=== PATIENT | female | born 1990 | race Caucasian/White ===

== ENCOUNTER → 2016-06-10 | Outpatient (CLI) | payer OTHER ==
[~2016-06-10] MED LIST: AMOX500C3 PO; ETONMIS VAGRING; GDN60 PO; HYDR-3983 PO; LTHSR/300 PO; NALT50TA5 PO; OXYC1TAB3 PO; PENI500T2 PO; VENL75CA PO; ZIPR1CAP4 PO
[2016-06-10 09:42] LABS: BASO % 0.3 %; BASO ABS # 0.03 K/uL (0-0.2); COMPLETE YES; EOS % 1.3 %; HEMATOCRIT 46.9 % (37-47); IG% 0.6 %; LYMPH % 29.5 %; LYMPH ABS # 2.99 K/uL (1.2-3.4); MEAN CELL VOLUME 87.2 fL (80-100); MEAN CORPUSCULAR HEMOGLOBIN 30.5 pg (25-34); MEAN PLATELET VOLUME 10.3 fL (7.4-10.4); MONO % 6.5 %; NEUT % 61.8 %; PLATELET COUNT 242 K/uL (130-400); RED BLOOD COUNT 5.38 M/uL (4.2-5.4); WHITE BLOOD COUNT 10.15 K/uL (4.8-10.8)
[2016-06-10 10:02] LABS: ALT/SGPT 39 U/L (12-78); BLOOD UREA NITROGEN 10 mg/dl (7-18); BUN/CREATININE RATIO 13.3 (10-20); CALCIUM 8.7 mg/dl (8.5-10.1); CARBON DIOXIDE 24 mmol/L (21-32); CHLORIDE 109 mmol/L (98-107); CHOLESTEROL 234 mg/dl (0-200); CREATININE 0.72 mg/dl (0.60-1.20); GLUCOSE 88 mg/dl (70-99); POTASSIUM 4.4 mmol/L (3.5-5.1); SODIUM 141 mmol/L (136-145); TRIGLYCERIDES 276 mg/dl (0-150); VERY LOW DENSITY LIPOPROT CALC 55 mg/dl
[2016-06-10 10:11] LABS: ALB/GLOB RATIO 1.1 (0.9-2); ALKALINE PHOSPHATASE 80 U/L (45-117); AST/SGOT 17 U/L (15-37); CHOLESTEROL/HDL RATIO 5.6; HDL CHOLESTEROL 42 mg/dl; LDL CHOLESTEROL CALCULATED 137 mg/dl
[2016-06-10 10:21] LABS: ESTIMATED AVERAGE GLUCOSE 103 mg/dl; HA1C FLAG Normal (Normal)
== END | disposition home or self-care (01) ==
LOC: C.LAB1850 07:43
PROVIDERS: ATTEND Urology
DX: Z79.899 Other long term (current) drug therapy (principal)

== ENCOUNTER → 2016-07-19 | Outpatient (CLI) | payer OTHER ==
[2016-07-19 11:05] LABS: THYROID STIMULATING HORMONE 1.34 uIu/ml (0.300-4.500)
== END | disposition home or self-care (01) ==
LOC: C.LAB1850 08:55
PROVIDERS: ATTEND Physician Assistant
DX: Z79.899 Other long term (current) drug therapy (principal)

== ENCOUNTER → 2016-10-06 | Outpatient (CLI) | payer OTHER ==
[~2016-10-06] MED LIST changes: -LTHSR/300 PO
[2016-10-10 12:10] LABS: CHLAMYDIA TRACH RNA*** NOT DETECTED (NOT DETECTED); GC (NEIS GONORRHOEAE)RNA** NOT DETECTED (NOT DETECTED)
== END | disposition home or self-care (01) ==
LOC: C.LABSPEC 15:50
PROVIDERS: ATTEND Physician Assistant
DX: Z11.3 Encounter for screening for infections with a predominantly sexual mode of transmission (principal)

== ENCOUNTER → 2016-10-06 | Outpatient (CLI) | payer OTHER | END | disposition home or self-care (01) | LOC: C.PAPS 08:29 | PROVIDERS: ATTEND Physician Assistant | DX: Z12.4 Encounter for screening for malignant neoplasm of cervix (principal) ==

== ENCOUNTER 2016-10-09 12:04 | Emergency (ER) | payer OTHER ==
[~2016-10-09] VITALS: Ht 160 cm; Wt 93.6 kg
[~2016-10-09 12:04] MED LIST changes: -AMOX500C3 PO; -ETONMIS VAGRING; -GDN60 PO; -HYDR-3983 PO; -OXYC1TAB3 PO; -PENI500T2 PO
[2016-10-09 12:09] VITALS: Ht 160 cm; Wt 93.6 kg
[2016-10-09] MEDS ORDERED: PENI500T2 PO (12:21)
[2016-10-09] MEDS ORDERED: ETONMIS VAGRING (12:21)
[2016-10-09] MEDS ORDERED: HYDR-3983 PO (12:21)
[2016-10-09] MEDS ORDERED: OXYC1TAB3 PO (13:19)
[2016-10-09 13:46] VITALS: BP 143/90; PULSE 84; TEMP 37.2; O2SAT 99
--- NOTE | 2016-10-09 15:05 | EMERGENCY ROOM VISIT NOTE ---
History First contact with patient: 13:03 Chief Complaint: DENTAL PAIN Stated Complaint: EXCRUCIATING PAIN IN MOUTH Nursing Triage Summary: Pt c/o dental pain, had 3 teeth pulled on Monday. "they gave me [place] and it's not even touching it, I can't eat, I can't sleep" Denies calling , states she's been working so hasn't called . History of Present Illness The patient is a 26 year old female who presents to the Emergency Room with complaints of persistent upper dental pain. The patient reports that she had 3 teeth extracted on Monday by Dr. Mccormick in [place]. The patient reports that she was provided a prescription for [place] and penicillin, but is still having significant pain. She has been taking two [place] at a time without relief. She has not contacted her oral surgeon's office to advise them of her continued and persistent pain. She denies any drainage or foul taste in the mouth. She denies any fevers or chills, difficulty swallowing or persistent facial numbness. She rates her discomfort a 9 out of 10. Review of Systems 10 system review was performed and was negative except for pertinent positives and negatives as indicated in history of present illness Past Medical/Surgical History Medical Problems: (1) Acute bronchitis (2) Asthma (3) Homicidal ideation (4) Pneumonia (5) Ulcer Family History Diabetes mellitus FH: hypertension Heart disease Seizures Social History Smoking Status: Current Every Day Smoker Alcohol Use: occasionally Marital Status: single Housing Status: lives with family Occupation Status: employed Current/Historical Medications Scheduled Etonogestrel/Ethinyl Estradiol (Nuvaring), 1 EA VAGRING MONTHLY Naltrexone Hcl (Naltrexone Hcl), 50 MG PO QPM Penicillin V Potassium (Veetids), 500 MG PO QID Venlafaxine Hcl (Effexor Xr), 1 CAP PO QPM Ziprasidone Hcl (Geodon), 40 MG PO AMPM Scheduled PRN Hydrocodone/Acetaminophen 7.5MG/325MG ([place] 7.5MG/325MG), 1 TAB PO Q6-8H PRN for Pain Oxycodone Ir (Roxicodone Ir), 1-2 TAB PO Q4H PRN for Pain Allergies Coded Allergies: Adhesives (Verified Allergy, Mild, RASH, 12/05/15) Physical Exam Vital Signs Date Time Temp Pulse Resp B/P (MAP) Pulse Ox O2 Delivery O2 Flow Rate FiO2 10/09/16 13:46 37.2 84 18 143/90 99 10/09/16 12:09 37.2 102 18 142/95 98 Room Air Physical Exam CONSTITUTIONAL: Healthy and well nourished. Alert and oriented X 3 with positive affect. Patient does not appear in any acute distress. HEENT: Normocephalic, atraumatic. Pupils equal, round and reactive. No facial edema or erythema noted. OROPHARYNX: Patient has 3 separate extraction sites of the maxillary region. There is no focal gingival erythema, fluctuance, pointing or drainage from the extraction sites. No evidence for Benton's angina or retropharyngeal abscess. LYMPHATICS: No preauricular, submandibular or submental adenopathy. NECK: Full active range of motion without discomfort. RESPIRATORY: Clear to auscultation bilaterally with no wheezing, crackles, rhonchi or stridor. CARDIOVASCULAR: Regular rate and rhythm with no murmurs, rubs or gallops. INTEGUMENTARY: No rash or other significant dermatologic conditions noted. NEUROLOGIC: Facial sensations are intact. Medical Decision & Procedures ED Course Patient history and physical exam were performed. Nurse's notes were reviewed. Vital signs were reviewed, showing an elevated blood pressure 142/75. The patient is afebrile. Physical exam at this time is not suggestive of overwhelming infection. Patient requested a prescription for some stronger pain medication. Review of the [place] Prescription Drug Monitoring Program shows that the patient was prescribed [place] 7.5/325. The patient reports that she only has a few pills left. The patient was advised that I would provide her with a prescription for OxyIR 5 mg, dispensed #15 with no refills. She was also encouraged to alternate ibuprofen and Tylenol for baseline pain relief. The patient was advised that she MUST contact her oral surgeon's office for further reevaluation and management. The patient was advised that the emergency department does not provide on-call dentist, referrals or postoperative/chronic pain management. She is welcome to return for any developing infection, difficulty swallowing, facial edema or other concerning symptoms. The patient voiced understanding of all discharge instructions, was happy with plan of care, and rated her pain an 8 out of 10 at the time of discharge. The patient drove to the emergency department and refused any analgesics. The patient was also advised of her elevated blood pressure, and instructed to follow-up with her PCP for further blood pressure recheck. After the patient was discharged and she arrived at the pharmacy, I received a phone call from the pharmacist, stating that the patient is currently taking naltrexone. It is noted that this medication is not listed on the [place] Prescription Drug Monitoring Program. Medication reconciliation had not been performed prior to my patient evaluation. I did asked the pharmacist to tell the patient not to take naltrexone while she is taking her pain medications, and should also discuss this with her pain management prescriber and oral surgeon. Medical Decision [place] Drug Monitoring Program Search Results: patient reviewed within database, no issues identified Impression Primary Impression: Post extraction dental pain Additional Impression: Elevated blood pressure reading Departure Information Prescriptions Oxycodone Ir (Roxicodone Ir) 5 Mg Tab 1-2 TAB PO Q4H Y for Pain, #15 TAB For Initial Treatment Prov: Sam Yu PA 10/09/16 Referrals No Doctor, Assigned (PCP) Patient Instructions My [facility] Problem Qualifiers
== END 2016-10-09 13:47 | disposition home or self-care (01) ==
LOC: C.EDB 12:05 → C.EDD 13:47
DX: K08.89 Other specified disorders of teeth and supporting structures (principal); R03.0 Elevated blood-pressure reading, without diagnosis of hypertension; J45.909 Unspecified asthma, uncomplicated; F17.200 Nicotine dependence, unspecified, uncomplicated; Z79.899 Other long term (current) drug therapy; Z91.09 Other allergy status, other than to drugs and biological substances; Z83.3 Family history of diabetes mellitus; Z82.49 Family history of ischemic heart disease and other diseases of the circulatory system; Z82.0 Family history of epilepsy and other diseases of the nervous system

== ENCOUNTER 2016-10-10 11:41 | Emergency (ER) | payer OTHER ==
[~2016-10-10] VITALS: Ht 160 cm; Wt 93.0 kg
[~2016-10-10 11:41] MED LIST changes: +ETONMIS VAGRING; +HYDR-3983 PO; +OXYC1TAB3 PO; +PENI500T2 PO
[2016-10-10 11:44] VITALS: TEMP 37.3; Ht 160 cm; Wt 93.0 kg
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
--- NOTE | 2016-10-10 13:53 | DIAGNOSTIC IMAGING REPORT ---
LEFT ELBOW 3 VIEWS CLINICAL HISTORY: Left elbow pain. FINDINGS: 3 views of the left elbow were obtained. No prior studies are available for comparison at the time of dictation. The skeletal structures are well mineralized. There is no radiographic evidence of left elbow fracture. The joint spaces are well-maintained. No joint effusion is identified. Mild soft tissue edema is seen medially. IMPRESSION: Mild soft tissue edema with no radiographic evidence of left elbow fracture. Electronically signed by: Pola Emerson M.D. 10/10/2016 1:51 PM Dictated Date/Time: 10/10/2016 1:50 PM
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
[2016-10-10 14:23] VITALS: BP 124/75; PULSE 72; O2SAT 99
== END 2016-10-10 14:26 | disposition home or self-care (01) ==
LOC: EDBD 11:41 → C.EDA 11:42
DX: S00.93XA Contusion of unspecified part of head, initial encounter (principal); S50.312A Abrasion of left elbow, initial encounter; V48.5XXA Car driver injured in noncollision transport accident in traffic accident, initial encounter; Y92.488 Other paved roadways as the place of occurrence of the external cause; J45.909 Unspecified asthma, uncomplicated; Z87.01 Personal history of pneumonia (recurrent); Z83.3 Family history of diabetes mellitus; Z82.49 Family history of ischemic heart disease and other diseases of the circulatory system; F17.210 Nicotine dependence, cigarettes, uncomplicated; Z79.899 Other long term (current) drug therapy

== ENCOUNTER 2016-10-15 07:36 | Emergency (ER) | payer OTHER ==
[~2016-10-15] VITALS: Ht 160 cm; Wt 93.2 kg
[2016-10-15 07:39] VITALS: TEMP 37; Ht 160 cm; Wt 93.2 kg
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
[2016-10-15 08:17] LABS: MEAN CORPUSCULAR HEMOGLOBIN 29.8 pg (25-34); MEAN CORPUSCULAR HGB CONC 34.7 g/dl (32-36); MEAN PLATELET VOLUME 9.7 fL (7.4-10.4); PLATELET COUNT 232 K/uL (130-400); RED BLOOD COUNT 5.23 M/uL (4.2-5.4); WHITE BLOOD COUNT 11.74 K/uL (4.8-10.8)
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
[2016-10-15 08:33] LABS: BUN/CREATININE RATIO 9.9 (10-20); CALCIUM 8.9 mg/dl (8.5-10.1); CREATININE 0.8 mg/dl (0.60-1.20); POTASSIUM 4.4 mmol/L (3.5-5.1)
[2016-10-15] MEDS ORDERED: AMOX500C3 PO (08:39)
[2016-10-15 09:30] VITALS: BP 123/91; PULSE 86; O2SAT 98
== END 2016-10-15 09:31 | disposition home or self-care (01) ==
LOC: C.EDB 07:37 → C.EDA 09:31
DX: F07.81 Postconcussional syndrome (principal); V89.2XXD Person injured in unspecified motor-vehicle accident, traffic, subsequent encounter; J45.909 Unspecified asthma, uncomplicated; Z87.01 Personal history of pneumonia (recurrent); Z83.3 Family history of diabetes mellitus; Z82.49 Family history of ischemic heart disease and other diseases of the circulatory system; Z82.0 Family history of epilepsy and other diseases of the nervous system; F17.210 Nicotine dependence, cigarettes, uncomplicated; Z79.899 Other long term (current) drug therapy

== ENCOUNTER 2016-10-26 08:27 | Emergency (ER) | payer OTHER ==
[~2016-10-26] VITALS: Ht 160 cm; Wt 92.5 kg
[~2016-10-26 08:27] MED LIST changes: +AMOX500C3 PO; -PENI500T2 PO
[2016-10-26 08:30] VITALS: TEMP 36.8; Ht 160 cm; Wt 92.5 kg
[2016-10-26] MEDS ORDERED: KETOROLAC TROMETHAMINE 60 MG/2 ML VIAL IM STA (08:57)
[2016-10-26] MEDS ORDERED: ONDANSETRON 4MG OD TAB PO ONE (09:00)
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
[2016-10-26 09:29] VITALS: BP 112/84; PULSE 83; O2SAT 97
== END 2016-10-26 09:38 | disposition home or self-care (01) ==
LOC: C.EDB 08:29
DX: R51 Headache (principal); V89.2XXD Person injured in unspecified motor-vehicle accident, traffic, subsequent encounter; J45.909 Unspecified asthma, uncomplicated; Z87.01 Personal history of pneumonia (recurrent); Z83.3 Family history of diabetes mellitus; Z82.49 Family history of ischemic heart disease and other diseases of the circulatory system; Z82.0 Family history of epilepsy and other diseases of the nervous system; F17.210 Nicotine dependence, cigarettes, uncomplicated; Z79.899 Other long term (current) drug therapy; Z79.3 Long term (current) use of hormonal contraceptives

== ENCOUNTER → 2016-12-08 | Outpatient (CLI) | payer OTHER ==
[~2016-12-08] MED LIST changes: +GDN60 PO
== END | disposition home or self-care (01) ==
LOC: C.LAB1850 12:56
PROVIDERS: ATTEND Physician Assistant
DX: Z79.899 Other long term (current) drug therapy (principal)

== ENCOUNTER 2016-12-24 08:26 | Emergency (ER) | payer OTHER ==
[~2016-12-24] VITALS: Ht 160 cm; Wt 94.5 kg
[~2016-12-24 08:26] MED LIST changes: -GDN60 PO
[2016-12-24 08:33] VITALS: TEMP 36.8; Ht 160 cm; Wt 94.5 kg
--- NOTE | 2016-12-24 09:16 | DIAGNOSTIC IMAGING REPORT ---
RIGHT ANKLE MIN 3 VIEWS ROUTINE HISTORY: 26 years-old Female right ankle injury Right acute right ankle pain status post sprain. COMPARISON: None available TECHNIQUE: 3 views of the right ankle. FINDINGS: No acute dislocation or significant degenerative changes. Ill-defined linear lucency of the distal fibular metaphysis seen on the oblique projection is noted. No osteochondral defect. There is moderate soft tissue swelling about the ankle with a small joint effusion. Negative for opaque foreign body. Os trigonum noted. IMPRESSION: 1. Ill-defined linear lucency of the distal fibular metaphysis seen only on the oblique projection is suspicious for acute nondisplaced fracture. Correlate with point tenderness and follow-up radiographs. 2. Moderate soft tissue swelling with small joint effusion. The above report was generated using voice recognition software. It may contain grammatical, syntax or spelling errors. Electronically signed by: Darryl Sharma M.D. 12/24/2016 9:14 AM Dictated Date/Time: 12/24/2016 9:11 AM
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
[2016-12-24 10:25] VITALS: BP 125/76; PULSE 77; O2SAT 99
== END 2016-12-24 10:27 | disposition home or self-care (01) ==
LOC: C.EDB 08:28 → C.EDA 10:27
DX: S82.831A Other fracture of upper and lower end of right fibula, initial encounter for closed fracture (principal); W10.9XXA Fall (on) (from) unspecified stairs and steps, initial encounter; X50.1XXA Overexertion from prolonged static or awkward postures, initial encounter

== ENCOUNTER 2017-01-21 22:29 | Emergency (ER) | payer OTHER ==
[~2017-01-21] VITALS: Ht 160 cm; Wt 89.6 kg
[~2017-01-21 22:29] MED LIST changes: -AMOX500C3 PO; -HYDR-3983 PO; -OXYC1TAB3 PO
[2017-01-21 22:32] VITALS: TEMP 37; Ht 160 cm; Wt 89.6 kg
[2017-01-21] MEDS ORDERED: GDN60 PO (22:50)
[2017-01-21 23:38] LABS: URINE APPEARANCE CLEAR (CLEAR); URINE BILIRUBIN NEG (NEG); URINE COLOR YELLOW; URINE EPITHELIAL CELL AUTO >30 /lpf (0-5); URINE NITRITE NEG (NEG); URINE PH 7.5 (4.5-7.5); URINE SPECIFIC GRAVITY 1.016 (1.000-1.030); UROBILINOGEN NEG (NEG)
[2017-01-21 23:47] LABS: MANUAL MICROSCOPIC REQUIRED? NO; REVIEW REQ? NO
[2017-01-22] MEDS ORDERED: ACETAMINOPHEN 325 MG TAB PO STA (00:09)
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
[2017-01-22 00:25] VITALS: BP 121/71; PULSE 81; O2SAT 98
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
== END 2017-01-22 00:27 | disposition home or self-care (01) ==
LOC: C.EDB 22:30 → C.EDC 01-22 00:27
DX: M54.9 Dorsalgia, unspecified (principal); S20.219A Contusion of unspecified front wall of thorax, initial encounter; R51 Headache; F31.9 Bipolar disorder, unspecified; J45.909 Unspecified asthma, uncomplicated; Z79.899 Other long term (current) drug therapy; Z87.01 Personal history of pneumonia (recurrent); Z87.09 Personal history of other diseases of the respiratory system; Z87.19 Personal history of other diseases of the digestive system; Z82.0 Family history of epilepsy and other diseases of the nervous system; Z82.49 Family history of ischemic heart disease and other diseases of the circulatory system; Z83.3 Family history of diabetes mellitus; Y04.0XXA Assault by unarmed brawl or fight, initial encounter; F17.200 Nicotine dependence, unspecified, uncomplicated

== ENCOUNTER 2017-05-01 00:24 | Emergency (ER) | payer OTHER ==
[~2017-05-01] VITALS: Ht 160 cm; Wt 86.3 kg
[~2017-05-01 00:24] MED LIST changes: +GDN60 PO; -ZIPR1CAP4 PO
[2017-05-01 00:29] VITALS: TEMP 36.8; Ht 160 cm; Wt 86.3 kg
[2017-05-01] MEDS ORDERED: LIDOCAINE HCL 2% VISC SOLN 20 ML UDC MT STA (00:40)
[2017-05-01] MEDS ORDERED: ALBUT/IPRATROP 3MG/0.5MG NEB 3 ML VIAL INH STA (00:40)
[2017-05-01] MEDS ORDERED: DEXAMETHASONE **PF** INJ 10 MG/ML VIAL PO ONE (00:45)
[2017-05-01] MEDS ORDERED: ALBUTEROL HFA 8 GM INHALER INH STA (01:05)
--- NOTE | 2017-05-01 01:29 | EMERGENCY ROOM VISIT NOTE ---
History First contact with patient: 00:30 Chief Complaint: FLU LIKE SX Stated Complaint: COLD SYMPTOMS,TROUBLE BREATHING,VOMOITING,DIARRHEA History of Present Illness The patient is a 27 year old female who presents to the Emergency Room with complaints of cough, congestion, sore throat, hoarseness for the past 2 weeks ago and continues to smoke. Patient had occasional vomiting and diarrhea. She works at [employer]. She was sent home and she lost her voice. Patient saw the family care DrTheo 2 weeks ago and was placed on Augmentin for possible ear infection. No improvement of her symptoms. Patient denies chest pain, dyspnea , abdominal pain, neck stiffness. She is tolerating by mouth fluids and food. No blood or black in the stool or emesis. Review of Systems See HPI for pertinent positives & negatives. A total of 10 systems reviewed and were otherwise negative. Past Medical/Surgical History Medical Problems: (1) Acute bronchitis (2) Asthma (3) Homicidal ideation (4) Pneumonia (5) Ulcer Family History Diabetes mellitus FH: hypertension Heart disease Seizures Social History Smoking Status: Current Every Day Smoker Alcohol Use: occasionally Marital Status: single Housing Status: lives with family Occupation Status: employed Current/Historical Medications Scheduled Etonogestrel/Ethinyl Estradiol (Nuvaring), 1 EA VAGRING MONTHLY Naltrexone Hcl (Naltrexone Hcl), 50 MG PO QPM Venlafaxine Hcl (Effexor Xr), 75 MG PO QPM Ziprasidone (Geodon), 60 MG PO DAILY Physical Exam Vital Signs Date Time Temp Pulse Resp B/P (MAP) Pulse Ox O2 Delivery O2 Flow Rate FiO2 05/01/17 00:29 36.8 87 18 127/83 100 Room Air Physical Exam VITALS: Vitals are noted on the nurse's note and reviewed by myself. Vital signs stable. GENERAL: Pleasant female speaking in full sentences, in no acute distress, nondiaphoretic, well-developed well-nourished. SKIN: The skin was without rashes, erythema, edema, or bruising. There is no tenting of the skin. Capillary reflex less than 2 seconds. HEAD: Normocephalic atraumatic. EARS: External auditory canals clear, tympanic membranes pearly miller without erythema or effusion bilaterally. EYES: Pupils equal round and reactive to light and accommodation. Conjunctivae without injection, sclerae without icterus. Extraocular movements intact. NOSE: Patent, turbinates without inflammation or discharge. No sinus tenderness. MOUTH: Mucous membranes moist. Tonsils are not enlarged. Pharynx with erythema without exudate. Uvula midline. Airway patent. Tongue does not deviate. NECK: Supple without nuchal rigidity. No lymphadenopathy. No thyromegaly. Cervical spine is nontender. No JVD. No meningeal signs HEART: Regular rate and rhythm without murmurs gallops or rubs. LUNGS: Clear to auscultation bilaterally without wheezes, rales or rhonchi. No dullness to percussion. No retractions or accessory muscle use. ABDOMEN: Positive bowel sounds x 4. Normal tympanic percussion. Soft, nontender, without masses or organomegaly. Ingram sign negative. No guarding or rebound tenderness. No CVA tenderness MUSCULOSKELETAL: No muscle atrophy, erythema, or edema noted. NEURO: Patient was alert and oriented to person place and time. Normal sensation to light and sharp touch. No focal neurological deficits. Medical Decision & Procedures Laboratory Results Test 05/01/17 01:00 Medications Administered Medications (Trade) Dose Ordered Sig/Aditya Route Start Time Stop Time Status Last Admin Dose Admin Dexamethasone Sodium Phosphate (Dexamethasone Inj Pf) 10 mg NOW ONCE PO 05/01/17 00:45 05/01/17 00:46 DC 05/01/17 01:04 10 MG Albuterol/ Ipratropium (Duoneb) 3 ml NOW STAT INH 05/01/17 00:40 05/01/17 00:43 DC 05/01/17 01:03 3 ML Lidocaine HCl (Viscous Lidocaine 2% Soln) 10 ml NOW STAT MT 05/01/17 00:40 05/01/17 00:43 DC 05/01/17 01:03 10 ML ED Course Prior records/ancillary studies reviewed. Triage Nursing notes reviewed. Additional history obtained from boyfriend. The patient's history was concerning for a cold symptoms Differential diagnosis: Etiologies such as asthmatic bronchitis, viral syndrome, tonsillitis, streptococcal pharyngitis, mononucleosis, peritonsillar abscess, retropharyngeal abscess, otitis, pneumonia, influenza, as well as others were entertained. ER treatment provided: Steroids, nebulizer On reassessment the patient felt better. Diagnostics interpreted by me: The labs revealed Negative strep test Imaging studies: Chest x-ray with no acute consolidation, pneumothorax or free air per my interpretation This appears to be consistent with asthmatic bronchitis. Patient was neurovascularly and neurologically intact. She is speaking in full sentences. She was not retracting. She is not hypoxic. She was strongly encouraged to quit smoking. She is advised to take medications as instructed, rest, stay well -hydrated and to follow-up family care in a few days or here in the ER sooner for chest pain, difficulty breathing, high fevers, lethargy, worsening signs or symptoms or as needed. By the evaluation outlined above emergent etiologies such as peritonsillar abscess, retropharyngeal abscess, otitis, pneumonia, meningitis, urinary tract infection, sepsis, bacteremia, as well as others were deemed relatively unlikely. The pt informed about the findings as listed above. All questions were answered and pleased with the treatment. Return instructions were outlined and the patient was discharged in stable condition. Outpatient prescription management: Prednisone Referral: The patient was referred back to their primary care physician for follow-up in 2 to 3 days for a recheck of the current condition. Case reviewed by attending Medical Decision As above Medication Reconcilliation Current Medication List: was personally reviewed by me Blood Pressure Screening Patient's blood pressure: Normal blood pressure Impression Primary Impression: Asthmatic bronchitis Departure Information Dispostion Home / Self-Care Condition GOOD Referrals No Doctor, Assigned (PCP) Patient Instructions My [facility] Additional Instructions Albuterol Inhaler: Take 2 puffs four times daily for five days, then as needed. Prednisone 50mg: Once daily until the prescription is finished. It is best to take this earlier in the day as some patients note occasional difficulty falling asleep when taken in the late evening. Acetaminophen(Tylenol) may be used for fever or pain. Use 1000mg every six hours as needed. Avoid using more than 3000mg in a 24 hour period. (AND/OR) Ibuprofen(Motrin, Advil) may be used for fever or pain. Use 600mg every six hours as needed. Take with food. Avoid using more than 2400mg in a 24 hour period. Do not use 2400mg per day for more than three consecutive days without physician direction. Prolonged inappropriate use can lead to stomach upset or ulcers. Afrin nasal spray: 2-3 sprays to each nostril twice daily as needed for congestion. Do not use for more than 3-4 days because it can lead to worsening rebound congestion. Pseudoephedrine(Sudaphed): 30-60mg every 6 hours as needed for nasal congestion. Do not take this with other stimulant products or supplements. Rest and drink plenty of fluids. Controlling your fever with Tylenol and Ibuprofen as above will make you feel better. Wash your hands after nose blowing, sneezing, or coughing. Most germs are spread through contact, therefore improper hygiene may result in your close contacts and loved ones becoming ill just like you. Continue current medications. Return to the ER for severe headache, neck stiffness, chest pain, difficulty breathing, fevers, vomiting, worsening of your condition, or as needed. Follow up with your primary physician this week for a recheck of your current condition. Problem Qualifiers Primary Impression: Asthmatic bronchitis Asthma severity: moderate Asthma persistence: persistent Asthma complication type: with acute exacerbation Qualified Codes: J45.41 - Moderate persistent asthma with (acute) exacerbation
[2017-05-01] MEDS ORDERED: PRED50TA PO (01:30)
[2017-05-01] MEDS ORDERED: ZIPR20CA PO (01:33)
[2017-05-01 01:40] LABS: INFLUENZA B ANTIGEN Neg for Influ B (NEG)
[2017-05-01 01:41] VITALS: BP 118/78; PULSE 80; O2SAT 100
[2017-05-01 02:12] LABS: INFLUENZA A PCR Neg for Influ A (NEG); INFLUENZA B PCR Neg for Influ B (NEG)
--- NOTE | 2017-05-01 06:29 | DIAGNOSTIC IMAGING REPORT ---
CHEST 2 VIEWS ROUTINE CLINICAL HISTORY: cough/fever COMPARISON STUDY: 01/01/2016 FINDINGS: The cardiac and mediastinal contours are normal. There is no evidence of focal pulmonary consolidation. There is no evidence of failure. No pleural effusions are visualized.[ IMPRESSION: No active disease in the chest. Electronically signed by: Bud Moody M.D. 05/01/2017 6:28 AM Dictated Date/Time: 05/01/2017 6:28 AM
== END 2017-05-01 01:43 | disposition home or self-care (01) ==
LOC: C.EDB 00:25
DX: J45.41 Moderate persistent asthma with (acute) exacerbation (principal); R19.7 Diarrhea, unspecified; F17.200 Nicotine dependence, unspecified, uncomplicated; Z87.01 Personal history of pneumonia (recurrent); Z83.3 Family history of diabetes mellitus; Z82.0 Family history of epilepsy and other diseases of the nervous system; Z82.49 Family history of ischemic heart disease and other diseases of the circulatory system

== ENCOUNTER 2017-05-16 17:18 | Emergency (ER) | payer OTHER ==
[~2017-05-16] VITALS: Ht 160 cm; Wt 87.1 kg
[~2017-05-16 17:18] MED LIST changes: -GDN60 PO; +ZIPR20CA PO
[2017-05-16 17:30] VITALS: TEMP 37; Ht 160 cm; Wt 87.1 kg
[2017-05-16] MEDS ORDERED: KETOROLAC TROMETHAMINE 60 MG/2 ML VIAL IM STA (17:48)
[2017-05-16] MEDS ORDERED: ONDANSETRON 4MG OD TAB PO ONE (18:00)
[2017-05-16] MEDS ORDERED: TOPI50TA16 PO (18:07)
[2017-05-16] MEDS ORDERED: IMITREX PO (18:07)
[2017-05-16 18:21] VITALS: BP 128/91; PULSE 89; O2SAT 96
--- NOTE | 2017-05-17 20:32 | EMERGENCY ROOM VISIT NOTE ---
ED Visit Note First contact with patient: 17:35 CHIEF COMPLAINT: Migraine headache. HISTORY OF PRESENT ILLNESS: Ms. Colin is a 27 year-old white female who ambulates into the ED complaining of a migraine headache. She reports a gradual onset of a severe migraine headache that started approximately 36 hours ago. The pain is constant and it is slowly increasing in severity. This is not the worst headache of the life and is similar to previous migraines. Currently she describes the headache as a pressure throbbing sensation/pain in the bifrontal area. She rates the pain a 10/10. The pain is nonradiating. She reports taking her prescribed Imitrex and Topamax without relief of pain. There is been associated light sensitivity, nausea but no vomiting and mild blurry vision. She denies fever, chills, wet's, skin eruptions, skin color changes, dizziness, lightheadedness, recent head trauma, upper respiratory tract symptoms, sore throat, neck pain/stiffness, hearing changes, difficulty speaking, difficulty swallowing, difficulty ambulating, lower extremity weakness /numbness/tingling. Late note patient does report 3 days ago when she was getting up to go to bed she had difficulty walking and reports her boyfriend had to carry her to bed. When she woke in the morning the symptoms that resolved. REVIEW OF SYSTEMS: As noted above in History of Present Illness; all systems reviewed with the patient and found to be negative unless noted above otherwise. PAST MEDICAL HISTORY: As previously noted, asthma, bronchitis and unspecified oral surgery. CURRENT MEDICATIONS: Effexor, Detrol and, Topamax, Imitrex and Naltrexone. ALLERGIES TO MEDICATIONS: Adhesive tape. SOCIAL HISTORY: Patient is not employed; she lives with her boyfriend and son and feels safe in her home environment; she admits smoking 1 pack of cigarettes per day; she denies alcohol use. PHYSICAL EXAM: Vital Signs: Date Time Temp Pulse Resp B/P (MAP) Pulse Ox O2 Delivery O2 Flow Rate FiO2 05/16/17 18:21 89 18 128/91 96 05/16/17 17:30 37.0 102 20 132/88 95 Room Air GENERAL: 27 year-old white female in [id number] distress due to pain, afebrile and hemodynamically stable. NEUROLOGIC: Awake, alert and oriented to person place and time. Answering questions appropriately and following commands. Cranial nerves II-XII grossly intact. Good short-term and long-term recall. Good hand eye coordination. No focal neurologic deficits noted. SKIN: Warm, dry and pink. No rashes, lesions or soft tissue trauma noted. HEENT: Normocephalic, atraumatic. PERRLA. EOMI without nystagmus. Endoscopic examination was deferred to light sensitivity. Sclera anicteric and conjunctiva pink without drainage. No tenderness or erythema over the frontal or maxillary sinuses. External ears are nontender. Auditory canals are pink and patent. Tympanic membranes are not erythematous or edematous. NECK: Soft and supple. No tenderness through the central cervical region or cervical musculature. Meningismus. Full range of motion of the cervical spine. No lymphadenopathy, jugular venous distention, or bruits noted. THORAX: Lungs clear to auscultation and equal bilaterally with no wheezing, crackles, rhonchi or stridor and equal chest wall movements. HEART: Regular rate and rhythm with no murmurs, rubs or gallops. ABDOMEN: Soft and nontender with bowel sounds present in all quadrants; no rigidity, rebound tenderness, organomegaly or guarding. MUSCULOSKELETAL: Full range of motion of all joints without any significant discomfort and the gait is normal. ED COURSE: Patient is assessed with history and physical examination. Patient's medication list was reviewed. Patient was given 60 mg of Toradol IV and 4 mg of Zofran ODT; I did recommend IV fluids and possible blood testing and she refused. Should be noted that patient was offered hydration and other medications but refused. Patient was reassessed. Patient was educated about her condition and instructed on her treatment plan; she verbalized understanding and agreement with this plan. CLINICAL IMPRESSION: Migraine headache. DECISION MAKIN-year-old female who presents for evaluation of headache. She is afebrile, well appearing, and hemodynamically stable. She has no signs of a sinus, dental , or ear infection and no evidence of meningismus. She is neurologically intact. I do not suspect a headache to be secondary to a subarachnoid hemorrhage, meningitis, encephalitis, or intracranial mass lesion. DISPOSITION: Patient was discharged to home in stable condition; prior to discharge she was reassessed and subjectively reported he was feeling better and rated her discomfort 6/10. PLAN: Rest at home, in a quiet darkened room and allow the medication to work for the pain. Continue to follow up current treatment plan prescribed by your physician for your migraine headaches. See your own doctor in follow-up this week for continued care and treatment. Return to the emergency department as needed for worsening/uncontrolled headache , fevers, vomiting, abnormal neurological symptoms or any new/concerning symptoms.
== END 2017-05-16 18:18 | disposition home or self-care (01) ==
LOC: C.EDB 17:19 → C.EDD 18:18
DX: G43.909 Migraine, unspecified, not intractable, without status migrainosus (principal); J45.909 Unspecified asthma, uncomplicated; Z79.899 Other long term (current) drug therapy; F17.210 Nicotine dependence, cigarettes, uncomplicated

== ENCOUNTER 2017-05-24 00:32 | Emergency (ER) | payer OTHER ==
[~2017-05-24] VITALS: Ht 160 cm; Wt 86.2 kg
[~2017-05-24 00:32] MED LIST changes: +IMITREX PO; +TOPI50TA16 PO
[2017-05-24 00:46] VITALS: TEMP 36.9; Ht 160 cm; Wt 86.2 kg
[2017-05-24] MEDS ORDERED: SUMA50TA15 PO (01:14)
[2017-05-24] MEDS ORDERED: TRAZ50TA35 PO (01:14)
[2017-05-24 01:47] VITALS: BP 137/83; PULSE 93; O2SAT 96
--- NOTE | 2017-05-24 07:03 | DIAGNOSTIC IMAGING REPORT ---
L-SPINE MIN 4 VIEWS ROUTINE CLINICAL HISTORY: low back pain. falling. COMPARISON STUDY: No previous studies for comparison. FINDINGS: There is a mild spinal curvature convex to the right. No fractures or subluxations are visualized. The spot lateral view of the lumbosacral junction is limited from a technical standpoint secondary to moderate obliquity. IMPRESSION: No fractures or subluxations identified. Electronically signed by: Bud Moody M.D. 05/24/2017 7:02 AM Dictated Date/Time: 05/24/2017 7:01 AM
--- NOTE | 2017-05-25 04:24 | EMERGENCY ROOM VISIT NOTE ---
History First contact with patient: 00:42 Chief Complaint: FALL Stated Complaint: FALLING,BILATERAL LEG PAIN History of Present Illness The patient is a 27 year old female who presents to the Emergency Room with complaints of low back pain after multiple falls over the past several months. The patient states that every now and then her legs will give out on her, and she will fall to the ground. She does not have history of mental health disease , which she states is stable. The patient has not had fever or chills. She is not followed with her primary care physician for this. She is not taking any medication [id number] for pain. She does not report numbness or paresthesias, but states that she had 5 falls today, and is now complaining of mid low back pain. She rates her current discomfort a 7/10. Review of Systems More than 10 systems were reviewed and otherwise negative with the exception of history of present illness. Past Medical/Surgical History Medical Problems: (1) Acute bronchitis (2) Asthma (3) Homicidal ideation (4) Pneumonia (5) Ulcer Family History Diabetes mellitus FH: hypertension Heart disease Seizures Social History Smoking Status: Never Smoker Alcohol Use: occasionally Marital Status: single Housing Status: lives with family Occupation Status: employed Current/Historical Medications Scheduled Etonogestrel/Ethinyl Estradiol (Nuvaring), 1 EA VAGRING MONTHLY Naltrexone Hcl (Naltrexone Hcl), 50 MG PO QPM Topiramate (Topamax), 50 MG PO HS Trazodone Hcl (Trazodone), 50 MG PO HS Venlafaxine Hcl (Effexor Xr), 75 MG PO QPM Ziprasidone Hcl (Geodon), 20 MG PO DAILY Scheduled PRN Sumatriptan Succinate (Imitrex), 50 MG PO UD PRN for Migraine Physical Exam Vital Signs Date Time Temp Pulse Resp B/P (MAP) Pulse Ox O2 Delivery O2 Flow Rate FiO2 05/24/17 01:47 93 16 137/83 96 05/24/17 00:46 36.9 94 20 126/86 95 Room Air Physical Exam VITALS: Vitals are noted on the nurse's note and reviewed by myself. Vital signs stable. GENERAL: Well-developed, well-nourished, white female, who is in no acute distress and resting comfortably. Patient is cooperative with the examination. NECK: Supple without nuchal rigidity. No lymphadenopathy. No thyromegaly. Cervical spine is nontender. HEART: Regular rate and rhythm without murmurs gallops or rubs. LUNGS: Clear to auscultation bilaterally without wheezes, rales or rhonchi. No retractions or accessory muscle use. ABDOMEN: Positive normal bowel sounds x 4. Soft, nontender, without masses or organomegaly. No guarding or rebound tenderness. BACK: There is mild low back tenderness over the L3 to L5 distribution. No SI joint tenderness. No step-off or significant paravertebral spasm. No tenderness with pelvic rocking. Negative straight leg raise bilateral. No saddle paresthesias. MUSCULOSKELETAL: No muscle atrophy, erythema, or edema noted. Full range of motion without joint tenderness in all extremities. No tenderness to palpation. Normal gait. Strength 5/5 throughout. NEURO: Patient was alert and oriented to person place and time. CN II through XII grossly intact. No focal neurological deficits. Deep tendon reflexes 2+ throughout. SKIN: The skin was without rashes, erythema, edema, or bruising. Capillary refill less than 2 seconds. Medical Decision & Procedures ER Provider Diagnostic Interpretation: L-SPINE MIN 4 VIEWS ROUTINE CLINICAL HISTORY: low back pain. falling. COMPARISON STUDY: No previous studies for comparison. FINDINGS: There is a mild spinal curvature convex to the right. No fractures or subluxations are visualized. The spot lateral view of the lumbosacral junction is limited from a technical standpoint secondary to moderate obliquity. IMPRESSION: No fractures or subluxations identified. ED Course Physical exam and history were performed. Nursing notes, EMR, and Medication List were personally reviewed. Patient appears to have had several falls over the past 6 or 7 months. She states that she had 5 episodes of falling today. She is not describing neurocardiogenic symptoms before or after the falls. Her physical exam is fairly unremarkable, only revealing some mild low back tenderness on palpation. X-ray was performed and does not show significant acute findings. Overall the patient appears well for discharge home. She does not have significant signs of neurologic condition on exam. Her extremities are otherwise unremarkable, and her imaging is essentially normal. The patient will be given a walker to assist with ambulation. She needs to follow with her primary care physician for further management. Her symptoms could be psychogenic in origin, but concern represent a neurologic or medication reaction. She will need appropriate evaluation and referral for her symptoms from the PCP. The patient was otherwise invited back to the ER with any new, worsening, or concerning symptoms. The chart was completed utilizing [employer] Speech Voice Recognition Software. Grammatical errors, random word insertions, pronoun errors, and incomplete sentences are an occasional consequence of this system due to software limitations, ambient noise, and hardware issues. Any formal questions or concerns about the content, text, or information contained within the body of this dictation should be directly addressed to the provider for clarification. . Medical Decision Differential diagnosis: Etiologies such as musculoskeletal, disc herniation, fracture, aortic disease, metastatic disease, cord compression, discitis, infection, renal colic, gastrointestinal, acute exacerbation of chronic back pain, sciatica, cauda equina, as well as others were entertained. Impression Primary Impression: Fall Additional Impression: Low back pain Departure Information Dispostion Home / Self-Care Condition GOOD Forms HOME CARE DOCUMENTATION FORM, IMPORTANT VISIT INFORMATION Patient Instructions My [facility], ED Fall Uncertain Cause, ED Prevention Fall Additional Instructions You were seen and evaluated today on an emergency basis only. This is not a substitute for, or an effort to provide, complete comprehensive medical care. It is not possible to recognize and treat all injuries or illnesses in a single emergency department visit. For this reason it is recommended that you followup with your primary care physician in the next 2-3 days for recheck of your condition. Call in the morning to make an appointment. Use your walker at all times to prevent falling. Take every precaution at home to prevent falling. For baseline pain relief you may alternate ibuprofen and acetaminophen every 4 hours for pain control. Take 600 mg ibuprofen (Advil) and then 4 hours later take 1000 mg acetaminophen (Tylenol). Do not take more than 3000 mg acetaminophen in a single day. You are welcome to return to the emergency department anytime with new, worsening, or concerning symptoms. Problem Qualifiers
== END 2017-05-24 01:47 | disposition home or self-care (01) ==
LOC: C.EDB 00:33
DX: M54.5 Low back pain (principal); W19.XXXA Unspecified fall, initial encounter; Y92.9 Unspecified place or not applicable; J45.909 Unspecified asthma, uncomplicated; Z87.01 Personal history of pneumonia (recurrent); Z83.3 Family history of diabetes mellitus; Z82.49 Family history of ischemic heart disease and other diseases of the circulatory system; Z79.899 Other long term (current) drug therapy

== ENCOUNTER → 2017-05-26 | Outpatient (CLI) | payer OTHER ==
[~2017-05-26] MED LIST changes: -IMITREX PO; +SUMA50TA15 PO; +TRAZ50TA35 PO
== END | disposition home or self-care (01) ==
LOC: C.LABBFT 13:24
PROVIDERS: ATTEND Physician Assistant Medical
DX: J02.9 Acute pharyngitis, unspecified (principal)

== ENCOUNTER 2017-06-08 10:10 | Emergency (ER) | payer OTHER ==
[~2017-06-08] VITALS: Ht 160 cm; Wt 85.9 kg
[2017-06-08 10:37] VITALS: TEMP 36.7; Ht 160 cm; Wt 85.9 kg
[2017-06-08] MEDS ORDERED: KETOROLAC TROMETHAMINE 60 MG/2 ML VIAL IM STA (11:41)
[2017-06-08] MEDS ORDERED: ONDANSETRON 4MG OD TAB PO STA (11:41)
[2017-06-08 11:55] VITALS: BP 110/69; PULSE 78; O2SAT 97
--- NOTE | 2017-06-08 15:44 | EMERGENCY ROOM VISIT NOTE ---
History First contact with patient: 11:01 Chief Complaint: HEADACHE Stated Complaint: MIGRAINE,VOMTING,LIGHT SENSITIVE History of Present Illness The patient is a 27 year old female who presents to the Emergency Room with complaints of a migraine headache with nausea, vomiting and light sensitivity. The patient has a history of migraines. She reports that her migraine is the same, but somewhat worse than it usually is. The patient reports that she usually takes Topamax and Imitrex for her migraines. She forgot to take her Topamax last night, and when she awoke with pain rated a 10 out of 10, she felt that the Imitrex would not likely provide any relief. She elected to come to the emergency department for further evaluation. The patient is currently being managed by her PCP for her migraines. The patient denies any recent head injury, upper respiratory infections, fever or risk of carbon monoxide exposure. The patient rates her discomfort a 10 out of 10. Review of Systems 10 system review was performed and was negative except for pertinent positives and negatives as indicated in history of present illness Past Medical/Surgical History Medical Problems: (1) Acute bronchitis (2) Asthma (3) Homicidal ideation (4) Pneumonia (5) Ulcer Family History Diabetes mellitus FH: hypertension Heart disease Seizures Social History Smoking Status: Current Every Day Smoker Alcohol Use: occasionally Marital Status: single Housing Status: lives with family Occupation Status: employed Current/Historical Medications Scheduled Etonogestrel/Ethinyl Estradiol (Nuvaring), 1 EA VAGRING MONTHLY Naltrexone Hcl (Naltrexone Hcl), 50 MG PO QPM Topiramate (Topamax), 50 MG PO HS Trazodone Hcl (Trazodone), 50 MG PO HS Venlafaxine Hcl (Effexor Xr), 75 MG PO QPM Ziprasidone Hcl (Geodon), 20 MG PO DAILY Scheduled PRN Sumatriptan Succinate (Imitrex), 50 MG PO UD PRN for Migraine Physical Exam Vital Signs Date Time Temp Pulse Resp B/P (MAP) Pulse Ox O2 Delivery O2 Flow Rate FiO2 06/08/17 11:55 78 16 110/69 97 Room Air 06/08/17 10:37 36.7 90 20 133/97 99 Room Air Physical Exam CONSTITUTIONAL: Healthy and well nourished. Alert and oriented X 3 with positive affect. Patient appears in moderate discomfort, and is sleeping under a blanket. HEENT: Normocephalic, atraumatic. Pupils equal, round and reactive. Patient is photophobic, precluding funduscopic exam. NECK: Full active range of motion without discomfort. No nuchal rigidity. No JVD or carotid bruits. RESPIRATORY: Clear to auscultation bilaterally with no wheezing, crackles, rhonchi or stridor. CARDIOVASCULAR: Regular rate and rhythm with no murmurs, rubs or gallops. MUSCULOSKELETAL: Full range of motion of all joints without discomfort. INTEGUMENTARY: No rash or other significant dermatologic conditions noted. NEUROLOGIC: No focal neurologic deficits noted. Normal finger to nose test. Negative pronator drift. No ataxia noted with ambulation. Negative Romberg sign. Medical Decision & Procedures Medications Administered Medications (Trade) Dose Ordered Sig/Aditya Route Start Time Stop Time Status Last Admin Dose Admin Ketorolac Tromethamine (Toradol Inj) 60 mg NOW STAT IM 06/08/17 11:41 06/08/17 11:43 DC 06/08/17 11:52 60 MG Ondansetron HCl (Zofran Odt) 4 mg NOW STAT PO 06/08/17 11:41 06/08/17 11:43 DC 06/08/17 11:51 4 MG ED Course Patient history and physical exam were performed. Nurse's notes were reviewed. Vital signs were reviewed, showing an elevated blood pressure 133/97. The patient is otherwise afebrile. So reviewed prior medical records, showing that the patient has been seen here a few times in the past for migraines. The patient reports that she usually gets a shot of the medication and is then discharged home. Review of prior medical records shows that she usually gets Toradol 60 mg IM, along with Zofran 4 mg ODT. The patient agreed with this treatment, and was administered these medications. The patient was encouraged to follow-up with her PCP as needed for any further migraine management. She was encouraged to rest and remain well-hydrated. She was encouraged to continue with her typical Topamax dosing, and take the Imitrex if her migraine returns. The patient was happy with plan of care, voice understanding of all discharge instructions, and rated her discomfort a 6 out of 10 at the time of discharge. Medical Decision Patient presents to the emergency department with complaint of a migraine headache. At this point, I do not feel that any further imaging studies, laboratory studies or lumbar puncture is warranted. The patient reports that her headache is similar to all prior migraines. Based on history and physical exam findings, I do not suspect intracranial bleed, abscess, meningitis, CVA/TIA , thromboembolic event or carbon monoxide poisoning. [place] Drug Monitoring Program Search Results: patient reviewed within database Medication Reconcilliation Current Medication List: was personally reviewed by me Blood Pressure Screening Patient's blood pressure: Elevated blood pressure Blood pressure disposition: Elevated BP felt to be situational Impression Primary Impression: Migraine Departure Information Dispostion Home / Self-Care Referrals Stefanie Crowder M.D. (PCP) Forms HOME CARE DOCUMENTATION FORM, IMPORTANT VISIT INFORMATION Patient Instructions My [facility] Additional Instructions Rest and remain well-hydrated. Continue with your home medications as prescribed by your family doctor. Follow-up with your family doctor tomorrow as scheduled. Return to the emergency department for progressively worsening pain, developing fever or other concerning symptoms. Problem Qualifiers Primary Impression: Migraine Migraine type: without aura Status migrainosus presence: without status migrainosus Intractability: not intractable Qualified Codes: G43.009 - Migraine without aura, not intractable, without status migrainosus
== END 2017-06-08 12:15 | disposition home or self-care (01) ==
LOC: C.EDB 10:12 → C.EDC 12:15
DX: G43.009 Migraine without aura, not intractable, without status migrainosus (principal); F17.200 Nicotine dependence, unspecified, uncomplicated; Z83.3 Family history of diabetes mellitus; Z82.49 Family history of ischemic heart disease and other diseases of the circulatory system; Z82.0 Family history of epilepsy and other diseases of the nervous system

== ENCOUNTER → 2017-06-14 | Outpatient (CLI) | payer OTHER ==
--- NOTE | 2017-06-14 13:00 | DIAGNOSTIC IMAGING REPORT ---
R HIP UNILATERAL 2 VIEWS CLINICAL HISTORY: Bilateral hip pain. COMPARISON: None FINDINGS: Alignment of right hip is anatomic. There is no fracture or suspicious lesion. There is no evidence for avascular necrosis. Joint spaces are preserved. IMPRESSION: Unremarkable right hip radiographs. Electronically signed by: Zuhair Crowder M.D. 06/14/2017 12:58 PM Dictated Date/Time: 06/14/2017 12:58 PM
--- NOTE | 2017-06-14 13:00 | DIAGNOSTIC IMAGING REPORT ---
L HIP UNILATERAL 2 VIEWS CLINICAL HISTORY: Bilateral hip pain. COMPARISON: None FINDINGS: Alignment of the left hip is anatomic. The joint space is preserved. There is minimal osteophytosis of the left hip. There is no evidence for avascular necrosis. There is no suspicious lesion. IMPRESSION: 1. No fracture. 2. Preserved left hip joint space with minimal osteophytosis. Electronically signed by: Zuhair Crowder M.D. 06/14/2017 12:59 PM Dictated Date/Time: 06/14/2017 12:58 PM
== END | disposition home or self-care (01) ==
LOC: C.RAD1850 12:39
PROVIDERS: ATTEND Internal Medicine
DX: M25.752 Osteophyte, left hip (principal); M25.551 Pain in right hip

== ENCOUNTER → 2017-06-16 | Outpatient (CLI) | payer OTHER | END | disposition home or self-care (01) | LOC: C.LAB1850 16:35 | PROVIDERS: ATTEND Physician Assistant | DX: N91.2 Amenorrhea, unspecified (principal) ==

== ENCOUNTER → 2017-06-27 | Outpatient (CLI) | payer OTHER ==
[2017-06-27 12:23] LABS: BASO % 0.3 %; BASO ABS # 0.03 K/uL (0-0.2); EOS % 1.2 %; EOS ABS # 0.13 K/uL (0-0.5); HEMATOCRIT 44.4 % (37-47); HEMOGLOBIN 15.3 g/dL (12.0-16.0); IG# 0.02 K/uL (0.00-0.02); LYMPH % 34.5 %; LYMPH ABS # 3.75 K/uL (1.2-3.4); MEAN CELL VOLUME 85.7 fL (80-100); MEAN CORPUSCULAR HEMOGLOBIN 29.5 pg (25-34); MEAN CORPUSCULAR HGB CONC 34.5 g/dl (32-36); MEAN PLATELET VOLUME 9.9 fL (7.4-10.4); MONO % 6.2 %; MONO ABS # 0.67 K/uL (0.11-0.59); NEUT % 57.6 %; NEUT ABS # 6.27 K/uL (1.4-6.5); PLATELET COUNT 243 K/uL (130-400); RED CELL DISTRIBUTION WIDTH CV 13.5 % (11.5-14.5); RED CELL DISTRIBUTION WIDTH SD 42.6 fL (36.4-46.3); WHITE BLOOD COUNT 10.87 K/uL (4.8-10.8)
== END | disposition home or self-care (01) ==
LOC: C.LABBFT 10:21
PROVIDERS: ATTEND Internal Medicine
DX: J03.90 Acute tonsillitis, unspecified (principal)

== ENCOUNTER → 2017-07-28 | Outpatient (CLI) | payer OTHER ==
[~2017-07-28] MED LIST changes: +VNTHFA/IN INH
--- NOTE | 2017-07-28 16:17 | DIAGNOSTIC IMAGING REPORT ---
CHEST 2 VIEWS ROUTINE CLINICAL HISTORY: Z01.818 Preoperative [id number] COMPARISON STUDY: 118 FINDINGS: The cardiac and mediastinal contours are normal. There is no evidence of focal pulmonary consolidation. There is no evidence of failure. No pleural effusions are visualized.[ IMPRESSION: No active disease in the chest. Electronically signed by: Bud Moody M.D. 07/28/2017 4:16 PM Dictated Date/Time: 07/28/2017 4:15 PM
[2017-07-28 16:31] LABS: BASO % 0.2 %; BASO ABS # 0.02 K/uL (0-0.2); EOS % 0.6 %; EOS ABS # 0.06 K/uL (0-0.5); HEMATOCRIT 42.4 % (37-47); HEMOGLOBIN 14.7 g/dL (12.0-16.0); IG# 0.02 K/uL (0.00-0.02); LYMPH % 34.7 %; LYMPH ABS # 3.37 K/uL (1.2-3.4); MEAN CELL VOLUME 86.2 fL (80-100); MEAN CORPUSCULAR HEMOGLOBIN 29.9 pg (25-34); MEAN CORPUSCULAR HGB CONC 34.7 g/dl (32-36); MEAN PLATELET VOLUME 9.7 fL (7.4-10.4); MONO % 5.7 %; MONO ABS # 0.55 K/uL (0.11-0.59); NEUT % 58.6 %; NEUT ABS # 5.69 K/uL (1.4-6.5); PLATELET COUNT 251 K/uL (130-400); RED CELL DISTRIBUTION WIDTH CV 13.6 % (11.5-14.5); RED CELL DISTRIBUTION WIDTH SD 42.7 fL (36.4-46.3); WHITE BLOOD COUNT 9.71 K/uL (4.8-10.8)
[2017-07-28 16:40] LABS: PTT PATIENT 27.4 SECONDS (21.0-31.0)
[2017-07-28 17:01] LABS: POTASSIUM 3.3 mmol/L (3.5-5.1)
== END | disposition home or self-care (01) ==
LOC: C.RAD1850 15:26
DX: Z01.818 Encounter for other preprocedural examination (principal)

== ENCOUNTER → 2017-08-02 | Outpatient (CLI) | payer OTHER | END | disposition home or self-care (01) | LOC: C.LAB1850 16:05 | PROVIDERS: ATTEND Physician Assistant | DX: N92.6 Irregular menstruation, unspecified (principal) ==

== ENCOUNTER → 2017-08-04 | Day surgery (SDC) | payer OTHER ==
[2017-07-20 11:39] VITALS: Ht 160 cm; Wt 87.7 kg
[~2017-08-04] VITALS: Ht 160 cm; Wt 87.7 kg
[~2017-08-04] MED LIST changes: +ACETAMINOPHEN/HYDROCODONE ELIX 15 ML/CUP UDP PO PRN; +ALBUTEROL 0.083% NEBU SOLN 3 ML VIAL INH ONE; +ALBUTEROL 0.083% NEBU SOLN 3 ML VIAL INH STA; +ATROPINE SULFATE 0.1 MG/ML 5ML SYR IV PRN; +BACITRACIN/POLYMYXIN B OINT 90 APPLN/28.4 GM TUBE EXT ONE; +DEXAMETHASONE SOD INJ 4 MG/ML VIAL ONE; +EpHEDrine SULFATE INJ 50 MG/ML AMP IV PRN; +FENTANYL CITRATE INJ 50 MCG/1 ML 2 ML VIAL IV PRN; +FENTANYL CITRATE INJ 50 MCG/1 ML 2 ML VIAL ONE; +GLYCOPYRROLATE INJ 0.2 MG/ML VIAL ONE; +LACTATED RINGER'S 1000ML 1,000 ML IV SCH; +LIDOCAINE 2% JELLY 5 ML TUBE EXT ONE; +LIDOCAINE HCL 2% 2 ML VIAL (20MG/ML) ONE; +MIDAZOLAM HCL 1 MG/ML 2ML VIAL ONE; +NEOSTIGMINE METHYLSULFATE 5 MG/5 ML SYR ONE; +ONDANSETRON INJ 2 MG/ML 2 ML VIAL IV PRN; +ONDANSETRON INJ 2 MG/ML 2 ML VIAL ONE; +OXYMETAZOLINE HCL 0.05% NA SPR 15 ML BTL ONE; +PROPOFOL IV EMULSION 10 MG/ML 20 ML VIAL IV ONE; +ROCURONIUM BROMIDE 10 MG/ML 5 ML VIAL IV ONE; +SCOPOLAMINE 1.5 MG TDSY TD ONE; +SUCCINYLCHOLINE CHLORIDE 20 MG/ML 10 ML VIAL IV ONE
--- NOTE | 2017-08-04 07:50 | History & Physical Bridge - SC ---
H&P Re-Evaluation Bridge Note: I have examined the patient, reviewed the History & Physical and in the interval since the performance of the History & Physical I have noted the following changes of clinical significance: No changes noted
--- NOTE | 2017-08-04 08:28 | Anesthesiology Progress Note ---
Anesthesia Progress Note Date of Service Aug 04, 2017. Progress Notes The patient is a 27 y/o female scheduled for Tonsillectomy possible adenoidectomy with Dr. Doherty. The patient has bilateral nipples rings. She was asked to remove them prior to surgery and has refused. Dr. Doherty, the preoperative nurse and I have all informed the patient that she is at risk for severe hope at the site of the nipple rings if she does not remove them due to the use of the electrocaudery during the procedure. The patient understands and still refuses to remove them. They have been taped. She has signed a waiver.
--- NOTE | 2017-08-04 09:40 | [facility] Operative Report ---
Operative Report Operative Date Aug 04, 2017. Pre-Operative Diagnosis Recurrent Acute Tonsillitis, Snoring Post-Operative Diagnosis Same Procedure(s) Performed Tonsillectomy & Adenoidectomy Surgeon Dr. Doherty Revenue Integrity Analyst Surgeon(s) None Estimated Blood Loss 50 ml Findings 1. 2+ ADENOIDS 2. 4+ TONSILS Specimens A.) Right Tonsil B.) Left Tonsil Anesthesia Type General I attest to the content of the Intraoperative Record and any orders documented therein. Any exceptions are noted below.
--- NOTE | 2017-08-04 09:43 | Discharge Instructions ---
Discharge Instructions Date of Service Aug 04, 2017. Admission Reason for Admission: Rec Acute Tonsillitis, Chronic Tonsillitis, Snorin Discharge Discharge Diagnosis / Problem: SAME Discharge Goals Goal(s): Therapeutic intervention Activity Recommendations Activity Limitations: as noted below LIGHT ACTIVITY FOR 2 WEEKS; NO DRIVING WHILE ON HYDROCODONE/APAP . Current Hospital Diet Patient's current hospital diet: Full Liquid Diet Discharge Diet Recommended Diet: Full Liquid Diet Diet Texture: Mechanical Soft (ground) Procedures Procedures Performed: Tonsillectomy & Adenoidectomy Pending Studies Studies pending at discharge: no Medical Emergencies . Who to Call and When: Medical Emergencies: If at any time you feel your situation is an emergency, please call 911 immediately. . Non-Emergent Contact Non-Emergency issues call your: Surgeon . . "Provider Documentation" section prepared by Andrew Doherty. .
[2017-08-04 10:30] VITALS: TEMP 36.4
[2017-08-04 10:55] VITALS: BP 144/84; PULSE 65; O2SAT 100
--- NOTE | 2017-08-04 10:59 | Anesthesia Progress Nt - [facility] ---
Anesthesia Post Op Note Date & Time Aug 04, 2017 at 10:59 Vital Signs Pain Intensity: 4 Vital Signs Past 12 Hours Date Time Temp Pulse Resp B/P (MAP) Pulse Ox O2 Delivery O2 Flow Rate FiO2 08/04/17 10:30 36.4 61 16 135/79 (97) 99 Room Air 08/04/17 10:25 36.6 60 16 135/87 99 Room Air 08/04/17 10:16 67 18 08/04/17 10:16 67 18 97 08/04/17 10:15 132/85 08/04/17 10:11 69 22 08/04/17 10:11 67 22 128/78 91 08/04/17 10:06 68 15 08/04/17 10:06 68 15 99 08/04/17 10:05 130/108 08/04/17 10:01 77 23 08/04/17 10:01 77 23 100 08/04/17 10:00 139/98 08/04/17 09:56 73 10 08/04/17 09:56 73 10 97 08/04/17 09:55 132/88 08/04/17 09:51 88 20 96 08/04/17 09:51 88 20 08/04/17 09:50 138/86 08/04/17 09:48 135/87 08/04/17 09:46 101 08/04/17 09:46 101 141/98 96 08/04/17 09:46 36.8 101 16 141/98 97 Humidified Oxygen 6 Mask 08/04/17 07:28 36.8 90 20 126/87 (100) 99 Room Air Notes Mental Status: alert / awake / arousable, participated in evaluation Pt Amnestic to Procedure: Yes Nausea / Vomiting: adequately controlled Pain: adequately controlled Airway Patency, RR, SpO2: stable & adequate BP & HR: stable & adequate Hydration State: stable & adequate Anesthetic Complications: no major complications apparent
--- NOTE | 2017-08-04 11:01 | OPERATIVE REPORT ---
DATE OF OPERATION: 08/04/2017 PREOPERATIVE DIAGNOSES: 1. Recurrent acute and chronic tonsillitis. 2. Tonsillar hypertrophy. 3. Adenoid hypertrophy. POSTOPERATIVE DIAGNOSIS: Same. PROCEDURES: Tonsillectomy and adenoidectomy. SURGEON: Dr. Doherty. ANESTHESIA: General endotracheal. ESTIMATED BLOOD LOSS: 50 mL FINDINGS: 1. Normal palate. 2. 2+ adenoids. 3. 4+ tonsils. SPECIMENS: Right and left tonsil sent separately for permanent pathological assessment. COMPLICATIONS: None. INDICATIONS FOR THE PROCEDURE: The patient is a 27-year-old female with the above-mentioned history who presents for the above-mentioned procedure on an outpatient elective basis. DETAILS OF PROCEDURE: After informed consent had been obtained from the patient, the patient was wheeled to the operating room and placed on the operating table in the supine position. Monitors were placed. After induction of general endotracheal anesthesia, the table was turned 90 degrees and the patient's head and neck were gently extended. Antibiotic ointment was applied to the lips and a mouth gag was carefully inserted, opened, and stabilized on a roll of towels. The palate was inspected and was found to be normal. A catheter was then inserted into the right nasal cavity and this was used to elevate the soft palate and uvula. A laryngeal mirror was used to inspect the nasopharynx and the intraoperative findings were of 2+ adenoid tissue. This was removed using suction Bovie electrocautery while achieving hemostasis simultaneously. An Allis clamp was then used to grasp the right tonsil and the superior pole and Bovie electrocautery was used to remove the tonsil in the capsular plane with care to preserve the underlying mucosa and musculature of the anterior and posterior tonsillar pillars. The left tonsil was removed in a similar fashion. Intraoperative findings were 4+ tonsils bilaterally with tonsillith formation. Of note, the left side had more significant bleeding than the right hand side and this required a generous amount of suction Bovie electrocautery to achieve adequate hemostasis. The nasal cavities, nasopharynx, oral cavity and oropharynx were then irrigated and suctioned. Hemostasis was confirmed. The mouth gag was released for 1 minute. This was reopened and hemostasis was confirmed once again. An orogastric tube was placed and the stomach was suctioned of any stomach contents. 2% lidocaine jelly was placed into the bilateral tonsillar fossae for added anesthetic effect. This marked the end of the case. The patient tolerated the procedure well. There were no apparent complications. The patient was extubated and transferred to recovery room in stable condition. I attest to the content of the Intraoperative Record and any orders documented therein. Any exception s are noted below.
== END | disposition home or self-care (01) ==
LOC: X.SURG 07:21
DX: J03.91 Acute recurrent tonsillitis, unspecified (principal); J35.01 Chronic tonsillitis; J35.1 Hypertrophy of tonsils; R06.83 Snoring; F41.9 Anxiety disorder, unspecified; G47.33 Obstructive sleep apnea (adult) (pediatric); F17.200 Nicotine dependence, unspecified, uncomplicated; F31.9 Bipolar disorder, unspecified; M19.90 Unspecified osteoarthritis, unspecified site; J45.909 Unspecified asthma, uncomplicated; E66.9 Obesity, unspecified; F32.9 Major depressive disorder, single episode, unspecified; Z81.8 Family history of other mental and behavioral disorders; Z83.3 Family history of diabetes mellitus; Z82.49 Family history of ischemic heart disease and other diseases of the circulatory system; Z83.42 Family history of familial hypercholesterolemia; Z91.048 Other nonmedicinal substance allergy status; Z72.89 Other problems related to lifestyle; Z92.241 Personal history of systemic steroid therapy

== ENCOUNTER → 2017-11-23 | Outpatient (CLI) | payer OTHER ==
[~2017-11-23] MED LIST changes: -ACETAMINOPHEN/HYDROCODONE ELIX 15 ML/CUP UDP PO PRN; -ALBUTEROL 0.083% NEBU SOLN 3 ML VIAL INH ONE; -ALBUTEROL 0.083% NEBU SOLN 3 ML VIAL INH STA; -ATROPINE SULFATE 0.1 MG/ML 5ML SYR IV PRN; +B-COTAB18 PO; -BACITRACIN/POLYMYXIN B OINT 90 APPLN/28.4 GM TUBE EXT ONE; +BIOT1CAP8 PO; -DEXAMETHASONE SOD INJ 4 MG/ML VIAL ONE; +DIPH-437 PO; -EpHEDrine SULFATE INJ 50 MG/ML AMP IV PRN; -FENTANYL CITRATE INJ 50 MCG/1 ML 2 ML VIAL IV PRN; -FENTANYL CITRATE INJ 50 MCG/1 ML 2 ML VIAL ONE; -GLYCOPYRROLATE INJ 0.2 MG/ML VIAL ONE; -LACTATED RINGER'S 1000ML 1,000 ML IV SCH; -LIDOCAINE 2% JELLY 5 ML TUBE EXT ONE; -LIDOCAINE HCL 2% 2 ML VIAL (20MG/ML) ONE; -MIDAZOLAM HCL 1 MG/ML 2ML VIAL ONE; -NALT50TA5 PO; -NEOSTIGMINE METHYLSULFATE 5 MG/5 ML SYR ONE; -ONDANSETRON INJ 2 MG/ML 2 ML VIAL IV PRN; -ONDANSETRON INJ 2 MG/ML 2 ML VIAL ONE; -OXYMETAZOLINE HCL 0.05% NA SPR 15 ML BTL ONE; -PROPOFOL IV EMULSION 10 MG/ML 20 ML VIAL IV ONE; -ROCURONIUM BROMIDE 10 MG/ML 5 ML VIAL IV ONE; -SCOPOLAMINE 1.5 MG TDSY TD ONE; -SUCCINYLCHOLINE CHLORIDE 20 MG/ML 10 ML VIAL IV ONE; -SUMA50TA15 PO; -TOPI50TA16 PO; -VENL75CA PO; -ZIPR20CA PO
[2017-11-27 17:34] LABS: ANA SCREEN TC 249X NEGATIVE (NEGATIVE); ANTI-SS-A <1.0 NEG AI (<1.0 NEG); ANTI-SS-B <1.0 NEG AI (<1.0 NEG); COMPLEMENT C4** TC 44982E 28 MG/DL (15-57); PARVOVIRUS IgM INDEX 0.2 (<0.9)
== END | disposition home or self-care (01) ==
LOC: C.LAB1850 09:06
PROVIDERS: ATTEND Internal Medicine Rheumatology
DX: Z15.89 Genetic susceptibility to other disease (principal); R76.8 Other specified abnormal immunological findings in serum; R79.82 Elevated C-reactive protein (CRP); M06.4 Inflammatory polyarthropathy; M46.1 Sacroiliitis, not elsewhere classified

== ENCOUNTER → 2017-11-27 | Outpatient (CLI) | payer OTHER ==
[~2017-11-27] MED LIST changes: +MELO7.5T5 PO; +RANI150T85 PO; +SUMA50TA15 PO
--- NOTE | 2017-11-27 11:54 | DIAGNOSTIC IMAGING REPORT ---
SACROILIAC JOINT MRI HISTORY: INFLAMMATORY POLYARTHRITIS, POSITIVE TATYANA TECHNIQUE: Multiplanar multisequence MRI of the bilateral sacroiliac joints were performed without the use of intravenous contrast. COMPARISON STUDY: Bilateral hip radiographs 06/14/2017. FINDINGS: The bilateral sacroiliac joints are within normal limits. No erosive changes are identified. Normal marrow signal intensity within the visualized osseous structures. The sacral canal and neural foramen are widely patent. Presacral soft tissues are intact. Trace pelvic fluid which is likely physiologic. Small focal central disc protrusion at L5-S1 without significant central canal or neural foraminal narrowing. IMPRESSION: Normal bilateral sacroiliac joints. Electronically signed by: Scott Zhang M.D. 11/27/2017 11:53 AM Dictated Date/Time: 11/27/2017 11:50 AM
== END | disposition home or self-care (01) ==
LOC: C.MRI 10:21
PROVIDERS: ATTEND Internal Medicine Rheumatology
DX: M06.4 Inflammatory polyarthropathy (principal); M46.1 Sacroiliitis, not elsewhere classified; R79.82 Elevated C-reactive protein (CRP); R76.8 Other specified abnormal immunological findings in serum; Z15.89 Genetic susceptibility to other disease

== ENCOUNTER → 2017-12-15 | Day surgery (SDC) | payer OTHER ==
[2017-12-07 14:10] VITALS: BMI 33.0
[~2017-12-15] VITALS: Ht 160 cm; Wt 86.4 kg
[~2017-12-15] MED LIST changes: +ALBUTEROL 0.083% NEBU SOLN 3 ML VIAL INH PRN; +ATROPINE SULFATE 0.1 MG/ML 5ML SYR IV PRN; +CHOL500021 PO; +EpHEDrine SULFATE INJ 50 MG/ML AMP IV PRN; +FENTANYL CITRATE INJ 50 MCG/1 ML 2 ML VIAL IV PRN; +FENTANYL CITRATE INJ 50 MCG/1 ML 2 ML VIAL ONE; +FLUMAZENIL 0.1 MG/1 ML 10 ML VIAL IV PRN; +INDOMETHACIN 50 MG SUPP PR ONE; +KETOROLAC TROMETHAMINE 15 MG/ML VIAL IV PRN; +KETOROLAC TROMETHAMINE 30 MG/ML VIAL ONE; +LABETALOL HCL IV 5 MG/ML 20ML IV PRN; +LACTATED RINGER'S 1000ML 1,000 ML IV SCH; +LIDOCAINE HCL 2% 2 ML VIAL (20MG/ML) ONE; +MIDAZOLAM HCL 1 MG/ML 2ML VIAL ONE; +NALOXONE HCL 0.4 MG/1 ML VIAL/CARP IV PRN; +ONDANSETRON INJ 2 MG/ML 2 ML VIAL IV PRN; +ONDANSETRON INJ 2 MG/ML 2 ML VIAL ONE; +PROMETHAZINE HCL INJ 12.5 MG in SODIUM CHLORIDE 0.9% 50ML 50 ML IV PRN; +PROPOFOL IV EMULSION 10 MG/ML 20 ML VIAL ONE; +ROCURONIUM BROMIDE 10 MG/ML 5 ML VIAL ONE
[2017-12-15 07:52] VITALS: BP 116/76; PULSE 81; TEMP 37.3; O2SAT 97; Ht 160 cm; Wt 86.4 kg
--- NOTE | 2017-12-15 08:17 | Endo History and Physical ---
History & Physical Date of Service: Dec 15, 2017. Chief Complaint: Biliary stent removal Referring Physician: History of Present Illness The patient presents for a follow-up ERCP today. She presented in September with complications of choledocholithiasis. She notes that she is almost back to her usual state of health and has no specific complaints today. Past Surgical History Hx Cardiac Surgery: No Hx Abdominal Surgery: Yes (LAP GB SURG/ERCP) Hx Post-Op Nausea and Vomiting: No Hx Cancer Surgery: No Hx Thoracic Surgery: No Hx Orthopedic: No Hx Urinary Tract Surgery: No Social History Smoking Status: Current Every Day Smoker Hx Substance Use: No Hx Alcohol Use: Yes (RARELY) Allergies Coded Allergies: Adhesives (Verified Allergy, Mild, RASH, 12/15/17) Nickel (Verified Allergy, Unknown, RASH, 12/15/17) Current Medications Reported Home Medications Medications Dose Route/Sig Max Daily Dose Days Date Category Dose Instructions Vitamin D3 (Cholecalciferol) 5,000 Unit Chw 5,000 Units PO DAILY 12/15/17 Reported Zantac (Ranitidine HCl) 150 Mg Tab 150 Mg PO BID 12/07/17 Reported Mobic (Meloxicam) 7.5 Mg Tab 15 Mg PO HS 12/07/17 Reported PT WILL CHECK WITH SURGEON Imitrex (Sumatriptan Succinate) 50 Mg Tab 50 Mg PO PRN 12/07/17 Reported Tylenol Pm (Acetaminophen/Diphenhydramine HCl) 500 Mg/25 Mg Tab 1 Tab PO HS PRN 10/16/17 Reported Vitamin B Complex (B-Complex Vitamins) 1 Tab Tab 1 Tab PO QAM 10/16/17 Reported Biotin 1 Mg Cap 1 Cap PO QAM 10/13/17 Reported Trazodone (Trazodone HCl) 50 Mg Tab 200 Tab PO HS PRN 10/13/17 Reported Ventolin Hfa (Albuterol) 200 Puffs/21295 Mcg Aers 2 Puffs INH Q6H PRN 07/20/17 Reported Nuvaring (Ethinyl Estradiol) 1 Ea Vagring 1 Ea VAGRING MONTHLY 10/09/16 Reported Vital Signs Weight (Kilograms): 86.36 Height (Feet): 5 Height (Inches): 3 Date Time Temp Pulse Resp B/P (MAP) Pulse Ox O2 Delivery O2 Flow Rate FiO2 12/15/17 07:52 37.3 81 18 116/76 (89) 97 Room Air Physical Exam General Appearance: no apparent distress Respiratory/Chest: Auscultation: breath sounds normal Cardiovascular: Heart Auscultation: RRR Abdomen: Inspection & Palpation: soft Assessment and Plan ERCP with stent removal planned for today. We have discussed the risks and benefits of ERCP to include bleeding, infection, perforation, pancreatitis and need for follow-up studies.
--- NOTE | 2017-12-15 09:57 | GI REPORT ---
Patient Name: Cece Colin Procedure Date: 12/15/2017 9:29 AM Date of : 1990 Admit Type: Outpatient Age: 27 Gender: Female Attending MD: Charles Ny DO Procedure: ERCP Providers: Charles Ny DO Referring MD: Theo Paige Md, Stefanie Crowder Indications: Suspected bile duct stone(s), Stent removal Medicines: General Anesthesia, Indocin 100 mg [place] Complications: No immediate complications. Estimated blood loss: Minimal. Estimated Blood Loss: Estimated blood loss was minimal. Procedure: Pre-Anesthesia Assessment: - Prior to the procedure, a History and Physical was performed, and patient medications, allergies and sensitivities were reviewed. The patient's tolerance of previous anesthesia was reviewed. - The risks and benefits of the procedure and the sedation options and risks were discussed with the patient. All questions were answered and informed consent was obtained. - Patient identification and proposed procedure were verified prior to the procedure by the physician, the nurse and the aircraft maintenance manager. The procedure was verified in the procedure room. - Pre-procedure physical examination revealed no contraindications to sedation. - ASA Grade Assessment: II - A patient with mild systemic disease. - After reviewing the risks and benefits, the patient was deemed in satisfactory condition to undergo the procedure. - The anesthesia plan was to use general anesthesia. - Immediately prior to administration of medications, the patient was re-assessed for adequacy to receive sedatives. - The heart rate, respiratory rate, oxygen saturations, blood pressure, adequacy of pulmonary ventilation, and response to care were monitored throughout the procedure. - The physical status of the patient was re-assessed after the procedure. After obtaining informed consent, the scope was passed under direct vision. Throughout the procedure, the patient's blood pressure, pulse, and oxygen saturations were monitored continuously. The Scope was introduced through the mouth, and advanced to the duodenum and used to inject contrast into the bile duct. The ERCP was accomplished without difficulty. The patient tolerated the procedure well. Findings: A activities director scouting film of the abdomen was obtained. Surgical clips, consistent with previous cholecystectomy, were seen in the area of the right upper quadrant of the abdomen. One stent ending in the main bile duct was seen. The esophagus was successfully intubated under direct vision without detailed examination of the pharynx, larynx, and associated structures, and upper GI tract. The upper GI tract was grossly normal. One biliary stent originating in the biliary tree was emerging from the major papilla. The stent was visibly patent. A biliary sphincterotomy had been performed. The sphincterotomy appeared open. One stent was removed from the biliary tree using a snare. The bile duct was deeply cannulated with the short-nosed traction sphincterotome (Omni 35) and 0.305 in MET2 guidewire. Contrast was injected. I personally interpreted the bile duct images. Contrast extended to the hepatic ducts. A cholecystectomy had been performed. To discover objects, the biliary tree was swept with an 8.5 to 15 mm balloon starting at the bifurcation several times. Sludge was swept from the duct. Nothing remained on occlusion cholangiogram (inject below balloon) and the biliary tree appeared to drain well. The previous noted stricture has resolved (not present). The endoscope was withdrawn from the patient. Impression: - One visibly patent stent from the biliary tree was seen in the major papilla. - Prior biliary endoscopic sphincterotomy appeared open. - One stent was removed from the biliary tree. - The patient has had a cholecystectomy. - The biliary tree was swept and sludge was found. Recommendation: - Discharge patient to home (ambulatory). - Clear liquid diet today. - Return to my office PRN. Charles Ny D.O. Charles Ny, 12/15/2017 9:57:26 AM This report has been signed electronically. Note Initiated On: 12/15/2017 9:29 AM Number of Addenda: 0 I attest to the content of the Intraoperative Record and orders documented therein, exceptions below {[id number]}
--- NOTE | 2017-12-15 09:58 | [facility] Post Operative Brief Note ---
Immediate Operative Summary Operative Date Dec 15, 2017. Pre-Operative Diagnosis Status Post Cholecystectomy with Choledocholithisis Post-Operative Diagnosis Biliary sludge Post-cholecystectomy Procedure(s) Performed Endoscopic Retrograde Cholangiopancreatogram With Stent Removal Surgeon Dr. Leda Ny Cardiology Nurse Surgeon(s) none Estimated Blood Loss 0 ml Findings Consistent with Post-Op Diagnosis Specimens None Drains None Anesthesia Type General Complication(s) none Disposition Accompanied Pt To Recover: no Disposition: Recovery Room / PACU
--- NOTE | 2017-12-15 09:59 | Discharge Instructions ---
Endoscopy Patient Instructions Date / Procedure(s) Performed Dec 15, 2017. ERCP Allergy Information Coded Allergies: Adhesives (Verified Allergy, Mild, RASH, 12/15/17) Nickel (Verified Allergy, Unknown, RASH, 12/15/17) Discharge Date / Findings Dec 15, 2017. Biliary sludge Biliary stent removed Medication Instructions Reported Home Medications Medications Dose Route/Sig Max Daily Dose Days Date Category Dose Instructions Vitamin D3 (Cholecalciferol) 5,000 Unit Chw 5,000 Units PO DAILY 12/15/17 Reported Zantac (Ranitidine HCl) 150 Mg Tab 150 Mg PO BID 12/07/17 Reported Mobic (Meloxicam) 7.5 Mg Tab 15 Mg PO HS 12/07/17 Reported PT WILL CHECK WITH SURGEON Imitrex (Sumatriptan Succinate) 50 Mg Tab 50 Mg PO PRN 12/07/17 Reported Tylenol Pm (Acetaminophen/Diphenhydramine HCl) 500 Mg/25 Mg Tab 1 Tab PO HS PRN 10/16/17 Reported Vitamin B Complex (B-Complex Vitamins) 1 Tab Tab 1 Tab PO QAM 10/16/17 Reported Biotin 1 Mg Cap 1 Cap PO QAM 10/13/17 Reported Trazodone (Trazodone HCl) 50 Mg Tab 200 Tab PO HS PRN 10/13/17 Reported Ventolin Hfa (Albuterol) 200 Puffs/77580 Mcg Aers 2 Puffs INH Q6H PRN 07/20/17 Reported Nuvaring (Ethinyl Estradiol) 1 Ea Vagring 1 Ea VAGRING MONTHLY 10/09/16 Reported Provider Instructions Activity Restrictions - No exercising or heavy lifting for 24 hours. - Do not drink alcohol the day of the procedure. - Do not drive a car or operate machinery until the day after the procedure. - Do not make any important decisions or sign important papers in 24 hours after the procedure. Following Day: - Return to full activity which may include returning to work/school. Diet Clear liquid diet today Regular Diet on 12/16/17 Treatment For Common After Affects For mild abdominal pain, bloating, or excessive gas: - Rest - Eat lightly - Lie on right side Follow-Up Information Follow-up with Dr. Ny as needed Anesthesia Information What You Should Know You have had a procedure that required some medicine to reduce anxiety and discomfort. This treatment is called moderate sedation. After receiving the treatment, you may be sleepy, but you will be able to breathe on your own. The effects of the treatment may last for several hours. Follow these instructions along with Activity/Diet recommendations noted above: * Do NOT do anything where dizziness or clumsiness would be dangerous. * Rest quietly at home today, then you can be up and about tomorrow. * Have a responsible person stay with you the rest of today. * You may have had an I.V. today. If so, you may take the dressing off later today. Recommendations Call your doctor if: * Trouble breathing * Continuous vomiting for more than 24 hours * Temperature above 101 degrees * Severe abdominal pain or bloating * Pain not relieved by pain medicine ordered * There is increased drainage or redness from any incision * A large amount of rectal bleeding greater than 2-3 tablespoons. (If you had a polyp/s removed or have hemorrhoids, a small amount of blood - from the rectum is to be expected.) * You have any unanswered questions or concerns. IN THE EVENT OF A SERIOUS EMERGENCY, GO TO THE NEAREST EMERGENCY ROOM Your discharge instructions were prepared by provider Charles Ny. Patient Instructions Signature Page Cece Colin Patient (or Guardian) Signature/Date: I have read and understand the instructions given to me by my caregivers. Caregiver/RN/Doctor Signature/Date: The above-named patient and/or guardian has received patient instructions on this date. + Original Patient Signature Page (only) stays with chart. Please make copy for patient.
[2017-12-15 10:40] VITALS: PULSE 79; O2SAT 94
--- NOTE | 2017-12-15 10:43 | DIAGNOSTIC IMAGING REPORT ---
ERCP BILIARY DUCTAL CLINICAL HISTORY: 27 years-old Female presenting with ERCP. TECHNIQUE: Fluoroscopy was provided for endoscopic retrograde cholangiopancreatography. 10 fluoroscopic image(s) recorded. COMPARISON: 10/12/2017. FINDINGS: Procedure: Plastic common duct stent removed. An endoscope projects over the descending duodenum. A guidewire was introduced into the common bile duct extending to the level of the liver hilum. Pneumobilia noted. Contrast opacifies the common duct. Cholecystectomy clips now noted. Cystic duct nondistended. The guidewire was extended into the left intrahepatic ducts. Peritoneal spillage: No evidence of peritoneal spillage of contrast. Extrahepatic bile ducts: The common bile duct is normal in course and caliber. Filling defects in the proximal common duct near the hilum suggested versus pneumobilia. Contrast extends into the small bowel. Intrahepatic bile ducts: There is no intrahepatic bile duct dilatation. Fluoroscopy dosage (mGy): 11.93. Fluoroscopy time: 58.1 seconds. Number or time of fluoroscopic spot images: 0. IMPRESSION: 1. Status post cholecystectomy. 2. Removal of the common bile duct stent. Electronically signed by: Kee Del Toro M.D. 12/15/2017 10:42 AM Dictated Date/Time: 12/15/2017 10:39 AM
[2017-12-15 10:55] VITALS: BP 120/81; PULSE 96; TEMP 36.8; O2SAT 95
--- NOTE | 2017-12-15 11:00 | Anesthesiology Progress Note ---
Anesthesia Post Op Note Date & Time Dec 15, 2017 at 11:00 Vital Signs Pain Intensity: 2 Vital Signs Past 12 Hours Date Time Temp Pulse Resp B/P (MAP) Pulse Ox O2 Delivery O2 Flow Rate FiO2 12/15/17 10:46 91 20 12/15/17 10:46 90 20 96 12/15/17 10:45 126/81 12/15/17 10:43 36.5 87 20 126/81 (86) 95 Room Air 12/15/17 10:41 82 22 12/15/17 10:41 84 22 99 12/15/17 10:40 79 14 94 Room Air 12/15/17 10:40 80 16 12/15/17 10:40 80 16 124/80 99 12/15/17 10:35 91 18 118/80 98 12/15/17 10:35 90 18 12/15/17 10:34 84 30 95 12/15/17 10:34 86 30 12/15/17 10:34 84 30 95 12/15/17 10:34 86 30 12/15/17 10:30 117/79 12/15/17 10:30 117/79 12/15/17 10:29 80 26 97 12/15/17 10:29 80 26 97 12/15/17 10:29 81 26 12/15/17 10:29 81 26 12/15/17 10:25 132/81 12/15/17 10:25 132/81 12/15/17 10:24 88 32 98 12/15/17 10:24 88 32 12/15/17 10:24 88 32 98 12/15/17 10:24 88 32 12/15/17 10:20 130/80 12/15/17 10:20 130/80 12/15/17 10:19 93 38 98 12/15/17 10:19 92 38 12/15/17 10:19 93 38 98 12/15/17 10:19 92 38 12/15/17 10:15 126/89 12/15/17 10:15 126/89 12/15/17 10:14 99 25 12/15/17 10:14 99 25 97 12/15/17 10:14 99 25 12/15/17 10:14 99 25 97 12/15/17 10:10 130/86 12/15/17 10:10 130/86 12/15/17 10:09 117 18 99 12/15/17 10:09 118 18 12/15/17 10:09 118 18 12/15/17 10:09 117 18 99 12/15/17 10:05 158/108 12/15/17 10:05 158/108 12/15/17 10:04 36.4 122 20 152/89 (110) 98 Nasal Cannula 2 12/15/17 10:04 152/89 12/15/17 10:04 152/89 12/15/17 07:52 37.3 81 18 116/76 (89) 97 Room Air Notes Mental Status: alert / awake / arousable, participated in evaluation Pt Amnestic to Procedure: Yes Nausea / Vomiting: adequately controlled Pain: adequately controlled Airway Patency, RR, SpO2: stable & adequate BP & HR: stable & adequate Hydration State: stable & adequate Anesthetic Complications: no major complications apparent
[2017-12-15 11:25] VITALS: BP 126/81; PULSE 87; TEMP 37.1; O2SAT 96
== END | disposition home or self-care (01) ==
LOC: C.ACU 07:36
PROVIDERS: ATTEND Internal Medicine Gastroenterology
DX: K80.50 Calculus of bile duct without cholangitis or cholecystitis without obstruction (principal); J45.909 Unspecified asthma, uncomplicated; G47.33 Obstructive sleep apnea (adult) (pediatric); K21.9 Gastro-esophageal reflux disease without esophagitis; F17.200 Nicotine dependence, unspecified, uncomplicated; E66.9 Obesity, unspecified; Z68.33 Body mass index [BMI] 33.0-33.9, adult; Z90.49 Acquired absence of other specified parts of digestive tract

== ENCOUNTER 2021-01-18 12:56 | Inpatient (IN) ==
[2021-01-18] MEDS ORDERED: ONDANSETRON INJ 2 MG/ML 2 ML VIAL IV STA ×2 (16:55→18:42)
[2021-01-18] MEDS ORDERED: FAMOTIDINE 20MG IV PUSH 20 MG/5 ML SYR IV STA (16:55)
--- NOTE | 2021-01-18 17:01 | Emergency Department Note ---
History of Present Illness General Chief complaint: Vomiting Stated complaint: EXCESSIVE VOMITING, HURTS TO TOUCH STOMACH Time Seen by Provider: 01/18/21 16:35 History of Present Illness Maximum Pain Intensity: 10 Patient is a 30-year-old female with past medical history significant for a sthma, migraines, ankylosing spondylitis, and recent diagnosis of pancreatitis who returns to the emergency department for ongoing vomiting. Patient was seen and evaluated at our facility on 01/05 and diagnosed with pancreatitis by elevated lipase and CT scan findings. Admission was recommended, but she declined. She returned to the ED on 01/08, and was seen by myself. At that time, she was having continued pain and vomiting. Again, was offered admission, but declined, preferring to keep her self on a clear diet at home, and use Zofran and oxycodone for pain management. Patient relates that pain is improved, she states that it is because she is not able to eat anything. She notes that it is a dull aching in the left upper quadrant that she rates a 3/10. She has not had to use any oxycodone recently. She is continue to vomit however. She tried fluids to stay hydrated including water and edu h[facility] but she continues to vomited up. She is using Zofran but it is not helping. She has not sought any medical attention in the last 10 days until she requested a telephone visit with her primary care provider today. She was referred back to the emergency department for the persistent vomiting. Patient did notes decreased urinary output. She feels weak and fatigued. She has not documented any fevers. No chest pain. No shortness of breath. She does report some bright red blood in her bowel movements but no diarrhea. No urinary symptoms. Last menstrual period was 3 weeks ago. She has been seen by [facility], they have recommended an endoscopic ultrasound which is not scheduled until February. Home Medications Medication Instructions Recorded Confirmed Type aripiprazole 300 mg intramuscular 300 mg IM MONTHLY 03/13/19 01/18/21 History suspension,extended release (Abilify Maintena) naproxen 500 mg tablet (Naprosyn) 500 mg PO Q12 01/05/21 01/18/21 History norethindrone (contraceptive) 0.35 0.35 mg PO DAILY@1130 01/05/21 01/18/21 History mg tablet ondansetron 4 mg disintegrating 4 mg PO Q6H PRN #20 tab 01/08/21 01/18/21 Rx tablet oxycodone 5 mg tablet 5 - 10 mg PO Q6H PRN #20 tab 01/08/21 01/18/21 Rx Allergies Allergy/AdvReac Type Severity Reaction Status Date / Time adhesive Allergy Mild RASH Verified 01/18/21 17:07 nickel Allergy Mild RASH Verified 01/18/21 17:07 morphine AdvReac Severe Body fells Verified 01/18/21 17:07 like it is on fire Past Med/Surg History Medical History (Updated 01/19/21 @ 00:51 by Maninder Samano) Asthma Biliary colic Cholelithiasis Fracture of distal end of right fibula History of varicella Homicidal ideation Hx of chlamydia infection Hx of drug dependence Hx of ovarian cyst Hypertension during PID (pelvic inflammatory disease) Surgical History H/O oral surgery History of cholecystectomy S/P tonsillectomy and adenoidectomy Family History Mother Diabetes Dyslipidemia Hypertension Grandmother (Paternal) Diabetes Aunt Diabetes Denies family history of Ovarian cancer Prostate cancer Myocardial infarction Breast cancer Colorectal cancer Social History Smoking Status: Current every day smoker Tobacco Type: Cigarettes Age Started Using Tobacco: 11; packs per day: 1; Years Smoked: 18; Cigarettes Per Day: 10-20; Second Hand Exposure: No; Do You Dip or Chew Tobacco: No; Tobacco Cessation Education Requested by Patient: No Hx Alcohol Use: No Hx Substance Use: No Preferred Language: Azeri Communication Ability: Effective 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 Machine Operator Required: No Beliefs That Will Affect Care: None marital status: Single Current Living Situation: Spouse and Other Current Living Situation Comment: Lives at home with fiance and son current occupational status: employed Other Information That Helps Us Care for You: No Feels Safe at Home: Yes Dental Care, Regularly: Yes Physical Activity Frequency: Does not Exercise Seatbelt Use: always Sunscreen Use: No Assistive Devices: Glasses Review of Systems A total of 10 systems reviewed and were otherwise negative Physical Exam Vital Signs Vital Signs - 24 hr 01/18/21 13:36 01/18/21 16:38 01/18/21 16:46 Temperature 36.3 C L Temperature Source Temporal Artery Scan Pulse Rate - Lying Pulse Rate - Sitting Pulse Rate - Standing Pulse Rate 98 H 77 Pulse Rate [Apical] 81 Pulse Rate from SpO2 Sensor 76 Respiratory Rate 18 25 H 20 Respiratory Effort / Characteristics Non-Labored Respiratory Depth Normal Respiratory Pattern Regular Blood Pressure - Lying Blood Pressure - Sitting Blood Pressure- Standing Blood Pressure 131/85 130/49 L Blood Pressure [Right Arm] 130/81 Blood Pressure Mean 100 76 Blood Pressure Mean [Right Arm] 97 Pulse Oximetry 97 98 98 Oxygen Delivery Method Room Air Room Air Sepsis Recent Fever Within 48 Hours No Sepsis New/Unexplained Change in Mental Status No Sepsis Action Taken by Nursing No Action Required 01/18/21 17:00 01/18/21 17:30 01/18/21 18:00 Temperature Temperature Source Pulse Rate - Lying Pulse Rate - Sitting Pulse Rate - Standing Pulse Rate 82 78 76 Pulse Rate [Apical] Pulse Rate from SpO2 Sensor 82 79 73 Respiratory Rate 20 31 H 29 H Respiratory Effort / Characteristics Respiratory Depth Respiratory Pattern Blood Pressure - Lying Blood Pressure - Sitting Blood Pressure- Standing Blood Pressure 129/85 121/67 129/79 Blood Pressure [Right Arm] Blood Pressure Mean 99 85 95 Blood Pressure Mean [Right Arm] Pulse Oximetry 98 96 98 Oxygen Delivery Method Sepsis Recent Fever Within 48 Hours Sepsis New/Unexplained Change in Mental Status Sepsis Action Taken by Nursing 01/18/21 18:23 01/18/21 18:26 01/18/21 18:30 Temperature Temperature Source Pulse Rate - Lying 79 Pulse Rate - Sitting 89 Pulse Rate - Standing 93 H Pulse Rate 88 75 Pulse Rate [Apical] Pulse Rate from SpO2 Sensor 84 77 Respiratory Rate 22 23 Respiratory Effort / Characteristics Respiratory Depth Respiratory Pattern Blood Pressure - Lying 124/86 Blood Pressure - Sitting 149/103 H Blood Pressure- Standing 155/95 H Blood Pressure 124/86 125/80 Blood Pressure [Right Arm] Blood Pressure Mean 98 95 Blood Pressure Mean [Right Arm] Pulse Oximetry 98 98 Oxygen Delivery Method Sepsis Recent Fever Within 48 Hours Sepsis New/Unexplained Change in Mental Status Sepsis Action Taken by Nursing 01/18/21 20:00 01/18/21 20:30 01/18/21 21:00 Temperature Temperature Source Pulse Rate - Lying Pulse Rate - Sitting Pulse Rate - Standing Pulse Rate 74 79 75 Pulse Rate [Apical] Pulse Rate from SpO2 Sensor 81 80 76 Respiratory Rate 22 22 29 H Respiratory Effort / Characteristics Respiratory Depth Respiratory Pattern Blood Pressure - Lying Blood Pressure - Sitting Blood Pressure- Standing Blood Pressure 128/75 105/56 L Blood Pressure [Right Arm] Blood Pressure Mean 92 72 Blood Pressure Mean [Right Arm] Pulse Oximetry 91 99 99 Oxygen Delivery Method Sepsis Recent Fever Within 48 Hours Sepsis New/Unexplained Change in Mental Status Sepsis Action Taken by Nursing 01/18/21 21:30 01/18/21 22:00 Temperature Temperature Source Pulse Rate - Lying Pulse Rate - Sitting Pulse Rate - Standing Pulse Rate 76 82 Pulse Rate [Apical] Pulse Rate from SpO2 Sensor 76 81 Respiratory Rate 32 H 28 H Respiratory Effort / Characteristics Respiratory Depth Respiratory Pattern Blood Pressure - Lying Blood Pressure - Sitting Blood Pressure- Standing Blood Pressure 114/76 116/83 Blood Pressure [Right Arm] Blood Pressure Mean 88 94 Blood Pressure Mean [Right Arm] Pulse Oximetry 93 94 Oxygen Delivery Method Sepsis Recent Fever Within 48 Hours Sepsis New/Unexplained Change in Mental Status Sepsis Action Taken by Nursing CONSTITUTIONAL: Patient is an uncomfortable, but nontoxic-appearing 30-year-old female who is awake and alert and in mild distress due to her stated complaint. EYES: Pupils equal, round, reactive to light and accommodation. EOMs intact without nystagmus. Sclera are anicteric. ENT: Tympanic membranes intact, with normal landmarks. External canals are clear. Oral and nasopharynx are clear. Mucous membranes are moist, no lesions, tongue and gums appear normal. CARDIOVASCULAR: Regular rate and rhythm, with normal S1 and S2, no murmur or gallop or rub is heard. No carotid bruits auscultated. No JVD. Peripheral pulses easily palpable. RESPIRATORY: Breath sounds equal and clear to auscultation without wheezes, rales, or rhonchi heard. Full and equal chest expansion without accessory muscle use or retractions. ABDOMEN: Bowel sounds are present. Well-healed surgical areas are noted. Abdomen is soft, nondistended, tender to percussion and palpation in the epigastric in the left upper quadrant with voluntary guarding. No pain in the lower abdomen. INTEGUMENTARY: No lesions or rash, normal skin turgor. LYMPH: No lymphadenopathy. Course Course The patient was seen and assessed as above. Old records are reviewed. I am familiar with her from prior ED visit 10 days ago. IV lock was initiated and laboratory studies were collected. CBC with differential, CMP, lipase urinalysis and urine hCG were collected. Presuming admission, a Covid swab was obtained. The patient was high treated with a total of 2 L of normal saline solution. She was medicated with Zofran 4 mg IV x2 and Pepcid 20 mg IV. Laboratory studies note an elevated white count at 17,800 with left shift and bandemia noted. Electrolytes and renal functions are within normal limits. Transaminases are not elevated. Lipase is 902. Serum hCG is negative. Urine microscopy notes 2+ ketones otherwise is clear. Covid swab was negative. Patient was reassessed. Laboratory studies were reviewed with her. Given her persistent pain and elevated white count, did elect to perform a repeat CT scan today. CT scan of the abdomen pelvis with IV contrast notes interval development of peripancreatic fluid collections adjacent to the pancreatic tail measuring 6.5 x 5.1 cm. This abuts and displaces the posterior wall of the proximal stomach. There is associated moderate thickening of the gastric wall which may be reactive to the suspected peripancreatic pseudocyst. Mild peripancreatic inflammatory change persist and is consistent with known history of pancreatitis. There may be a small focus of pancreatic necrosis at the pancreatic tail. Trace left pleural effusion and trace pericardial effusion noted, have progressed in the interval. Patient history, presentation and ED work-up were reviewed with attending physician. Patient was discussed with the [facility] Hospitalist service, and with gastroenterology on-call, Dr. Jackson. Dr. Jackson felt that the patient could be treated at our facility. Admission to the hospital was discussed with the patient and she was in agreement. She was admitted by Dr. Jaramillo. Administered Medications Sodium Chloride (Nss 1000ml) 1,000 mls @ 250 mls/hr IV .Q4H MANI Stop: 02/17/21 18:44 Last Admin: 01/18/21 23:18 Dose: 250 mls/hr Documented by: [id number] Infusion: 01/18/21 23:18 Dose: 0 mls/hr Documented by: [id number] Admin: 01/18/21 19:05 Dose: 250 mls/hr Documented by: [id number] Miscellaneous (Norethidrone: Order Awaiting Action) 1 ea N/A QS MANI Stop: 02/18/21 00:00 Last Admin: 01/19/21 00:13 Dose: Not Given Documented by: [id number] Ondansetron HCl (Ondansetron Inj 2 Mg/Ml 2 Ml Vial) 4 mg IV Q6H PRN PRN Reason: Nausea Stop: 02/17/21 23:12 Last Admin: 01/18/21 23:31 Dose: 4 mg Documented by: [id number] Discontinued Medications Sodium Chloride (Nss 1000ml) 1,000 mls @ 999 mls/hr IV .Q1H1M MANI Stop: 01/18/21 18:57 Last Infusion: 01/18/21 19:04 Dose: 0 mls/hr Documented by: [id number] Admin: 01/18/21 17:49 Dose: 999 mls/hr Documented by: [id number] Infusion: 01/18/21 17:49 Dose: 999 mls/hr Documented by: [id number] Admin: 01/18/21 17:21 Dose: 999 mls/hr Documented by: [id number] Famotidine (Pepcid 20mg Iv Push) 20 mg in 5 mls @ 2.5 mls/min IV NOW STA Stop: 01/18/21 16:56 Last Admin: 01/18/21 17:21 Dose: 2.5 mls/min Documented by: [id number] Sodium Chloride (Nss 1000ml) 1,000 mls @ 999 mls/hr IV .Q1H1M ONE Stop: 01/18/21 23:12 Last Infusion: 01/19/21 00:22 Dose: 0 mls/hr Documented by: [id number] Admin: 01/18/21 22:59 Dose: 999 mls/hr Documented by: [id number] Piperacillin Sod/Tazobactam (Sod 4.5 gm/ Dextrose) 120 mls @ 200 mls/hr IV ONE ONE; Protocol Stop: 01/19/21 00:20 Last Admin: 01/19/21 00:21 Dose: 200 mls/hr Documented by: [id number] Ioversol (Optiray 320 100ml) 95 ml IV ONCE ONE Stop: 01/18/21 19:48 Last Admin: 01/18/21 19:47 Dose: 95 ml Documented by: [id number] Ondansetron HCl (Ondansetron Inj 2 Mg/Ml 2 Ml Vial) 4 mg IV NOW STA Stop: 01/18/21 16:56 Last Admin: 01/18/21 17:21 Dose: 4 mg Documented by: [id number] Ondansetron HCl (Ondansetron Inj 2 Mg/Ml 2 Ml Vial) 4 mg IV NOW STA Stop: 01/18/21 18:43 Last Admin: 01/18/21 19:10 Dose: 4 mg Documented by: [id number] Medical Decision Making Differential Diagnosis Differential diagnoses entertained included GERD, gastritis, esophagitis, peptic ulcer disease, perforation, pancreatitis, pancreatic pseudocyst, mass or malignancy, bowel obstruction, electrolyte or metabolic abnormality, dehydration, among others. Medical Records Attestation: I reviewed the patient's medical records. Home Medications Current Medication List: was personally reviewed by me Laboratory Data Attestation: I reviewed the patient's lab results. Result diagrams: 01/18/21 17:22 01/18/21 17:22 Lab Results 01/18/21 01/18/21 01/18/21 Range/Units 17:22 17:22 17:22 WBC 17.80 H (4.8-10.8) K/uL RBC 4.83 (4.2-5.4) M/uL Hgb 13.9 (12.0-16.0) g/dL Hct 42.4 (37-47) % MCV 87.8 (80-100) fL MCH 28.8 (25-34) pg MCHC 32.8 (32-36) g/dL RDW Std Deviation 48.0 H (36.4-46.3) fL RDW Coeff of Jasmin 14.9 H (11.5-14.5) % Plt Count 435 H (130-400) K/uL MPV 9.8 (7.4-10.4) fL Immature Gran % (Auto) 0.5 % Neut % (Auto) 81.3 % Lymph % (Auto) 12.6 % Shelby % (Auto) 5.2 % Eos % (Auto) 0.3 % Baso % (Auto) 0.1 % Neut # (Auto) 14.47 H (1.4-6.5) K/uL Lymph # (Auto) 2.24 (1.2-3.4) K/uL Shelby # (Auto) 0.93 H (0.11-0.59) K/uL Eos # (Auto) 0.05 (0-0.5) K/uL Baso # (Auto) 0.02 (0-0.2) K/uL Immature Gran # (Auto) 0.09 H (0.00-0.02) K/uL Sodium 138 (136-145) mmol/L Potassium 3.6 (3.5-5.1) mmol/L Chloride 105 (98-107) mmol/L Carbon Dioxide 25 (21-32) mmol/L Anion Gap 8.0 (3-11) BUN 9 (7-18) mg/dl Creatinine 0.75 (0.6-1.2) mg/dl Est Cr Clr Drug Dosing 117.1 ml/min Est GFR ( Amer) 123.1 ml/min Est GFR (Non-Af Amer) 106.2 ml/min BUN/Creatinine Ratio 12.4 (10-20) Glucose 85 (70-99) mg/dl Calcium 9.7 (8.5-10.1) mg/dl Total Bilirubin 0.2 (0.2-1) mg/dl AST 13 L (15-37) U/L ALT 30 (12-78) U/L Alkaline Phosphatase 92 (45-117) U/L Total Protein 7.9 (6.4-8.2) gm/dl Albumin 2.7 L (3.4-5.0) gm/dl Globulin 5.2 H (2.5-4.0) gm/dl Albumin/Globulin Ratio 0.5 L (0.9-2) Lipase 902 H (73-393) U/L HCG, Qual Negative (Negative) Urine Color Urine Appearance (Clear) Urine pH (4.5-7.5) Ur Specific Marion (1.000-1.030) Urine Protein (Negative) Urine Glucose (UA) (Negative) Urine Ketones (Negative) Urine Blood (Negative) Urine Nitrite (Negative) Urine Bilirubin (Negative) Urine Urobilinogen (Negative) Ur Leukocyte Esterase (Negative) COVID-19 Eval Order SARS-CoV-2 (PCR) (Negative) 01/18/21 01/18/21 01/18/21 Range/Units 17:22 17:22 19:10 WBC (4.8-10.8) K/uL RBC (4.2-5.4) M/uL Hgb (12.0-16.0) g/dL Hct (37-47) % MCV (80-100) fL MCH (25-34) pg MCHC (32-36) g/dL RDW Std Deviation (36.4-46.3) fL RDW Coeff of Jasmin (11.5-14.5) % Plt Count (130-400) K/uL MPV (7.4-10.4) fL Immature Gran % (Auto) % Neut % (Auto) % Lymph % (Auto) % Shelby % (Auto) % Eos % (Auto) % Baso % (Auto) % Neut # (Auto) (1.4-6.5) K/uL Lymph # (Auto) (1.2-3.4) K/uL Shelby # (Auto) (0.11-0.59) K/uL Eos # (Auto) (0-0.5) K/uL Baso # (Auto) (0-0.2) K/uL Immature Gran # (Auto) (0.00-0.02) K/uL Sodium (136-145) mmol/L Potassium (3.5-5.1) mmol/L Chloride (98-107) mmol/L Carbon Dioxide (21-32) mmol/L Anion Gap (3-11) BUN (7-18) mg/dl Creatinine (0.6-1.2) mg/dl Est Cr Clr Drug Dosing ml/min Est GFR ( Amer) ml/min Est GFR (Non-Af Amer) ml/min BUN/Creatinine Ratio (10-20) Glucose (70-99) mg/dl Calcium (8.5-10.1) mg/dl Total Bilirubin (0.2-1) mg/dl AST (15-37) U/L ALT (12-78) U/L Alkaline Phosphatase (45-117) U/L Total Protein (6.4-8.2) gm/dl Albumin (3.4-5.0) gm/dl Globulin (2.5-4.0) gm/dl Albumin/Globulin Ratio (0.9-2) Lipase (73-393) U/L HCG, Qual (Negative) Urine Color Yellow Urine Appearance Clear (Clear) Urine pH 6.5 (4.5-7.5) Ur Specific Marion 1.010 (1.000-1.030) Urine Protein Negative (Negative) Urine Glucose (UA) Negative (Negative) Urine Ketones 2+ H (Negative) Urine Blood Negative (Negative) Urine Nitrite Negative (Negative) Urine Bilirubin Negative (Negative) Urine Urobilinogen Negative (Negative) Ur Leukocyte Esterase Negative (Negative) COVID-19 Eval Order Covid19 at [facility] SARS-CoV-2 (PCR) NEGATIVE (Negative) Imaging Data Attestation: I personally reviewed and interpreted this imaging study as follows: Radiologist's Impression: Abdomen/Pelvis CT 01/18/21 18:[address] WITH IV CONTRAST CT DOSE: 856.67 mGy.cm HISTORY: Left upper quadrant pain. Vomiting. Recent pancreatitis. TECHNIQUE: Multiaxial CT images of the abdomen and pelvis were performed following the use of intravenous contrast. A dose lowering technique was util ized adhering to the principles of ALARA. COMPARISON STUDY: Abdomen and pelvis CT 01/05/2021. FINDINGS: Trace left pleural effusion. There is also a trace pericardial effusion. These have progressed in the interval. Prior cholecystectomy. The liver, spleen, right adrenal gland, and right kidney are unremarkable. Stable 1.2 cm cyst within the lower pole the left kidney. No hydronephrosis. The main portal vein is patent. Subcentimeter retroperitoneal lymph nodes do not meet CT criteria for pathologic involvement. The bladder, uterus, and ovaries are within normal limits. There is trace pelvic free fluid. Colonic diverticulosis. No evidence for acute diverticulitis. No evidence for bowel obstruction. Normal appendix. Moderate thickening of the gastric wall which has developed in the interval. Peripancreatic inflammatory change at the pancreatic tail is again noted. Interval development of a multiloculated cystic collection at the pancreatic tail which extends into the left upper quadrant and results in mass effect along the posterior wall of the proximal stomach. There is an additional smaller fluid collection at the splenic hilum which measures 3 cm. The dominant cystic collection extending from the pancreatic tail measures approximately 6.5 x 5.1 cm. Possible small focus of pancreatic necrosis at the pancreatic tail at the origin of the peripancreatic cyst. No change in the left adrenal gland nodule. IMPRESSION: 1. Interval development of peripancreatic fluid collections adjacent to the pancreatic tail with the largest measuring 6.5 x 5.1 cm. This abuts and displaces the posterior wall of the proximal stomach. There is associated moderate thickening of the gastric wall which may be reactive to the suspected peripancreatic pseudocysts.. 2. Mild peripancreatic inflammatory change persists and is consistent with patient's known history of acute pancreatitis. There may be a small focus of pancreatic necrosis at the pancreatic tail near the origin of the peripancreatic cysts. 3. Trace left pleural effusion and trace pericardial effusion which have progressed in the interval. 4. Additional findings as described above. ACT 112: Negative or not required by law. Electronically signed by: Scott Zhang M.D. 01/18/2021 8:08 PM MDM Narrative See ED course. Impression & Plan Pancreatic pseudocyst, Acute pancreatitis, Intractable vomiting Discharge Plan Visit Data Chief Complaint: Vomiting Stated Complaint: EXCESSIVE VOMITING, HURTS TO TOUCH STOMACH ED Provider: Andrew Bateman ED Midlevel Provider: Maninder Samano Discharge Problem: Pancreatic pseudocyst, Acute pancreatitis, Intractable vomiting Patient Disposition: Admitted As Inpatient Discharge Instructions Interventions: ED Discharge Assessment Last Done: 01/18/21 22:38
[2021-01-18] MEDS: SODIUM CHLORIDE 0.9% 1000ML 1,000 ML IV SCH ×4 (17:21→23:18)
[2021-01-18 17:39] LABS: Basophils # (auto) 0.02 K/uL (0-0.2); Basophils % (auto) 0.1 %; Eosinophils # (auto) 0.05 K/uL (0-0.5); Eosinophils % (auto) 0.3 %; Hematocrit (blood only) 42.4 % (37-47); Hemoglobin 13.9 g/dL (12.0-16.0); Immature Granulocytes # (auto) 0.09 K/uL (0.00-0.02); Immature Granulocytes % (auto) 0.5 %; Lymphocytes # (auto) 2.24 K/uL (1.2-3.4); Lymphocytes % (auto) 12.6 %; Mean Corpuscular Hemoglobin 28.8 pg (25-34); Mean Corpuscular Hgb Conc 32.8 g/dL (32-36); Mean Corpuscular Volume 87.8 fL (80-100); Mean Platelet Volume 9.8 fL (7.4-10.4); Monocytes # (auto) 0.93 K/uL (0.11-0.59); Monocytes % (auto) 5.2 %; Neutrophils # (auto) 14.47 K/uL (1.4-6.5); Neutrophils % (auto) 81.3 %; Platelet Count 435 K/uL (130-400); RDW Coefficient of Variation 14.9 % (11.5-14.5); Red Blood Count 4.83 M/uL (4.2-5.4)
[2021-01-18 18:00] LABS: Albumin Level 2.7 gm/dl (3.4-5.0); BUN Creatinine Ratio 12.4 (10-20); Calcium 9.7 mg/dl (8.5-10.1); Creatinine Clr Calc Pharmacy 117.1 ml/min; Est GFR (African American) 123.1 ml/min; Est GFR (Non-African American) 106.2 ml/min; Potassium 3.6 mmol/L (3.5-5.1)
[2021-01-18 18:02] LABS: Albumin Globulin Ratio 0.5 (0.9-2); Bilirubin,Total 0.2 mg/dl (0.2-1); Globulin 5.2 gm/dl (2.5-4.0); Total Protein 7.9 gm/dl (6.4-8.2)
[2021-01-18 18:06] LABS: Pregnancy Test, Serum Negative (Negative)
[2021-01-18 19:24] LABS: Appearance Urine Clear (Clear); Bilirubin Urine Negative (Negative); Blood Urine Negative (Negative); Color Urine Yellow; Glucose Urine UA Negative (Negative); Ketones Urine 2+ (Negative); Leukocyte Esterase Urine Negative (Negative); Nitrite Urine Negative (Negative); Protein Urine Negative (Negative); Urobilinogen Urine Negative (Negative); pH Urine 6.5 (4.5-7.5)
[2021-01-18] MEDS ORDERED: OPTIRAY 320 100ml IV ONE (19:47)
--- NOTE | 2021-01-18 20:10 | CT Scan Report ---
ABDOMEN AND PELVIS CT WITH IV CONTRAST CT DOSE: 856.67 mGy.cm HISTORY: Left upper quadrant pain. Vomiting. Recent pancreatitis. TECHNIQUE: Multiaxial CT images of the abdomen and pelvis were performed following the use of intrave nous contrast. A dose lowering technique was utilized adhering to the principles of ALARA. COMPARISON STUDY: Abdomen and pelvis CT 01/05/2021. FINDINGS: Trace left pleural effusion. There is also a trace pericardial effusion. These have progres sed in the interval. Prior cholecystectomy. The liver, spleen, right adrenal gland, and right kidney are unremarkable. Stable 1.2 cm cyst within the lower pole the left kidney. No hydronephrosis. The ma in portal vein is patent. Subcentimeter retroperitoneal lymph nodes do not meet CT criteria for patho logic involvement. The bladder, uterus, and ovaries are within normal limits. There is trace pelvic f ree fluid. Colonic diverticulosis. No evidence for acute diverticulitis. No evidence for bowel obstru ction. Normal appendix. Moderate thickening of the gastric wall which has developed in the interval. Peripancreatic inflammatory change at the pancreatic tail is again noted. Interval development of a m ultiloculated cystic collection at the pancreatic tail which extends into the left upper quadrant and results in mass effect along the posterior wall of the proximal stomach. There is an additional smal ler fluid collection at the splenic hilum which measures 3 cm. The dominant cystic collection extendi ng from the pancreatic tail measures approximately 6.5 x 5.1 cm. Possible small focus of pancreatic n ecrosis at the pancreatic tail at the origin of the peripancreatic cyst. No change in the left adrena l gland nodule. IMPRESSION: 1. Interval development of peripancreatic fluid collections adjacent to the pancreatic tail with the largest measuring 6.5 x 5.1 cm. This abuts and displaces the posterior wall of the proximal stomach. There is associated moderate thickening of the gastric wall which may be reactive to the suspected pe ripancreatic pseudocysts.. 2. Mild peripancreatic inflammatory change persists and is consistent with patient's known history of acute pancreatitis. There may be a small focus of pancreatic necrosis at the pancreatic tail near th e origin of the peripancreatic cysts. 3. Trace left pleural effusion and trace pericardial effusion which have progressed in the interval. 4. Additional findings as described above. ACT 112: Negative or not required by law. Electronically signed by: Scott Zhang M.D. 01/18/2021 8:08 PM
--- NOTE | 2021-01-18 21:43 | History & Physical Report ---
Date of Service January 18, 2021 Assessment & Plan (1) Acute pancreatitis: Plan: Cece Colin is a 30-year-old female with PMH of asthma, migraines, ankylosing spondylitis, and previous episodes of pancreatitis who comes to [facility] due to ongoing vomiting and abdominal pain. Found to have pancreatitis with peripancreatic pseudocysts and possible focus of pancreatic necrosis. Acute pancreatitis/possible pancreatic tail necrosis - Admit to Med tele - Give additional NSS 1L bolus - Continue NS 250mL/hr - Zosyn empirically for possibility of infected necrosis - Gastroenterology consult - Zofran prn - PRN IV Dilaudid for pain control - NPO DVT ppx: SCDs Diet: NPO Dispo: Med tele CODE: FULL CODE (2) Nausea and vomiting: History of Present Illness Primary Care Provider: Stefanie Crowder MD Cece Colin is a 30-year-old female with PMH of asthma, migraines, ankylosing spondylitis, and previous episodes of pancreatitis who comes to [facility] due to ongoing vomiting and abdominal pain. She was seen in our ED on 01/05 and diagnosed with pancreatitis due to elevated lipase and CT scan. At that time, she declined admission. Returned on 01/08 for continued pain and vomiting and again prefer not to be admitted. She tried clear diet, Zofran, and oxycodone at home. Today she mentions that she has not been able to eat very much at home for the majority of the time since coming in shortly. She mentions that she does have pain that fluctuates between a current 3-4 out of 10 up to a 6 out of 10 at times. She has continued to vomit despite using Zofran at home. When asked if she had been febrile, the patient reports that she has had a temperature of 99 F, insists this is a fever for her because her normal body temperature is 97 F. Denies chest pain, palpitations, shortness of breath, urinary symptoms, diarrhea or constipation. In the ED today, she received normal saline bolus 1 L, Zofran 4 mg IV x2, and famotidine [address] A/P showing interval development of peripancreatic fluid collections adjacent to the pancreatic tail with the largest measuring 6.5 x 5.1 cm. Associated moderate thickening of the gastric wall which may be reactive to this suspect did peripancreatic pseudocyst. Mild peripancreatic inflammatory change. There may be a small focus of pancreatic necrosis at the pancreatic tail near the origin of the peripancreatic cysts. Blood work is significant for white blood count of 17.8, lipase of 902. Allergies Allergy/AdvReac Type Severity Reaction Status Date / Time adhesive Allergy Mild RASH Verified 01/18/21 17:07 nickel Allergy Mild RASH Verified 01/18/21 17:07 morphine AdvReac Severe Body fells Verified 01/18/21 17:07 like it is on fire Home Medications Medication Instructions Recorded Confirmed Type aripiprazole 300 mg intramuscular 300 mg IM MONTHLY 03/13/19 01/18/21 History suspension,extended release (Abilify Maintena) naproxen 500 mg tablet (Naprosyn) 500 mg PO Q12 01/05/21 01/18/21 History norethindrone (contraceptive) 0.35 0.35 mg PO DAILY@1130 01/05/21 01/18/21 History mg tablet ondansetron 4 mg disintegrating 4 mg PO Q6H PRN #20 tab 01/08/21 01/18/21 Rx tablet oxycodone 5 mg tablet 5 - 10 mg PO Q6H PRN #20 tab 01/08/21 01/18/21 Rx Past Med/Surg History Medical History (Updated 01/20/21 @ 00:09 by Humberto Bojorquez) Asthma Biliary colic Cholelithiasis Fracture of distal end of right fibula History of varicella Homicidal ideation Hx of chlamydia infection Hx of drug dependence Hx of ovarian cyst Hypertension during PID (pelvic inflammatory disease) Surgical History H/O oral surgery History of cholecystectomy S/P tonsillectomy and adenoidectomy Family History Mother Diabetes Dyslipidemia Hypertension Grandmother (Paternal) Diabetes Aunt Diabetes Denies family history of Ovarian cancer Prostate cancer Myocardial infarction Breast cancer Colorectal cancer Social History Smoking Status: Current every day smoker Tobacco Type: Cigarettes Age Started Using Tobacco: 11; packs per day: 1; Years Smoked: 18; Cigarettes Per Day: 10-20; Second Hand Exposure: No; Do You Dip or Chew Tobacco: No; Tobacco Cessation Education Requested by Patient: No Hx Alcohol Use: No Hx Substance Use: No Preferred Language: Thai Communication Ability: Effective 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 NAD. HEENT: PERRL, EOMI. Moist mucous membranes. CHEST/LUNGS: CTAB A/P. No crackles, wheezes, rales, rhonchi. HEART: RRR. No m/g/r. No carotid bruits. ABDOMEN: ND, TTP diffusely, especially at LUQ. Soft. BS+ x4 EXTREMITIES: No cyanosis, no clubbing, no edema SKIN: Warm and dry. No rashes or lesions. PSYCHIATRIC: Euthymic affect, no SI, no pressured speech, no hallucinations NEUROLOGIC: Moves all 4 extremities equally. CN II-XII grossly intact. Results & Data Results & Data ([facility]) Vital Signs (Past 12 Hours) Vital Signs Temp Pulse Pulse Resp BP BP Pulse Ox 01/18/21 18:00 76 29 H 129/79 98 01/18/21 17:30 78 31 H 121/67 96 01/18/21 17:00 82 20 129/85 98 01/18/21 16:46 81 20 130/81 98 01/18/21 16:38 77 25 H 130/49 L 98 01/18/21 13:36 36.3 C L 98 H 18 131/85 97 Supervising Physician Co-Signing Physician Notes Attending addendum: I have physically seen this patient, have supervised the medical residents activities, and agree with the H&P unless as otherwise noted. Assessment and Plan: Acute pancreatitis/pancreatic tail necrosis- Admission to hospital medicine as recommended with GI consult consult by ED Status post 1 L normal saline bolus in ED Give additional 1 L normal saline bolus now, then followed by 1050 mils per hour for 1 more liter Zosyn 4.5 g IV every 8 hours Zofran 4 mg IV every 6 hours as needed Famotidine 20 mg IV every 12 hours Dilaudid 0.5 mg IV every 3 hours as needed severe pain NPO Consult gastroenterology Remaining orders and notations as noted Resident Activity Tracking Resident Involvement: Resident Care Provided Care Provided: Adult [facility] Medicine
[2021-01-18] MEDS ORDERED: SODIUM CHLORIDE 0.9% 1000ML 1,000 ML IV ONE (22:12)
[2021-01-18] MEDS ORDERED: PIPERACILL/TAZOBAC CONSULT ACTIVE PRN (23:13)
[2021-01-18] MEDS ORDERED: HYDROmorphone INJ 0.5 MG/0.5 ML SYR IV PRN (23:13)
[2021-01-18] MEDS ORDERED: PIPERACILLIN/TAZOBACTAM 3.375 GM in DEXTROSE 5% 100 ML IV SCH (23:13)
[2021-01-18] MEDS: ONDANSETRON INJ 2 MG/ML 2 ML VIAL IV PRN (23:31)
[2021-01-18] MEDS ORDERED: PIPERACILLIN/TAZOBACTAM 4.5 GM in DEXTROSE 5% 100 ML IV ONE (23:45)
[2021-01-19] MEDS: SODIUM CHLORIDE 0.9% 1000ML 1,000 ML IV SCH ×3 (03:08→10:30)
[2021-01-19] MEDS: PIPERACILLIN/TAZOBACTAM 4.5 GM in DEXTROSE 5% 100 ML IV SCH ×3 (04:44→20:05)
[2021-01-19] MEDS: ONDANSETRON INJ 2 MG/ML 2 ML VIAL IV PRN ×3 (07:25→22:45)
[2021-01-19] MEDS: HYDROmorphone INJ 0.5 MG/0.5 ML SYR IV PRN (08:13)
--- NOTE | 2021-01-19 10:20 | Hospitalist Progress Note ---
Date of Service January 19, 2021 Assessment & Plan (1) Acute pancreatitis: Plan: - This seems to be acute on chronic at this time (as ongoing since September) now with multiloculated fluids collection causing mass effect of the stomach and concern for pancreatic tail necrosis. - I have reached out to [facility] and spoke to Dr. Morse (hospitalist) anf Dr. Nhan Gutierrez (GI/biliary specialist) who reviewed imagine personally. GI does NOT feel that this fluid collection is "ripe" enough and needs to mature prior to drainage. - I have also spoke with GI here (Hilaria NIETO who has been in contact with Dr. Zheng Murray) who has also reviewed these imaging and has seen this patient in consultation and agrees that this isn't something to be drained ur gently. - I asked specifically if it was thought that this was an abscess and GI is leaning towards this being a cyst. I voiced concern regarding the mass effect on the stomach along with the questionable pancreatic tail necrosis. GI recommends watching closely for Ileus/obstruction. Will limite narcotics. GI has ordered clear liquids. - At this point, I have gotten patient accepted at [facility] (prior to discussing with our GI group here as I was unaware that there was a biliary spec ialist and that this could be drained). All believe that this fluid collect NEEDS drained but not acutely - Plan is to continue with conservative measures. I have let the transfer open for now (as I was told that it will take a minimum of 3 days for a bed to open up given lack of beds and that Dr. Murray may not be available to drain this acutely in the event that the patient would decline) - If patient declines, will proceed with transfer for surgical intervention to be done acutely. - PAtient is currently on empiric abx therapy (zosyn). Her WBC is elevated (however, this may be reactive). I have added blood cultures and a procalcitonin. Will leave abx therapy on board but may be inclined to stop them (however, in the instance that this is in fact an abscess- which is not being favored at this time by GI, would be at risk of ascending cholangitis) - LFT's stable. - will trend labs (including LFTS and lipase) - appreciated recommendations and comanagement from GI Plan: plan of care D/W Dr. Rosales. will continue to follow closely. Admission and Anticipated Discharge Date Admission Date: January 18, 2021 Subjective Ms. Colin with underlying mood disorder and ankylosing spondylitis taking only Naprosyn. She was hospitalized yesterday with pancreatitis. Cholecystectomy done 2017. She take abilify and naprosyn daily. Rarely drinks ETOH. Triglyceride level normal at 134. She is not a diabetic. Patient has been in and out of the ED since September with c/o abd pain-- findings all consistent with mild pancreatitis. September visit (outpatient workup)-- lipase was only very mildly elevated 482 but later normalized to 184. No radiographic imaging October ED visit-- lipase was again slightly elevated at 562 but normalized to 351. TB/AST/ALT WNL (0.3). CT of the A/P with contrast showed mild infiltration and fluid adjacent to the pancreatic tail suggestive of acute pancreatitis. No peripancreatic fluid collection or ductal dilatation. ED visit on 01/05: lipase was [address] showing increasing fluid-- moderate peripancreatic fluid and stranding centered on the pancreatic tail consistent with recurrent acute pancreatitis. No evidence of pancreatic necrosis . no biliary ductal dilation. LFT remained WNL (0.2). Did have mild leukocytosis of 13.36 with a left shft. Was afebrile and HD stable. Requested to be treated as OP. SEnt home with clear liquids diet and referral to see GI. saw GI the following day (01/06/21) and plan was for FU EUS (scheduled for Adelita singer) Returned to Ed on 01/08: lipse of 2318 and normal LFTs (0.2). WBC wount 14.8 Recommended that she be hospitalized but she refused. No repeat imaging done during this ED visit. BAck to the ED on 01/18: Now having N/V, subjective F/C and persistent abd pain (generalized now-- was all RUQ). Was/is hemodynamically stable. now with leukocytosis of 17.8 with a left shift. CT showing concern for multiloculated fluid collection at the tail of the pancreas with peripancreatic inflammatory c hanges. Multiloculated fluid collections are causing mass effect of the posterior wall of the stomach. Also, there is concern for pancreatic tail necrosis. She was hospitalized and empirically started on Zosyn. She is NPO and receiving IVF. She remains afebrile and HD stable. Still c/o pain (10/10) and nausea. No vomiting with antiemetics on board. Review of Systems Review of Systems: All systems reviewed and are unremarkable except as noted in HPI and below Reports subjective F/C, abd pain, nausea. Vomiting prior to hospitalization but this has resolved with antiemetics. Denies headache, nasal congestion, sore throat, cough, chest pain, shortness of breath, palpitations, orthopnea, PND, vomiting, diarrhea, constipation, dysuria, hematuria, frequency, back pain, joint pain or swelling, easy bruising or blooding, skin lesions or rashes. Physical Exam Physical Exam: General: Resting comfortably in her hospital bed. Appears ill but not toxic. NAD. HEENT: Head is AT/NC buccal mucosa is moist and pink Neck: No JVD. Negative hepatojugular reflex Cardiac: RRR with 1-2/8 HENNY Lungs: CTA without W/R/R Abdomen: Normoactive X4. Soft, exquisitely tender in all quadrats. Exam limited d/t guarding Extremities: No peripheral clubbing cyanosis or edema Neuro: A&O X4 cranial nerves II through XII are grossly intact no focal neuro deficits Skin: No obvious skin lesions or rashes Psych: Appropriate affect pleasant and cooperative Results & Data Results & Data ([facility]) Vital Signs (Past 12 Hours) Vital Signs Temp Pulse Pulse Resp BP BP BP 01/19/21 07:37 36.8 C 83 16 132/82 01/19/21 03:40 36.8 C 74 18 123/77 01/18/21 23:00 37.5 C 79 107 H 18 126/80 01/18/21 22:38 71 22 105/59 L 01/18/21 22:30 71 22 105/59 L 01/18/21 22:00 82 28 H 116/83 Pulse Ox 01/19/21 07:37 92 01/19/21 03:40 94 01/18/21 23:00 97 01/18/21 22:38 97 01/18/21 22:30 97 01/18/21 22:00 94 Laboratory Results 01/18/21 17:22 01/18/21 17:22 TB: 0.2 AST: 13 ALT: [address] of A/P with contrast: FINDINGS: Trace left pleural effusion. There is also a trace pericardial effusion. These have progressed in the interval. Prior cholecystectomy. The liver, spleen, right adrenal gland, and right kidney are unremarkable. Stable 1.2 cm cyst within the lower pole the left kidney. No hydronephrosis. The main portal vein is patent. Subcentimeter retroperitoneal lymph nodes do not meet CT criteria for pathologic involvement. The bladder, uterus, and ovaries are within normal limits. There is trace pelvic free fluid. Colonic diverticulosis. No evidence for acute diverticulitis. No evidence for bowel obstruction. Normal appendix. Moderate thickening of the gastric wall which has developed in the interval. Peripancreatic inflammatory change at the pancreatic tail is again noted. Interval development of a multiloculated cystic collection at the pancreatic tail which extends into the left upper quadrant and results in mass effect along the posterior wall of the proximal stomach. There is an additional smaller fluid collection at the splenic hilum which measures 3 cm. The dominant cystic collection extending from the pancreatic tail measures approximately 6.5 x 5.1 cm. Possible small focus of pancreatic necrosis at the pancreatic tail at the origin of the peripancreatic cyst. No change in the left adrenal gland nodule. IMPRESSION: 1. Interval development of peripancreatic fluid collections adjacent to the pancreatic tail with the largest measuring 6.5 x 5.1 cm. This abuts and displaces the posterior wall of the proximal stomach. There is associated moderate thickening of the gastric wall which may be reactive to the suspected peripancreatic pseudocysts.. 2. Mild peripancreatic inflammatory change persists and is consistent with patient's known history of acute pancreatitis. There may be a small focus of pancreatic necrosis at the pancreatic tail near the origin of the peripancreatic cysts. 3. Trace left pleural effusion and trace pericardial effusion which have progressed in the interval. 4. Additional findings as described above PG Care Time/CCT Total # of Minutes Spent Total Time Spent with Patient: Total time spent is greater than 50% in coordination of care (as documented) at patient's floor/unit and/or counseling patient: 90 min including multiple phone calls with GI (here and at [place]) and multiple updates to the patient [place] [id number] Subseq Hosp Care Lvl 3 Patient Type Established History Comprehensive Exam Comprehensive Medical Decision Making High Complexity Diagnoses Acute pancreatitis K85.90 Time Spent (min) 90
[2021-01-19] MEDS: LACTATED RINGER'S 1,000 ML IV SCH ×2 (11:47→19:36)
--- NOTE | 2021-01-19 11:53 | Gastrointestinal Consultation ---
Date of Consultation January 19, 2021 Assessment & Plan (1) Acute pancreatitis: (2) Pancreatic pseudocyst: Pt is a 30 y/o female w hx of recurrent pancreatitis, admitted w pancreatitis with CT scan showing development of pseudocysts, largest 6 x 5 cm. - August DC antibx - LR @ 150ml/hr - CL diet - Symptomatic management w antiemetics and analgesics prn; avoid narcotics if possible to help prevent ileus - CT abd/pelvis images reviewed w Dr. Marisol Murray: pseudocyst will need additional 2 weeks to mature to be amendable to endoscopic drainage. Will arrange outpt EUS/ERCP w pancreas cyst drainage in 2 weeks' time at [facility]. - August cancel transfer to [facility] Supervising Physician Co-Signing Physician Notes Attg add: Pt is s/p ERCP in 2017 for choloedocholithiasis, s/p ER visit in October for abdominal pain notable for increased lipase and CT imaging showing mild pancreatitis of the tail. She had resolution o david symptoms, but had recurrence of abdominal pain in Septmeber; had increased lipase and CT showed mod peripanc inflammation around tail. Repeat ER visit yesterday for abdominal pain showed pseudocyst in tail, marked gastric wall thick. A/p: Recurrent acute panc S/p micah and ERCP Pseudocyst or WOPN - Etiology of pancreatitis unclear. Shape of pancreas on CT may be suggestive of AIP; will check serologies. I wonder if she has chronic panc - it may be possible that she had ductal leak in tail, leading to fluid collection. Will request MRCP to look for evidence of PD stricture, communication of PD duct and pseudocyst. - WBC increased, but o/w non toxic. Check blood cx, defer cultures, follow fever curve and plan to begin empiric abx. - Attempt clears. If unable to tolerate, may need post pyloric feeding. - Marked gastric wall thickening. Will review imaging to look for splenic vein thrombosis. History of Present Illness Reason for Consultation: Pancreatitis ; pseudocysts Requesting Physician: Dr. Walt Rosales Attending Physician: Dr. Conor Poole History of Present Illness Pt is a 30 y/o female w PMHx of asthma, migraines, recurrent pancreatitis who presented yesterday w c/o upper abd pain and n/v x 2 weeks. She was at the ED 01/05 & 01/08 w similar symptoms and dx w pancreatitis via lab and CT scan. She declined admission both times. She reports having low grade temp at home, no CP, SOB. No passing much flatus and last BM few days ago. Labs showed elevated WBC of 17K, lipase 902, normal renal and hepatic functions. CT abd/pelvis w contrast showed interval development of peripancreatic fluid collections adjacent to the pancreatic tail with the largest measuring 6.5 x 5.1 cm. This abuts and displaces the posterior wall of the proximal stomach. There is associated moderate thickening of the gastric wall which may be reactive to the suspected peripancreatic pseudocysts. small focus of pancreatic necrosis at the pancreatic tail near the origin of the peripancreatic cysts. Smokes 1PPD tobacco, rare ETOH use (last used 3 months ago), denies marijuana. Denies family hx of pancreas dz, autoimmune. She is s/p cholecystectomy Allergies Allergy/AdvReac Type Severity Reaction Status Date / Time adhesive Allergy Mild RASH Verified 01/18/21 17:07 nickel Allergy Mild RASH Verified 01/18/21 17:07 morphine AdvReac Severe Body fells Verified 01/18/21 17:07 like it is on fire Home Medications Medication Instructions Recorded Confirmed Type aripiprazole 300 mg intramuscular 300 mg IM MONTHLY 03/13/19 01/18/21 History suspension,extended release (Abilify Maintena) naproxen 500 mg tablet (Naprosyn) 500 mg PO Q12 01/05/21 01/18/21 History norethindrone (contraceptive) 0.35 0.35 mg PO DAILY@1130 01/05/21 01/18/21 History mg tablet ondansetron 4 mg disintegrating 4 mg PO Q6H PRN #20 tab 01/08/21 01/18/21 Rx tablet oxycodone 5 mg tablet 5 - 10 mg PO Q6H PRN #20 tab 01/08/21 01/18/21 Rx Patient History Medical History (Updated 01/20/21 @ 00:09 by Humberto Bojorquez) Asthma Biliary colic Cholelithiasis Fracture of distal end of right fibula History of varicella Homicidal ideation Hx of chlamydia infection Hx of drug dependence Hx of ovarian cyst Hypertension during PID (pelvic inflammatory disease) Surgical History H/O oral surgery History of cholecystectomy S/P tonsillectomy and adenoidectomy Family History Mother Diabetes Dyslipidemia Hypertension Grandmother (Paternal) Diabetes Aunt Diabetes Denies family history of Ovarian cancer Prostate cancer Myocardial infarction Breast cancer Colorectal cancer Social History Smoking Status: Current every day smoker Tobacco Type: Cigarettes Age Started Using Tobacco: 11; packs per day: 1; Years Smoked: 18; Cigarettes Per Day: 10-20; Second Hand Exposure: No; Do You Dip or Chew Tobacco: No; Tobacco Cessation Education Requested by Patient: No Hx Alcohol Use: No Hx Substance Use: No Preferred Language: Scottish Communication Ability: Effective 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 Beliefs That Will Affect Care: None marital status: Single Current Living Situation: Spouse and Other Current Living Situation Comment: Lives at home with fiance and son current occupational status: employed Other Information That Helps Us Care for You: No Feels Safe at Home: Yes Dental Care, Regularly: Yes Physical Activity Frequency: Does not Exercise Seatbelt Use: always Sunscreen Use: No Assistive Devices: Glasses Review of Systems Review of Systems: All systems reviewed & are unremarkable except as noted in HPI & below Physical Exam Constitutional: WD/WN, vitals as above well groomed, cooperative and comfortable Eyes: PERRL, conjunctivae normal, anicteric sclerae ENMT: external ear and nose normal, oropharynx normal Respiratory: normal respiratory effort, lungs clear to auscultation Cardiovascular: RRR, no murmur, no edema Gastrointestinal (Abdomen): TTP upper abd, soft, BS hypoactive Skin: no rashes, warm and dry no jaundice Psychiatric: A+Ox3, euthymic affect Lymphatic: no lymphedema Results & Data ([facility]) Vital Signs (Past 12 Hours) Vital Signs Temp Pulse Resp BP BP Pulse Ox 01/19/21 11:11 36.9 C 68 16 128/78 94 01/19/21 07:37 36.8 C 83 16 132/82 92 01/19/21 03:40 36.8 C 74 18 123/77 94
[2021-01-19] MEDS ORDERED: NAPROXEN 250 MG TAB PO PRN (19:42)
--- NOTE | 2021-01-19 19:49 | Magnetic Resonance Report ---
MR MRCP HISTORY: 30 years-old Female eval pancreas cyst; ? duct disruption acute vomiting with pancreatitis and left-sided abdominal pain COMPARISON: CT abdomen and pelvis 01/18/2021, MRCP 10/11/2017 TECHNIQUE: MRCP without the use of IV contrast was obtained according to institutional protocol. FINDINGS: Trace pericardial and pleural effusions with trace abdominal ascites. Interstitial and peripancreatic edema compatible with acute pancreatitis redemonstrated. Peripancreatic fluid collections measuring up to 6.2 x 5.0 cm again noted with largest abutting and displacing the posterior wall of the stomach . Moderate diffuse associated gastric wall thickening. No pancreatic mass or pancreatic ductal dilati on identified. Cholecystectomy. No intrahepatic biliary ductal dilation. Study is motion degraded. The common bile d uct is normal in caliber measuring 5 mm. No biliary strictures, lesions or stones identified IMPRESSION: 1. Moderate acute pancreatitis redemonstrated. No pancreatic or biliary ductal dilation. 2. Acute peripancreatic fluid collections versus pseudocysts redemonstrated measuring over 6 cm, the largest of which abuts and posteriorly displaces the posterior wall of the stomach. 3. Cholecystectomy. No intrahepatic or extrahepatic biliary ductal dilation or choledocholithiasis. 4. Moderate gastric wall thickening is likely reactive 5. Trace pericardial and pleural effusions with trace abdominal ascites. ACT 112: Negative or not required by law. The above report was generated using voice recognition software. It may contain grammatical, syntax o r spelling errors. Electronically signed by: Segundo Sharma M.D. 01/19/2021 7:48 PM
[2021-01-19] MEDS: CALCIUM CARBONATE 500 MG CHEWABLE TAB PO PRN (23:20)
[2021-01-20] MEDS: LACTATED RINGER'S 1,000 ML IV SCH (01:39)
[2021-01-20] MEDS: CALCIUM CARBONATE 500 MG CHEWABLE TAB PO PRN (03:20)
[2021-01-20] MEDS: PIPERACILLIN/TAZOBACTAM 4.5 GM in DEXTROSE 5% 100 ML IV SCH (03:57)
--- NOTE | 2021-01-20 05:44 | Billing Data ---
Date of Service January 20, 2021 Coding Level of Care Code 69261 Initial Inpt Care Lvl 3
[2021-01-20 08:39] LABS: Basophils # (auto) 0.02 K/uL (0-0.2); Basophils % (auto) 0.2 %; Eosinophils # (auto) 0.11 K/uL (0-0.5); Eosinophils % (auto) 0.9 %; Hemoglobin 11.9 g/dL (12.0-16.0); Immature Granulocytes # (auto) 0.05 K/uL (0.00-0.02); Immature Granulocytes % (auto) 0.4 %; Lymphocytes # (auto) 2.12 K/uL (1.2-3.4); Lymphocytes % (auto) 17.6 %; Mean Corpuscular Hemoglobin 28.1 pg (25-34); Mean Corpuscular Hgb Conc 33.1 g/dL (32-36); Mean Corpuscular Volume 85.1 fL (80-100); Mean Platelet Volume 9.5 fL (7.4-10.4); Monocytes # (auto) 0.72 K/uL (0.11-0.59); Neutrophils # (auto) 9.04 K/uL (1.4-6.5); Neutrophils % (auto) 74.9 %; Platelet Count 352 K/uL (130-400); RDW Coefficient of Variation 14.9 % (11.5-14.5); RDW Standard Deviation 46.4 fL (36.4-46.3); Red Blood Count 4.23 M/uL (4.2-5.4); White Blood Count 12.06 K/uL (4.8-10.8)
[2021-01-20 09:07] LABS: Albumin Level 2.1 gm/dl (3.4-5.0); BUN Creatinine Ratio 6.4 (10-20); Calcium 8.8 mg/dl (8.5-10.1); Creatinine Clr Calc Pharmacy 132.1 ml/min; Est GFR (African American) 133.8 ml/min; Est GFR (Non-African American) 115.5 ml/min; Magnesium 2.4 mg/dl (1.8-2.4); Potassium 3.5 mmol/L (3.5-5.1)
[2021-01-20 09:11] LABS: Albumin Globulin Ratio 0.5 (0.9-2); Bilirubin,Total 0.3 mg/dl (0.2-1); Globulin 4.2 gm/dl (2.5-4.0); Total Protein 6.3 gm/dl (6.4-8.2)
--- NOTE | 2021-01-20 09:43 | Gastroenterology Progress Note ---
Date of Service January 20, 2021 Assessment & Plan (1) Acute pancreatitis: (2) Pancreatic pseudocyst: Plan: Pt is a 30 y/o female w hx of recurrent pancreatitis, admitted w pancreatitis with CT scan showing development of pseudocysts, largest 6 x 5 cm. MRCP w.o . pancreatic or biliary ductal dilation, redemonstrated pancreatic fluid collection similar to CT scan. She is clinically improved. - F/U TATYANA and IgG subclasses to r/o autoimmune pancreatitis - May DC antibx; monitor for fever or rise in WBC off antibx - DC LR - Low fat, FL diet; monitor for n/v s/s which may indicate obstruction (mass effect of panc cyst on stomach) - Symptomatic management w antiemetics and analgesics prn; avoid narcotics if possible to help prevent ileus - CT abd/pelvis images reviewed w Dr. Marisol Murray: pseudocyst will need additional 2 weeks to mature to be amendable to endoscopic drainage. Will arrange outpt EUS/ERCP w pancreas cyst drainage in 2 weeks' time at [facility]. - Cancel transfer to [facility] - Avoid ETOH, tobacco products Admission and Anticipated Discharge Date Admission Date: January 18, 2021 Supervising Physician Co-Signing Physician Notes Attg add: I interviewed and examined pt, reviewed chart and labs. Pt feels well, without abd pain, jarrod clears, asking to be discharged. Labs show improved WBC while on abx. Pancreatic duct not seen on MRCP. Imaging reviewed with radiologist - no Splenic vein thrombosis. RECS as above - slowly adv diet to low fat, w/u AIP and possible genetic causes of pancreatitis. Plan for d/c tomorrow with outpt f/u pending clinical course. Smoking cessation advised. Subjective Pt reports eating crackers overnight along w her CL diet. She had acid reflux this AM which caused her to have small amt of emesis. Denies much abd pain. No fever, chills, CP, SOB. Review of Systems Review of Systems: All systems reviewed & are unremarkable except as noted in HPI & below Constitutional: as per Subjective / HPI Physical Exam Constitutional: WD/WN, vitals as above well groomed, cooperative and comfortable Eyes: PERRL, conjunctivae normal, anicteric sclerae ENMT: external ear and nose normal, oropharynx normal Respiratory: normal respiratory effort, lungs clear to auscultation Cardiovascular: RRR, no murmur, no edema Gastrointestinal (Abdomen): Soft, non tender, BS normal Skin: no rashes, warm and dry no jaundice Psychiatric: A+Ox3, euthymic affect Lymphatic: no lymphedema Results & Data ([facility]) Vital Signs (Past 12 Hours) Vital Signs Temp Pulse Pulse Resp BP BP Pulse Ox 01/20/21 07:22 37.1 C 63 18 143/80 H 94 01/20/21 02:35 37 C 61 18 131/79 94 01/19/21 23:23 68 01/19/21 22:57 37.1 C 68 18 115/75 94
[2021-01-20] MEDS: PANTOprazole 40 MG in SYRINGE 0 ML IV SCH (11:13)
[2021-01-20] MEDS: HYDROmorphone INJ 0.5 MG/0.5 ML SYR IV PRN ×2 (14:37→18:34)
--- NOTE | 2021-01-20 15:22 | Hospitalist Progress Note ---
Date of Service January 20, 2021 Assessment & Plan (1) Acute pancreatitis: Plan: Cece Colin is a 30-year-old female with PMH of asthma, migraines, ankylosing spondylitis, and previous episodes of pancreatitis who comes to [facility] due to ongoing vomiting and abdominal pain. Found to have pancreatitis with peripancreatic pseudocysts and possible focus of pancreatic necrosis. -Pancreatitis seems complicated at this point as ongoing X 3 months now with the development of a multiloculated fluid collection causing mass-effect on the stomach and associated pancreatic tail necrosis -Again, have spoken to to GI specialist (biliary specialist) who both agree that the fluid collection is not mature enough and ready for drainage. Does need to be drained but not now unless the patient becomes hemodynamically unstable or symptoms persist/do not improve -Arrangements for transportation were arranged yesterday prior to being seen by GI. These arrangements remain open in the event that the patient does require urgent drainage as the biliary specialist here is unavailable and the equipment needed for this, is not available here. Transportation remains open. If a bed becomes available in the interim and patient remaining hemodynamically stable with symptom improvementcan cancel transfer and patient can follow-up with GI as an outpatient as recommended. -Patient seen alongside GI today. Lengthy discussion by myself and GI regarding the importance of slow advancement of the diet not only because of her underlying pancreatitis but more concerning the mass-effect on the stomach which could cause a gastric outlet obstruction. GI has advance diet to full liquid -MRCP done yesterday showing no ductal dilatation and reassuring that this multiloculated lesion appears to be consistent with a cyst rather than an abscess. Did have leukocytosis upfront --> on Zosyn. Her white blood cell count has down trended to 12.06. Likely reactive. Procalcitonin negative. Will stop abx's for now -We will continue to monitor labs and symptoms. If doing well may consider discharge tomorrow. (2) Nausea and vomiting: Plan: -Patient reports that this has resolved but nurse reports otherwise stating that patient had a bout of emesis this morning. Patient reports that it is from dyspepsia. No hematemesis. -Patient on GI prophylaxis with Protonix. Will add Pepcid. If needed will order a GI cocktail. Hold Naprosyn for now Plan: * Plan is for discontinuation of IV antibiotic therapy * Slowly advance diet * Monitor labs and clinical status * If doing well, consider discharge tomorrow with follow-up to see GI as an outpatient for drainage of this cystic appearing lesion. * If decline, transfer to [place] as outlined above. * Plan of care discussed with Dr. Rosales. Admission and Anticipated Discharge Date Admission Date: January 18, 2021 Subjective Patient seen on daily rounds today. Vocalizes no complaints or concerns. Claims that she is not having any abdominal pain, nausea or vomiting. Nursing staff voices otherwise and reports that the patient vomited this morning. When questioned, she claims it was because of "acid reflux because we are not giving her anything to eat". When explained the importance of a liquid diet that is slowly advanced, she becomes upset and angry and reports that she has been sneaking crackers all night and tolerating them just fine. GI in the room as well during my exam. Review of Systems Review of Systems: All systems reviewed and are unremarkable except as noted in HPI and below Complaining of dyspepsia. Denies fevers, chills, headache, nasal congestion, sore throat, cough, chest pain, shortness of breath, palpitations, orthopnea, PND, abdominal pain, nausea, vomiting, diarrhea, constipation, dysuria, hematuri a, frequency, back pain, joint pain or swelling, easy bruising or blooding, skin lesions or rashes. Physical Exam Physical Exam: General: Resting comfortably in her hospital bed. She does not appear ill or toxic. NAD. HEENT: Head is AT/NC buccal mucosa is moist and pink Neck: No JVD. Negative hepatojugular reflex Cardiac: RRR without M/G/R Lungs: CTA without W/R/R Abdomen: Normoactive X4. Soft. No guarding today. Nontender in all quadrants. Extremities: No peripheral clubbing cyanosis or edema Neuro: A&O X4 cranial nerves II through XII are grossly intact no focal neuro deficits Skin: No obvious skin lesions or rashes Psych: Appropriate affect pleasant and cooperative Results & Data Results & Data ([facility]) Vital Signs (Past 12 Hours) Vital Signs Temp Pulse Pulse Resp BP BP Pulse Ox 01/20/21 14:51 36.9 C 69 16 109/73 94 01/20/21 11:07 36.7 C 56 L 18 115/67 98 01/20/21 07:22 37.1 C 63 18 143/80 H 94 01/20/21 07:00 61 Laboratory Results 01/20/21 08:13 01/20/21 08:13 PG Care Time/CCT Total # of Minutes Spent Total Time Spent with Patient: Total time spent is greater than 50% in coordination of care (as documented) at patient's floor/unit and/or counseling patient: [place] [address] Subseq Hosp Care Lvl 3 Patient Type Established History Detailed Exam Detailed Medical Decision Making High Complexity Diagnoses Acute pancreatitis K85.90 Nausea and vomiting R11.2
[2021-01-20] MEDS ORDERED: FAMOTIDINE 20 MG TAB PO PRN (16:53)
[2021-01-20] MEDS ORDERED: ONDANSETRON 4 MG OD TAB PO PRN (16:53)
--- NOTE | 2021-01-20 17:12 | XRay Report ---
KUB CLINICAL HISTORY: Left lower quadrant abdominal pain. FINDINGS: 2 AP supine abdominal radiographs are correlated with abdominal CT dated 01/18/2021. There i s a nonobstructed abdominal bowel gas pattern. No evidence of intraperitoneal free air is seen on the se supine views. Cholecystectomy clips are noted in the right upper quadrant, and additional surgical clips are seen in the pelvis. There are no abnormal abdominal calcifications. The lung bases are shona ar as visualized. The bony structures appear intact. IMPRESSION: Nonobstructed abdominal bowel gas pattern. Numerous CT findings from 01/18/2021 are not we ll-visualized by x-ray. Electronically signed by: Pola Emerson M.D. 01/20/2021 5:10 PM
[2021-01-20] MEDS: NAPROXEN 250 MG TAB PO SCH (19:43)
[2021-01-21] MEDS ORDERED: PIPERACILL/TAZOBAC CONSULT ACTIVE PRN (08:07)
[2021-01-21] MEDS ORDERED: PIPERACILLIN/TAZOBACTAM 4.5 GM in DEXTROSE 5% 100 ML IV ONE (08:45)
[2021-01-21] MEDS: NAPROXEN 250 MG TAB PO SCH ×2 (08:51→20:39)
[2021-01-21 09:20] LABS: Hematocrit (blood only) 38.6 % (37-47); Hemoglobin 12.7 g/dL (12.0-16.0); Mean Corpuscular Hemoglobin 27.9 pg (25-34); Mean Corpuscular Hgb Conc 32.9 g/dL (32-36); Mean Corpuscular Volume 84.8 fL (80-100); Mean Platelet Volume 9.7 fL (7.4-10.4); Platelet Count 403 K/uL (130-400); RDW Coefficient of Variation 14.9 % (11.5-14.5); RDW Standard Deviation 46.5 fL (36.4-46.3); Red Blood Count 4.55 M/uL (4.2-5.4); White Blood Count 13.81 K/uL (4.8-10.8)
[2021-01-21] MEDS ORDERED: OPTIRAY 320 100ml IV ONE (09:31)
[2021-01-21 09:32] LABS: Albumin Level 2.1 gm/dl (3.4-5.0); BUN Creatinine Ratio 3.1 (10-20); Calcium 8.2 mg/dl (8.5-10.1); Creatinine Clr Calc Pharmacy 131.9 ml/min; Est GFR (African American) 131.5 ml/min; Est GFR (Non-African American) 113.5 ml/min; Magnesium 2.1 mg/dl (1.8-2.4); Potassium 3.5 mmol/L (3.5-5.1)
[2021-01-21 09:34] LABS: Albumin Globulin Ratio 0.5 (0.9-2); Bilirubin,Total 0.3 mg/dl (0.2-1); Globulin 4.1 gm/dl (2.5-4.0); Total Protein 6.2 gm/dl (6.4-8.2)
[2021-01-21] MEDS: PANTOprazole 40 MG in SYRINGE 0 ML IV SCH (10:51)
--- NOTE | 2021-01-21 10:59 | CT Scan Report ---
CT pancreas 3-phase wo/w con HISTORY: 30 years-old Female ? ascending cholangitis continued follow-up in a patient with acute berry creatitis. COMPARISON: MRCP 01/19/2021, CT abdomen and pelvis 01/18/2021, 01/05/2021 TECHNIQUE: CT of the abdomen utilizing pancreatic protocol was obtained both with and without the use of 94 mL Optiray 320 utilizing 30 and 80 second delayed imaging. A dose lowering technique was used consistent with the principals of FE. FINDINGS: Trace pleural and pericardial effusions. Linear subsegmental bibasilar atelectasis. No pneumatosis or pneumoperitoneum. The spleen is mildly enlarged measuring up to 13.7 cm in length. 3.6 cm left adren al gland adenoma redemonstrated. The right adrenal gland appears normal. Cholecystectomy. Hepatic diana atosis. The liver measures within the upper limits of normal in size. The liver is otherwise unremark able. Patency of the hepatic and portal veins. No biliary ductal dilation identified. No abnormal enh ancement of the biliary palacios identified. The splenic and superior mesenteric veins are patent. Persistent findings of acute pancreatitis. Fluid collections adjacent to the pancreatic tail are agai n noted abutting the posterior wall of the stomach, the largest of which measures approximately 7.0 x 4.4 x 6.0 cm as measured on the coronal and sagittal images. This has mildly increased in size from comparison. Again, this abuts and posteriorly displaces the posterior wall of the stomach. Inferior p ortion of this collection extends into the pancreatic tail where again there is slightly decreased en hancement. No pancreatic ductal dilation. Homogeneous enhancement of the pancreas otherwise. There is a new fluid collection noted along the distal gastric body as seen on image 184 measuring up to appr oximately 8.5 cm in length which demonstrates ill-defined margins. No hydronephrosis. 1.5 cm cyst of the inferior pole left kidney. Symmetric enhancement of the kidneys . Aorta and IVC are unremarkable. No adenopathy. Mild stranding within the periumbilical tissues. No acute fracture. Moderate circumferential wall thickening is again noted involving the majority of the stomach with pe rigastric stranding. No bowel obstruction. There is mild wall thickening involving the transverse col on. Normal appendix. Trace abdominal pelvic ascites with moderate mid mesenteric edema, progressed fr om comparison. IMPRESSION: 1. Progressively worsened acute pancreatitis. Focus of decreased enhancement within the pancreatic ta il is unchanged from the 01/18/2021 exam, possibly sales representative jewelry of mild pancreatic necrosis. 2. Increased size of the acute peripancreatic fluid collections including a collection which measures over 8 cm in length which courses along the distal gastric body. 3. Moderate diffuse gastric wall thickening suggests associated gastritis. 4. Trace pleural and pericardial effusions. 5. Hepatic steatosis. 6. No biliary ductal dilation. ACT 112: Negative or not required by law. The above report was generated using voice recognition software. It may contain grammatical, syntax o r spelling errors. Dictated: 01/21/2021 9:44 AM Transcribed: 01/21/2021 10:32 AM Hannah [id number] Electronically signed by: Segundo Sharma M.D. 01/21/2021 10:57 AM
[2021-01-21] MEDS ORDERED: OCTREOTIDE ACETATE 100 MCG in SYRINGE 9 ML IV STA (12:41)
[2021-01-21] MEDS ORDERED: OCTREOTIDE ACETATE 50 MCG in SYRINGE 9.5 ML IV STA (12:44)
[2021-01-21] MEDS: HYDROmorphone INJ 0.5 MG/0.5 ML SYR IV PRN ×3 (12:52→22:14)
[2021-01-21] MEDS ORDERED: OCTREOTIDE ACETATE 100 MCG/ML VIAL SQ SCH (13:00)
--- NOTE | 2021-01-21 13:21 | Gastroenterology Progress Note ---
Date of Service January 21, 2021 Assessment & Plan (1) Acute pancreatitis: (2) Pancreatic pseudocyst: Plan: Pt is a 30 y/o female w hx of recurrent pancreatitis, likely autoimmune. She was admitted w pancreatitis with CT scan showing worsening pseudocyst, necrosis with possible infection. Reastart/maintain Zosyn. In light of worsening of pseudocyst and inflammation on CT, will go forward with ERCP and cyst draining this afternoon by Dr. Lopez in the OR, this afternoon. - Keep NPO. - Further recommendations to follow the ERCP. Admission and Anticipated Discharge Date Admission Date: January 18, 2021 Supervising Physician Co-Signing Physician Notes Attg add: i interviewed and examined pt, reviewed chart and labs. Pt with brief episode of pain last night, fever that led to resumption of Zosyn. Temitope PO VS unremarkable at present, and she feels well with abdominal exam that is completely benign. Underwent repeat CT which showed enlargement of psuedocyst, persistent gastric wall thick, small amts of free fluid tracking through abd cavity. - Enlarging WOPN -- I am concerned about possibility of PD leak, given enlarging WOPN and new development of fluid within abd cavity. Will begin octreotide, plan ERCP to eval for PD leak and possibly stent PD. - ? Infected pancreatic necrosis -- She has a mild WBC and mild temp; however, she appears non-toxic and no gas on CT. I would recommend d/c of abx and continued observation, with plan to consider sampling of WOPN if WBC rises. - Nutrition -- She has compression of gastric lumen by WOPN, but has been tolerating clears, and does not want an NG tube. For now, defer postpyloric feeding, follow. - Possible AIP -- Serologies pending, eventual panc bx - Gastritis -- Presumably related to pancreatitis, no evidence of splenic vein thrombosis again by imaging. Consider EGD prior to ERCP today. Subjective Pt appears well. Is able to walk to the bathroom w/o assistance. WBC 13 (12 yesterday). Briefly febrile at 38 last evening at 11PM. Pt reports had some increase in pain briefly last evening. Only minimal epigastric discomfort and is tender there now on palpation. Review of Systems Review of Systems: ROS: Gen: Denies weakness, fevers, weight loss Eyes: No eye redness, or pain, no recent vision changes Resp: No SOB, no cough Cardio: No palpitations/irregular beats, no chest pain GI: As per HPI, otherwise normal. : Denies pain on urination Skin: No jaundice, itching or new rashes Physical Exam Constitutional: well developed, + obese, healthy appearing and cooperative Eyes: PERRL, conjunctivae normal, anicteric sclerae Neck: trachea midline, no thyromegaly Respiratory: normal respiratory effort, lungs clear to auscultation normal respiratory effort and able to speak in complete sentences; no respiratory distress, no labored breathing, does not use accessory muscles and no cough Cardiovascular: RRR, no murmur, no edema Gastrointestinal (Abdomen): Inspection/Auscultation: abdomen normal to inspection and + hypoactive bowel sounds; abdomen not distended Percussion/Palpation: + abdomen tender (epigastric ) and abdomen soft Skin: no rashes, warm and dry normal turgor and + pallor Neurologic: PERRL, EOMI, accommodation nl, no face palsy, no dysarthria awake; not confused Psychiatric: A+Ox3, euthymic affect Orientation: alert, oriented x 3 and cooperative Lymphatic: no cervical or axillary lymphadenopathy Results & Data ([facility]) Vital Signs (Past 12 Hours) Vital Signs Temp Pulse Resp BP Pulse Ox Pulse Ox 01/21/21 10:32 68 98 01/21/21 10:31 98 01/21/21 07:11 36.7 C 34 L 20 129/84 96 Laboratory Results WBC 13.8, Hb 12.9, Hct 38.6, glucose 403, Na 141, K 3.5, Cl 111, CO2 23, BUN2, Cr 0.l7, glucose 11. LFTs normal. Lipase 1088 yesterday ->lipase Diagnostic Findings Repeat CT with enlarging pseudocyst and increasing peripancreatic edema, causing significant gastric edema. There is a small gastric pouch.
[2021-01-21 13:36] LABS: INR 1.3 (0.9-1.1); Prothrombin Time 12.9 Seconds (9.0-12.0)
--- NOTE | 2021-01-21 14:03 | Anesthesiology Consultation ---
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 History Surgery Operation Date: 01/21/21 08:20 Proposed Procedures p Endoscopic Retrograde Cholangiopancreatogram - Marisol Lopez MD Height/Weight Height: 5 ft 3 in Weight: 103.3 kg Allergies Allergy/AdvReac Type Severity Reaction Status Date / Time adhesive Allergy Mild RASH Verified 01/18/21 17:07 nickel Allergy Mild RASH Verified 01/18/21 17:07 morphine AdvReac Severe Body fells Verified 01/18/21 17:07 like it is on fire Medications Home Medications Medication Instructions Recorded Confirmed Last Taken aripiprazole 300 mg intramuscular 300 mg IM MONTHLY 03/13/19 01/18/21 12/21/20 suspension,extended release (Abilify Maintena) naproxen 500 mg tablet (Naprosyn) 500 mg PO Q12 01/05/21 01/18/21 01/18/21 08:00 norethindrone (contraceptive) 0.35 0.35 mg PO DAILY@1130 01/05/21 01/18/21 01/18/21 mg tablet ondansetron 4 mg disintegrating 4 mg PO Q6H PRN #20 tab 01/08/21 01/18/21 01/18/21 tablet AM oxycodone 5 mg tablet 5 - 10 mg PO Q6H PRN #20 tab 01/08/21 01/18/21 Unknown Active Medications Generic Name Dose Route Start Last Admin Trade Name Freq PRN Reason Stop Dose Admin Calcium Carbonate 1,500 mg 01/19/21 23:14 01/20/21 03:20 Calcium Carbonate 500 Mg Chewable Tab PO 02/18/21 23:13 1,500 mg Q6H PRN Administration Indigestion Hydromorphone HCl 0.25 mg 01/18/21 23:13 01/19/21 20:11 Hydromorphone Inj 0.5 Mg/0.5 Ml Syr IV 02/01/21 23:12 0.25 mg Q3H PRN Administration Pain (1,2,3,4,5) & Pre PT Hydromorphone HCl 0.5 mg 01/18/21 23:13 01/21/21 12:52 Hydromorphone Inj 0.5 Mg/0.5 Ml Syr IV 02/01/21 23:12 0.5 mg Q3H PRN Administration Pain (6,7,8,9,10) Pantoprazole Sodium 40 mg/ 10 mls @ 5 mls/min 01/20/21 11:00 01/21/21 10:51 Syringe IV 02/19/21 10:59 5 mls/min DAILY@1100 MANI Administration Miscellaneous 1 ea 01/19/21 00:00 01/21/21 09:02 Norethidrone: Order Awaiting Action N/A 02/18/21 00:00 Not Given QS MANI Miscellaneous 1 ea 01/21/21 00:00 01/21/21 08:50 Abilify Maintena 300mg: Order Awaiting Action N/A 02/20/21 00:00 Not Given QS MANI Naproxen 500 mg 01/19/21 19:42 01/19/21 20:04 Naproxen 250 Mg Tab PO 02/18/21 19:41 500 mg BID PRN Administration back pain Naproxen 500 mg 01/20/21 21:00 01/21/21 08:51 Naproxen 250 Mg Tab PO 02/19/21 20:59 500 mg Q12 MANI Administration Ondansetron HCl 4 mg 01/18/21 23:13 01/19/21 22:45 Ondansetron Inj 2 Mg/Ml 2 Ml Vial IV 02/17/21 23:12 4 mg Q6H PRN Administration Nausea Past Medical History Medical History (Updated 01/21/21 @ 14:02 by Andrew Delgado DO) Asthma Biliary colic Cholelithiasis Fracture of distal end of right fibula History of varicella Homicidal ideation Hx of chlamydia infection Hx of drug dependence Hx of ovarian cyst Hypertension during PID (pelvic inflammatory disease) Past Family History Family History Mother Diabetes Dyslipidemia Hypertension Grandmother (Paternal) Diabetes Aunt Diabetes Denies family history of Ovarian cancer Prostate cancer Myocardial infarction Breast cancer Colorectal cancer Past Surgical History Surgical History H/O oral surgery History of cholecystectomy S/P tonsillectomy and adenoidectomy Social History Smoking Status: Current every day smoker tobacco type: cigarettes Smoking cigarettes per day: 10-20 Do You Dip or Chew Tobacco: No Hx Alcohol Use: No Hx Substance Use: No Physical Exam Vital Signs Last Vital Signs Temp 98.1 F 01/21/21 07:11 Pulse 68 01/21/21 10:32 Resp 20 01/21/21 07:11 BP 129/84 01/21/21 07:11 Pulse Ox 98 01/21/21 10:32 Testing Laboratory Results 01/21/21 08:53 01/21/21 08:53 PT 12.9 Seconds (9.0-12.0) H 01/21/21 13:13 INR 1.3 (0.9-1.1) H 01/21/21 13:13 Urine Color Yellow 01/18/21 19:10 Urine Appearance Clear (Clear) 01/18/21 19:10 Urine pH 6.5 (4.5-7.5) 01/18/21 19:10 Ur Specific [place] 1.010 (1.000-1.030) 01/18/21 19:10 Urine Protein Negative (Negative) 01/18/21 19:10 Urine Glucose (UA) Negative (Negative) 01/18/21 19:10 Urine Ketones 2+ (Negative) H 01/18/21 19:10 Urine Nitrite Negative (Negative) 01/18/21 19:10 Ur Leukocyte Esterase Negative (Negative) 01/18/21 19:10 01/19/21 11:28 Aerobic Blood Culture - Preliminary Blood No growth in Aerobic bottle after 48 hours. Anaerobic Blood Culture - Preliminary No growth in Anaerobic bottle after 48 hours. 01/19/21 11:33 Aerobic Blood Culture - Preliminary Blood No growth in Aerobic bottle after 48 hours. Anaerobic Blood Culture - Final Electrocardiogram Date: 01/05/21 Findings: + NSR @ (78 bpm)
[2021-01-21] MEDS: PIPERACILLIN/TAZOBACTAM 4.5 GM in DEXTROSE 5% 100 ML IV SCH ×2 (14:11→22:15)
[2021-01-21] MEDS ORDERED: MIDAZOLAM HCL 1 MG/ML 2ML VIAL ONE (14:50)
[2021-01-21] MEDS ORDERED: ONDANSETRON INJ 2 MG/ML 2 ML VIAL ONE (14:50)
[2021-01-21] MEDS ORDERED: LIDOCAINE 2% 2 ML VIAL/AMP(20MG/ML) INFIL ONE (14:50)
[2021-01-21] MEDS ORDERED: fentaNYL citrate 100 MCG/2 ML VIAL ONE (14:50)
[2021-01-21] MEDS ORDERED: DEXAMETHASONE SOD INJ 4 MG/ML VIAL ONE (14:50)
[2021-01-21] MEDS ORDERED: PROPOFOL IV EMULSION 10 MG/ML 20 ML VIAL IV ONE (14:50)
[2021-01-21] MEDS ORDERED: INDOMETHACIN 50 MG SUPP PR ONE (14:56)
[2021-01-21] MEDS ORDERED: fentaNYL citrate 100 MCG/2 ML VIAL IV PRN (15:21)
[2021-01-21] MEDS ORDERED: ATROPINE SULFATE 0.1 MG/ML 10ML SYR IV PRN (15:21)
[2021-01-21] MEDS ORDERED: ePHEDrine sulfate 50 MG/ML AMP IV PRN (15:21)
[2021-01-21] MEDS ORDERED: ONDANSETRON INJ 2 MG/ML 2 ML VIAL IV PRN (15:21)
--- NOTE | 2021-01-21 15:27 | History & Physical Bridge Note ---
Date of Service January 21, 2021 History & Physical Bridge Note I have examined the patient, reviewed the History & Physical and in the interval since the performance of the History & Physical I have noted the following changes of clinical significance: no changes noted ERCP today Patient was explained in detail regarding risks, benefits, limitations and alternatives of the above endoscopic procedure. Risks of intravenous sedation used for procedure were also explained. Risks include, but not limited to p erforation, bleeding, infection, respiratory distress, cardiac arrest and . Patient is also aware about the possibility of missed lesion. Patient's questions were answered. The patient verbalized understanding the information and agreed to undergo the procedure.
[2021-01-21] MEDS ORDERED: ROCURONIUM BROMIDE 10 MG/ML 5 ML VIAL IV ONE (16:00)
[2021-01-21] MEDS ORDERED: LARYING-O-JET KIT (LTA) ONE (16:00)
--- NOTE | 2021-01-21 16:03 | Hospitalist Progress Note ---
Date of Service January 21, 2021 Assessment & Plan (1) Acute pancreatitis: Plan: Cece Colin is a 30-year-old female with PMH of asthma, migraines, ankylosing spondylitis, and previous episodes of pancreatitis who comes to [facility] due to ongoing vomiting and abdominal pain. Found to have pancreatitis with peripancreatic pseudocysts and possible focus of pancreatic necrosis. -Pancreatitis seems complicated at this point as ongoing X 3 months now with the development of a multiloculated fluid collection causing mass-effect on the stomach and associated pancreatic tail necrosis - have spoken to to GI specialist (biliary specialist) both here in [place] --both agree that the fluid collection on initial imagin was not mature enough and ready for drainage. Initial plan was to manage her pancreatitis conservatively and if she did well, discharged home where she could follow-up as an outpatient to have EUS with pancreatic stent and drainage of fluid collection -Arrangements for transportation were initiated as I was told the above procedure could not be performed here and I no beds are limited. Wanted to at least start that process. Plan was to DC transfer if patient was doing well. -Patient did have a leukocytosis of nearly 18,000 upon arrival. This was thought to potentially be infectious. Her procalcitonin was negative. She was on Zosyn upfront that was subsequently stopped -Today, she has uptrending leukocytosis and is now developing fevers. In addition, she had no abdominal pain today that has since returned. Her lipase and LFTs are currently normal -A repeat CT scan pancreatic protocol was obtained showing evolution of this mu ltiloculated pancreatic fluid collection now measuring 8 cm with worsening pancreatic necrosis -I spoke to GI here who plans to do an ERCP with pancreatic duct stent. They are concerned that the patient likely has a pancreatic duct leak -Again, the underlying etiology remains unclear. It is quite possible that she has infectious pancreatic necrosis which in turn is causing the pancreatic ductal leak. Did speak with GI here and if this is the case, it would require 4 weeks of IV antibiotic therapy. They suggest perhaps stopping the antibiotic to let it identify itself; however, that is what was done yesterday. Antibiotics were stopped and since then, her white blood cell count has gone up and she is developing fevers. I have spoken with Dr. Rosales and we both feel it may be best to continue IV antibiotic therapy for now as the benefit outweighs the risk -In addition, I believe the patient may need to have this fluid collection and drained sooner rather than later. This cannot be done here due to lack of IR and it cannot be reached percutaneously. In addition, may be nice to have infectious disease weigh in (they are unavailable until next week) -I have reached out again to GI in [place] to proceed with transfer more urgently. They have requested review of imaging and will call me back. In the interim, patient is going for an ERCP with pancreatic stent this afternoon (2) Nausea and vomiting: Plan: -Initially had nausea and vomiting with pancreatitis. This resolved. She did have a bout of nausea and vomiting yesterday morning which she claimed was secondary to reflux. I am not so sure. I suspect may be related to underlying pancreatitis and may be even a partial gastric outlet obstruction due to mass- effect from this loculated fluid collection -With the fluid collection evolving, there is a significant risk for obstruction. GI did explain this to the patient and recommended postpyloric feeding with NG tube however she is currently refusing Plan: Although patient agreeable to stay in the hospital, she is adamant to be discharged. Continues to ask if she can go home. She does not seem to grasp the severity of her issue right now. Despite the severity, she is currently hemodynamically stable. I am concerned that she may become unstable and I cannot provide her the care that she requires which is why I have been diligently trying to get her transferred; however, there are lack of beds. Awaiting a return phone call from [place] Plan of care has been discussed with Dr. Rosales Admission and Anticipated Discharge Date Admission Date: January 18, 2021 Subjective Patient seen on daily rounds today. Getting frustrated and agitated that she cannot go home yet. Does not seem to grasp the severity of her acute issue right now. Is currently on full liquids and now complaining of abdominal pain. No nausea or vomiting. She is passing gas and moving her bowels. Antibiotics were stopped yesterday. Her white blood cell count is now trending upwards and she is spiking fevers. LFTs and lipase remain normal. Given progressionI did reach out to GI as I thought patient may be needed to repeat CT scan. A pancreatic protocol was done showing increase in the pancreatic fluid collection by 2 cm and worsening pancreatic necrosis. I have spoken to our GI group (Dr. Poole) who is concerned that the patient may have a pancreatic duct leak and is taking her to the OR today for an ERCP with pancreatic duct stent. He is uncertain if the patient does or does not have infectious pancreatic necrosis which would require 4 weeks of IV antibiotic therapy. Cannot rule this in or out at this point. Given the progression in her fluid collection and mass-effect on the stomach, he was recommending postpyloric feeding with NG tube but she is refusing. Review of Systems Review of Systems: All systems reviewed and are unremarkable except as noted in HPI and below + Abdominal pain. Otherwise, denies fevers, chills, headache, nasal congestion, sore throat, cough, chest pain, shortness of breath, palpitations, orthopnea, PND, nausea, vomiting, diarrhea, constipation, dysuria, hematuria, frequency, back pain, joint pain or swelling, easy bruising or blooding, skin lesions or ra shes. Physical Exam Physical Exam: General: Resting comfortably in her hospital bed. Despite nature of acute medical condition, she does not appear ill or toxic. NAD. HEENT: Head is AT/NC buccal mucosa is moist and pink Neck: No JVD. Negative hepatojugular reflex Cardiac: RRR without M/G/R Lungs: CTA without W/R/R Abdomen: Normoactive X4. No guarding or rigidity. Epigastric, right upper quadrant and left upper quadrant tenderness. Not exquisite but mild Extremities: No peripheral clubbing cyanosis or edema Neuro: A&O X4 cranial nerves II through XII are grossly intact no focal neuro deficits Skin: No obvious skin lesions or rashes Psych: Appropriate affect pleasant and cooperative Results & Data Results & Data ([facility]) Vital Signs (Past 12 Hours) Vital Signs Temp Pulse Resp BP Pulse Ox Pulse Ox 01/21/21 15:18 37.0 C 70 18 111/78 96 01/21/21 15:01 37.0 C 73 18 105/65 94 01/21/21 10:32 68 98 01/21/21 10:31 98 01/21/21 07:11 36.7 C 34 L 20 129/84 96 Laboratory Results 01/21/21 08:53 01/21/21 08:[address] IMPRESSION: 1. Progressively worsened acute pancreatitis. Focus of decreased enhancement within the pancreatic tail is unchanged from the 01/18/2021 exam, possibly repre sentative of mild pancreatic necrosis. 2. Increased size of the acute peripancreatic fluid collections including a collection which measures over 8 cm in length which courses along the distal gastric body. 3. Moderate diffuse gastric wall thickening suggests associated gastritis. 4. Trace pleural and pericardial effusions. 5. Hepatic steatosis. 6. No biliary ductal dilation. PG Care Time/CCT Total # of Minutes Spent Total Time Spent with Patient: Total time spent is greater than 50% in coordinat ion of care (as documented) at patient's floor/unit and/or counseling patient:90 minutes spent with patient today including multiple exams, talking with multiple specialists on multiple occasions. [place] [address] Subseq Hosp Care Lvl 3 Patient Type Established History Comprehensive Exam Comprehensive Medical Decision Making High Complexity Diagnoses Acute pancreatitis K85.90 Nausea and vomiting R11.2
--- NOTE | 2021-01-21 16:20 | Operative Report ---
Post Operative Report Pre & Post Diagnosis Operation Date: 01/21/21 08:20 Pre-Op Diagnosis: PANCREATITIS Post-Op Diagnosis: PANCREATITIS I identified the patient and participated in the time-out.: Yes Procedure Operation Date: 01/21/21 08:20 Actual Procedures p Endoscopic Retrograde Cholangiopancreatogram with stent placement(Not Applicable) - Marisol Lopez MD Surgeon Marisol Lopez MD Odd Jobs Day Worker None Estimated Blood Loss 0 Findings See Below (No leak seen from the pancreatic duct, a sphincterotomy was performed and a stent was placed) Specimens None Description of Procedure ERCP I attest to the content of the Intraoperative Record and any orders documented therein. Any exceptions are noted below.
--- NOTE | 2021-01-21 16:44 | Fluoroscopy Report ---
FL ERCP biliary ductal CLINICAL INDICATION: [place] ^ERCP. TECHNIQUE: 13 views were obtained with the C-arm in the OR with the above procedure. Total fluoroscop y time was 133 seconds. Total skin dose was 32.5 mGy. Comparison: MRCP 01/19/2021 FINDINGS/IMPRESSION: Multiple intraoperative images of ERCP were obtained. Please correlate with intraoperative fluoroscopy and operative report. ACT 112: Negative or not required by law. Electronically signed by: Gordon Amaya M.D. 01/21/2021 4:43 PM
--- NOTE | 2021-01-21 16:49 | GI REPORT ---
Patient Name: Cece Colin Procedure Date: 01/21/2021 3:13 PM Date of : 1990 Admit Type: Inpatient Age: 30 Gender: Female Attending MD: Marisol Lopez MD Procedure: ERCP Providers: Marisol Lopez MD Referring MD: Stefanie Crowder Md, Conor Poole MD, Walt Rosales Md Indications: Pancreatic pseudocyst, Pancreatic duct leak Medicines: General Anesthesia Complications: No immediate complications. Estimated Blood Loss: Estimated blood loss: none. Procedure: Pre-Anesthesia Assessment: - Prior to the procedure, a History and Physical was performed, and patient medications, allergies and sensitivities were reviewed. The patient's tolerance of previous anesthesia was reviewed. - The risks and benefits of the procedure and the sedation options and risks were discussed with the patient. All questions were answered and informed consent was obtained. - Patient identification and proposed procedure were verified prior to the procedure by the physician and the nurse. The procedure was verified in the procedure room. - Pre-procedure physical examination revealed no contraindications to sedation. After obtaining informed consent, the scope was passed under direct vision. Throughout the procedure, the patient's blood pressure, pulse, and oxygen saturations were monitored continuously. The Scope was introduced through the mouth, and advanced to the duodenum and used to inject contrast into the bile duct and ventral pancreatic duct. The ERCP was accomplished without difficulty. The patient tolerated the procedure well. Findings: A parachute manufacturing supervisor film of the abdomen was obtained. Surgical clips, consistent with a previous cholecystectomy, were seen in the area of the right upper quadrant of the abdomen. The esophagus was successfully intubated under direct vision. The scope was advanced to a normal major papilla in the descending duodenum without detailed examination of the pharynx, larynx and associated structures, and upper GI tract. There was evidence of an external compression by the pseudocyst near the gastric fundus with mild edema of the gastric wall. The pylorus was open and the lumen of the stomach was easily distended with air insufflation. A biliary sphincterotomy had been performed. The sphincterotomy appeared open. A 0.025 inch x 270 cm angled Visiglide wire was passed into the ventral pancreatic duct. The ventral pancreatic duct was then deeply cannulated with the traction (standard) sphincterotome. Contrast was injected. I personally interpreted the pancreatic duct images. Ductal flow of contrast was adequate. Image quality was adequate. Contrast extended to the pancreatic duct. Opacification of the main pancreatic duct was successful. The maximum diameter of the ducts was 3 mm. There was no extravasation of contrast in the in the pancreas to suggest a ductal leak or disruption. No filling of the pseudocyst suggests no communication hence this is likely a WON. Ventral pancreatic sphincterotomy was made with a monofilament traction (standard) sphincterotome using ERBE electrocautery. There was no post-sphincterotomy bleeding. To find object(s) the ventral pancreatic duct was swept with an 8 mm balloon starting at the pancreatic duct in the tail of the pancreas. Nothing was found. One 5 Fr by 9 cm plastic pancreatic stent with a single external pigtail and a single internal flap was placed into the ventral pancreatic duct. Clear fluid flowed through the stent. The stent was in good position. A 0.025 inch x 270 cm angled Visiglide wire was passed into the biliary tree. The 8.5 mm balloon was passed over the guidewire and the bile duct was then deeply cannulated. Contrast was injected. Opacification of the entire biliary tree except for the gallbladder was successful. The maximum diameter of the ducts was 8 mm. The biliary tree was swept with an 11.5 mm balloon starting at the bifurcation. Sludge was swept from the duct. Indomethacin 100 mg was given via suppository to decrease the risk of post-ERCP pancreatitis (PEP). Impression: - No gross abnormality seen in the pancreatogram with no evidence of a PD leak. - A pancreatic sphincterotomy was performed. - One plastic pancreatic stent was placed into the ventral pancreatic duct. Recommendation: - Return patient to [facility] for [facility] care. - Full liquid diet as tolerated. - Pain control. - If the patient is clinically improving and tolerating PO diet then I suggest she completes a course of PO antibiotics upon discharge and plan for EUS guided drainage of her WON in 2 weeks. - Repeat ERCP in 8 weeks to remove the stent. Marisol Lopez MD 01/21/2021 4:49:22 PM This report has been signed electronically. Note Initiated On: 01/21/2021 3:13 PM Number of Addenda: 0 I attest to the content of the Intraoperative Record and orders documented therein, exceptions below {[id number]}
--- NOTE | 2021-01-21 17:19 | Anesthesiology Progress Note ---
Date of Service January 21, 2021 Anesthesia Post Procedure Vital Signs Vital Signs: Temp Pulse Pulse Resp BP BP Pulse Ox 01/21/21 17:15 71 24 137/91 94 01/21/21 17:05 36.7 C 73 17 122/93 96 01/21/21 16:55 68 18 136/75 97 01/21/21 16:45 69 25 H 130/84 96 01/21/21 16:35 64 26 H 121/88 100 01/21/21 16:27 36.2 C L 75 24 121/86 96 01/21/21 15:18 37.0 C 70 18 111/78 96 01/21/21 15:01 37.0 C 73 18 105/65 94 01/21/21 10:32 68 98 01/21/21 10:31 01/21/21 07:11 36.7 C 34 L 20 129/84 96 01/20/21 23:00 38 C H 79 20 116/72 93 Pulse Ox 01/21/21 17:15 01/21/21 17:05 01/21/21 16:55 01/21/21 16:45 01/21/21 16:35 01/21/21 16:27 01/21/21 15:18 01/21/21 15:01 01/21/21 10:32 01/21/21 10:31 98 01/21/21 07:11 01/20/21 23:00 Pain Intensity Bilateral Abdomen: Pain Intensity: 6 Transfer of Care Handoff Completed per policy Notes Mental Status: alert / awake / arousable Patient Amnestic to Procedure: Yes Nausea / Vomiting: adequately controlled Pain: adequately controlled Airway Patency, RR, SpO2: stable & adequate BP & HR: stable & adequate Hydration State: stable & adequate Anesthetic Complications: no major complications apparent
--- NOTE | 2021-01-21 18:12 | Discharge Summary ---
Date of Service January 21, 2021 Admission HPI Per Admitting Provider Cece Colin is a 30-year-old female with PMH of asthma, migraines, ankylosing spondylitis, and previous episodes of pancreatitis who comes to [facility] due to ongoing vomiting and abdominal pain. She was seen in our ED on 01/05 and diagnosed with pancreatitis due to elevated lipase and CT scan. At that time, she declined admission. Returned on 01/08 for continued pain and vomiting and again prefer not to be admitted. She tried clear diet, Zofran, and oxycodone at home. Today she mentions that she has not been able to eat very much at home for the majority of the time since coming in shortly. She mentions that she does have pain that fluctuates between a current 3-4 out of 10 up to a 6 out of 10 at times. She has continued to vomit despite using Zofran at home. When asked if she had been febrile, the patient reports that she has had a temperature of 99 F, insists this is a fever for her because her normal body temperature is 97 F. Denies chest pain, palpitations, shortness of breath, urinary symptoms, diarrhea or constipation. In the ED today, she received normal saline bolus 1 L, Zofran 4 mg IV x2, and famotidine [address] A/P showing interval development of peripancreatic fluid collections adjacent to the pancreatic tail with the largest measuring 6.5 x 5.1 cm. Associated moderate thickening of the gastric wall which may be reactive to this suspect did peripancreatic pseudocyst. Mild peripancreatic inflammatory change. There may be a small focus of pancreatic necrosis at the pancreatic tail near the origin of the peripancreatic cysts. Blood work is significant for white blood count of 17.8, lipase of 902. Principal Diagnosis 1. Complicated pancreatitis? Infectious pancreatic necrosis 2. Multiloculated pancreatic fluid collection 3. Partial gastric outlet obstruction due to mass-effect from pancreatic fluid collection 4. Tobacco abuse Discharge Exam General: Resting comfortably in her hospital bed. Despite nature of acute medical condition, she does not appear ill or toxic. NAD. HEENT: Head is AT/NC buccal mucosa is moist and pink Neck: No JVD. Negative hepatojugular reflex Cardiac: RRR without M/G/R Lungs: CTA without W/R/R Abdomen: Normoactive X4. No guarding or rigidity. Epigastric, right upper quadrant and left upper quadrant tenderness. Not exquisite but mild Extremities: No peripheral clubbing cyanosis or edema Neuro: A&O X4 cranial nerves II through XII are grossly intact no focal neuro deficits Skin: No obvious skin lesions or rashes Psych: Appropriate affect pleasant and cooperative Discharge Data Allergies Allergy/AdvReac Type Severity Reaction Status Date / Time adhesive Allergy Mild RASH Verified 01/18/21 17:07 nickel Allergy Mild RASH Verified 01/18/21 17:07 morphine AdvReac Severe Body fells Verified 01/18/21 17:07 like it is on fire Consultations 01/18/21 20:46 ED Decision to Admit Stat 01/18/21 23:13 Consult Gastroenterology Routine Assessment & Plan (1) Acute pancreatitis: (2) Pancreatic pseudocyst: Pt is a 30 y/o female w hx of recurrent pancreatitis, admitted w pancreatitis with CT scan showing development of pseudocysts, largest 6 x 5 cm. - May DC antibx - LR @ 150ml/hr - CL diet - Symptomatic management w antiemetics and analgesics prn; avoid narcotics if possible to help prevent ileus - CT abd/pelvis images reviewed w Dr. Marisol Murray: pseudocyst will need additional 2 weeks to mature to be amendable to endoscopic drainage. Will arrange outpt EUS/ERCP w pancreas cyst drainage in 2 weeks' time at [facility]. - May cancel transfer to [facility] Assessment & Plan (1) Acute pancreatitis: (2) Pancreatic pseudocyst: Plan: Pt is a 30 y/o female w hx of recurrent pancreatitis, admitted w pancreatitis with CT scan showing development of pseudocysts, largest 6 x 5 cm. MRCP w.o . pancreatic or biliary ductal dilation, redemonstrated pancreatic fluid collection similar to CT scan. She is clinically improved. - F/U TATYANA and IgG subclasses to r/o autoimmune pancreatitis - May DC antibx; monitor for fever or rise in WBC off antibx - DC LR - Low fat, FL diet; monitor for n/v s/s which may indicate obstruction (mass effect of panc cyst on stomach) - Symptomatic management w antiemetics and analgesics prn; avoid narcotics if possible to help prevent ileus - CT abd/pelvis images reviewed w Dr. Marisol Murray: pseudocyst will need additional 2 weeks to mature to be amendable to endoscopic drainage. Will arrange outpt EUS/ERCP w pancreas cyst drainage in 2 weeks' time at [facility]. - Cancel transfer to [facility] [place] - Avoid ETOH, tobacco products Assessment & Plan (1) Acute pancreatitis: (2) Pancreatic pseudocyst: Plan: Pt is a 30 y/o female w hx of recurrent pancreatitis, likely autoimmune. She was admitted w pancreatitis with CT scan showing worsening pseudocyst, necrosis with possible infection. Reastart/maintain Zosyn. In light of worsening of pseudocyst and inflammation on CT, will go forward with ERCP and cyst draining this afternoon by Dr. Lopez in the OR, this afternoon. - Keep NPO. - Further recommendations to follow the ERCP. 01/20/21 11:03 Burn CD for patient Routine Procedures Performed Operation Date: 01/21/21 08:20 Actual Procedures p Endoscopic Retrograde Cholangiopancreatogram with stent placement(Not Applicable) - Marisol Lopez MD Operation Date: 01/21/21 08:20 Pre-Op Diagnosis: PANCREATITIS Post-Op Diagnosis: PANCREATITIS I identified the patient and participated in the time-out.: Yes Procedure Operation Date: 01/21/21 08:20 Actual Procedures p Endoscopic Retrograde Cholangiopancreatogram with stent placement(Not Applicable) - Marisol Lopez MD Surgeon Marisol Lopez MD Search Developer None Estimated Blood Loss 0 Findings See Below (No leak seen from the pancreatic duct, a sphincterotomy was performed and a stent was placed) Ordered Studies 01/18/21 18:42 CT abd pelvis IV con only Stat Diagnostic Findings CT of A/P with contrast: FINDINGS: Trace left pleural effusion. There is also a trace pericardial effusion. These have progressed in the interval. Prior cholecystectomy. The liver, spleen, right adrenal gland, and right kidney are unremarkable. Stable 1.2 cm cyst within the lower pole the left kidney. No hydronephrosis. The main portal vein is patent. Subcentimeter retroperitoneal lymph nodes do not meet CT criteria for pathologic involvement. The bladder, uterus, and ovaries are within normal limits. There is trace pelvic free fluid. Colonic diverticulosis. No evidence for acute diverticulitis. No evidence for bowel obstruction. Normal appendix. Moderate thickening of the gastric wall which has developed in the interval. Peripancreatic inflammatory change at the pancreatic tail is again noted. Interval development of a multiloculated cystic collection at the pancreatic tail which extends into the left upper quadrant and results in mass effect along the posterior wall of the proximal stomach. There is an additional smaller fluid collection at the splenic hilum which measures 3 cm. The dominant cystic collection extending from the pancreatic tail measures approximately 6.5 x 5.1 cm. Possible small focus of pancreatic necrosis at the pancreatic tail at the origin of the peripancreatic cyst. No change in the left adrenal gland nodule. IMPRESSION: 1. Interval development of peripancreatic fluid collections adjacent to the pancreatic tail with the largest measuring 6.5 x 5.1 cm. This abuts and displaces the posterior wall of the proximal stomach. There is associated moderate thickening of the gastric wall which may be reactive to the suspected peripancreatic pseudocysts.. 2. Mild peripancreatic inflammatory change persists and is consistent with patient's known history of acute pancreatitis. There may be a small focus of pancreatic necrosis at the pancreatic tail near the origin of the peripancreatic cysts. 3. Trace left pleural effusion and trace pericardial effusion which have progressed in the interval. 4. Additional findings as described above 01/19/21 12:33 MR MRCP Routine IMPRESSION: 1. Moderate acute pancreatitis redemonstrated. No pancreatic or biliary ductal dilation. 2. Acute peripancreatic fluid collections versus pseudocysts redemonstrated measuring over 6 cm, the largest of which abuts and posteriorly displaces the posterior wall of the stomach. 3. Cholecystectomy. No intrahepatic or extrahepatic biliary ductal dilation or choledocholithiasis. 4. Moderate gastric wall thickening is likely reactive 5. Trace pericardial and pleural effusions with trace abdominal ascites. 01/21/21 08:50 CT pancreas 3-phase wo/w con Urgent IMPRESSION: 1. Progressively worsened acute pancreatitis. Focus of decreased enhancement within the pancreatic tail is unchanged from the 01/18/2021 exam, possibly registered representative of mild pancreatic necrosis. 2. Increased size of the acute peripancreatic fluid collections including a collection which measures over 8 cm in length which courses along the distal gastric body. 3. Moderate diffuse gastric wall thickening suggests associated gastritis. 4. Trace pleural and pericardial effusions. 5. Hepatic steatosis. 6. No biliary ductal dilation. 01/21/21 15:39 FL ERCP biliary ductal Routine Impression: - No gross abnormality seen in the pancreatogram with no evidence of a PD leak. - A pancreatic sphincterotomy was performed. - One plastic pancreatic stent was placed into the ventral pancreatic duct. Recommendation: - [facility] to [facility] for [facility] care. - Full liquid diet as tolerated. - Pain control. - If the patient is clinically improving and tolerating PO diet then I suggest she completes a course of PO antibiotics upon discharge and plan for EUS guided drainage of her WON in 2 weeks. - Repeat ERCP in 8 weeks to remove the stent. Hospital Course (1) Acute pancreatitis: Cece Colin is a 30-year-old female with PMH of asthma, migraines, ankylosing spondylitis, and previous episodes of pancreatitis who comes to [facility] due to ongoing vomiting and abdominal pain. Found to have pancreatitis with peripancreatic pseudocysts and possible focus of pancreatic necrosis. -Pancreatitis seems complicated at this point as ongoing X 3 months now with the development of a multiloculated fluid collection causing mass-effect on the stomach and associated pancreatic tail necrosis - have spoken to to GI specialist (biliary specialist) both here in [place] --both agree that the fluid collection on initial imaging was not mature enough and ready for drainage. Initial plan was to manage her pancreatitis conservatively and if she did well, discharge home where she could follow-up as an outpatient to have EUS with pancreatic stent and drainage of fluid collection -Patient did have a leukocytosis of nearly 18,000 upon arrival. This was thought to potentially be infectious. Her procalcitonin was negative. She was on Zosyn upfront that was subsequently stopped as it was later thought that this was perhaps a reactive elevation -Today, she has uptrending leukocytosis and is now developing fevers. In addition, her abd pain that had resolved, has since returned. Her lipase and LFTs are currently normal -A repeat CT scan pancreatic protocol was obtained showing evolution of this multiloculated pancreatic fluid collection now measuring 8 cm with worsening pancreatic necrosis -I spoke to GI here who thought patient perhaps had a pancreatic duct leak. -she was taken for emergent pancreatic stent. No ductal leak identified. Given location of the fluid collection-- GI has reservation that this fluid collection can not be reached to be drained. -Did speak to our GI again (greatly appreciate recommendations). There is concern for infectious pancreatic necrosis. With the increase in her white blood cell count was stopping antibiotics and now the fever, this ultimately is a possibility. Unfortunately, to commit her to 4 weeks of IV antibiotic therapy without being able to confirm is difficult. -GI suggested a possible postpyloric NG tube given risk for gastric outlet obstruction but patient declined. She is tolerating clear liquids for now -Plan at this point is for transfer to [place] to at least have infectious disease weigh in as they are unavailable here until next week. In addition, Usman valdes was sent the imaging and was reviewed by interventional radiology and they feel that it is appropriate for her to have advanced endoscopy to try to drain this fluid collection -Patient is agreeable to transfer (2) Nausea and vomiting: -Initially had nausea and vomiting with pancreatitis. This resolved. She did have a bout of nausea and vomiting yesterday morning which she claimed was secondary to reflux. I am not so sure. I suspect may be related to underlying pancreatitis and may be even a partial gastric outlet obstruction due to mass-effect from this loculated fluid collection -With the fluid collection evolving, there is a significant risk for obstruction. GI did explain this to the patient and recommended postpyloric feeding with NG tube however she is currently reluctant. She is tolerating clear liquids. Okay to hold for now Plan of care has been discussed with Dr. Rosales Total Time Total Time Spent Total Time Spent (In Minutes): 120 min including time spent with patient, review of chart, coordination and carediscussion with attending, our GI X3, hospitalist at [place] X2, and multiple discussions with patient Discharge Plan Discharge Items Patient Disposition: Transfer Acute Care Hospital Reason For Visit: PANCREATITIS Discharge Diagnosis: 1. Pancreatitis- complicated 2. ? Infectious Pancreatic Necrosis 3. Multiloculated Pancreatic fluid collection 4. Tobacco Abuse Activity: As commented below Activity Comment: transfer Non-emergency contact: Primary Care Provider and Arc [employer]der Call non-emergency contact if: you have any medication questions Follow-up/Referrals: Stefanie Crowder MD [Primary Care Provider] - Diet: Clear liquid Addtl Attending Provider Instructions: - you are being transferred to [place] given the complicated multiloculated pancreatic fluid collection in the setting of pancreatitis. There is concern for infectious pancreatic necrosis. - You need advanced endoscopy and possible interventional radiology for drainage of this fluid collection along with infectious disease all which cannot be performed here at our facility -Continue clear liquid diet for now with empiric IV antibiotic therapy and transfer when bed becomes available. Pending Studies at Discharge: No Stand-Alone Forms: My [facility] Skilled Items Patient informed of condition?: Yes DNR: No Discharge Level of Care: Other Communicable Disease: No Discharge Prognosis: Stable Lines: Peripheral IV Urinary Catheter: No Medications and DC Order Prescriptions: New hydromorphone 0.5 mg/0.5 mL Syringe 0.25 mg IV Q3H PRN (Reason: pain 1-5) Qty: 5 RF: 0 hydromorphone 0.5 mg/0.5 mL Syringe 0.5 mg IV Q3H PRN (Reason: pain 6-10) Qty: 5 RF: 0 famotidine 20 mg Tablet 20 mg PO BID PRN (Reason: dyspepsia) Qty: 10 RF: 0 ondansetron HCl (PF) 4 mg/2 mL Solution 4 mg IV Q6H PRN (Reason: n/v) Qty: 10 RF: 0 Continued norethindrone (contraceptive) 0.35 mg tablet 0.35 mg PO DAILY@1130 RF: 0 oxycodone 5 mg tablet 5 - 10 mg PO Q6H PRN (Reason: pain) Qty: 20 RF: 0 Discontinued Abilify Maintena 300 mg Suspension,Extended Rel Recon 300 mg IM MONTHLY RF: 0 naproxen [Naprosyn] 500 mg tablet 500 mg PO Q12 RF: 0 ondansetron 4 mg tablet,disintegrating 4 mg PO Q6H PRN (Reason: nausea and vomiting) Qty: 20 RF: 0 Discharge Orders: Discharge Order (Routine); Ordered 01/21/21 Ordered By: Oralia Hyde Admission Data Admit Date/Time: 01/18/21 22:12 Attending Provider: Walt Rosales Admit Provider: Mat Thorne Primary Care Provider: Stefanie Crowder Other Providers: Walt Rosales ; David Jaramillo ; Tawanda Jackson Coding Level of Care Code Established Pt D/C DAY MANAGEMENT >30 MINS Patient Type Established Diagnoses Acute pancreatitis K85.90 Nausea and vomiting R11.2 Time Spent (min) 120
[2021-01-21] MEDS: LACTATED RINGER'S 1,000 ML IV SCH (18:25)
[2021-01-21] MEDS ORDERED: GLUCAGON FOR INJ 1 MG VIAL ONE (19:29)
[2021-01-22] MEDS: LACTATED RINGER'S 1,000 ML IV SCH ×2 (02:03→10:32)
[2021-01-22] MEDS: HYDROmorphone INJ 0.5 MG/0.5 ML SYR IV PRN ×2 (02:29→06:43)
[2021-01-22] MEDS: PIPERACILLIN/TAZOBACTAM 4.5 GM in DEXTROSE 5% 100 ML IV SCH (06:05)
[2021-01-22 08:22] LABS: Basophils # (auto) 0.01 K/uL (0-0.2); Basophils % (auto) 0.1 %; Hematocrit (blood only) 38.1 % (37-47); Hemoglobin 12.4 g/dL (12.0-16.0); Immature Granulocytes # (auto) 0.08 K/uL (0.00-0.02); Immature Granulocytes % (auto) 0.4 %; Lymphocytes # (auto) 1.75 K/uL (1.2-3.4); Mean Corpuscular Hgb Conc 32.5 g/dL (32-36); Mean Platelet Volume 9.9 fL (7.4-10.4); Monocytes # (auto) 1.08 K/uL (0.11-0.59); Monocytes % (auto) 5.6 %; Neutrophils # (auto) 16.44 K/uL (1.4-6.5); Neutrophils % (auto) 84.9 %; Platelet Count 355 K/uL (130-400); RDW Coefficient of Variation 14.6 % (11.5-14.5); RDW Standard Deviation 46.5 fL (36.4-46.3); Red Blood Count 4.43 M/uL (4.2-5.4); White Blood Count 19.36 K/uL (4.8-10.8)
[2021-01-22 08:54] LABS: Albumin Level 2.2 gm/dl (3.4-5.0); BUN Creatinine Ratio 8.3 (10-20); Calcium 8.6 mg/dl (8.5-10.1); Creatinine Clr Calc Pharmacy 148.6 ml/min; Est GFR (African American) 138.5 ml/min; Est GFR (Non-African American) 119.5 ml/min
[2021-01-22 08:59] LABS: Albumin Globulin Ratio 0.5 (0.9-2); Bilirubin,Total 0.3 mg/dl (0.2-1); Globulin 4.3 gm/dl (2.5-4.0); Total Protein 6.5 gm/dl (6.4-8.2)
[2021-01-22] MEDS: NAPROXEN 250 MG TAB PO SCH (09:22)
[2021-01-22 10:16] LABS: Potassium 4.3 mmol/L (3.5-5.1)
[2021-01-22] MEDS: PANTOprazole 40 MG in SYRINGE 0 ML IV SCH (10:18)
--- NOTE | 2021-01-22 10:30 | Communication Note ---
Date of Service: January 22, 2021 Pt was seen and evaluated, chart reviewed. This AM, less pain. No nausea, vomiting. No recurrent fevers. She has a bed at [facility] and is awaiting transfer thi s AM. Would continue as plans per yesterdays documentation.
[2021-01-22 14:21] LABS: Anti Nuclear Antibody Screen NEGATIVE (NEGATIVE); Immunoglobulin G 701 mg/dL (600-1640); Immunoglobulin G1 424 mg/dL (382-929); Immunoglobulin G2 90 mg/dL (241-700); Immunoglobulin G3 26 mg/dL (22-178); Immunoglobulin G4 28.4 mg/dL (4.0-86.0)
== END 2021-01-22 11:48 | disposition short-term general hospital (02) | DRG 439 ==
LOC: ED 12:56 → SUATTDRO 22:12 → 2W 22:12 → 3E 01-22 02:25
DX: J45.909 Unspecified asthma, uncomplicated; K86.3 Pseudocyst of pancreas; F39 Unspecified mood [affective] disorder; Z20.822 Contact with and (suspected) exposure to COVID-19; Z79.1 Long term (current) use of non-steroidal anti-inflammatories (NSAID); F17.210 Nicotine dependence, cigarettes, uncomplicated; Z88.5 Allergy status to narcotic agent; M35.89 Other specified systemic involvement of connective tissue; K86.1 Other chronic pancreatitis; M45.9 Ankylosing spondylitis of unspecified sites in spine; K85.82 Other acute pancreatitis with infected necrosis; Z90.49 Acquired absence of other specified parts of digestive tract; Z91.048 Other nonmedicinal substance allergy status; Z79.3 Long term (current) use of hormonal contraceptives; Z79.899 Other long term (current) drug therapy; K31.1 Adult hypertrophic pyloric stenosis

== ENCOUNTER 2021-12-18 15:45 | Observation (INO) ==
[2021-12-18] MEDS ORDERED: SODIUM CHLORIDE 0.9% 1000ML 2,000 ML IV ONE (16:11)
[2021-12-18] MEDS ORDERED: ONDANSETRON INJ 2 MG/ML 2 ML VIAL IV STA (16:34)
[2021-12-18] MEDS ORDERED: HYDROmorphone INJ 1 MG/ML SYRINGE IV STA (16:34)
--- NOTE | 2021-12-18 16:34 | Emergency Department Note ---
Impression & Plan Abdominal pain, Acute pancreatitis, Leukocytosis ED Provider Note NAME: MORRIS DICKERSON AGE: 31 SEX: F : 1990 ARRIVES VIA: Walk-In INFORMANT: Patient ED PROVIDER(S): Yash Costa DO CHIEF COMPLAINT: abdominal pain HPI: Patient is a 31-year-old female with a past medical history of asthma, migraines, polyarthritis, pancreatitis, pancreatic pseudocyst who presents the ER for abdominal pain, nausea and vomiting. Symptoms started 2 days ago. Denies any headache or change in vision. No chest pain or shortness of breath. Pain is diffuse throughout the whole belly and lower. No dysuria, urgency, or frequency. No other exacerbating or remitting factors. ROS: See above HPI for pertinent positives & negatives. A total of 10 systems reviewed and were otherwise negative. PAST MEDICAL HISTORY:See Below PAST SURGICAL HISTORY:See Below FAMILY HISTORY:See Below SOCIAL HISTORY:See Below HOME MEDICATIONS:See Below ALLERGIES:See Below VITALS:See Below PHYSICAL EXAMINATION: GENERAL: Sitting up in bed, alert, well appearing, well nourished, no distress, non-toxic EYE EXAM: normal conjunctiva. PERRL and EOM's grossly intact. OROPHARYNX: mucous membranes are dry NECK: supple, no nuchal rigidity, no adenopathy, non-tender LUNGS: Clear to auscultation. Normal chest wall mechanics HEART: no murmurs, S1 normal and S2 normal ABDOMEN: abdomen soft, diffusely tender, normo-active bowel sounds, no masses, no rebound or guarding. UPPER EXTREMITIES: upper extremities are grossly normal. LOWER EXTREMITIES: No pitting edema. NEURO EXAM: Normal sensorium, cranial nerves II-XII grossly intact, normal speech, no gross weakness of arms, no gross weakness of legs. MEDICAL DECISION MAKING: Patient is a 31-year-old female who presents the ER for abdominal pain. She seen evaluated yesterday and refused admission. CT showed pancreatitis with likely cyst. IV was established blood work was obtained today. Labs show leuk ocytosis 15,000. No significant anemia. BMP with LFTs bilirubin and lipase was mildly elevated at 95. UA was clean. COVID was negative. CT was not repeated. It was initially discussed with Dr. Rosales and ordered but then he canceled it after discussion with the GI group. I did also speak with Dr. Poole and they will follow the patient tomorrow morning. Triage Nursing notes reviewed. Limited review of prior medical records performed Vital Signs: reviewed and remarkable for HTN and tachy Differential diagnosis: Differential diagnoses includes but is not limited to gastritis, peptic ulcer disease, GERD, gallbladder disease, pancreatitis, small bowel obstruction, acute coronary syndrome, pericarditis, ischemic bowel, irritable bowel disease, irritable bowel syndrome, appendicitis, diverticulitis, malignancy, hernia, urinary tract infection, torsion, /ectopic (if female), perforation, trauma, infectious. ER treatment provided: See below Diagnostics interpreted by me: ECG: none Cardiac Monitoring: An order was placed for continuous cardiac monitoring. The monitor shows a rate of 90 with sinus rhythm. Laboratory studies: As stated above and show below. Imaging studies: See below Consultation(s): none Procedures: none Critical Care: None Past Med/Surg History Medical History (Updated 12/18/21 @ 22:30 by Yash Costa DO) Asthma Biliary colic Cholelithiasis Fracture of distal end of right fibula History of varicella Homicidal ideation Hx of chlamydia infection Hx of drug dependence Hx of ovarian cyst Hypertension during PID (pelvic inflammatory disease) Surgical History H/O oral surgery History of cholecystectomy S/P tonsillectomy and adenoidectomy Family History Mother Diabetes Dyslipidemia Hypertension Grandmother (Paternal) Diabetes Aunt Diabetes Denies family history of Ovarian cancer Prostate cancer Myocardial infarction Breast cancer Colorectal cancer Social History Smoking Status: Current every day smoker Tobacco Type: Cigarettes Age Started Using Tobacco: 11; packs per day: 1; Years Smoked: 18; Cigarettes Per Day: 10-20; Second Hand Exposure: No; Hx Alcohol Use: No Hx Substance Use: No Preferred Language: [place]orese Communication Ability: Effective 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 Beliefs That Will Affect Care: None marital status: Single Current Living Situation: Spouse and Other Current Living Situation Comment: Lives at home with fiance and son current occupational status: employed Feels Safe at Home: Yes Dental Care, Regularly: Yes Physical Activity Frequency: Does not Exercise Seatbelt Use: always Sunscreen Use: No Assistive Devices: Glasses Allergies Allergies Allergy/AdvReac Type Severity Reaction Status Date / Time adhesive Allergy Mild RASH Verified 12/18/21 16:47 nickel Allergy Mild RASH Verified 12/18/21 16:47 morphine AdvReac Severe Body fells Verified 12/18/21 16:47 like it is on fire Home Meds Home Medications Medication Instructions Recorded Confirmed aripiprazole 300 mg intramuscular 300 mg IM Q28D 07/05/21 12/18/21 suspension,extended release (Abilify Maintena) amitriptyline 25 mg tablet 25 mg PO HS 09/29/21 12/18/21 Previous Rx's Medication Instructions Recorded rizatriptan 10 mg tablet (Maxalt) 10 mg PO .COMPLEX PRN migraine 10/27/21 headache 30 days #9 tabs cholecalciferol (vitamin D3) 50 50 mcg PO BID #30 caps 12/16/21 mcg (2,000 unit) capsule cyanocobalamin (vitamin B-12) 2,500 mcg sublingual DAILY #30 tabs 12/16/21 2,500 mcg sublingual tablet ferrous sulfate 325 mg (65 mg 325 mg PO DAILY #60 tabs 12/16/21 iron) tablet Results & Data (ED) Vital Signs Vital Signs - 24 hr 12/18/21 15:47 12/18/21 17:38 Temperature 36.4 C L Temperature Source Skin Pulse Rate 118 H Pulse Rate [Radial] 94 H Pulse Rhythm Regular Pulse Rhythm [Radial] Regular Pulse Strength Normal Respiratory Rate 24 18 Respiratory Effort / Characteristics Non-Labored Spontaneous Non-Labored Respiratory Depth Normal Normal Respiratory Pattern Regular Regular Blood Pressure 153/84 H Blood Pressure [Right Arm] 118/82 Blood Pressure Mean 107 Blood Pressure Mean [Right Arm] 94 Blood Pressure Position Sitting Pulse Oximetry 97 95 Oxygen Delivery Method Room Air Room Air Sepsis Recent Fever Within 48 Hours No Sepsis New/Unexplained Change in Mental Status No Sepsis Action Taken by Nursing No Action Required Laboratory Data Result diagrams: 12/18/21 16:36 12/18/21 16:36 Lab Results 12/18/21 12/18/21 12/18/21 Range/Units 16:36 16:36 16:36 WBC 15.53 H (4.8-10.8) K/ul RBC 4.67 (3.93-5.22) M/uL Hgb 13.5 (12.0-16.0) g/dl Hct 40.5 (34.1-44.9) % MCV 86.7 (80.0-100.0) fL MCH 28.9 (25.0-34.0) pg MCHC 33.3 (32.0-36.0) g/dL RDW Std Deviation 45.7 (36.4-46.3) fL RDW Coeff of Jasmin 14.4 (11.5-14.5) % Plt Count 191 (130-400) K/uL MPV 10.5 (9.4-12.3) fL Immature Gran % (Auto) 0.6 % Neut % (Auto) 74.9 % Lymph % (Auto) 17.3 % [place] % (Auto) 6.6 % Eos % (Auto) 0.3 % Baso % (Auto) 0.3 % Neut # (Auto) 11.63 H (1.4-6.5) K/uL Lymph # (Auto) 2.68 (1.2-3.4) K/uL [place] # (Auto) 1.03 H (0.24-0.82) K/uL Eos # (Auto) 0.05 (0-0.50) K/uL Baso # (Auto) 0.04 (0-0.2) K/uL Immature Gran # (Auto) 0.10 H (0.00-0.02) K/uL Sodium 137 (136-145) mmol/L Potassium 3.5 (3.5-5.1) mmol/L Chloride 104 (98-107) mmol/L Carbon Dioxide 26 (21-32) mmol/L Anion Gap 7 (3-11) BUN 5 L (6-23) mg/dl Creatinine 0.76 (0.6-1.2) mg/dl Est Cr Clr Drug Dosing 122.4 ml/min Est GFR ( Amer) 120.3 ml/min Est GFR (Non-Af Amer) 103.8 ml/min BUN/Creatinine Ratio 6.6 L (10-20) Glucose 100 H (70-99(Fasting)) mg/dl Lactate (0.4-2.0) mmol/L Calcium 8.8 (8.5-10.1) mg/dl Total Bilirubin 0.3 (0.2-1.0) mg/dl AST 15 (13-39) U/L ALT 20 (7-52) U/L Alkaline Phosphatase 69 (34-104) U/L Total Protein 7.1 (6.0-8.3) gm/dl Albumin 4.0 (3.4-5.0) gm/dl Globulin 3.1 (2.5-4.0) gm/dl Albumin/Globulin Ratio 1.3 (0.9-2) Lipase 95 H (11-82) U/L Urine Color Urine Appearance (Clear) Urine pH (4.5-7.5) Ur Specific [place] (1.000-1.030) Urine Protein (Negative) Urine Glucose (UA) (Negative) Urine Ketones (Negative) Urine Blood (Negative) Urine Nitrite (Negative) Urine Bilirubin (Negative) Urine Urobilinogen (Negative) Ur Leukocyte Esterase (Negative) Urine WBC (Auto) (0-5) /hpf Urine RBC (Auto) (0-4) /hpf U Hyaline Cast (Auto) (0-5) /lpf U Epithel Cells (Auto) (0-5) /lpf Urine Bacteria (Auto) (Negative) Amorphous Sediment (None Prsent) Urine Mucus (None Prsent) Urine Test (Negative) SARS-CoV-2, RNA, NAAT NEGATIVE (NEGATIVE) 12/18/21 12/18/21 12/18/21 Range/Units 16:36 16:36 16:57 WBC (4.8-10.8) K/ul RBC (3.93-5.22) M/uL Hgb (12.0-16.0) g/dl Hct (34.1-44.9) % MCV (80.0-100.0) fL MCH (25.0-34.0) pg MCHC (32.0-36.0) g/dL RDW Std Deviation (36.4-46.3) fL RDW Coeff of Jasmin (11.5-14.5) % Plt Count (130-400) K/uL MPV (9.4-12.3) fL Immature Gran % (Auto) % Neut % (Auto) % Lymph % (Auto) % [place] % (Auto) % Eos % (Auto) % Baso % (Auto) % Neut # (Auto) (1.4-6.5) K/uL Lymph # (Auto) (1.2-3.4) K/uL [place] # (Auto) (0.24-0.82) K/uL Eos # (Auto) (0-0.50) K/uL Baso # (Auto) (0-0.2) K/uL Immature Gran # (Auto) (0.00-0.02) K/uL Sodium (136-145) mmol/L Potassium (3.5-5.1) mmol/L Chloride (98-107) mmol/L Carbon Dioxide (21-32) mmol/L Anion Gap (3-11) BUN (6-23) mg/dl Creatinine (0.6-1.2) mg/dl Est Cr Clr Drug Dosing ml/min Est GFR ( Amer) ml/min Est GFR (Non-Af Amer) ml/min BUN/Creatinine Ratio (10-20) Glucose (70-99(Fasting)) mg/dl Lactate 1.5 (0.4-2.0) mmol/L Calcium (8.5-10.1) mg/dl Total Bilirubin (0.2-1.0) mg/dl AST (13-39) U/L ALT (7-52) U/L Alkaline Phosphatase (34-104) U/L Total Protein (6.0-8.3) gm/dl Albumin (3.4-5.0) gm/dl Globulin (2.5-4.0) gm/dl Albumin/Globulin Ratio (0.9-2) Lipase (11-82) U/L Urine Color Dark Yellow Urine Appearance Clear (Clear) Urine pH 6.0 (4.5-7.5) Ur Specific [place] 1.027 (1.000-1.030) Urine Protein 1+ H (Negative) Urine Glucose (UA) Negative (Negative) Urine Ketones Trace H (Negative) Urine Blood Negative (Negative) Urine Nitrite Negative (Negative) Urine Bilirubin Negative (Negative) Urine Urobilinogen Negative (Negative) Ur Leukocyte Esterase Negative (Negative) Urine WBC (Auto) 1-5 (0-5) /hpf Urine RBC (Auto) 0-4 (0-4) /hpf U Hyaline Cast (Auto) 1-5 (0-5) /lpf U Epithel Cells (Auto) >30 H (0-5) /lpf Urine Bacteria (Auto) Negative (Negative) Amorphous Sediment Present A (None Prsent) Urine Mucus Present A (None Prsent) Urine Test Negative (Negative) SARS-CoV-2, RNA, NAAT (NEGATIVE) Administered Medications Amitriptyline HCl (Amitriptyline Hcl 25 Mg Tab) 25 mg PO HS MANI Stop: 01/17/22 20:59 Last Admin: 12/18/21 21:56 Dose: 25 mg Documented By: SHARONDA Hydromorphone HCl (Hydromorphone Inj 0.5 Mg/0.5 Ml Syr) 0.5 mg IV Q3H PRN PRN Reason: Moderate or severe pain Stop: 01/01/22 20:42 Last Admin: 12/18/21 22:02 Dose: 0.5 mg Documented By: SHARONDA Pantoprazole Sodium 40 mg/ (Syringe) 10 mls @ 5 mls/min IV BID MANI Stop: 01/17/22 20:59 Last Admin: 12/18/21 21:56 Dose: 5 mls/min Documented By: SHARONDA Lactated Ringer's (Lr) 1,000 mls @ 200 mls/hr IV .Q5H MANI Stop: 01/17/22 20:42 Last Admin: 12/18/21 20:45 Dose: 200 mls/hr Documented By: SHARONDA Piperacillin Sod/Tazobactam (Sod 3.375 gm/ Dextrose) 115 mls @ 28.75 mls/hr IV Q8H MANI; Protocol Stop: 12/28/21 20:59 Last Admin: 12/18/21 21:55 Dose: 28.8 mls/hr Documented By: SHARONDA Discontinued Medications Hydromorphone HCl (Hydromorphone Inj 1 Mg/Ml Syringe) 1 mg IV NOW STA Stop: 12/18/21 16:35 Last Admin: 12/18/21 16:52 Dose: 1 mg Documented By: HIEN Sodium Chloride (Nss 1000ml) 2,000 mls @ 999 mls/hr IV .Q2H1M ONE Stop: 12/18/21 18:11 Last Infusion: 12/18/21 18:43 Dose: 0 mls/hr Documented By: Admin: 12/18/21 16:46 Dose: 999 mls/hr Documented By: HIEN Ondansetron HCl (Ondansetron Inj 2 Mg/Ml 2 Ml Vial) 4 mg IV NOW STA Stop: 12/18/21 16:35 Last Admin: 12/18/21 16:52 Dose: 4 mg Documented By: HIEN Discharge Plan Visit Data Chief Complaint: Abdominal Pain Stated Complaint: ABDOMINAL PAIN, FLUID IN STOMACH ED Provider: Yash Costa Discharge Problem: Abdominal pain, Acute pancreatitis, Leukocytosis Patient Disposition: Admitted As Inpatient Discharge Instructions Interventions: ED Discharge Assessment Last Done: 12/18/21 20:23
[2021-12-18 17:03] LABS: Basophils # (auto) 0.04 K/uL (0-0.2); Basophils % (auto) 0.3 %; Eosinophils # (auto) 0.05 K/uL (0-0.50); Eosinophils % (auto) 0.3 %; Hematocrit (blood only) 40.5 % (34.1-44.9); Hemoglobin 13.5 g/dl (12.0-16.0); Immature Granulocytes % (auto) 0.6 %; Lymphocytes # (auto) 2.68 K/uL (1.2-3.4); Lymphocytes % (auto) 17.3 %; Mean Corpuscular Hemoglobin 28.9 pg (25.0-34.0); Mean Corpuscular Hgb Conc 33.3 g/dL (32.0-36.0); Mean Corpuscular Volume 86.7 fL (80.0-100.0); Mean Platelet Volume 10.5 fL (9.4-12.3); Monocytes # (auto) 1.03 K/uL (0.24-0.82); Monocytes % (auto) 6.6 %; Neutrophils # (auto) 11.63 K/uL (1.4-6.5); Neutrophils % (auto) 74.9 %; Platelet Count 191 K/uL (130-400); RDW Coefficient of Variation 14.4 % (11.5-14.5); RDW Standard Deviation 45.7 fL (36.4-46.3); Red Blood Count 4.67 M/uL (3.93-5.22); White Blood Count 15.53 K/ul (4.8-10.8)
[2021-12-18 17:14] LABS: Appearance Urine Clear (Clear); Bacteria Urine Automated Negative (Negative); Bilirubin Urine Negative (Negative); Blood Urine Negative (Negative); Color Urine Dark Yellow; Epithelial Cell Urine Auto >30 /lpf (0-5); Glucose Urine UA Negative (Negative); Ketones Urine Trace (Negative); Leukocyte Esterase Urine Negative (Negative); Nitrite Urine Negative (Negative); Protein Urine 1+ (Negative); Specific Gravity Urine 1.027 (1.000-1.030); Urobilinogen Urine Negative (Negative)
[2021-12-18 17:24] LABS: Albumin Globulin Ratio 1.3 (0.9-2); BUN Creatinine Ratio 6.6 (10-20); Bilirubin,Total 0.3 mg/dl (0.2-1.0); Calcium 8.8 mg/dl (8.5-10.1); Creatinine Clr Calc Pharmacy 122.4 ml/min; Est GFR (African American) 120.3 ml/min; Est GFR (Non-African American) 103.8 ml/min; Globulin 3.1 gm/dl (2.5-4.0); Potassium 3.5 mmol/L (3.5-5.1); Total Protein 7.1 gm/dl (6.0-8.3)
[2021-12-18 17:40] LABS: Pregnancy Test, Urine Negative (Negative)
[2021-12-18 17:44] LABS: Amorphous Sediment Urine Present (None Prsent); Mucus Urine Present (None Prsent); RBC Urine Automated 0-4 /hpf (0-4)
--- NOTE | 2021-12-18 18:33 | History & Physical Report ---
Date of Service December 18, 2021 Assessment & Plan (1) Acute pancreatitis: Plan: Idiopathic pancreatitis. Discussed with Dr. Poole on admission. - NPO - Pain & nausea control - IV fluids - GI consulted (2) Acute gastritis: Plan: CT a/p on 12/18 showed "5.4 x 2.0 cm fluid collection within the lesser sac" along with severe gastric wall thickening. Discussed these results in detail with radiology who felt the collection could be a fast-forming pancreatic pseudocyst vs. a contained gastric perforation. Obviously, this would be of significant concern, so I discussed this with Dr. Poole who disagreed and felt it was more likely a pseudocyst. At this point, patient has epigastric pain, but definitely no rebound tenderness or signs of peritonitis. Lactate normal. - PPI IV BID - NPO as above - Start Zosyn - Consult gen surg for another opinion - KUB with oral contrast ordered. If evidence of perforation, would hold admit and stat consult gen surgery. (3) Migraine: Plan: Hx of. No present headache. 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 Not on immune therapy at this time. - Monitor (5) DVT prophylaxis: Plan: SCDs - Hold heparin until gastric studies all return and we are more confident of findings. History of Present Illness Primary Care Provider: Stefanie Crowder MD 31yo F w/ hx of HLAB27 arthritis (unclear exact diagnosis) and idiopathic pancreatitis who presents with gastritis/pancreatitis. The patient reports that she started to have upper abdominal pain two days ago. She describes it as a sharp, 10/10 pain across the upper abdomen across both sides. The pain is different than her usual pancreatitis pain that is usually more on the left flank. The pain was accompanied by nausea and vomiting. She reports the emesis is bilious as she cannot eat much right now. She denies any blood in her emesis or any coffee ground emesis. She also notes diarrhea over the last 2 days, but no hematochezia or melena. She reports she had a fevers at home from 100 - 102 along with subjective fevers/chills. Denies chest pain, shortness of breath, palpitations, cough. Allergies Allergy/AdvReac Type Severity Reaction Status Date / Time adhesive Allergy Mild RASH Verified 12/18/21 16:47 nickel Allergy Mild RASH Verified 12/18/21 16:47 morphine AdvReac Severe Body fells Verified 12/18/21 16:47 like it is on fire Home Medications Medication Instructions Recorded Confirmed Type aripiprazole 300 mg intramuscular 300 mg IM Q28D 07/05/21 12/18/21 History suspension,extended release (Abilifwilliam Maintena) amitriptyline 25 mg tablet 25 mg PO HS 09/29/21 12/18/21 History rizatriptan 10 mg tablet (Maxalt) 10 mg PO .COMPLEX PRN migraine 10/27/21 12/18/21 Rx headache 30 days #9 tabs cholecalciferol (vitamin D3) 50 50 mcg PO BID #30 caps 12/16/21 12/18/21 Rx mcg (2,000 unit) capsule cyanocobalamin (vitamin B-12) 2,500 mcg sublingual DAILY #30 tabs 12/16/21 12/18/21 Rx 2,500 mcg sublingual tablet ferrous sulfate 325 mg (65 mg 325 mg PO DAILY #60 tabs 12/16/21 12/18/21 Rx iron) tablet Past Med/Surg History Medical History (Updated 12/18/21 @ 18:28 by Walt Rosales MD) Asthma Biliary colic Cholelithiasis Fracture of distal end of right fibula History of varicella Homicidal ideation Hx of chlamydia infection Hx of drug dependence Hx of ovarian cyst Hypertension during PID (pelvic inflammatory disease) Surgical History H/O oral surgery History of cholecystectomy S/P tonsillectomy and adenoidectomy Family History Mother Diabetes Dyslipidemia Hypertension Grandmother (Paternal) Diabetes Aunt Diabetes Denies family history of Ovarian cancer Prostate cancer Myocardial infarction Breast cancer Colorectal cancer Social History Smoking Status: Current every day smoker Tobacco Type: Cigarettes Age Started Using Tobacco: 11; packs per day: 1; Years Smoked: 18; Cigarettes Per Day: 10-20; Second Hand Exposure: No; Hx Alcohol Use: No Hx Substance Use: No Preferred Language: Gabonese Communication Ability: Effective 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 Beliefs That Will Affect Care: None marital status: Single Current Living Situation: Spouse and Other Current Living Situation Comment: Lives at home with fiance and son current occupational status: employed Feels Safe at Home: Yes Dental Care, Regularly: Yes Physical Activity Frequency: Does not Exercise Seatbelt Use: always Sunscreen Use: No Assistive Devices: Glasses Review of Systems Review of Systems: All systems reviewed & are unremarkable except as noted in HPI & below Physical Exam Constitutional: WD/WN, vitals as above Eyes: EOM intact bilaterally; no conjunctival abnormality ENMT: external ear and nose normal, oropharynx normal Neck: trachea midline, no thyromegaly normal visual inspection Respiratory: normal respiratory effort, lungs clear to auscultation no respiratory distress Cardiovascular: RRR, no murmur, no edema Gastrointestinal (Abdomen): Inspection/Auscultation: abdomen normal to inspection; abdomen not distended Percussion/Palpation: + abdomen tender (In epigastric most prominantly. No rebound.) and abdomen soft; no guarding and abdomen not rigid Musculoskeletal: no cyanosis or clubbing, extremities motor strength 5/5 Skin: no rashes, warm and dry Neurologic: moves all extremities and awake Psychiatric: Orientation: alert, oriented to person and cooperative Results & Data Results & Data ([facility]) Vital Signs (Past 12 Hours) Vital Signs Temp Pulse Pulse Resp BP BP Pulse Ox 12/18/21 17:38 94 H 18 118/82 95 12/18/21 15:47 36.4 C L 118 H 24 153/84 H 97 O2 Del Method 12/18/21 17:38 Room Air 12/18/21 15:47 Room Air Code Status & VTE Plan VTE Prophylaxis Plan VTE Prophylaxis will be ordered: Yes PG Care Time/CCT Total # of Minutes Spent Total Time Spent with Patient: Total time spent is greater than 50% in coordination of care (as documented) at patient's floor/unit and/or counseling patient: Coding Level of Care Code 71590 Initial Inpt Care Lvl 3 Diagnoses Acute pancreatitis K85.90 Acute gastritis K29.00 Migraine G43.909 Intractability: not intractable Migraine type: unspecified Status migrainosus presence: without status migrainosus Inflammatory polyarthritis M06.4 DVT prophylaxis Z29.9 (1) Migraine Intractability: not intractable Migraine type: unspecified Status migrainosus presence: without status migrainosus Qualified Code(s): G43.909 - Migraine, unspecified, not intractable, without status migrainosus
--- NOTE | 2021-12-18 19:29 | XRay Report ---
PA CHEST WITH ABDOMINAL SERIES CLINICAL HISTORY: Pancreatitis. Gastric inflammation and fluid collection seen on yesterday's CT sca n. FINDINGS: A PA chest radiograph is compared to study dated 03/13/2019. The cardiomediastinal silhouette is unre markable. The lungs and pleural spaces are clear noting mild bibasilar atelectasis. No pneumothorax i s seen. The bony thorax is grossly intact. Supine and erect abdominal radiographs are compared to study dated 12/17/2021. Cholecystectomy clips a re noted in the right upper quadrant. Enteric contrast is noted throughout the bowel. There is modera te gaseous distention of the stomach. No obstruction is identified. No evidence of intraperitoneal fr ee air is seen. There are no abnormal abdominal calcifications. A surgical clip is seen in the right lower quadrant. A tiny phlebolith is noted in the pelvis. The lumbosacral spine and bony pelvis appea r intact. IMPRESSION: 1. No active disease in the chest. 2. Nonobstructed abdominal bowel gas pattern. 3. No intraperitoneal free air is identified. ACT 112: Negative or not required by law. Electronically signed by: Pola Emerson M.D. 12/18/2021 7:27 PM
[2021-12-18] MEDS ORDERED: ACETAMINOPHEN 325 MG TAB PO PRN (20:43)
[2021-12-18] MEDS: LACTATED RINGER'S 1,000 ML IV SCH (20:45)
[2021-12-18] MEDS ORDERED: PIPERACILLIN/TAZOBACTAM 3.375 GM in DEXTROSE 5% 100 ML IV SCH (21:00)
--- NOTE | 2021-12-18 21:45 | Surgery Consultation ---
Date of Consultation December 18, 2021 Assessment & Plan (1) Abdominal pain: Patient has been admitted on the hospitalist service. General surgery has been asked for consultation. On imaging there is a fluid collection in the lesser sac. This may correlate with patient's inflammation of pancreas and elevated lipase. As the patient has a history of pancreaticobiliary issues in the past along with a pancreatic pseudocyst this fluid collection may be related to an underlying pancreatic process. On imaging there is no evidence of perforation or intraperitoneal free air thus making the possibility of perforated viscus less likely. We therefore recommend proceeding as follows: Provide analgesics provide antiemetics Implement n.p.o. status Hydrate with IV fluids Provide antibiotics in the form of Zosyn Provide GI prophylaxis in the form of Protonix Recommended GI consultation to see if endoscopic evaluation is warranted Follow serial labs Supervising Physician Co-Signing Physician Notes I personally saw and evaluated the patient with Steve Godfrey PA-C and agree with the assessment and plan. 31-year-old female with prior history of cholecystectomy and subsequent episodes of pancreatitis with peripancreatic fluid collections, now with new lesser sac fluid collection CT images and results personally viewed by me, has some inflammation in the lesser sac but nothing well organized at this point Her lipase was elevated at 295 2 days ago, this coupled with her epigastric abdominal pain she likely has a mild episode of acute pancreatitis I do not believe she has any gastric perforation and this is likely all due to her pancreas We will have GI evaluate the patient to see if ERCP is indicated Will keep n.p.o., give IV fluids and monitor her response Will follow History of Present Illness Reason for Consultation: Abdominal pain Attending Physician: Walt Rosales MD History of Present Illness This is a 31-year-old female who presented to the emergency department on 12/17/2021. The patient notes that she was having pain in her upper abdomen greatest in the epigastric area that started on 12/16/2021. The patient had some associated nausea and vomiting. She denies any fevers, shakes, or chills. She notes that the pain is nonradiating. She does not report any modifying factors and specifically states it is not related to oral intake. She denies any hematemesis. She denies any bright red blood per rectum or melanotic stools. She does note that she has been having on and off alternating bowel movements of constipation and diarrhea. Because of this symptomatology she presented to the emergency department. During this visit she had a CT scan of the abdomen that showed some gastric wall thickening and a 5.4 x 2.0 collection in the lesser sac. There is no evidence of gastric perforation. Inflammation of the pancreas was noted. Labs on this visit included a white blood cell count of 17,000. Hemoglobin, hematocrit, platelet count were normal. Chemistry profile showed sodium was 135 with a normal BUN and creatinine as well as a normal potassium. Her LFTs were nonelevated. She did have an elevated lipase at 279. Admission was offered to the patient due to her CT scan findings and abdominal pain but she declined as she had family obligations, and ultimately signed out AGAINST MEDICAL ADVICE. Patient represented to the emergency department today as her pain continues to persist similar to what is noted above. She had additional imaging including a KUB that showed no evidence of free air or bowel obstruction. Labs include a CBC her white blood cell count was 15.5 with a normal hemoglobin, hematocrit, and platelet count. Chemistry profile showed sodium and potassium were normal as was her creatinine. BUN was low at 5. Her LFTs were nonelevated lactic acid level was normal. Her lipase was slightly elevated at 95. It is noteworthy to mention that the patient has had a cholecystectomy she believes approximately 4 years ago in September 2020. At this time she was noted to have choledocholithiasis and also underwent an ERCP with stent placement. The patient's records were reviewed and she has had additional issues with her pancreatico biliary system including development of a pancreatic pseudocyst. She has had additional ERCP procedures in December 2020 where patient was noted to have sludge in her common bile duct and a pancreatic pseudocyst was identified. She also had an endoscopic ultrasound on 02/10/2021 that showed no masses or common bile duct abnormalities. At the time of my interview the patient was resting comfortably in bed and she was in no distress. Allergies Allergy/AdvReac Type Severity Reaction Status Date / Time adhesive Allergy Mild RASH Verified 12/18/21 16:47 nickel Allergy Mild RASH Verified 12/18/21 16:47 morphine AdvReac Severe Body fells Verified 12/18/21 16:47 like it is on fire Home Medications Medication Instructions Recorded Confirmed Type aripiprazole 300 mg intramuscular 300 mg IM Q28D 07/05/21 12/18/21 History suspension,extended release (Abilidomenico Maintena) amitriptyline 25 mg tablet 25 mg PO HS 09/29/21 12/18/21 History rizatriptan 10 mg tablet (Maxalt) 10 mg PO .COMPLEX PRN migraine 10/27/21 12/18/21 Rx headache 30 days #9 tabs cholecalciferol (vitamin D3) 50 50 mcg PO BID #30 caps 12/16/21 12/18/21 Rx mcg (2,000 unit) capsule cyanocobalamin (vitamin B-12) 2,500 mcg sublingual DAILY #30 tabs 12/16/21 12/18/21 Rx 2,500 mcg sublingual tablet ferrous sulfate 325 mg (65 mg 325 mg PO DAILY #60 tabs 12/16/21 12/18/21 Rx iron) tablet Patient History Medical History (Updated 12/18/21 @ 22:30 by Yash Costa DO) Asthma Biliary colic Cholelithiasis Fracture of distal end of right fibula History of varicella Homicidal ideation Hx of chlamydia infection Hx of drug dependence Hx of ovarian cyst Hypertension during PID (pelvic inflammatory disease) Surgical History H/O oral surgery History of cholecystectomy S/P tonsillectomy and adenoidectomy Family History Mother Diabetes Dyslipidemia Hypertension Grandmother (Paternal) Diabetes Aunt Diabetes Denies family history of Ovarian cancer Prostate cancer Myocardial infarction Breast cancer Colorectal cancer Social History Smoking Status: Current every day smoker Tobacco Type: Cigarettes Age Started Using Tobacco: 11; packs per day: 1; Years Smoked: 18; Cigarettes Per Day: 10-20; Second Hand Exposure: No; Hx Alcohol Use: Yes Hx Substance Use: No Preferred Language: Albanian Communication Ability: Effective Analytical Lab Technician Required: No Beliefs That Will Affect Care: None marital status: Single Current Living Situation: Spouse and Family Current Living Situation Comment: fiance current occupational status: employed Feels Safe at Home: Yes Dental Care, Regularly: Yes Physical Activity Frequency: Does not Exercise Seatbelt Use: always Sunscreen Use: No Assistive Devices: Glasses Review of Systems Constitutional: no fever and no chills Eyes: no eye pain Ear, Nose, Mouth, Throat: no ear pain Respiratory: no cough Cardiovascular: no chest pain Gastrointestinal: as per Subjective / HPI, + abdominal pain, + nausea, + vomiting, + constipation and + diarrhea/loose stools Genitourinary: no dysuria Musculoskeletal: no back pain Integumentary: no rash Neurologic: no localized weakness Physical Exam Constitutional: WD/WN, vitals as above Eyes: + anicteric sclerae ENMT: Ears: no hearing impairment and no external ear abnormality Mouth: no oropharynx abnormality Neck: trachea midline Respiratory: normal respiratory effort; no respiratory distress and no labored breathing Cardiovascular: Rate/Rhythm: regular rate and regular rhythm Gastrointestinal (Abdomen): Patient's abdomen is soft, nondistended, nonrigid. Bowel sounds are present. There is no rebound tenderness or guarding, however the patient was noted to have significant pain with palpation in the epigastric area. Musculoskeletal: No calf tenderness, feet are warm and nonmottled Skin: no rashes Neurologic: moves all extremities Psychiatric: A+Ox3, euthymic affect Results & Data ([facility]) Vital Signs (Past 12 Hours) Vital Signs Temp Pulse Pulse Pulse Resp BP BP 12/18/21 20:30 36.6 C 92 H 18 122/79 12/18/21 20:23 12/18/21 17:38 94 H 18 118/82 12/18/21 15:47 36.4 C L 118 H 24 153/84 H Pulse Ox O2 Del Method 12/18/21 20:30 97 Room Air 12/18/21 20:23 Room Air 12/18/21 17:38 95 Room Air 12/18/21 15:47 97 Room Air PG Care Time/CCT Total # of Minutes Spent Total Time Spent with Patient: Total time spent is greater than 50% in coordination of care (as documented) at patient's floor/unit and/or counseling patient: Coding Level of Care Code 23384 Inpt Consult Level 5 Diagnoses Abdominal pain R10.9
[2021-12-18] MEDS: PANTOprazole 40 MG in SYRINGE 0 ML IV SCH (21:56)
[2021-12-18] MEDS: AMITRIPTYLINE HCL 25 MG TAB PO SCH (21:56)
[2021-12-18] MEDS: HYDROmorphone INJ 0.5 MG/0.5 ML SYR IV PRN (22:02)
[2021-12-19] MEDS: ONDANSETRON INJ 2 MG/ML 2 ML VIAL IV PRN (01:23)
[2021-12-19] MEDS: LACTATED RINGER'S 1,000 ML IV SCH ×5 (01:48→22:08)
--- NOTE | 2021-12-19 05:36 | Surgery Progress Note ---
Date of Service December 19, 2021 Assessment & Plan (1) Abdominal pain: Plan: Patient has been admitted on the hospitalist service. We recommend proceeding as follows: Provide analgesics Provide antiemetics Continue aggressive hydration with IV fluids Continue n.p.o. status Continue to follow serial labs Continue GI prophylaxis in the form of Protonix As noted the patient had a fluid collection noted on CT scan in the lesser sac which likely correlates with the noted inflammation of patient's pancreas and elevated lipase. On CT scan as well as KUB imaging there is no evidence of perforation or intraperitoneal free air, thus we will continue to treat as though patient has pancreatitis for the present time As patient has required ERCP with stent placement in the past will wait GI recommendations to see if any endoscopic evaluation is warranted Admission and Anticipated Discharge Date Admission Date: December 18, 2021 Supervising Physician Co-Signing Physician Notes I personally saw and evaluated the patient with Steve Godfrey PA-C and agree with the assessment and plan. 31-year-old female with prior history of cholecystectomy and subsequent episodes of pancreatitis with peripancreatic fluid collections, now with new lesser sac inflammation/fluid collection Vitals remain normal and her leukocytosis is resolved Would have GI evaluate the patient to see if ERCP is indicated Will keep n.p.o., give IV fluids and monitor her response Will follow Subjective Patient is resting comfortably in bed at this time. Since my visit last evening she has not had any nausea or vomiting. She continues to report pain in the epigastric area of her abdomen which is worse with palpation. No fevers, shakes, or chills. Physical Exam Gastrointestinal (Abdomen): Abdomen is nonrigid and nondistended. There is pain noted with palpation in the epigastric area. No rebound tenderness or guarding noted. Results & Data ([facility]) Vital Signs (Past 12 Hours) Vital Signs Temp Pulse Pulse Resp BP Pulse Ox O2 Del Method 12/18/21 20:30 36.6 C 92 H 18 122/79 97 Room Air 12/18/21 20:23 Room Air 12/18/21 17:38 94 H 18 118/82 95 Room Air PG Care Time/CCT Total # of Minutes Spent Total Time Spent with Patient: Total time spent is greater than 50% in coordination of care (as documented) at patient's floor/unit and/or counseling patient: Coding Level of Care Code 65765 Subseq Hosp Care Lvl 1 Diagnoses Abdominal pain R10.9
[2021-12-19] MEDS: HYDROmorphone INJ 0.5 MG/0.5 ML SYR IV PRN ×3 (06:10→17:29)
[2021-12-19] MEDS: PIPERACILLIN/TAZOBACTAM 4.5 GM in DEXTROSE 5% 100 ML IV SCH ×3 (06:11→22:07)
[2021-12-19] MEDS: PANTOprazole 40 MG in SYRINGE 0 ML IV SCH ×2 (08:08→20:45)
[2021-12-19 08:09] LABS: Hematocrit (blood only) 36.7 % (34.1-44.9); Mean Corpuscular Hemoglobin 28.4 pg (25.0-34.0); Mean Corpuscular Hgb Conc 32.7 g/dL (32.0-36.0); Mean Platelet Volume 10.2 fL (9.4-12.3); Platelet Count 153 K/uL (130-400); RDW Coefficient of Variation 14.6 % (11.5-14.5); RDW Standard Deviation 46.6 fL (36.4-46.3); Red Blood Count 4.22 M/uL (3.93-5.22); White Blood Count 9.48 K/ul (4.8-10.8)
[2021-12-19 08:59] LABS: Albumin Globulin Ratio 1.3 (0.9-2); Albumin Level 3.2 gm/dl (3.4-5.0); BUN Creatinine Ratio 8.8 (10-20); Bilirubin,Total 0.4 mg/dl (0.2-1.0); Calcium 7.9 mg/dl (8.5-10.1); Creatinine Clr Calc Pharmacy 165.2 ml/min; Est GFR (African American) 142.2 ml/min; Est GFR (Non-African American) 122.7 ml/min; Globulin 2.4 gm/dl (2.5-4.0); Magnesium 1.9 mg/dl (1.7-2.4); Potassium 3.9 mmol/L (3.5-5.1); Total Protein 5.6 gm/dl (6.0-8.3)
[2021-12-19] MEDS ORDERED: LORazepam 1 MG in SYRINGE 0.5 ML IV PRN (10:00)
--- NOTE | 2021-12-19 13:13 | Magnetic Resonance Report ---
MRCP CLINICAL HISTORY: pancreatitis with collection TECHNIQUE: Utilizing a 1.5 So magnet and dedicated coil, multiplanar, multiecho imaging of the upp er abdomen was performed utilizing heavily T2 weighted pulsing sequences without IV contrast. COMPARISON STUDY: MRCP January 19, 2021. CT of the abdomen and pelvis December 17, 2021. Abdominal s eries December 18, 2021. FINDINGS: No hepatic lesions are identified on this unenhanced examination. There are trace bilateral pleural effusions. There is no biliary ductal dilatation status post cholecystectomy. Common bile du ct measures 6 mm in caliber. No common bile duct calculi are identified. Peripancreatic stranding is noted, as shown on CT of December 17, 2021. This extends into the mesentery. A 3.6 x 2.2 cm fluid colle ction along anterior aspect of the pancreatic neck and lesser curvature of the stomach is more well-d efined than on CT of December 17, 2021. This is within the lesser sac. A 1.9 cm T2 hyperintense focus w ithin the pancreatic tail on axial image 15 of [address] of November 25, 2021. There may be sli ght dilatation of the pancreatic duct within the pancreatic tail. Possible intraductal calculi shown on CT are not well visualized on this exam. Probable cyst within lower pole the left kidney is noted. 2.9 cm left adrenal nodule is unchanged from earlier exams. This is probably benign. There is border line hepatosplenomegaly. The right kidney is unremarkable on this unenhanced exam. Caliber of visuali zed small and large bowel are normal. Wall thickening of the stomach is noted. IMPRESSION: 1. Findings consistent with acute pancreatitis. 3.6 x 2.2 cm collection within the lesser sac suggest reese of an acute peripancreatic fluid collection. 1.9 cm cystic focus within the pancreatic tail favor s a pseudocyst. 2. No biliary ductal dilatation status post cholecystectomy. No common bile duct calculi identified. 3. Possible calculi within the pancreatic duct within the pancreatic tail. Mild dilatation of the ups tream pancreatic duct. 4. Gastric wall thickening with adjacent stranding. This is likely reactive. Superimposed gastritis c ould appear similar but is considered less likely. ACT 112: Negative or not required by law. Electronically signed by: Zuhair Crowder M.D. 12/19/2021 1:11 PM
--- NOTE | 2021-12-19 13:38 | Gastrointestinal Consultation ---
Date of Consultation December 19, 2021 Assessment & Plan (1) Acute pancreatitis: Unclear etiology, at this point she will need further testing including repeat EUS to evaluate ?? PD stones in the tail area seen on CT scan, genetic testing, chronic pancreatitis, AIP. Recommend: IV Hydration. Obtain MRCP. Based on MRCP would consider ERCP with PD stenting. (2) Abdominal pain: (3) Gastritis: History of Present Illness Attending Physician: Dot Delacruz MD History of Present Illness 31 years old female patient with Hx of Gallstone pancreatitis in 2018 s/p cholecystectomy and ERPC x 2 at that time then last year she presented with recurrent acute pancreatitis with large pseudocyst formation, had ERCP with PD stenting at that time, late follow up EUS showed spontaneous resolution of the fluid collection. She did fine for a while then said she had few ED visits for recurrent abdominal pain this month and once for rectal bleeding, thinks she was told it was pancreatitis however it was managed with Pain meds. Now she is admitted as her CT scan showed small fluid collection around the stomach. She feels fine, pain is better, denies any nausea or vomiting. No diarrhea or constipation. No fever. No alcohol use. Current smoker. Allergies Allergy/AdvReac Type Severity Reaction Status Date / Time adhesive Allergy Mild RASH Verified 12/18/21 16:47 nickel Allergy Mild RASH Verified 12/18/21 16:47 morphine AdvReac Severe Body fells Verified 12/18/21 16:47 like it is on fire Home Medications Medication Instructions Recorded Confirmed Type aripiprazole 300 mg intramuscular 300 mg IM Q28D 07/05/21 12/18/21 History suspension,extended release (Abilify Maintena) amitriptyline 25 mg tablet 25 mg PO HS 09/29/21 12/18/21 History rizatriptan 10 mg tablet (Maxalt) 10 mg PO .COMPLEX PRN migraine 10/27/21 12/18/21 Rx headache 30 days #9 tabs cholecalciferol (vitamin D3) 50 50 mcg PO BID #30 caps 12/16/21 12/18/21 Rx mcg (2,000 unit) capsule cyanocobalamin (vitamin B-12) 2,500 mcg sublingual DAILY #30 tabs 12/16/21 12/18/21 Rx 2,500 mcg sublingual tablet ferrous sulfate 325 mg (65 mg 325 mg PO DAILY #60 tabs 12/16/21 12/18/21 Rx iron) tablet Patient History Medical History (Updated 12/19/21 @ 13:40 by Marisol Lopez MD) Asthma Biliary colic Cholelithiasis Fracture of distal end of right fibula History of varicella Homicidal ideation Hx of chlamydia infection Hx of drug dependence Hx of ovarian cyst Hypertension during PID (pelvic inflammatory disease) Surgical History H/O oral surgery History of cholecystectomy S/P tonsillectomy and adenoidectomy Family History Mother Diabetes Dyslipidemia Hypertension Grandmother (Paternal) Diabetes Aunt Diabetes Denies family history of Ovarian cancer Prostate cancer Myocardial infarction Breast cancer Colorectal cancer Social History Smoking Status: Current every day smoker Tobacco Type: Cigarettes Age Started Using Tobacco: 11; packs per day: 1; Years Smoked: 17; Cigarettes Per Day: 10-20; Second Hand Exposure: No; Hx Alcohol Use: Yes Hx Substance Use: No Preferred Language: Lithuanian Communication Ability: Effective Home Care Companion Required: No Beliefs That Will Affect Care: None marital status: Single Current Living Situation: Spouse and Family Current Living Situation Comment: fiance current occupational status: employed Feels Safe at Home: Yes Dental Care, Regularly: Yes Physical Activity Frequency: Does not Exercise Seatbelt Use: always Sunscreen Use: No Assistive Devices: Glasses Review of Systems Review of Systems: All systems reviewed & are unremarkable except as noted in HPI & below Physical Exam Constitutional: + well hydrated, cooperative and comfortable Eyes: PERRL, conjunctivae normal, anicteric sclerae ENMT: external ear and nose normal, oropharynx normal Neck: normal visual inspection and trachea midline Respiratory: normal respiratory effort, lungs clear to auscultation Auscultation: no wheezes Cardiovascular: RRR, no murmur, no edema Gastrointestinal (Abdomen): normal bowel sounds, soft, nontender, no hepatosplenomegaly Musculoskeletal: no cyanosis or clubbing, extremities motor strength 5/5 Skin: no rashes, warm and dry Neurologic: awake; no focal motor deficits Motor/Sensory: no tremor Results & Data ([facility]) Vital Signs (Past 12 Hours) Vital Signs Temp Pulse Resp BP Pulse Ox O2 Del Method 12/19/21 07:28 36.5 C 78 16 100/66 93 Room Air Laboratory Results Laboratory Results - last 24 hr 12/18/21 12/18/21 12/18/21 16:36 16:36 16:36 WBC 15.53 H RBC 4.67 Hgb 13.5 Hct 40.5 MCV 86.7 MCH 28.9 MCHC 33.3 RDW Std Deviation 45.7 RDW Coeff of Jasmin 14.4 Plt Count 191 MPV 10.5 Immature Gran % (Auto) 0.6 Neut % (Auto) 74.9 Lymph % (Auto) 17.3 [place] % (Auto) 6.6 Eos % (Auto) 0.3 Baso % (Auto) 0.3 Neut # (Auto) 11.63 H Lymph # (Auto) 2.68 [place] # (Auto) 1.03 H Eos # (Auto) 0.05 Baso # (Auto) 0.04 Immature Gran # (Auto) 0.10 H Sodium 137 Potassium 3.5 Chloride 104 Carbon Dioxide 26 Anion Gap 7 BUN 5 L Creatinine 0.76 Est Cr Clr Drug Dosing 122.4 Est GFR ( Amer) 120.3 Est GFR (Non-Af Amer) 103.8 BUN/Creatinine Ratio 6.6 L Glucose 100 H Lactate Calcium 8.8 Magnesium Total Bilirubin 0.3 AST 15 ALT 20 Alkaline Phosphatase 69 Total Protein 7.1 Albumin 4.0 Globulin 3.1 Albumin/Globulin Ratio 1.3 Triglycerides Lipase 95 H Urine Color Urine Appearance Urine pH Ur Specific [place] Urine Protein Urine Glucose (UA) Urine Ketones Urine Blood Urine Nitrite Urine Bilirubin Urine Urobilinogen Ur Leukocyte Esterase Urine WBC (Auto) Urine RBC (Auto) U Hyaline Cast (Auto) U Epithel Cells (Auto) Urine Bacteria (Auto) Amorphous Sediment Urine Mucus Urine Test SARS-CoV-2, RNA, NAAT NEGATIVE 12/18/21 12/18/21 12/18/21 16:36 16:36 16:57 WBC RBC Hgb Hct MCV MCH MCHC RDW Std Deviation RDW Coeff of Jasmin Plt Count MPV Immature Gran % (Auto) Neut % (Auto) Lymph % (Auto) [place] % (Auto) Eos % (Auto) Baso % (Auto) Neut # (Auto) Lymph # (Auto) [place] # (Auto) Eos # (Auto) Baso # (Auto) Immature Gran # (Auto) Sodium Potassium Chloride Carbon Dioxide Anion Gap BUN Creatinine Est Cr Clr Drug Dosing Est GFR ( Amer) Est GFR (Non-Af Amer) BUN/Creatinine Ratio Glucose Lactate 1.5 Calcium Magnesium Total Bilirubin AST ALT Alkaline Phosphatase Total Protein Albumin Globulin Albumin/Globulin Ratio Triglycerides Lipase Urine Color Dark Yellow Urine Appearance Clear Urine pH 6.0 Ur Specific [place] 1.027 Urine Protein 1+ H Urine Glucose (UA) Negative Urine Ketones Trace H Urine Blood Negative Urine Nitrite Negative Urine Bilirubin Negative Urine Urobilinogen Negative Ur Leukocyte Esterase Negative Urine WBC (Auto) 1-5 Urine RBC (Auto) 0-4 U Hyaline Cast (Auto) 1-5 U Epithel Cells (Auto) >30 H Urine Bacteria (Auto) Negative Amorphous Sediment Present A Urine Mucus Present A Urine Test Negative SARS-CoV-2, RNA, NAAT 12/19/21 12/19/21 07:41 07:41 WBC 9.48 RBC 4.22 Hgb 12.0 Hct 36.7 MCV 87.0 MCH 28.4 MCHC 32.7 RDW Std Deviation 46.6 H RDW Coeff of Jasmin 14.6 H Plt Count 153 MPV 10.2 Immature Gran % (Auto) Neut % (Auto) Lymph % (Auto) [place] % (Auto) Eos % (Auto) Baso % (Auto) Neut # (Auto) Lymph # (Auto) [place] # (Auto) Eos # (Auto) Baso # (Auto) Immature Gran # (Auto) Sodium 138 Potassium 3.9 Chloride 109 H Carbon Dioxide 24 Anion Gap 5 BUN 5 L Creatinine 0.57 L Est Cr Clr Drug Dosing 165.2 Est GFR ( Amer) 142.2 Est GFR (Non-Af Amer) 122.7 BUN/Creatinine Ratio 8.8 L Glucose 95 Lactate Calcium 7.9 L Magnesium 1.9 Total Bilirubin 0.4 AST 12 L ALT 17 Alkaline Phosphatase 52 Total Protein 5.6 L D Albumin 3.2 L Globulin 2.4 L Albumin/Globulin Ratio 1.3 Triglycerides 152 H Lipase 75 Urine Color Urine Appearance Urine pH Ur Specific [place] Urine Protein Urine Glucose (UA) Urine Ketones Urine Blood Urine Nitrite Urine Bilirubin Urine Urobilinogen Ur Leukocyte Esterase Urine WBC (Auto) Urine RBC (Auto) U Hyaline Cast (Auto) U Epithel Cells (Auto) Urine Bacteria (Auto) Amorphous Sediment Urine Mucus Urine Test SARS-CoV-2, RNA, NAAT
--- NOTE | 2021-12-19 13:59 | Hospitalist Progress Note ---
Date of Service December 19, 2021 Assessment & Plan (1) Acute pancreatitis: Plan: Recurrent idiopathic pancreatitis.With a history of pancreatic pseudocyst Has a history of pancreatic duct stent placement and removal in the past. This has been ongoing for the last 3-4 years Is status post cholecystectomy. Triglycerides are normal. Does not use alcohol MRCP completed 12/19 shows 3.2 cm fluid collection by the lesser curvature the stomach-this is consistent with peripancreatic fluid collection from acute pancreatitis. Also with pseudocyst in the tail the pancreas similar to previous With fevers on admission and significant leukocytosis-now resolved with IV flu ids, n.p.o. status, IV Zosyn Pain is significantly improved, no nausea/vomiting Lipase back to normal normal and LFTs -Discussed with GI-Dr. Tucker-recommends continued conservative measures but can advance diet to clear liquids, continue IV fluids and IV Zosyn - Pain & nausea control - IV fluids maintain at 200 mL/h LR -Surgery and GI consults appreciated -GI plans for EUS and ERCP in a few weeks as an outpatient (2) Acute gastritis: Plan: CT a/p on 12/18 showed "5.4 x 2.0 cm fluid collection within the lesser sac" along with severe gastric wall thickening. Admitting hospitalist discussed these results in detail with radiology who felt the collection could be a fast- forming pancreatic pseudocyst vs. a contained gastric perforation. Discussion with GI Dr. Poole who disagreed and felt it was more likely a pseudocyst. At this point, patient has epigastric pain, but definitely no rebound tenderness or signs of peritonitis. Lactate normal. -Continue PPI IV BID -Okay to advance to clear liquids for now Appreciate surgery consultation-no need for surgery, no peritonitis or pneumoper itoneum (3) Migraine: Plan: Hx of. No present headache. - Tylenol PRN (4) Inflammatory polyarthritis: Plan: Hx of HLA-B27 arthritis/ankylosing spondylitis. Not on immune therapy at this time. Follows with rheumatology at [facility] (5) DVT prophylaxis: Plan: SCDs Disposition-continued stay, advancing diet, possible discharge home on Monday if continues to improve Admission and Anticipated Discharge Date Admission Date: December 18, 2021 Subjective Patient reports feeling much better, almost no pain along the abdomen and just feels very hungry and thirsty. No bowel movement since admission and has not had bloody stools in several weeks since she was in the ER for colitis. Denies any nausea or vomiting. No chest pain or shortness of breath, no headaches or lightheadedness. I discussed her case with GI after MRCP results returned. Okay to advance diet to clear liquids, continue IV fluids, and plan for likely EUS and ERCP in a few weeks from now as an outpatient. Review of Systems Review of Systems: All systems reviewed & are unremarkable except as noted in HPI & below No urinary symptoms Physical Exam Constitutional: WD/WN, vitals as above Eyes: + anicteric sclerae ENMT: external ear and nose normal, oropharynx normal Neck: trachea midline, no thyromegaly Respiratory: normal respiratory effort, lungs clear to auscultation Cardiovascular: RRR, no murmur, no edema Chest (Breasts): Chest: normal inspection of chest Gastrointestinal (Abdomen): Inspection/Auscultation: abdomen normal to inspection and normal bowel sounds; abdomen not distended Percussion/Palpation: + abdomen tender (In epigastric region without guarding or rebound) and abdomen soft Musculoskeletal: Extremities: extremities normal to inspection; no cyanosis and no clubbing Skin: no rashes, warm and dry Neurologic: moves all extremities and awake; no focal motor deficits Psychiatric: A+Ox3, euthymic affect Lymphatic: no lymphedema Results & Data Results & Data ([facility]) Vital Signs (Past 12 Hours) Vital Signs Temp Pulse Resp BP Pulse Ox O2 Del Method 12/19/21 07:28 36.5 C 78 16 100/66 93 Room Air Laboratory Results 12/19/21 12/19/21 12/18/21 Range/Units 07:41 07:41 16:57 WBC 9.48 (4.8-10.8) K/ul RBC 4.22 (3.93-5.22) M/uL Hgb 12.0 (12.0-16.0) g/dl Hct 36.7 (34.1-44.9) % MCV 87.0 (80.0-100.0) fL MCH 28.4 (25.0-34.0) pg MCHC 32.7 (32.0-36.0) g/dL RDW Std Deviation 46.6 H (36.4-46.3) fL RDW Coeff of Jasmin 14.6 H (11.5-14.5) % Plt Count 153 (130-400) K/uL MPV 10.2 (9.4-12.3) fL Immature Gran % (Auto) % Neut % (Auto) % Lymph % (Auto) % [place] % (Auto) % Eos % (Auto) % Baso % (Auto) % Neut # (Auto) (1.4-6.5) K/uL Lymph # (Auto) (1.2-3.4) K/uL [place] # (Auto) (0.24-0.82) K/uL Eos # (Auto) (0-0.50) K/uL Baso # (Auto) (0-0.2) K/uL Immature Gran # (Auto) (0.00-0.02) K/uL Sodium 138 (136-145) mmol/L Potassium 3.9 (3.5-5.1) mmol/L Chloride 109 H (98-107) mmol/L Carbon Dioxide 24 (21-32) mmol/L Anion Gap 5 (3-11) BUN 5 L (6-23) mg/dl Creatinine 0.57 L (0.6-1.2) mg/dl Est Cr Clr Drug Dosing 165.2 ml/min Est GFR ( Amer) 142.2 ml/min Est GFR (Non-Af Amer) 122.7 ml/min BUN/Creatinine Ratio 8.8 L (10-20) Glucose 95 (70-99(Fasting)) mg/dl Lactate 1.5 (0.4-2.0) mmol/L Calcium 7.9 L (8.5-10.1) mg/dl Magnesium 1.9 (1.7-2.4) mg/dl Total Bilirubin 0.4 (0.2-1.0) mg/dl AST 12 L (13-39) U/L ALT 17 (7-52) U/L Alkaline Phosphatase 52 (34-104) U/L Total Protein 5.6 L D (6.0-8.3) gm/dl Albumin 3.2 L (3.4-5.0) gm/dl Globulin 2.4 L (2.5-4.0) gm/dl Albumin/Globulin Ratio 1.3 (0.9-2) Triglycerides 152 H (0-150) mg/dl Lipase 75 (11-82) U/L Urine Color Urine Appearance (Clear) Urine pH (4.5-7.5) Ur Specific [place] (1.000-1.030) Urine Protein (Negative) Urine Glucose (UA) (Negative) Urine Ketones (Negative) Urine Blood (Negative) Urine Nitrite (Negative) Urine Bilirubin (Negative) Urine Urobilinogen (Negative) Ur Leukocyte Esterase (Negative) Urine WBC (Auto) (0-5) /hpf Urine RBC (Auto) (0-4) /hpf U Hyaline Cast (Auto) (0-5) /lpf U Epithel Cells (Auto) (0-5) /lpf Urine Bacteria (Auto) (Negative) Amorphous Sediment (None Prsent) Urine Mucus (None Prsent) Urine Test (Negative) SARS-CoV-2, RNA, NAAT (NEGATIVE) 12/18/21 12/18/21 12/18/21 Range/Units 16:36 16:36 16:36 WBC (4.8-10.8) K/ul RBC (3.93-5.22) M/uL Hgb (12.0-16.0) g/dl Hct (34.1-44.9) % MCV (80.0-100.0) fL MCH (25.0-34.0) pg MCHC (32.0-36.0) g/dL RDW Std Deviation (36.4-46.3) fL RDW Coeff of Jasmin (11.5-14.5) % Plt Count (130-400) K/uL MPV (9.4-12.3) fL Immature Gran % (Auto) % Neut % (Auto) % Lymph % (Auto) % [place] % (Auto) % Eos % (Auto) % Baso % (Auto) % Neut # (Auto) (1.4-6.5) K/uL Lymph # (Auto) (1.2-3.4) K/uL [place] # (Auto) (0.24-0.82) K/uL Eos # (Auto) (0-0.50) K/uL Baso # (Auto) (0-0.2) K/uL Immature Gran # (Auto) (0.00-0.02) K/uL Sodium (136-145) mmol/L Potassium (3.5-5.1) mmol/L Chloride (98-107) mmol/L Carbon Dioxide (21-32) mmol/L Anion Gap (3-11) BUN (6-23) mg/dl Creatinine (0.6-1.2) mg/dl Est Cr Clr Drug Dosing ml/min Est GFR ( Amer) ml/min Est GFR (Non-Af Amer) ml/min BUN/Creatinine Ratio (10-20) Glucose (70-99(Fasting)) mg/dl Lactate (0.4-2.0) mmol/L Calcium (8.5-10.1) mg/dl Magnesium (1.7-2.4) mg/dl Total Bilirubin (0.2-1.0) mg/dl AST (13-39) U/L ALT (7-52) U/L Alkaline Phosphatase (34-104) U/L Total Protein (6.0-8.3) gm/dl Albumin (3.4-5.0) gm/dl Globulin (2.5-4.0) gm/dl Albumin/Globulin Ratio (0.9-2) Triglycerides (0-150) mg/dl Lipase (11-82) U/L Urine Color Dark Yellow Urine Appearance Clear (Clear) Urine pH 6.0 (4.5-7.5) Ur Specific [place] 1.027 (1.000-1.030) Urine Protein 1+ H (Negative) Urine Glucose (UA) Negative (Negative) Urine Ketones Trace H (Negative) Urine Blood Negative (Negative) Urine Nitrite Negative (Negative) Urine Bilirubin Negative (Negative) Urine Urobilinogen Negative (Negative) Ur Leukocyte Esterase Negative (Negative) Urine WBC (Auto) 1-5 (0-5) /hpf Urine RBC (Auto) 0-4 (0-4) /hpf U Hyaline Cast (Auto) 1-5 (0-5) /lpf U Epithel Cells (Auto) >30 H (0-5) /lpf Urine Bacteria (Auto) Negative (Negative) Amorphous Sediment Present A (None Prsent) Urine Mucus Present A (None Prsent) Urine Test Negative (Negative) SARS-CoV-2, RNA, NAAT NEGATIVE (NEGATIVE) 12/18/21 12/18/21 Range/Units 16:36 16:36 WBC 15.53 H (4.8-10.8) K/ul RBC 4.67 (3.93-5.22) M/uL Hgb 13.5 (12.0-16.0) g/dl Hct 40.5 (34.1-44.9) % MCV 86.7 (80.0-100.0) fL MCH 28.9 (25.0-34.0) pg MCHC 33.3 (32.0-36.0) g/dL RDW Std Deviation 45.7 (36.4-46.3) fL RDW Coeff of Jasmin 14.4 (11.5-14.5) % Plt Count 191 (130-400) K/uL MPV 10.5 (9.4-12.3) fL Immature Gran % (Auto) 0.6 % Neut % (Auto) 74.9 % Lymph % (Auto) 17.3 % [place] % (Auto) 6.6 % Eos % (Auto) 0.3 % Baso % (Auto) 0.3 % Neut # (Auto) 11.63 H (1.4-6.5) K/uL Lymph # (Auto) 2.68 (1.2-3.4) K/uL [place] # (Auto) 1.03 H (0.24-0.82) K/uL Eos # (Auto) 0.05 (0-0.50) K/uL Baso # (Auto) 0.04 (0-0.2) K/uL Immature Gran # (Auto) 0.10 H (0.00-0.02) K/uL Sodium 137 (136-145) mmol/L Potassium 3.5 (3.5-5.1) mmol/L Chloride 104 (98-107) mmol/L Carbon Dioxide 26 (21-32) mmol/L Anion Gap 7 (3-11) BUN 5 L (6-23) mg/dl Creatinine 0.76 (0.6-1.2) mg/dl Est Cr Clr Drug Dosing 122.4 ml/min Est GFR ( Amer) 120.3 ml/min Est GFR (Non-Af Amer) 103.8 ml/min BUN/Creatinine Ratio 6.6 L (10-20) Glucose 100 H (70-99(Fasting)) mg/dl Lactate (0.4-2.0) mmol/L Calcium 8.8 (8.5-10.1) mg/dl Magnesium (1.7-2.4) mg/dl Total Bilirubin 0.3 (0.2-1.0) mg/dl AST 15 (13-39) U/L ALT 20 (7-52) U/L Alkaline Phosphatase 69 (34-104) U/L Total Protein 7.1 (6.0-8.3) gm/dl Albumin 4.0 (3.4-5.0) gm/dl Globulin 3.1 (2.5-4.0) gm/dl Albumin/Globulin Ratio 1.3 (0.9-2) Triglycerides (0-150) mg/dl Lipase 95 H (11-82) U/L Urine Color Urine Appearance (Clear) Urine pH (4.5-7.5) Ur Specific [place] (1.000-1.030) Urine Protein (Negative) Urine Glucose (UA) (Negative) Urine Ketones (Negative) Urine Blood (Negative) Urine Nitrite (Negative) Urine Bilirubin (Negative) Urine Urobilinogen (Negative) Ur Leukocyte Esterase (Negative) Urine WBC (Auto) (0-5) /hpf Urine RBC (Auto) (0-4) /hpf U Hyaline Cast (Auto) (0-5) /lpf U Epithel Cells (Auto) (0-5) /lpf Urine Bacteria (Auto) (Negative) Amorphous Sediment (None Prsent) Urine Mucus (None Prsent) Urine Test (Negative) SARS-CoV-2, RNA, NAAT (NEGATIVE) PG Care Time/CCT Total # of Minutes Spent Total Time Spent with Patient: Total time spent is greater than 50% in coordination of care (as documented) at patient's floor/unit and/or counseling patient: Coding Level of Care Code 01733 Subseq Hosp Care Lvl 3 Diagnoses Acute pancreatitis K85.90 Acute gastritis K29.00 Migraine G43.909 Intractability: not intractable Migraine type: unspecified Status migrainosus presence: without status migrainosus Inflammatory polyarthritis M06.4 DVT prophylaxis Z29.9 (1) Migraine Intractability: not intractable Migraine type: unspecified Status migrainosus presence: without status migrainosus Qualified Code(s): G43.909 - Migraine, unspecified, not intractable, without status migrainosus
[2021-12-19] MEDS: AMITRIPTYLINE HCL 25 MG TAB PO SCH (20:45)
[2021-12-20] MEDS: LACTATED RINGER'S 1,000 ML IV SCH ×2 (03:13→08:20)
[2021-12-20] MEDS: PIPERACILLIN/TAZOBACTAM 4.5 GM in DEXTROSE 5% 100 ML IV SCH (05:41)
[2021-12-20] MEDS: HYDROmorphone INJ 0.5 MG/0.5 ML SYR IV PRN (07:22)
[2021-12-20] MEDS: ONDANSETRON INJ 2 MG/ML 2 ML VIAL IV PRN (07:23)
[2021-12-20 07:24] LABS: Basophils # (auto) 0.02 K/uL (0-0.2); Basophils % (auto) 0.3 %; Eosinophils # (auto) 0.08 K/uL (0-0.50); Eosinophils % (auto) 1.2 %; Hematocrit (blood only) 35.8 % (34.1-44.9); Hemoglobin 11.4 g/dl (12.0-16.0); Immature Granulocytes # (auto) 0.03 K/uL (0.00-0.02); Immature Granulocytes % (auto) 0.5 %; Lymphocytes # (auto) 1.59 K/uL (1.2-3.4); Lymphocytes % (auto) 24.7 %; Mean Corpuscular Hemoglobin 28.4 pg (25.0-34.0); Mean Corpuscular Hgb Conc 31.8 g/dL (32.0-36.0); Mean Corpuscular Volume 89.1 fL (80.0-100.0); Mean Platelet Volume 10.3 fL (9.4-12.3); Monocytes # (auto) 0.36 K/uL (0.24-0.82); Monocytes % (auto) 5.6 %; Neutrophils # (auto) 4.36 K/uL (1.4-6.5); Neutrophils % (auto) 67.7 %; Platelet Count 155 K/uL (130-400); RDW Coefficient of Variation 14.5 % (11.5-14.5); Red Blood Count 4.02 M/uL (3.93-5.22); White Blood Count 6.44 K/ul (4.8-10.8)
[2021-12-20 07:52] LABS: Albumin Globulin Ratio 1.3 (0.9-2); Albumin Level 3.1 gm/dl (3.4-5.0); BUN Creatinine Ratio 8.3 (10-20); Bilirubin,Total 0.3 mg/dl (0.2-1.0); Calcium 8.3 mg/dl (8.5-10.1); Creatinine Clr Calc Pharmacy 156.9 ml/min; Est GFR (African American) 139.8 ml/min; Est GFR (Non-African American) 120.6 ml/min; Globulin 2.4 gm/dl (2.5-4.0); Phosphorus 2.6 mg/dl (2.5-4.9); Total Protein 5.5 gm/dl (6.0-8.3)
[2021-12-20] MEDS: PANTOprazole 40 MG in SYRINGE 0 ML IV SCH (08:27)
--- NOTE | 2021-12-20 09:24 | Surgery Progress Note ---
Date of Service December 20, 2021 Assessment & Plan (1) Acute pancreatitis: Plan: MRCP reviewed, she has acute peripancreatic fluid collections without any signs of infection Leukocytosis has resolved and she is feeling better Will defer to GI if any intervention is needed with the MRCP results No plans for any surgical drainage of these fluid collections Surgical sign off at this time please call with any questions or concerns Admission and Anticipated Discharge Date Admission Date: December 18, 2021 Subjective Patient seen and examined. States her abdominal pain is improved. Vital signs stable. Afebrile. She is tolerating some water. Review of Systems Constitutional: no fever and no chills Physical Exam Constitutional: WD/WN, vitals as above Gastrointestinal (Abdomen): Inspection/Auscultation: abdomen normal to inspection; abdomen not distended Percussion/Palpation: + abdomen tender (Minimal epigastric) and abdomen soft; no guarding and abdomen not rigid Results & Data ([facility]) Vital Signs (Past 12 Hours) Vital Signs Temp Pulse Resp BP Pulse Ox O2 Del Method 12/20/21 07:26 36.6 C 81 16 120/78 96 Room Air 12/19/21 22:35 36.5 C 81 16 100/64 94 Room Air PG Care Time/CCT Total # of Minutes Spent Total Time Spent with Patient: Total time spent is greater than 50% in coordination of care (as documented) at patient's floor/unit and/or counseling patient: Coding Level of Care Code 30530 Subseq Hosp Care Lvl 1 Diagnoses Acute pancreatitis K85.90
--- NOTE | 2021-12-20 10:27 | Gastroenterology Progress Note ---
Date of Service December 20, 2021 Assessment & Plan (1) Acute pancreatitis: Plan Acute pancreatitis, MRCP w/o pd stricture Will review OP records to verify has had testing for autoimmune panc. May be related to smoking. Improving. Will increase diet - for now full liquids. Will arrange EUS in [address] Lopez as well as continued OP GI f/u. Admission and Anticipated Discharge Date Admission Date: December 18, 2021 Supervising Physician Co-Signing Physician Notes Attg add: I interviewed and examined pt, reviewed chart and labs -- Pt with only mild pain, + jarrod PO. + BM. No narc use today. On exam, she appears comfortable. Abd non tender. Adv diet to full liquids, plan to d/c on full liquids and the soft mech. Outpt imaging.. Subjective 31 yr of female post cholecystectomy in 2018 for gallstones with initial episode of pancreatitis at that time. Smoker. Several pancreatitis episodes since, including prior large panc pseudo cyst. Prior ERCP x 2. Presented with abd pain, MRCP yesterday w acute panc 12/18 w pseudocyst. Lipase normalized. LFTs normal. Tells us this morning she is better, though still some pain. Review of Systems Review of Systems: ROS: Gen: Denies weakness, fevers, weight loss Eyes: No eye redness, or pain, no recent vision changes Resp: No SOB, no cough Cardio: No palpitations/irregular beats, no chest pain GI: As per HPI otherwise (-) : Denies pain on urination Skin: No jaundice, itching or new rashes Physical Exam Constitutional: well developed, well nourished, cooperative and + overweight Eyes: PERRL, conjunctivae normal, anicteric sclerae ENMT: external ear and nose normal, oropharynx normal Neck: trachea midline, no thyromegaly Respiratory: normal respiratory effort, lungs clear to auscultation Cardiovascular: RRR, no murmur, no edema Gastrointestinal (Abdomen): Inspection/Auscultation: abdomen normal to inspection and normal bowel sounds (hypoactive but present); abdomen not distended Percussion/Palpation: + abdomen tender (mild suprapubic tenderness, no epigastric tenderness) Skin: no rashes, warm and dry Neurologic: PERRL, EOMI, accommodation nl, no face palsy, no dysarthria Psychiatric: A+Ox3, euthymic affect Lymphatic: no cervical or axillary lymphadenopathy Results & Data ([facility]) Vital Signs (Past 12 Hours) Vital Signs Temp Pulse Resp BP Pulse Ox O2 Del Method 12/20/21 07:26 36.6 C 81 16 120/78 96 Room Air 12/19/21 22:35 36.5 C 81 16 100/64 94 Room Air Laboratory Results T bili 0.3, AST 11, ALT 17, Alk Phos 49, WBC 6.4, Hb 11.4, Hct 35, plts 155, Na 142, K 4.0, Cl 111, CO2 26, BUn 5, Cr 0.6, glucose 87 Diagnostic Findings MRCP 12/19/21 1. Findings consistent with acute pancreatitis. 3.6 x 2.2 cm collection within the lesser sac suggestive of an acute peripancreatic fluid collection. 1.9 cm cystic focus within the pancreatic tail favors a pseudocyst. 2. No biliary ductal dilatation status post cholecystectomy. No common bile duct calculi identified. 3. Possible calculi within the pancreatic duct within the pancreatic tail. Mild dilatation of the upstream pancreatic duct. 4. Gastric wall thickening with adjacent stranding. This is likely reactive. S uperimposed gastritis could appear similar but is considered less likely.
--- NOTE | 2021-12-20 12:50 | Discharge Summary ---
Date of Service December 20, 2021 Admission HPI Per Admitting Provider 31yo F w/ hx of HLAB27 arthritis (unclear exact diagnosis) and idiopathic pancreatitis who presents with gastritis/pancreatitis. The patient reports that she started to have upper abdominal pain two days ago. She describes it as a sharp, 10/10 pain across the upper abdomen across both sides. The pain is different than her usual pancreatitis pain that is usually more on the left flank. The pain was accompanied by nausea and vomiting. She reports the emesis is bilious as she cannot eat much right now. She denies any blood in her emesis or any coffee ground emesis. She also notes diarrhea over the last 2 days, but no hematochezia or melena. She reports she had a fevers at home from 100 - 102 along with subjective fevers/chills. Denies chest pain, shortness of breath, palpitations, cough. Principal Diagnosis Recurrent idiopathic pancreatitis Discharge Exam General-alert and oriented x3, no fevers, no chills HEENT-head atraumatic and normocephalic, pupils equal and reactive to light, extraocular muscles intact Neck-no lymphadenopathy or thyromegaly, trachea midline Chest-clear to auscultation percussion. No rales wheezing or rhonchi Cardiac-regular rate and rhythm, normal S1 and S2, no murmurs Abdomen-normal bowel sounds, nontender, no hepatosplenomegaly Extremities-no cyanosis, clubbing, or edema Neuro-cranial nerves II through XII intact, motor and sensory function within normal limits, strength symmetrical , no focal deficits Psych-normal affect, normal mood Discharge Data Allergies Allergy/AdvReac Type Severity Reaction Status Date / Time adhesive Allergy Mild RASH Verified 12/18/21 16:47 nickel Allergy Mild RASH Verified 12/18/21 16:47 morphine AdvReac Severe Body fells Verified 12/18/21 16:47 like it is on fire Consultations 12/18/21 16:34 ED Decision to Admit Stat 12/18/21 20:43 Consult Gastroenterology Routine Consult General Surgery Routine Ordered Studies 12/19/21 08:39 MR MRCP Urgent Hospital Course (1) Acute pancreatitis: Recurrent idiopathic pancreatitis.With a history of pancreatic pseudocyst Has a history of pancreatic duct stent placement and removal in the past. This has been ongoing for the last 3-4 years Is status post cholecystectomy. Triglycerides are normal. Does not use alcohol MRCP completed 12/19 shows 3.2 cm fluid collection by the lesser curvature the stomach-this is consistent with peripancreatic fluid collection from acute pancreatitis. Also with pseudocyst in the tail the pancreas similar to previous With fevers on admission and significant leukocytosis-now resolved with IV fluids, n.p.o. status, IV Zosyn Pain is significantly improved, no nausea/vomiting Lipase back to normal normal and LFTs GI consult appreciated. Zosyn will be discontinued. Diet has been advanced. Pain & nausea control. Surgery and GI consults appreciated. GI plans for EUS and ERCP in a few weeks as an outpatient (2) Acute gastritis: CT a/p on 12/18 showed "5.4 x 2.0 cm fluid collection within the lesser sac" along with severe gastric wall thickening. Admitting hospitalist discussed these results in detail with radiology who felt the collection could be a fast- forming pancreatic pseudocyst vs. a contained gastric perforation. Discussion with GI Dr. Poole who disagreed and felt it was more likely a pseudocyst. At this point, patient has epigastric pain, but definitely no rebound tenderness or signs of peritonitis. Lactate normal. Treated with PPI IV BID. Switch to p.o. at discharge Appreciate surgery consultation-no need for surgery, no peritonitis or pneumoperitoneum (3) Migraine: Hx of. No present headache. - Tylenol PRN (4) Inflammatory polyarthritis: Hx of HLA-B27 arthritis/ankylosing spondylitis. Not on immune therapy at this time. Follows with rheumatology at [facility] (5) DVT prophylaxis: SCDs Disposition- Home today, December 20, as long as she tolerates advancement of her diet Total Time Total Time Spent Total Time Spent (In Minutes): 35 minutes Discharge Plan Discharge Items Patient Disposition: Home - Self-Care Reason For Visit: GASTRITIS/PANCREATITIS Discharge Diagnosis: Recurrent idiopathic pancreatitis Activity: Resume your previous activity Non-emergency contact: Primary Care Provider Call non-emergency contact if: you have any medication questions and your symptoms worsen Follow-up/Referrals: Stefanie Crowder MD [Primary Care Provider] - Diet: Full liquid Addtl Attending Provider Instructions: Continue full liquid diet per gastroenterology recommendations Pending Studies at Discharge: No Stand-Alone Forms: My Webmed[employer], Smoking Cessation Medications and DC Order Prescriptions: New pantoprazole 40 mg Tablet,Delayed Release (Dr/Ec) 40 mg PO BID Qty: 30 0RF Continued ferrous sulfate 325 mg (65 mg iron) tablet 325 mg PO DAILY Qty: 60 8RF cholecalciferol (vitamin D3) 50 mcg (2,000 unit) capsule 50 mcg PO BID Qty: 30 8RF cyanocobalamin (vitamin B-12) 2,500 mcg tablet, sublingual 2,500 mcg sublingual DAILY Qty: 30 8RF rizatriptan [Maxalt] 10 mg tablet 10 mg PO .COMPLEX PRN (Reason: migraine headache) 30 Days Qty: 9 3RF Rx Instructions: take 1 tab at onset of headache; if no relief may repeat in 2hr prn Abilify Maintena 300 mg suspension,extended rel recon 300 mg IM Q28D amitriptyline 25 mg tablet 25 mg PO HS Discharge Orders: Discharge Order (Routine); Ordered 12/20/21 Ordered By: Holden Nina/Other Patient Handouts: ED Pancreatitis Admission Data Admit Date/Time: 12/18/21 18:19 Attending Provider: Holden Jeong Admit Provider: Walt Rosales Primary Care Provider: Stefanie Crowder Other Providers: Walt Rosales ; Conor Poole ; Donnell Yeung Coding Level of Care Code D/C DAY MANAGEMENT >30 MINS Diagnoses Acute pancreatitis K85.90 Acute gastritis K29.00 Migraine G43.909 Intractability: not intractable Migraine type: unspecified Status migrainosus presence: without status migrainosus Inflammatory polyarthritis M06.4 DVT prophylaxis Z29.9
[2021-12-20] MEDS ORDERED: PANTOprazole 40 MG TAB PO SCH (21:00)
== END 2021-12-20 15:15 | disposition home or self-care (01) ==
LOC: ED 15:45 → INTOOBSV 18:19 → 3E 18:19 → SUATTDRO 18:19 → 3E 20:23

== ENCOUNTER 2022-04-06 08:56 | Observation (INO) ==
[2022-04-06] MEDS ORDERED: ONDANSETRON 4 MG OD TAB PO STA (09:29)
--- NOTE | 2022-04-06 09:33 | Emergency Department Note ---
Impression & Plan Acute pancreatitis, Abdominal pain ED Provider Note NAME: MORRIS DICKERSON AGE: 32 SEX: F : 1990 ARRIVES VIA: Walk-In INFORMANT: Patient, ED PROVIDER(S): Aravind Palafox DO CHIEF COMPLAINT: Constipation HPI: The patient is a 32-year-old female who presented to the emergency department for an evaluation of constipation. The patient states that she has had constipation for 2 days. She also has noticed nausea vomiting and abdominal pain. She called her family doctor today to be seen. She was referred to the emergency department for further evaluation. The patient denies having any diarrhea. She denies having any rectal bleeding. She does take Lyrica. The patient is not on any new medications. ROS: See above HPI for pertinent positives & negatives. A total of 10 systems reviewed and were otherwise negative. PAST MEDICAL HISTORY: See Below PAST SURGICAL HISTORY: See Below FAMILY HISTORY: See Below SOCIAL HISTORY: See Below HOME MEDICATIONS: See Below ALLERGIES: See Below VITALS: See Below PHYSICAL EXAMINATION: GENERAL: Patient is awake alert in no acute distress patient is resting comfortably and showing no signs of anxiety EYES: The conjunctivae are clear. The pupils are round and reactive. EARS, NOSE, MOUTH AND THROAT: The nose is without any evidence of any deformity. Mucous membranes are moist. Tongue is midline. NECK: The neck is nontender and supple. RESPIRATORY: Normal respiratory effort is noted there is no evidence of wheezing rhonchi or rales CARDIOVASCULAR: Regular rate and rhythm noted there no murmurs rubs or gallops normal S1 normal S2. GASTROINTESTINAL: The abdomen is distended and diffusely tender. There is no guarding rigidity appreciated. MUSCULOSKELETAL/EXTREMITIES: There is no evidence of gross deformity full range of motion is noted in the hips and shoulders. SKIN: There is no obvious evidence of any rash. There are no petechiae, pallor or cyanosis noted. NEUROLOGIC: Patient is awake alert and oriented x3 strength is symmetric patellar reflexes are 2+ bilaterally MEDICAL DECISION MAKING: The patient is a 32-year-old female who presented to the emergency department initially with complaints of constipation. She also complained of abdominal pain and vomiting. The patient has a history of pancreatitis. I discussed the patient's laboratory and radiographic studies with her. She was found to have signs of pancreatitis and possible pseudocyst on CT. This was new from previous imaging. I discussed the patient's laboratory and radiographic studies with the on-call [facility] hospitalist. They have agreed to evaluate the patient in the emergency department for further management and disposition. The patient was treated with IV fluids and IV pain medication. She was also given IV Protonix. Triage Nursing notes reviewed. Prior medical records reviewed Vital Signs: reviewed and remarkable for no significant abnormalities Differential diagnosis: Functional constipation, impaction, obstruction, volvulus, metabolic abnormality, infection, neurologic, as well as other pathologies. ER treatment provided: See below Diagnostics interpreted by me: ECG: none Cardiac Monitoring: An order was placed for continuous cardiac monitoring. The monitor shows a rate of 96 bpm with sinus rhythm. Laboratory studies: As stated above and show below. Imaging studies: See below Consultation(s): I discussed this case [facility]. Past Med/Surg History Medical History Asthma well controlled; worse in winter Chronic pancreatitis Constipation GERD (gastroesophageal reflux disease) History of varicella Homicidal ideation Hx of chlamydia infection Hx of drug dependence Hx of ovarian cyst Hx of pancreatitis Migraine Obesity Prediabetes Pulmonary nodule yearly imaging Smoker Surgical History H/O oral surgery History of cholecystectomy History of ERCP S/P tonsillectomy and adenoidectomy Family History Mother Diabetes Dyslipidemia Hypertension Grandmother (Paternal) Diabetes Aunt Diabetes Denies family history of Ovarian cancer Prostate cancer Myocardial infarction Breast cancer Colorectal cancer Social History Smoking Status: Unknown if ever smoked Tobacco Type: Cigarettes Age Started Using Tobacco: 11; packs per day: 1; Cigarettes Per Day: 10-20 PER DAY - ADVISED; Second Hand Exposure: No; Do You Dip or Chew Tobacco: No; Tobacco Cessation Education Requested by Patient: No Hx Alcohol Use: No Hx Substance Use: No Preferred Language: Divehi Communication Ability: Effective 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 Beliefs That Will Affect Care: None marital status: Single Current Living Situation: Significant Other Current Living Situation Comment: fiance current occupational status: employed Other Information That Helps Us Care for You: No Feels Safe at Home: Yes Safety Concerns: Feels Safe At This Time Dental Care, Regularly: Yes Physical Activity Frequency: Does not Exercise Seatbelt Use: always Sunscreen Use: No Assistive Devices: None Allergies Allergies Allergy/AdvReac Type Severity Reaction Status Date / Time adhesive Allergy Mild RASH Verified 03/28/22 08:38 nickel Allergy Mild RASH Verified 03/28/22 08:38 morphine AdvReac Severe Body fells Verified 03/28/22 08:38 like it is on fire Home Meds Home Medications Medication Instructions Recorded Confirmed aripiprazole 300 mg intramuscular 300 mg IM Q28D 07/05/21 04/06/22 suspension,extended release (Abilify Maintena) amitriptyline 25 mg tablet 25 mg PO HS 09/29/21 04/06/22 pregabalin 75 mg capsule (Lyrica) 75 mg PO TID 03/28/22 04/06/22 Previous Rx's Medication Instructions Recorded cholecalciferol (vitamin D3) 50 50 mcg PO BID #30 caps 12/16/21 mcg (2,000 unit) capsule cyanocobalamin (vitamin B-12) 2,500 mcg sublingual DAILY #30 tabs 12/16/21 2,500 mcg sublingual tablet ferrous sulfate 325 mg (65 mg 325 mg PO DAILY #60 tabs 12/16/21 iron) tablet pantoprazole 40 mg tablet,delayed 40 mg PO BID #60 tabs 12/29/21 release ondansetron 4 mg disintegrating 4 mg PO Q8H PRN nausea and 01/12/22 tablet vomiting #30 tabs oxycodone 5 mg tablet 5 mg PO Q4H PRN pain #20 tabs 03/15/22 baclofen 10 mg tablet 10 mg PO DAILY #30 tabs 03/28/22 metformin 500 mg tablet 500 mg PO BID #60 tabs 03/28/22 galcanezumab-gnlm 120 mg/mL 120 mg subcut ONCE 30 days #30 mL 03/29/22 subcutaneous pen injector (Emgality Pen) Results & Data (ED) Vital Signs Vital Signs - 24 hr 04/06/22 09:04 04/06/22 10:26 04/06/22 10:27 Temperature 36.8 C Temperature Source Temporal Artery Scan Pulse Rate 105 H 93 H Pulse Rate [Left Finger] 95 H Pulse Rhythm Regular Pulse Rhythm [Left Finger] Regular Pulse Strength [Left Finger] Normal Respiratory Rate 18 20 18 Respiratory Effort / Characteristics Non-Labored Spontaneous Respiratory Depth Normal Respiratory Pattern Regular Blood Pressure 128/88 Blood Pressure [Right Arm] 134/84 Blood Pressure Mean 101 Blood Pressure Mean [Right Arm] 100 Blood Pressure Position [Right Arm] Sitting Pulse Oximetry 96 95 97 Oxygen Delivery Method Room Air Room Air Room Air Sepsis Recent Fever Within 48 Hours No Sepsis New/Unexplained Change in Mental Status No Sepsis Action Taken by Nursing No Action Required 04/06/22 11:30 04/06/22 12:30 Temperature Temperature Source Pulse Rate Pulse Rate [Left Finger] 83 96 H Pulse Rhythm Pulse Rhythm [Left Finger] Regular Regular Pulse Strength [Left Finger] Respiratory Rate 18 18 Respiratory Effort / Characteristics Non-Labored Non-Labored Respiratory Depth Normal Normal Respiratory Pattern Regular Regular Blood Pressure Blood Pressure [Right Arm] 173/92 H 122/91 Blood Pressure Mean Blood Pressure Mean [Right Arm] 119 101 Blood Pressure Position [Right Arm] Pulse Oximetry 98 95 Oxygen Delivery Method Room Air Room Air Sepsis Recent Fever Within 48 Hours Sepsis New/Unexplained Change in Mental Status Sepsis Action Taken by Usp Medications Current Medication List: was personally reviewed by me Laboratory Data Attestation: I reviewed the patient's lab results. Result diagrams: 04/07/22 05:39 04/07/22 05:39 Lab Results 04/06/22 04/06/22 04/06/22 Range/Units 09:45 09:45 10:15 WBC 14.07 H (4.8-10.8) K/ul RBC 5.20 (3.93-5.22) M/uL Hgb 14.1 (12.0-16.0) g/dl Hct 42.9 (34.1-44.9) % MCV 82.5 (80.0-100.0) fL MCH 27.1 (25.0-34.0) pg MCHC 32.9 (32.0-36.0) g/dL RDW Std Deviation 50.9 H (36.4-46.3) fL RDW Coeff of Jasmin 16.9 H (11.5-14.5) % Plt Count 200 (130-400) K/uL MPV 9.6 (9.4-12.3) fL Immature Gran % (Auto) 0.5 % Neut % (Auto) 80.5 % Lymph % (Auto) 13.2 % [facility] % (Auto) 5.5 % Eos % (Auto) 0.1 % Baso % (Auto) 0.2 % Neut # (Auto) 11.33 H (1.4-6.5) K/uL Lymph # (Auto) 1.86 (1.2-3.4) K/uL [facility] # (Auto) 0.77 (0.24-0.82) K/uL Eos # (Auto) 0.01 (0-0.50) K/uL Baso # (Auto) 0.03 (0-0.2) K/uL Immature Gran # (Auto) 0.07 H (0.00-0.02) K/uL Sodium (136-145) mmol/L Potassium (3.5-5.1) mmol/L Chloride (98-107) mmol/L Carbon Dioxide (21-32) mmol/L Anion Gap (3-11) BUN (6-23) mg/dl Creatinine (0.6-1.2) mg/dl Est Cr Clr Drug Dosing ml/min Est GFR ( Amer) ml/min Est GFR (Non-Af Amer) ml/min BUN/Creatinine Ratio (10-20) Glucose (70-99(Fasting)) mg/dl Calcium (8.5-10.1) mg/dl Total Bilirubin (0.2-1.0) mg/dl AST (13-39) U/L ALT (7-52) U/L Alkaline Phosphatase (34-104) U/L Total Protein (6.0-8.3) gm/dl Albumin (3.4-5.0) gm/dl Globulin (2.5-4.0) gm/dl Albumin/Globulin Ratio (0.9-2) Lipase (11-82) U/L Urine Color Dark Yellow Urine Appearance Clear (Clear) Urine pH 5.5 (4.5-7.5) Ur Specific [place] 1.028 (1.000-1.030) Urine Protein 1+ H (Negative) Urine Glucose (UA) Negative (Negative) Urine Ketones Trace H (Negative) Urine Blood Negative (Negative) Urine Nitrite Negative (Negative) Urine Bilirubin 1+ H (Negative) Urine Urobilinogen Negative (Negative) Ur Leukocyte Esterase Trace H (Negative) Urine WBC (Auto) 1-5 (0-5) /hpf Urine RBC (Auto) 0-4 (0-4) /hpf U Hyaline Cast (Auto) 1-5 (0-5) /lpf U Epithel Cells (Auto) >30 H (0-5) /lpf Urine Bacteria (Auto) Negative (Negative) Urine Mucus Present A (None Prsent) Urine Test Negative (Negative) SARS-CoV-2, RNA, NAAT (NEGATIVE) 04/06/22 04/06/22 Range/Units 10:15 10:15 WBC (4.8-10.8) K/ul RBC (3.93-5.22) M/uL Hgb (12.0-16.0) g/dl Hct (34.1-44.9) % MCV (80.0-100.0) fL MCH (25.0-34.0) pg MCHC (32.0-36.0) g/dL RDW Std Deviation (36.4-46.3) fL RDW Coeff of Jasmin (11.5-14.5) % Plt Count (130-400) K/uL MPV (9.4-12.3) fL Immature Gran % (Auto) % Neut % (Auto) % Lymph % (Auto) % [facility] % (Auto) % Eos % (Auto) % Baso % (Auto) % Neut # (Auto) (1.4-6.5) K/uL Lymph # (Auto) (1.2-3.4) K/uL [facility] # (Auto) (0.24-0.82) K/uL Eos # (Auto) (0-0.50) K/uL Baso # (Auto) (0-0.2) K/uL Immature Gran # (Auto) (0.00-0.02) K/uL Sodium 135 L (136-145) mmol/L Potassium 3.9 (3.5-5.1) mmol/L Chloride 100 (98-107) mmol/L Carbon Dioxide 26 (21-32) mmol/L Anion Gap 9 (3-11) BUN 8 (6-23) mg/dl Creatinine 0.59 L (0.6-1.2) mg/dl Est Cr Clr Drug Dosing 147.6 ml/min Est GFR ( Amer) 139.6 ml/min Est GFR (Non-Af Amer) 120.4 ml/min BUN/Creatinine Ratio 13.6 (10-20) Glucose 101 H (70-99(Fasting)) mg/dl Calcium 9.4 (8.5-10.1) mg/dl Total Bilirubin 0.5 (0.2-1.0) mg/dl AST 10 L (13-39) U/L ALT 14 (7-52) U/L Alkaline Phosphatase 75 (34-104) U/L Total Protein 7.5 (6.0-8.3) gm/dl Albumin 4.1 (3.4-5.0) gm/dl Globulin 3.4 (2.5-4.0) gm/dl Albumin/Globulin Ratio 1.2 (0.9-2) Lipase 750 H (11-82) U/L Urine Color Urine Appearance (Clear) Urine pH (4.5-7.5) Ur Specific [place] (1.000-1.030) Urine Protein (Negative) Urine Glucose (UA) (Negative) Urine Ketones (Negative) Urine Blood (Negative) Urine Nitrite (Negative) Urine Bilirubin (Negative) Urine Urobilinogen (Negative) Ur Leukocyte Esterase (Negative) Urine WBC (Auto) (0-5) /hpf Urine RBC (Auto) (0-4) /hpf U Hyaline Cast (Auto) (0-5) /lpf U Epithel Cells (Auto) (0-5) /lpf Urine Bacteria (Auto) (Negative) Urine Mucus (None Prsent) Urine Test (Negative) SARS-CoV-2, RNA, NAAT NEGATIVE (NEGATIVE) Administered Medications Amitriptyline HCl (Amitriptyline Hcl 25 Mg Tab) 25 mg PO HS MANI Stop: 05/06/22 20:59 Last Admin: 04/06/22 21:48 Dose: 25 mg Documented By: TMD Baclofen (Baclofen 10 Mg Tab) 10 mg PO DAILY MANI Stop: 05/06/22 14:32 Last Admin: 04/06/22 15:10 Dose: 10 mg Documented By: BT Docusate Sodium (Docusate Sodium 100 Mg Cap) 100 mg PO BID MANI Stop: 05/06/22 20:59 Last Admin: 04/06/22 22:03 Dose: 100 mg Documented By: TMD Ferrous Sulfate (Ferrous Sulfate 325 Mg Tab) 325 mg PO DAILY MANI Stop: 05/06/22 14:44 Last Admin: 04/06/22 15:30 Dose: 325 mg Documented By: BT Hydromorphone HCl (Hydromorphone Inj 1 Mg/Ml Syringe) 1 mg IV Q4H PRN PRN Reason: Pain (4,5,6+) Stop: 04/20/22 13:32 Last Admin: 04/07/22 05:00 Dose: 1 mg Documented By: Admin: 04/06/22 21:52 Dose: 1 mg Documented By: Admin: 04/06/22 16:50 Dose: 1 mg Documented By: MTM Lactated Ringer's (Lr) 1,000 mls @ 125 mls/hr IV .Q8H [facility] Stop: 04/07/22 13:14 Last Admin: 04/07/22 07:43 Dose: 125 mls/hr Documented By: Infusion: 04/07/22 07:15 Dose: 125 mls/hr Documented By: Admin: 04/06/22 23:15 Dose: 125 mls/hr Documented By: Infusion: 04/06/22 23:08 Dose: 125 mls/hr Documented By: Admin: 04/06/22 15:08 Dose: 125 mls/hr Documented By: BT Pantoprazole Sodium 40 mg/ (Syringe) 10 mls @ 5 mls/min IV BID [facility] Stop: 05/06/22 20:59 Last Admin: 04/06/22 21:50 Dose: 5 mls/min Documented By: TMD Insulin Aspart (Insulin Aspart Per Unit) 0 units SC ACHS [facility] Stop: 05/06/22 13:44 Last Admin: 04/06/22 21:50 Dose: Not Given Documented By: TMD Lidocaine (Lidocaine 5% 1 Patch) 1 patch TD QAM [facility] Stop: 05/06/22 13:44 Last Admin: 04/06/22 15:09 Dose: 1 patch Documented By: BT Miscellaneous (Remove Lidoderm Patch) 1 each N/A DAILY@2100 [facility] Stop: 05/06/22 20:59 Last Admin: 04/06/22 21:51 Dose: 1 each Documented By: TMD Nicotine (Nicotine 21 Mg/24 Hr Tdsy) 21 mg TD QAM [facility] Stop: 05/06/22 13:59 Last Admin: 04/06/22 15:09 Dose: 21 mg Documented By: BT Pregabalin (Pregabalin 75 Mg Cap) 75 mg PO TID MANI Stop: 05/06/22 14:32 Last Admin: 04/06/22 22:04 Dose: 75 mg Documented By: Admin: 04/06/22 15:10 Dose: 75 mg Documented By: LYLE Vitamin D (Cholecalciferol 1,000 Units 25 Mcg Tab) 2,000 units PO BID MANI Stop: 05/06/22 20:59 Last Admin: 04/06/22 21:49 Dose: 2,000 units Documented By: TMD Discontinued Medications Fentanyl Citrate (Fentanyl Citrate 100 Mcg/2 Ml Vial) 50 mcg IV Q15M PRN PRN Reason: Pain Stop: 04/20/22 09:58 Last Admin: 04/06/22 11:30 Dose: 50 mcg Documented By: Admin: 04/06/22 10:21 Dose: 50 mcg Documented By: IAN Sodium Chloride (Nss 1000ml) 1,000 mls @ 999 mls/hr IV .Q1H1M STA Stop: 04/06/22 10:59 Last Infusion: 04/06/22 11:36 Dose: 0 mls/hr Documented By: Admin: 04/06/22 10:22 Dose: 999 mls/hr Documented By: IAN Pantoprazole Sodium 40 mg/ (Syringe) 10 mls @ 5 mls/min IV NOW ONE Stop: 04/06/22 10:00 Last Admin: 04/06/22 11:27 Dose: 5 mls/min Documented By: HIEN Insulin Aspart (Insulin Aspart Per Unit) 0 units SC Q6H MANI Stop: 05/06/22 13:44 Last Admin: 04/06/22 15:03 Dose: Not Given Documented By: LYLE Ondansetron HCl (Ondansetron 4 Mg Od Tab) 4 mg PO NOW STA Stop: 04/06/22 09:30 Last Admin: 04/06/22 09:41 Dose: 4 mg Documented By: IAN Ondansetron HCl (Ondansetron Inj 2 Mg/Ml 2 Ml Vial) 4 mg IV NOW STA Stop: 04/06/22 10:00 Last Admin: 04/06/22 13:42 Dose: Not Given Documented By: HIEN Imaging Data Radiologist's Impression: Abdomen/Pelvis CT 04/06/22 09:29 CT OF THE ABDOMEN AND PELVIS WITHOUT CONTRAST CLINICAL HISTORY: Lower abdominal pain and vomiting. COMPARISON STUDY: CT of the abdomen and pelvis December 17, 2021. MRCP December 19, 2021 TECHNIQUE: Axial images of the abdomen and pelvis were obtained without IV contrast. Images were reviewed in the axial, sagittal, and coronal planes. A utomated exposure control was utilized for the study. A dose lowering technique was utilized adhering to the principles of ALARA. FINDINGS: A 5 mm right lower lobe pulmonary nodule is unchanged since CT of October 29, 2018. This is benign given stability. Evaluation of the abdomen and pelvis is suboptimal on this unenhanced exam. No pneumatosis, free air or portal venous gas is present. There is hepatic steatosis. There is no biliary ductal dila tation status post cholecystectomy. Mild splenomegaly is unchanged. The right adrenal gland and kidneys are normal. There is no hydronephrosis. A 4 cm water attenuation left adrenal lesion is similar to prior exam. This has been present on prior studies and is likely benign. Moderate infiltration and fluid centered on the inferior aspect of the pancreatic body is noted. This suggest recurrent acute pancreatitis. A 5.9 x 3.2 cm left upper quadrant omental oval-shaped water attenuation abnormality is new since prior CT and MRCP. This favors a pseudocyst. No additional well-defined fluid collections are identified. Perigastric varices are noted. Suspected cystic lesion within the pancreatic mahamed l measuring 1.1 cm is again noted. This was shown on prior exam. Suspected intraductal calculi within the pancreatic duct within the region of the body and tail measure up to 9 mm. These are shown on prior exam. There is no evidence for a bowel obstruction. Wall thickness of small and large bowel are normal on this unenhanced exam. There is colonic diverticulosis without evidence for acute diverticulitis. IMPRESSION: 1. Moderate infiltration and fluid centered on the inferior aspect of the pancreatic body. This suggests recurrent acute pancreatitis. 5.9 x 3.2 cm left upper quadrant omental water attenuation abnormality new since prior CT and MRCP. Although the location is somewhat atypical, a pseudocyst is favored. Imaging follow-up to ensure resolution is recommended. 2. Redemonstration of a 1.1 cm cystic focus within the pancreatic tail. This could reflect an intrapancreatic pseudocyst or a nonspecific cystic pancreatic lesion. 3. Redemonstration of suspected intraductal calculi within the pancreatic duct within the pancreatic tail, measuring up to 0.9 cm. 4. No biliary ductal dilatation status post cholecystectomy. 5. Hepatic steatosis. 6. Perigastric varices. These may be related to underlying splenic vein occlusion/stenosis. ACT 112: Negative or not required by law. Electronically signed by: Zuhair Crowder M.D. 04/06/2022 10:46 AM Discharge Plan Visit Data Chief Complaint: Constipation Stated Complaint: CONSTIPATION WITH SEVERE LOWER BACK PAIN ED Provider: Aravind Palafox Discharge Problem: Acute pancreatitis, Abdominal pain Patient Disposition: Admitted As Inpatient Discharge Instructions Interventions: ED Discharge Assessment Last Done: 04/06/22 13:44
[2022-04-06] MEDS ORDERED: SODIUM CHLORIDE 0.9% 1000ML 1,000 ML IV STA (09:59)
[2022-04-06] MEDS ORDERED: PANTOprazole 40 MG in SYRINGE 0 ML IV ONE (09:59)
[2022-04-06] MEDS ORDERED: ONDANSETRON INJ 2 MG/ML 2 ML VIAL IV STA (09:59)
[2022-04-06] MEDS: fentaNYL citrate 100 MCG/2 ML VIAL IV PRN ×2 (10:21→11:30)
[2022-04-06 10:30] LABS: Pregnancy Test, Urine Negative (Negative)
[2022-04-06 10:35] LABS: Appearance Urine Clear (Clear); Bacteria Urine Automated Negative (Negative); Blood Urine Negative (Negative); Color Urine Dark Yellow; Epithelial Cell Urine Auto >30 /lpf (0-5); Glucose Urine UA Negative (Negative); Ketones Urine Trace (Negative); Leukocyte Esterase Urine Trace (Negative); Nitrite Urine Negative (Negative); Protein Urine 1+ (Negative); Specific Gravity Urine 1.028 (1.000-1.030); Urobilinogen Urine Negative (Negative); pH Urine 5.5 (4.5-7.5)
[2022-04-06 10:36] LABS: Basophils # (auto) 0.03 K/uL (0-0.2); Basophils % (auto) 0.2 %; Eosinophils # (auto) 0.01 K/uL (0-0.50); Eosinophils % (auto) 0.1 %; Hematocrit (blood only) 42.9 % (34.1-44.9); Hemoglobin 14.1 g/dl (12.0-16.0); Immature Granulocytes # (auto) 0.07 K/uL (0.00-0.02); Immature Granulocytes % (auto) 0.5 %; Lymphocytes # (auto) 1.86 K/uL (1.2-3.4); Lymphocytes % (auto) 13.2 %; Mean Corpuscular Hemoglobin 27.1 pg (25.0-34.0); Mean Corpuscular Hgb Conc 32.9 g/dL (32.0-36.0); Mean Corpuscular Volume 82.5 fL (80.0-100.0); Mean Platelet Volume 9.6 fL (9.4-12.3); Monocytes # (auto) 0.77 K/uL (0.24-0.82); Monocytes % (auto) 5.5 %; Neutrophils # (auto) 11.33 K/uL (1.4-6.5); Neutrophils % (auto) 80.5 %; Platelet Count 200 K/uL (130-400); RDW Coefficient of Variation 16.9 % (11.5-14.5); RDW Standard Deviation 50.9 fL (36.4-46.3); White Blood Count 14.07 K/ul (4.8-10.8)
[2022-04-06 10:40] LABS: Bilirubin Urine 1+ (Negative)
--- NOTE | 2022-04-06 10:49 | CT Scan Report ---
CT OF THE ABDOMEN AND PELVIS WITHOUT CONTRAST CLINICAL HISTORY: Lower abdominal pain and vomiting. COMPARISON STUDY: CT of the abdomen and pelvis December 17, 2021. MRCP December 19, 2021 TECHNIQUE: Axial images of the abdomen and pelvis were obtained without IV contrast. Images were revi ewed in the axial, sagittal, and coronal planes. Automated exposure control was utilized for the brando dy. A dose lowering technique was utilized adhering to the principles of ALARA. FINDINGS: A 5 mm right lower lobe pulmonary nodule is unchanged since CT of October 29, 2018. This is etta ign given stability. Evaluation of the abdomen and pelvis is suboptimal on this unenhanced exam. No p neumatosis, free air or portal venous gas is present. There is hepatic steatosis. There is no biliary ductal dilatation status post cholecystectomy. Mild splenomegaly is unchanged. The right adrenal gla nd and kidneys are normal. There is no hydronephrosis. A 4 cm water attenuation left adrenal lesion i s similar to prior exam. This has been present on prior studies and is likely benign. Moderate infilt ration and fluid centered on the inferior aspect of the pancreatic body is noted. This suggest recurr ent acute pancreatitis. A 5.9 x 3.2 cm left upper quadrant omental oval-shaped water attenuation abno rmality is new since prior CT and MRCP. This favors a pseudocyst. No additional well-defined fluid co llections are identified. Perigastric varices are noted. Suspected cystic lesion within the pancreati c tail measuring 1.1 cm is again noted. This was shown on prior exam. Suspected intraductal calculi w ithin the pancreatic duct within the region of the body and tail measure up to 9 mm. These are shown on prior exam. There is no evidence for a bowel obstruction. Wall thickness of small and large bowel are normal on this unenhanced exam. There is colonic diverticulosis without evidence for acute divert iculitis. IMPRESSION: 1. Moderate infiltration and fluid centered on the inferior aspect of the pancreatic body. This sugge sts recurrent acute pancreatitis. 5.9 x 3.2 cm left upper quadrant omental water attenuation abnormal ity new since prior CT and MRCP. Although the location is somewhat atypical, a pseudocyst is favored. Imaging follow-up to ensure resolution is recommended. 2. Redemonstration of a 1.1 cm cystic focus within the pancreatic tail. This could reflect an intrapa ncreatic pseudocyst or a nonspecific cystic pancreatic lesion. 3. Redemonstration of suspected intraductal calculi within the pancreatic duct within the pancreatic tail, measuring up to 0.9 cm. 4. No biliary ductal dilatation status post cholecystectomy. 5. Hepatic steatosis. 6. Perigastric varices. These may be related to underlying splenic vein occlusion/stenosis. ACT 112: Negative or not required by law. Electronically signed by: Zuhair Crowder M.D. 04/06/2022 10:46 AM
[2022-04-06 10:59] LABS: BUN Creatinine Ratio 13.6 (10-20); Calcium 9.4 mg/dl (8.5-10.1); Creatinine Clr Calc Pharmacy 147.6 ml/min; Est GFR (African American) 139.6 ml/min; Est GFR (Non-African American) 120.4 ml/min; Potassium 3.9 mmol/L (3.5-5.1)
[2022-04-06 11:12] LABS: Albumin Globulin Ratio 1.2 (0.9-2); Albumin Level 4.1 gm/dl (3.4-5.0); Bilirubin,Total 0.5 mg/dl (0.2-1.0); Globulin 3.4 gm/dl (2.5-4.0); Total Protein 7.5 gm/dl (6.0-8.3)
[2022-04-06 11:16] LABS: Mucus Urine Present (None Prsent); RBC Urine Automated 0-4 /hpf (0-4)
--- NOTE | 2022-04-06 13:04 | History & Physical Report ---
Date of Service April 06, 2022 Assessment & Plan (1) Acute pancreatitis: Plan: -Admit to med/tele -Patient is currently afebrile, hemodynamically stable and stable on RA -Patient has a long history of idiopathic recurrent pancreatitis, noted to have CT findings today suggestive of acute pancreatitis -Has had poor oral intake over the past week with pain radiating to her back -Lipase today is in the 700's, patient states it has been much higher previously, such as the -CT of the abd/pelvis showing acute pancreatitis with new pseudocyst is noted in the left upp quadrant omentum. Perigastric varices are also noted -Was given 1L NSS, 50 mcg IV fentanyl, and 8 mg total IV zofran in the ED -Will continue IV fluids with LR at 125 mL/hr, will switch pain control to tylenol, lidocaine patch, heating pad, and 1 mg IV dilaudid q4h prn pain 4,5,6+ -Will consult [facility] to see the patient while she is admitted as they know her from previous admissions -Start with clear liquid diet and advance as able -Unsure if recently starting metformin could be causing additional GI symptoms on top of her pancreatitis, will hold for now and monitor for improvement -AM CBC and CMP (2) Prediabetes: Plan: -Patient was recently started on metformin after her last PCP visit on 03/28 -Will hold metformin for now -Goal BSG is 110-140 -Monitor BSG while having poor oral intake -Will start with a correction factor of 45 and carb ration of 16, increase as needed (3) Iron deficiency: Plan: -Continue iron (4) Low back pain: Plan: -Appears to be a combination of musculoskeletal and possible referred pain from pancreatitis -No red flag symptoms -Will start with pain regimen as listed in acute pancreatitis (5) Constipation: Plan: -No BM in the past 3 days -Patient is still passing gas -No bowel obstruction on CT today -Continue IV hydration and will start BID colace (6) Vitamin D deficiency: Plan: -Continue vitamin D (7) B12 deficiency: Plan: -Continue B12 (8) Smoker: Plan: -Will order nicotine patches Plan The patient was discussed with Dr. 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 In the ED the patient was found to be afebrile, hemodynamically stable, and stable on RA. Labs were remarkable for a leukocytosis of 14 with left shift of 11.33, stable Hgb and platelets, stable renal function and electrolytes, glucose of 101, stable liver function, lipase of 750, negative covid and UA. CT of the abdomen and pelvis without contrast shows "1. Moderate infiltration and fluid centered on the inferior aspect of the pancreatic body. This suggests recurrent acute pancreatitis. 5.9 x 3.2 cm left upper quadrant omental water attenuation abnormality new since prior CT and MRCP. Although the location is somewhat atypical, a pseudocyst is favored. Imaging follow-up to ensure resolution is recommended. 2. Redemonstration of a 1.1 cm cystic focus within the pancreatic tail. This could reflect an intrapancreatic pseudocyst or a nonspecific cystic pancreatic lesion. 3. Redemonstration of suspected intraductal calculi within the pancreatic duct within the pancreatic tail, measuring up to 0.9 cm. 4. No biliary ductal dilatation status post cholecystectomy. 5. Hepatic steatosis.6. Perigastric varices. These may be related to underlying splenic vein occlusion/stenosis.". Prior to admission the patient was given 1L NSS, 40 mg IV protinix, 8 mg IV zofran, and 50 mcg of fentanyl. At the time of the exam the patient was sitting up in bed in no acute distress. She states that she initially came to the ED due to constipation for the past 3 days and low back pain which started yesterday. She states that her chronic pain from pancreatitis has increased over the past week. Over the past 3 days she has been unable to keep food o water down, but has been able to take her PO medications. Her abdominal pain is located in the epigastric region and the LUQ with radiation to the lower back. She rates both her abdominal and back pain as a constant 8/10 pain. She has had multiple episodes of nausea and non- bloody emesis over the past week. She denies recent fevers or chills, chest pain, SOB, dysuria, hematuria, and bloody/dark bowel movements. She saw the [facility] GI team on 03/25/22, they started her on Lyrica TID for her abdominal pain and her next follow-up with them is in June of 2022. She saw her PCP on 03/28 at the request of her Psychiatrist due to concerns for metabolic syndrome and prediabetes. She was started on 500 mg metformin BID. She states that when she initially started the metformin she was having diarrhea but this stopped with her poor oral intake. She confirms that she is still passing gas. Please refer to Dr. Wisdom's attestation for any changes to the treatment plan Allergies Allergy/AdvReac Type Severity Reaction Status Date / Time adhesive Allergy Mild RASH Verified 03/28/22 08:38 nickel Allergy Mild RASH Verified 03/28/22 08:38 morphine AdvReac Severe Body fells Verified 03/28/22 08:38 like it is on fire Home Medications Medication Instructions Recorded Confirmed Type aripiprazole 300 mg intramuscular 300 mg IM Q28D 07/05/21 04/12/22 History suspension,extended release (Abilify Maintena) amitriptyline 25 mg tablet 25 mg PO HS 09/29/21 04/12/22 History cholecalciferol (vitamin D3) 50 50 mcg PO BID #30 caps 12/16/21 04/12/22 Rx mcg (2,000 unit) capsule cyanocobalamin (vitamin B-12) 2,500 mcg sublingual DAILY #30 tabs 12/16/21 04/12/22 Rx 2,500 mcg sublingual tablet ferrous sulfate 325 mg (65 mg 325 mg PO DAILY #60 tabs 12/16/21 04/12/22 Rx iron) tablet pantoprazole 40 mg tablet,delayed 40 mg PO BID #60 tabs 12/29/21 04/12/22 Rx release ondansetron 4 mg disintegrating 4 mg PO Q8H PRN nausea and 01/12/22 04/12/22 Rx tablet vomiting #30 tabs baclofen 10 mg tablet 10 mg PO DAILY #30 tabs 03/28/22 04/12/22 Rx metformin 500 mg tablet 500 mg PO BID #60 tabs 03/28/22 04/12/22 Rx pregabalin 75 mg capsule (Lyrica) 75 mg PO TID 12/05/22 12/20/22 History galcanezumab-gnlm 120 mg/mL 120 mg subcut ONCE 30 days #30 mL 03/29/22 04/12/22 Rx subcutaneous pen injector (Emgality Pen) docusate sodium 100 mg capsule 100 mg PO BID PRN constipation #30 04/08/22 04/12/22 Rx caps nicotine 21 mg/24 hr daily 21 mg transdermal QAM #28 ea 04/08/22 04/12/22 Rx transdermal patch (Nicoderm CQ) oxycodone 20 mg tablet,crush 20 mg PO Q12H #10 tabs 04/08/22 04/12/22 Rx resistant,extended release 12 hr (OxyContin) oxycodone 5 mg tablet 5 mg PO Q4H PRN pain #20 tabs 04/08/22 04/12/22 Rx Past Med/Surg History Medical History Asthma well controlled; worse in winter Chronic pancreatitis Constipation GERD (gastroesophageal reflux disease) History of varicella Homicidal ideation Hx of chlamydia infection Hx of drug dependence Hx of ovarian cyst Hx of pancreatitis Migraine Obesity Prediabetes Pulmonary nodule yearly imaging Smoker Surgical History H/O oral surgery History of cholecystectomy History of ERCP S/P tonsillectomy and adenoidectomy Family History Mother Diabetes Dyslipidemia Hypertension Grandmother (Paternal) Diabetes Aunt Diabetes Denies family history of Ovarian cancer Prostate cancer Myocardial infarction Breast cancer Colorectal cancer Social History Smoking Status: Unknown if ever smoked Tobacco Type: Cigarettes Age Started Using Tobacco: 11; packs per day: 1; Cigarettes Per Day: 10-20 PER DAY - ADVISED; Second Hand Exposure: No; Hx Alcohol Use: No Hx Substance Use: No Preferred Language: Honduran Communication Ability: Effective Environmental Compliance Engineer Required: No Beliefs That Will Affect Care: None marital status: Single Current Living Situation: Significant Other Current Living Situation Comment: fiance current occupational status: employed Feels Safe at Home: Yes Dental Care, Regularly: Yes Physical Activity Frequency: Does not Exercise Seatbelt Use: always Sunscreen Use: No Assistive Devices: None Review of Systems Review of Systems: Denies current fever, chills, headache, changes in vision, hearing, taste, and smell, chest pain, SOB, cough, hematemesis, melena, dysuria, hematuria, and recent falls. All systems have been reviewed and are otherwise negative. Physical Exam Physical Exam: Physical Exam: General: In no acute distress, stated age, well-nourished, good hygiene, non- toxic appearing HEENT: Normocephalic, atraumatic, no scleral icterus, pupils around round, symmetrical, and reactive to light, dry mucus membranes, trachea midline, no thyromegaly Chest/Pulm: No respiratory distress, symmetrical chest expansion, clear breath sounds throughout Cardiac: RRR, no murmurs noted Abdomen: Negative for ascites and bruising, normoactive bowel sounds, soft, tender to palpation in the epigastric region and the LUQ, Musculoskeletal: Symmetrical and without signs of acute trauma, upper and lower extremities with full ROM, no atrophy, spasticity, or flaccidity. Patient with tenderness to palpation over the left lumbar paraspinal muscles, no deformities or skin discoloration noted on exam or palpation of the entire spine Extremities: Radial, dorsalis pedis, and posterior tibial pulses are intact and symmetrical, no edema noted in the BL LE's Skin: Warm, dry, no rashes , lesions, or scars noted Neuro: Alert and oriented to person, place, month, year, and president, no focal defects, CN II-XII tested and intact, finger to nose test negative, no tremors noted Psych: No acute distress, calm, flat affect, cooperative during the exam Results & Data Results & Data ([facility]) Vital Signs (Past 12 Hours) Vital Signs Temp Pulse Pulse Resp BP BP Pulse Ox 04/06/22 12:30 96 H 18 122/91 95 04/06/22 11:30 83 18 173/92 H 98 04/06/22 10:27 95 H 18 134/84 97 04/06/22 10:26 93 H 20 95 04/06/22 09:04 36.8 C 105 H 18 128/88 96 O2 Del Method 04/06/22 12:30 Room Air 04/06/22 11:30 Room Air 04/06/22 10:27 Room Air 04/06/22 10:26 Room Air 04/06/22 09:04 Room Air Laboratory Results Abnormal lab results 04/06/22 04/06/22 04/06/22 Range/Units 09:45 10:15 10:15 WBC 14.07 H (4.8-10.8) K/ul RDW Std Deviation 50.9 H (36.4-46.3) fL RDW Coeff of Jasmin 16.9 H (11.5-14.5) % Neut # (Auto) 11.33 H (1.4-6.5) K/uL Immature Gran # (Auto) 0.07 H (0.00-0.02) K/uL Sodium 135 L (136-145) mmol/L Creatinine 0.59 L (0.6-1.2) mg/dl Glucose 101 H (70-99(Fasting)) mg/dl AST 10 L (13-39) U/L Lipase 750 H (11-82) U/L Urine Protein 1+ H (Negative) Urine Ketones Trace H (Negative) Urine Bilirubin 1+ H (Negative) Ur Leukocyte Esterase Trace H (Negative) U Epithel Cells (Auto) >30 H (0-5) /lpf Urine Mucus Present A (None Prsent) Diagnostic Findings Abdomen/Pelvis CT 04/06/22 09:29 CT OF THE ABDOMEN AND PELVIS WITHOUT CONTRAST CLINICAL HISTORY: Lower abdominal pain and vomiting. COMPARISON STUDY: CT of the abdomen and pelvis December 17, 2021. MRCP December 19, 2021 TECHNIQUE: Axial images of the abdomen and pelvis were obtained without IV contrast. Images were reviewed in the axial, sagittal, and coronal planes. Automated exposure control was utilized for the study. A dose lowering technique was utilized adhering to the principles of ALARA. FINDINGS: A 5 mm right lower lobe pulmonary nodule is unchanged since CT of October 29, 2018. This is benign given stability. Evaluation of the abdomen and pelvis is suboptimal on this unenhanced exam. No pneumatosis, free air or portal venous gas is present. There is hepatic steatosis. There is no biliary ductal dilatation status post cholecystectomy. Mild splenomegaly is unchanged. The right adrenal gland and kidneys are normal. There is no hydronephrosis. A 4 cm water attenuation left adrenal lesion is similar to prior exam. This has been present on prior studies and is likely benign. Moderate infiltration and fluid centered on the inferior aspect of the pancreatic body is noted. This suggest recurrent acute pancreatitis. A 5.9 x 3.2 cm left upper quadrant omental oval- shaped water attenuation abnormality is new since prior CT and MRCP. This favors a pseudocyst. No additional well-defined fluid collections are identified. Perigastric varices are noted. Suspected cystic lesion within the pancreatic tail measuring 1.1 cm is again noted. This was shown on prior exam. Suspected intraductal calculi within the pancreatic duct within the region of the body and tail measure up to 9 mm. These are shown on prior exam. There is no evidence for a bowel obstruction. Wall thickness of small and large bowel are normal on this unenhanced exam. There is colonic diverticulosis without evidence for acute diverticulitis. IMPRESSION: 1. Moderate infiltration and fluid centered on the inferior aspect of the pancreatic body. This suggests recurrent acute pancreatitis. 5.9 x 3.2 cm left upper quadrant omental water attenuation abnormality new since prior CT and MRCP. Although the location is somewhat atypical, a pseudocyst is favored. Imaging follow-up to ensure resolution is recommended. 2. Redemonstration of a 1.1 cm cystic focus within the pancreatic tail. This could reflect an intrapancreatic pseudocyst or a nonspecific cystic pancreatic lesion. 3. Redemonstration of suspected intraductal calculi within the pancreatic duct within the pancreatic tail, measuring up to 0.9 cm. 4. No biliary ductal dilatation status post cholecystectomy. 5. Hepatic steatosis. 6. Perigastric varices. These may be related to underlying splenic vein occlusion/stenosis. ACT 112: Negative or not required by law. Electronically signed by: Zuhair Crowder M.D. 04/06/2022 10:46 AM ECG Additional Comments: No ECG available at the time of the admission, will obtain one now Code Status & VTE Plan Code Status Full code VTE Prophylaxis Plan VTE Prophylaxis will be ordered: Yes Supervising Physician Co-Signing Physician Notes Patient seen and examined by bedside. PG Care Time/CCT Total # of Minutes Spent Total Time Spent with Patient: Total time spent is greater than 50% in coordination of care (as documented) at patient's floor/unit and/or counseling patient: Coding Level of Care Code Established Pt INT OBSERVATION CARE 50M LVL 2 Patient Type Established Medical Decision Making Moderate Complexity Diagnoses Acute pancreatitis K85.90 Prediabetes R73.03 Iron deficiency E61.1 Low back pain M54.5 Constipation K59.00 Vitamin D deficiency E55.9 B12 deficiency E53.8 Smoker F17.200
[2022-04-06] MEDS ORDERED: ACETAMINOPHEN 1,000 MG/100 ML VIAL IV PRN (13:08)
[2022-04-06] MEDS ORDERED: GLUCOSE 10 TAB/TUBE PO PRN (13:35)
[2022-04-06] MEDS ORDERED: GLUCAGON FOR INJ 1 MG VIAL SQ PRN (13:35)
[2022-04-06] MEDS ORDERED: CARBOHYDRATES FOR HYPOGLYCEMIA PO PRN (13:35)
[2022-04-06] MEDS ORDERED: GLUCOSE 40% GEL 15 GM TUBE PO PRN (13:35)
[2022-04-06] MEDS ORDERED: DEXTROSE 50% 50 ML SYRINGE IV PRN (13:35)
[2022-04-06] MEDS ORDERED: INSULIN ASPART PER UNIT SC SCH (13:45)
--- NOTE | 2022-04-06 15:02 | Gastrointestinal Consultation ---
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 She has a second opinion pending at [facility] NPO, can advance to clear liquids when symptoms improving LR 200 mL/hr Antiemetics PRN Analgesia PRN No acute indication for endoscopic evaluation Encouraged to remain drug and alcohol free Smoking cessation encouraged Thank you for allowing us to participate in the care of this patient. Please call with any acute changes, questions or concerns. Please see addendum below with additional recommendation from my supervising physician. Supervising Physician Co-Signing Physician Notes I saw and evaluated the patient. We were consulted for history of abdominal discomfort and recurrent pancreatitis. Of note the patient has undergone fairly extensive evaluation and numerous procedures by my partner, these include several ERCPs in addition to endoscopic ultrasound. Patient is found to have idiopathic chronic pancreatitis and does have a history of chronic tobacco abuse. The patient notes that her symptoms have been worsening over the past 2 to 4 weeks and was recently started on metformin by her primary care provider. Patient does have an evaluation which is ongoing at [facility] given her history of recurrent pancreatitis and is due to follow-up there in 2 months time. Physical examination No obvious distress no scleral icterus mild Epigastric discomfort to palpation Impression: patient with a history of chronic idiopathic pancreatitis, she is under an evaluation at [facility] given the recurrent nature of her symptoms.: As she has had several ERCPs in the past without much improvement I wonder if she would benefit from a tertiary care evaluation as is ongoing. As the patient was recently started on metformin we recommend discontinuing this medication as this is a medication as well known to cause abdominal discomfort. I would dmitri supportive care with regard to the mild pancreatitis with use of IV hydration, perhaps tomorrow she will be able to be advanced to a full liquid diet. Finally the patient should be counseled to stop all tobacco consumption as this can certainly contribute to pancreatic issues. Patient's imaging does support a new pseudocyst in the left abdomen, it does not appear to have a wall around at the present time and therefore hold on any endoscopic interventions for the present time. History of Present Illness Reason for Consultation: pancreatitis Requesting Physician: Alyx Attending Physician: Valentin A Saborio History of Present Illness 32 year old female with history ofrecurrent idiopathic pancreatitis with known pancreatic pseudocyst, bipolar disorder, metabolic syndrome, hypertriglyceridemia, tobacco use, inflammatory polyarthritis, asthma admitted through the ED w/ abdominal pain and constipation, imaging concerning for recurrent acute pancreatitis. GI asked to evaluate. Normal LFTs Lipase 750 No ETOH No marijuana Does use tobacco 1 PPD CTAP 2021: Moderate infiltration and fluid centered on the inferior aspect of the pancreatic body. This suggests recurrent acute pancreatitis. 5.9 x 3.2 cm left upper quadrant omental water attenuation abnormality new since prior CT and MRCP. Although the location is somewhat atypical, a pseudocyst is favored. Imaging follow-up to ensure resolution is recommended.. Redemonstration of a 1.1 cm cystic focus within the pancreatic tail. This could reflect an intrapancreatic pseudocyst or a nonspecific cystic pancreatic lesion. Redemonstration of suspected intraductal calculi within the pancreatic duct within the pancreatic tail, measuring up to 0.9 cm.No biliary ductal dilatation status post cholecystectomy.Hepatic steatosis. Allergies Allergy/AdvReac Type Severity Reaction Status Date / Time adhesive Allergy Mild RASH Verified 03/28/22 08:38 nickel Allergy Mild RASH Verified 03/28/22 08:38 morphine AdvReac Severe Body fells Verified 03/28/22 08:38 like it is on fire Home Medications Medication Instructions Recorded Confirmed Type aripiprazole 300 mg intramuscular 300 mg IM Q28D 07/05/21 04/06/22 History suspension,extended release (Abilify Maintena) amitriptyline 25 mg tablet 25 mg PO HS 09/29/21 04/06/22 History cholecalciferol (vitamin D3) 50 50 mcg PO BID #30 caps 12/16/21 04/06/22 Rx mcg (2,000 unit) capsule cyanocobalamin (vitamin B-12) 2,500 mcg sublingual DAILY #30 tabs 12/16/21 Rx 2,500 mcg sublingual tablet ferrous sulfate 325 mg (65 mg 325 mg PO DAILY #60 tabs 12/16/21 04/06/22 Rx iron) tablet pantoprazole 40 mg tablet,delayed 40 mg PO BID #60 tabs 12/29/21 04/06/22 Rx release ondansetron 4 mg disintegrating 4 mg PO Q8H PRN nausea and 01/12/22 04/06/22 Rx tablet vomiting #30 tabs oxycodone 5 mg tablet 5 mg PO Q4H PRN pain #20 tabs 03/15/22 04/06/22 Rx baclofen 10 mg tablet 10 mg PO DAILY #30 tabs 03/28/22 04/06/22 Rx metformin 500 mg tablet 500 mg PO BID #60 tabs 03/28/22 04/06/22 Rx pregabalin 75 mg capsule (Lyrica) 75 mg PO TID 03/28/22 04/06/22 History galcanezumab-gnlm 120 mg/mL 120 mg subcut ONCE 30 days #30 mL 03/29/22 04/06/22 Rx subcutaneous pen injector (Emgality Pen) Patient History Medical History Asthma well controlled; worse in winter Chronic pancreatitis Constipation GERD (gastroesophageal reflux disease) History of varicella Homicidal ideation Hx of chlamydia infection Hx of drug dependence Hx of ovarian cyst Hx of pancreatitis Migraine Obesity Prediabetes Pulmonary nodule yearly imaging Smoker Surgical History H/O oral surgery History of cholecystectomy History of ERCP S/P tonsillectomy and adenoidectomy Family History Mother Diabetes Dyslipidemia Hypertension Grandmother (Paternal) Diabetes Aunt Diabetes Denies family history of Ovarian cancer Prostate cancer Myocardial infarction Breast cancer Colorectal cancer Social History Smoking Status: Unknown if ever smoked Tobacco Type: Cigarettes Age Started Using Tobacco: 11; packs per day: 1; Cigarettes Per Day: 10-20 PER DAY - ADVISED; Second Hand Exposure: No; Do You Dip or Chew Tobacco: No; Tobacco Cessation Education Requested by Patient: No Hx Alcohol Use: No Hx Substance Use: No Preferred Language: [place] Communication Ability: Effective 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: No Beliefs That Will Affect Care: None marital status: Single Current Living Situation: Significant Other Current Living Situation Comment: fiance current occupational status: employed Other Information That Helps Us Care for You: No Feels Safe at Home: Yes Safety Concerns: Feels Safe At This Time Dental Care, Regularly: Yes Physical Activity Frequency: Does not Exercise Seatbelt Use: always Sunscreen Use: No Assistive Devices: None Review of Systems Review of Systems: All systems reviewed & are unremarkable except as noted in HPI & below Results & Data ([facility]) Vital Signs (Past 12 Hours) Vital Signs Temp Pulse Pulse Resp BP BP Pulse Ox 04/06/22 14:00 36.7 C 96 H 16 124/84 97 04/06/22 13:44 96 H 18 122/91 95 04/06/22 12:30 96 H 18 122/91 95 04/06/22 11:30 83 18 173/92 H 98 04/06/22 10:27 95 H 18 134/84 97 04/06/22 10:26 93 H 20 95 04/06/22 09:04 36.8 C 105 H 18 128/88 96 O2 Del Method 04/06/22 14:00 Room Air 04/06/22 13:44 Room Air 04/06/22 12:30 Room Air 04/06/22 11:30 Room Air 04/06/22 10:27 Room Air 04/06/22 10:26 Room Air 04/06/22 09:04 Room Air Laboratory Results 04/06/22 04/06/22 04/06/22 Range/Units 14:22 10:15 10:15 WBC (4.8-10.8) K/ul RBC (3.93-5.22) M/uL Hgb (12.0-16.0) g/dl Hct (34.1-44.9) % MCV (80.0-100.0) fL MCH (25.0-34.0) pg MCHC (32.0-36.0) g/dL RDW Std Deviation (36.4-46.3) fL RDW Coeff of Jasmin (11.5-14.5) % Plt Count (130-400) K/uL MPV (9.4-12.3) fL Immature Gran % (Auto) % Neut % (Auto) % Lymph % (Auto) % [place] % (Auto) % Eos % (Auto) % Baso % (Auto) % Neut # (Auto) (1.4-6.5) K/uL Lymph # (Auto) (1.2-3.4) K/uL [place] # (Auto) (0.24-0.82) K/uL Eos # (Auto) (0-0.50) K/uL Baso # (Auto) (0-0.2) K/uL Immature Gran # (Auto) (0.00-0.02) K/uL Sodium 135 L (136-145) mmol/L Potassium 3.9 (3.5-5.1) mmol/L Chloride 100 (98-107) mmol/L Carbon Dioxide 26 (21-32) mmol/L Anion Gap 9 (3-11) BUN 8 (6-23) mg/dl Creatinine 0.59 L (0.6-1.2) mg/dl Est Cr Clr Drug Dosing 147.6 ml/min Est GFR ( Amer) 139.6 ml/min Est GFR (Non-Af Amer) 120.4 ml/min BUN/Creatinine Ratio 13.6 (10-20) Glucose 101 H (70-99(Fasting)) mg/dl POC Glucose 87 (70-99) mg/dl Calcium 9.4 (8.5-10.1) mg/dl Total Bilirubin 0.5 (0.2-1.0) mg/dl AST 10 L (13-39) U/L ALT 14 (7-52) U/L Alkaline Phosphatase 75 (34-104) U/L Total Protein 7.5 (6.0-8.3) gm/dl Albumin 4.1 (3.4-5.0) gm/dl Globulin 3.4 (2.5-4.0) gm/dl Albumin/Globulin Ratio 1.2 (0.9-2) Lipase 750 H (11-82) U/L Urine Color Urine Appearance (Clear) Urine pH (4.5-7.5) Ur Specific [place] (1.000-1.030) Urine Protein (Negative) Urine Glucose (UA) (Negative) Urine Ketones (Negative) Urine Blood (Negative) Urine Nitrite (Negative) Urine Bilirubin (Negative) Urine Urobilinogen (Negative) Ur Leukocyte Esterase (Negative) Urine WBC (Auto) (0-5) /hpf Urine RBC (Auto) (0-4) /hpf U Hyaline Cast (Auto) (0-5) /lpf U Epithel Cells (Auto) (0-5) /lpf Urine Bacteria (Auto) (Negative) Urine Mucus (None Prsent) Urine Test (Negative) SARS-CoV-2, RNA, NAAT NEGATIVE (NEGATIVE) 1204/06/22 04/06/22 Range/Units 10:15 09:45 09:45 WBC 14.07 H (4.8-10.8) K/ul RBC 5.20 (3.93-5.22) M/uL Hgb 14.1 (12.0-16.0) g/dl Hct 42.9 (34.1-44.9) % MCV 82.5 (80.0-100.0) fL MCH 27.1 (25.0-34.0) pg MCHC 32.9 (32.0-36.0) g/dL RDW Std Deviation 50.9 H (36.4-46.3) fL RDW Coeff of Jasmni 16.9 H (11.5-14.5) % Plt Count 200 (130-400) K/uL MPV 9.6 (9.4-12.3) fL Immature Gran % (Auto) 0.5 % Neut % (Auto) 80.5 % Lymph % (Auto) 13.2 % [place] % (Auto) 5.5 % Eos % (Auto) 0.1 % Baso % (Auto) 0.2 % Neut # (Auto) 11.33 H (1.4-6.5) K/uL Lymph # (Auto) 1.86 (1.2-3.4) K/uL [place] # (Auto) 0.77 (0.24-0.82) K/uL Eos # (Auto) 0.01 (0-0.50) K/uL Baso # (Auto) 0.03 (0-0.2) K/uL Immature Gran # (Auto) 0.07 H (0.00-0.02) K/uL Sodium (136-145) mmol/L Potassium (3.5-5.1) mmol/L Chloride (98-107) mmol/L Carbon Dioxide (21-32) mmol/L Anion Gap (3-11) BUN (6-23) mg/dl Creatinine (0.6-1.2) mg/dl Est Cr Clr Drug Dosing ml/min Est GFR ( Amer) ml/min Est GFR (Non-Af Amer) ml/min BUN/Creatinine Ratio (10-20) Glucose (70-99(Fasting)) mg/dl POC Glucose (70-99) mg/dl Calcium (8.5-10.1) mg/dl Total Bilirubin (0.2-1.0) mg/dl AST (13-39) U/L ALT (7-52) U/L Alkaline Phosphatase (34-104) U/L Total Protein (6.0-8.3) gm/dl Albumin (3.4-5.0) gm/dl Globulin (2.5-4.0) gm/dl Albumin/Globulin Ratio (0.9-2) Lipase (11-82) U/L Urine Color Dark Yellow Urine Appearance Clear (Clear) Urine pH 5.5 (4.5-7.5) Ur Specific [place] 1.028 (1.000-1.030) Urine Protein 1+ H (Negative) Urine Glucose (UA) Negative (Negative) Urine Ketones Trace H (Negative) Urine Blood Negative (Negative) Urine Nitrite Negative (Negative) Urine Bilirubin 1+ H (Negative) Urine Urobilinogen Negative (Negative) Ur Leukocyte Esterase Trace H (Negative) Urine WBC (Auto) 1-5 (0-5) /hpf Urine RBC (Auto) 0-4 (0-4) /hpf U Hyaline Cast (Auto) 1-5 (0-5) /lpf U Epithel Cells (Auto) >30 H (0-5) /lpf Urine Bacteria (Auto) Negative (Negative) Urine Mucus Present A (None Prsent) Urine Test Negative (Negative) SARS-CoV-2, RNA, NAAT (NEGATIVE)
[2022-04-06] MEDS: LACTATED RINGER'S 1,000 ML IV SCH ×2 (15:08→23:15)
[2022-04-06] MEDS: NICOTINE 21 MG/24 HR TDSY TD SCH (15:09)
[2022-04-06] MEDS: LIDOCAINE 5% 1 PATCH TD SCH (15:09)
[2022-04-06] MEDS: PREGABALIN 75 MG CAP PO SCH ×2 (15:10→22:04)
[2022-04-06] MEDS: BACLOFEN 10 MG TAB PO SCH (15:10)
[2022-04-06] MEDS: FERROUS SULFATE 325 MG TAB PO SCH (15:30)
[2022-04-06] MEDS: HYDROmorphone INJ 1 MG/ML SYRINGE IV PRN ×2 (16:50→21:52)
[2022-04-06] MEDS ORDERED: Nursing to Pharmacy Communication SCH (17:15)
[2022-04-06] MEDS ORDERED: ONDANSETRON INJ 2 MG/ML 2 ML VIAL IV PRN (19:50)
[2022-04-06] MEDS: AMITRIPTYLINE HCL 25 MG TAB PO SCH (21:48)
[2022-04-06] MEDS: CHOLECALCIFEROL 1,000 UNITS 25 MCG TAB PO SCH (21:49)
[2022-04-06] MEDS: INSULIN ASPART PER UNIT SC SCH (21:50)
[2022-04-06] MEDS: PANTOprazole 40 MG in SYRINGE 0 ML IV SCH (21:50)
[2022-04-06] MEDS: DOCUSATE SODIUM 100 MG CAP PO SCH (22:03)
[2022-04-07] MEDS: HYDROmorphone INJ 1 MG/ML SYRINGE IV PRN ×3 (05:00→13:07)
[2022-04-07 06:05] LABS: Hematocrit (blood only) 34.9 % (34.1-44.9); Hemoglobin 11.4 g/dl (12.0-16.0); Mean Corpuscular Hemoglobin 27.1 pg (25.0-34.0); Mean Corpuscular Hgb Conc 32.7 g/dL (32.0-36.0); Mean Corpuscular Volume 83.1 fL (80.0-100.0); Platelet Count 170 K/uL (130-400); RDW Coefficient of Variation 17.1 % (11.5-14.5); RDW Standard Deviation 51.8 fL (36.4-46.3); White Blood Count 8.24 K/ul (4.8-10.8)
[2022-04-07 06:27] LABS: Albumin Globulin Ratio 1.1 (0.9-2); Albumin Level 3.2 gm/dl (3.4-5.0); BUN Creatinine Ratio 9.8 (10-20); Bilirubin,Total 0.5 mg/dl (0.2-1.0); Calcium 7.8 mg/dl (8.5-10.1); Creatinine Clr Calc Pharmacy 173.4 ml/min; Est GFR (African American) 146.4 ml/min; Est GFR (Non-African American) 126.3 ml/min; Globulin 2.9 gm/dl (2.5-4.0); Potassium 3.8 mmol/L (3.5-5.1); Total Protein 6.1 gm/dl (6.0-8.3)
[2022-04-07] MEDS: LACTATED RINGER'S 1,000 ML IV SCH (07:43)
[2022-04-07] MEDS: CHOLECALCIFEROL 1,000 UNITS 25 MCG TAB PO SCH ×2 (08:28→20:49)
[2022-04-07] MEDS: PANTOprazole 40 MG in SYRINGE 0 ML IV SCH ×2 (08:28→20:47)
[2022-04-07] MEDS: CYANOCOBALAMIN (B-12) 2,500 MCG TABLET SL SCH (08:28)
[2022-04-07] MEDS: BACLOFEN 10 MG TAB PO SCH (08:28)
[2022-04-07] MEDS: FERROUS SULFATE 325 MG TAB PO SCH (08:28)
[2022-04-07] MEDS: INSULIN ASPART PER UNIT SC SCH ×4 (08:29→20:39)
[2022-04-07] MEDS: PREGABALIN 75 MG CAP PO SCH ×3 (08:31→20:46)
[2022-04-07] MEDS: DOCUSATE SODIUM 100 MG CAP PO SCH ×2 (08:31→20:49)
[2022-04-07] MEDS: NICOTINE 21 MG/24 HR TDSY TD SCH (08:34)
--- NOTE | 2022-04-07 08:41 | Electrocardiogram Report ---
Test Reason : Blood Pressure : / mmHG Vent. Rate : 093 BPM Atrial Rate : 093 BPM P-R Int : 120 ms QRS Dur : 084 ms QT Int : 354 ms P-R-T Axes : 051 063 056 degrees QTc Int : 440 ms Normal sinus rhythm Normal ECG When compared with ECG of 25-NOV-2021 11:37, No significant change was found Confirmed by Andrew Perez ([id number]) on 04/07/2022 8:40:54 AM Referred By: REFERRED SELF Confirmed By:Andrew Perez
--- NOTE | 2022-04-07 08:43 | Gastroenterology Progress Note ---
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 She has a second opinion pending at [facility]. I did discuss with her a local option for ERCP, she refused and notes she prefers to only follow up with [facility] at this point in time. NPO, can advance to clear liquids when symptoms improving LR 200 mL/hr Antiemetics PRN Analgesia PRN No acute indication for endoscopic evaluation Encouraged to remain drug and alcohol free Smoking cessation encouraged Will sign off. Thank you for allowing us to participate in the care of this patient. Please call with any acute changes, questions or concerns. Please see addendum below with additional recommendation from my supervising physician. Admission and Anticipated Discharge Date Admission Date: April 06, 2022 Supervising Physician Co-Signing Physician Notes I saw and evaluated the patient. She needs to discuss the case with my partner (Dr. Lopez), the patient would like to have her procedures done at another center due to complexity and prior complications. Impression: Patient with a history of chronic pancreatitis, would recommend advancing her diet to a low fat diet, may be discharged from a GI perspective. She should have an endoscopic ultrasound with possible drainage of the large pseudocyst in 6 to 8 weeks, this will be done at [facility] per patient choice. The patient was also counseled to consider discontinuation of tobacco use as well as this can certainly lead to persistent pancreatic problems. Please call with any questions or concerns GI to sign off Subjective Pt was seen and evaluated, chart reviewed. Notes her symptoms are unchanged. Persistent abd pain. No nausea. No vomiting. Tolerating clears. No fever overnight Review of Systems Review of Systems: All systems reviewed & are unremarkable except as noted in HPI & below Physical Exam Constitutional: WD/WN, vitals as above Respiratory: normal respiratory effort Cardiovascular: Rate/Rhythm: regular rate and regular rhythm Gastrointestinal (Abdomen): normal bowel sounds, soft, nontender, no hepatosplenomegaly Skin: no rashes, warm and dry Results & Data ([facility]) Vital Signs (Past 12 Hours) Vital Signs Temp Pulse Pulse Resp BP Pulse Ox O2 Del Method 04/07/22 07:33 36.5 C 78 18 100/63 91 Room Air 04/07/22 04:09 36.6 C 71 18 100/63 92 Room Air 04/07/22 02:44 90 04/07/22 00:36 36.9 C 83 20 92/61 L 94 Room Air Laboratory Results 04/07/22 04/07/22 04/07/22 Range/Units 07:47 05:39 05:39 WBC 8.24 (4.8-10.8) K/ul RBC 4.20 (3.93-5.22) M/uL Hgb 11.4 L (12.0-16.0) g/dl Hct 34.9 (34.1-44.9) % MCV 83.1 (80.0-100.0) fL MCH 27.1 (25.0-34.0) pg MCHC 32.7 (32.0-36.0) g/dL RDW Std Deviation 51.8 H (36.4-46.3) fL RDW Coeff of Jasmin 17.1 H (11.5-14.5) % Plt Count 170 (130-400) K/uL MPV 10.0 (9.4-12.3) fL Immature Gran % (Auto) % Neut % (Auto) % Lymph % (Auto) % [place] % (Auto) % Eos % (Auto) % Baso % (Auto) % Neut # (Auto) (1.4-6.5) K/uL Lymph # (Auto) (1.2-3.4) K/uL [place] # (Auto) (0.24-0.82) K/uL Eos # (Auto) (0-0.50) K/uL Baso # (Auto) (0-0.2) K/uL Immature Gran # (Auto) (0.00-0.02) K/uL Sodium 136 (136-145) mmol/L Potassium 3.8 (3.5-5.1) mmol/L Chloride 106 (98-107) mmol/L Carbon Dioxide 25 (21-32) mmol/L Anion Gap 5 (3-11) BUN 5 L (6-23) mg/dl Creatinine 0.51 L (0.6-1.2) mg/dl Est Cr Clr Drug Dosing 173.4 ml/min Est GFR ( Amer) 146.4 ml/min Est GFR (Non-Af Amer) 126.3 ml/min BUN/Creatinine Ratio 9.8 L (10-20) Glucose 90 (70-99(Fasting)) mg/dl POC Glucose 103 H (70-99) mg/dl Calcium 7.8 L (8.5-10.1) mg/dl Total Bilirubin 0.5 (0.2-1.0) mg/dl AST 10 L (13-39) U/L ALT 12 (7-52) U/L Alkaline Phosphatase 60 (34-104) U/L Total Protein 6.1 (6.0-8.3) gm/dl Albumin 3.2 L (3.4-5.0) gm/dl Globulin 2.9 (2.5-4.0) gm/dl Albumin/Globulin Ratio 1.1 (0.9-2) Lipase (11-82) U/L Urine Color Urine Appearance (Clear) Urine pH (4.5-7.5) Ur Specific [place] (1.000-1.030) Urine Protein (Negative) Urine Glucose (UA) (Negative) Urine Ketones (Negative) Urine Blood (Negative) Urine Nitrite (Negative) Urine Bilirubin (Negative) Urine Urobilinogen (Negative) Ur Leukocyte Esterase (Negative) Urine WBC (Auto) (0-5) /hpf Urine RBC (Auto) (0-4) /hpf U Hyaline Cast (Auto) (0-5) /lpf U Epithel Cells (Auto) (0-5) /lpf Urine Bacteria (Auto) (Negative) Urine Mucus (None Prsent) Urine Test (Negative) SARS-CoV-2, RNA, NAAT (NEGATIVE) 04/06/22 04/06/22 04/06/22 Range/Units 20:17 16:44 14:22 WBC (4.8-10.8) K/ul RBC (3.93-5.22) M/uL Hgb (12.0-16.0) g/dl Hct (34.1-44.9) % MCV (80.0-100.0) fL MCH (25.0-34.0) pg MCHC (32.0-36.0) g/dL RDW Std Deviation (36.4-46.3) fL RDW Coeff of Jasmin (11.5-14.5) % Plt Count (130-400) K/uL MPV (9.4-12.3) fL Immature Gran % (Auto) % Neut % (Auto) % Lymph % (Auto) % [place] % (Auto) % Eos % (Auto) % Baso % (Auto) % Neut # (Auto) (1.4-6.5) K/uL Lymph # (Auto) (1.2-3.4) K/uL [place] # (Auto) (0.24-0.82) K/uL Eos # (Auto) (0-0.50) K/uL Baso # (Auto) (0-0.2) K/uL Immature Gran # (Auto) (0.00-0.02) K/uL Sodium (136-145) mmol/L Potassium (3.5-5.1) mmol/L Chloride (98-107) mmol/L Carbon Dioxide (21-32) mmol/L Anion Gap (3-11) BUN (6-23) mg/dl Creatinine (0.6-1.2) mg/dl Est Cr Clr Drug Dosing ml/min Est GFR ( Amer) ml/min Est GFR (Non-Af Amer) ml/min BUN/Creatinine Ratio (10-20) Glucose (70-99(Fasting)) mg/dl POC Glucose 97 115 H 87 (70-99) mg/dl Calcium (8.5-10.1) mg/dl Total Bilirubin (0.2-1.0) mg/dl AST (13-39) U/L ALT (7-52) U/L Alkaline Phosphatase (34-104) U/L Total Protein (6.0-8.3) gm/dl Albumin (3.4-5.0) gm/dl Globulin (2.5-4.0) gm/dl Albumin/Globulin Ratio (0.9-2) Lipase (11-82) U/L Urine Color Urine Appearance (Clear) Urine pH (4.5-7.5) Ur Specific [place] (1.000-1.030) Urine Protein (Negative) Urine Glucose (UA) (Negative) Urine Ketones (Negative) Urine Blood (Negative) Urine Nitrite (Negative) Urine Bilirubin (Negative) Urine Urobilinogen (Negative) Ur Leukocyte Esterase (Negative) Urine WBC (Auto) (0-5) /hpf Urine RBC (Auto) (0-4) /hpf U Hyaline Cast (Auto) (0-5) /lpf U Epithel Cells (Auto) (0-5) /lpf Urine Bacteria (Auto) (Negative) Urine Mucus (None Prsent) Urine Test (Negative) SARS-CoV-2, RNA, NAAT (NEGATIVE) 04/06/22 04/06/22 04/06/22 Range/Units 10:15 10:15 10:15 WBC 14.07 H (4.8-10.8) K/ul RBC 5.20 (3.93-5.22) M/uL Hgb 14.1 (12.0-16.0) g/dl Hct 42.9 (34.1-44.9) % MCV 82.5 (80.0-100.0) fL MCH 27.1 (25.0-34.0) pg MCHC 32.9 (32.0-36.0) g/dL RDW Std Deviation 50.9 H (36.4-46.3) fL RDW Coeff of Jasmin 16.9 H (11.5-14.5) % Plt Count 200 (130-400) K/uL MPV 9.6 (9.4-12.3) fL Immature Gran % (Auto) 0.5 % Neut % (Auto) 80.5 % Lymph % (Auto) 13.2 % [place] % (Auto) 5.5 % Eos % (Auto) 0.1 % Baso % (Auto) 0.2 % Neut # (Auto) 11.33 H (1.4-6.5) K/uL Lymph # (Auto) 1.86 (1.2-3.4) K/uL [place] # (Auto) 0.77 (0.24-0.82) K/uL Eos # (Auto) 0.01 (0-0.50) K/uL Baso # (Auto) 0.03 (0-0.2) K/uL Immature Gran # (Auto) 0.07 H (0.00-0.02) K/uL Sodium 135 L (136-145) mmol/L Potassium 3.9 (3.5-5.1) mmol/L Chloride 100 (98-107) mmol/L Carbon Dioxide 26 (21-32) mmol/L Anion Gap 9 (3-11) BUN 8 (6-23) mg/dl Creatinine 0.59 L (0.6-1.2) mg/dl Est Cr Clr Drug Dosing 147.6 ml/min Est GFR ( Amer) 139.6 ml/min Est GFR (Non-Af Amer) 120.4 ml/min BUN/Creatinine Ratio 13.6 (10-20) Glucose 101 H (70-99(Fasting)) mg/dl POC Glucose (70-99) mg/dl Calcium 9.4 (8.5-10.1) mg/dl Total Bilirubin 0.5 (0.2-1.0) mg/dl AST 10 L (13-39) U/L ALT 14 (7-52) U/L Alkaline Phosphatase 75 (34-104) U/L Total Protein 7.5 (6.0-8.3) gm/dl Albumin 4.1 (3.4-5.0) gm/dl Globulin 3.4 (2.5-4.0) gm/dl Albumin/Globulin Ratio 1.2 (0.9-2) Lipase 750 H (11-82) U/L Urine Color Urine Appearance (Clear) Urine pH (4.5-7.5) Ur Specific [place] (1.000-1.030) Urine Protein (Negative) Urine Glucose (UA) (Negative) Urine Ketones (Negative) Urine Blood (Negative) Urine Nitrite (Negative) Urine Bilirubin (Negative) Urine Urobilinogen (Negative) Ur Leukocyte Esterase (Negative) Urine WBC (Auto) (0-5) /hpf Urine RBC (Auto) (0-4) /hpf U Hyaline Cast (Auto) (0-5) /lpf U Epithel Cells (Auto) (0-5) /lpf Urine Bacteria (Auto) (Negative) Urine Mucus (None Prsent) Urine Test (Negative) SARS-CoV-2, RNA, NAAT NEGATIVE (NEGATIVE) 04/06/22 04/06/22 Range/Units 09:45 09:45 WBC (4.8-10.8) K/ul RBC (3.93-5.22) M/uL Hgb (12.0-16.0) g/dl Hct (34.1-44.9) % MCV (80.0-100.0) fL MCH (25.0-34.0) pg MCHC (32.0-36.0) g/dL RDW Std Deviation (36.4-46.3) fL RDW Coeff of Jasmin (11.5-14.5) % Plt Count (130-400) K/uL MPV (9.4-12.3) fL Immature Gran % (Auto) % Neut % (Auto) % Lymph % (Auto) % [place] % (Auto) % Eos % (Auto) % Baso % (Auto) % Neut # (Auto) (1.4-6.5) K/uL Lymph # (Auto) (1.2-3.4) K/uL [place] # (Auto) (0.24-0.82) K/uL Eos # (Auto) (0-0.50) K/uL Baso # (Auto) (0-0.2) K/uL Immature Gran # (Auto) (0.00-0.02) K/uL Sodium (136-145) mmol/L Potassium (3.5-5.1) mmol/L Chloride (98-107) mmol/L Carbon Dioxide (21-32) mmol/L Anion Gap (3-11) BUN (6-23) mg/dl Creatinine (0.6-1.2) mg/dl Est Cr Clr Drug Dosing ml/min Est GFR ( Amer) ml/min Est GFR (Non-Af Amer) ml/min BUN/Creatinine Ratio (10-20) Glucose (70-99(Fasting)) mg/dl POC Glucose (70-99) mg/dl Calcium (8.5-10.1) mg/dl Total Bilirubin (0.2-1.0) mg/dl AST (13-39) U/L ALT (7-52) U/L Alkaline Phosphatase (34-104) U/L Total Protein (6.0-8.3) gm/dl Albumin (3.4-5.0) gm/dl Globulin (2.5-4.0) gm/dl Albumin/Globulin Ratio (0.9-2) Lipase (11-82) U/L Urine Color Dark Yellow Urine Appearance Clear (Clear) Urine pH 5.5 (4.5-7.5) Ur Specific [place] 1.028 (1.000-1.030) Urine Protein 1+ H (Negative) Urine Glucose (UA) Negative (Negative) Urine Ketones Trace H (Negative) Urine Blood Negative (Negative) Urine Nitrite Negative (Negative) Urine Bilirubin 1+ H (Negative) Urine Urobilinogen Negative (Negative) Ur Leukocyte Esterase Trace H (Negative) Urine WBC (Auto) 1-5 (0-5) /hpf Urine RBC (Auto) 0-4 (0-4) /hpf U Hyaline Cast (Auto) 1-5 (0-5) /lpf U Epithel Cells (Auto) >30 H (0-5) /lpf Urine Bacteria (Auto) Negative (Negative) Urine Mucus Present A (None Prsent) Urine Test Negative (Negative) SARS-CoV-2, RNA, NAAT (NEGATIVE)
[2022-04-07] MEDS: LIDOCAINE 5% 1 PATCH TD SCH (09:23)
[2022-04-07] MEDS: POLYETHYLENE (MIRALAX) 17 GM PACK PO SCH (17:18)
[2022-04-07] MEDS: oxyCODONE HCL IR 5 MG TAB (IMMEDIATE RELEASE) PO PRN (17:20)
[2022-04-07] MEDS ORDERED: oxyCODONE HCL IR 5 MG TAB (IMMEDIATE RELEASE) PO STA (18:30)
[2022-04-07] MEDS: oxyCODONE HCL 20 MG TABCR (OxyCONTIN) PO SCH (20:46)
[2022-04-07] MEDS: AMITRIPTYLINE HCL 25 MG TAB PO SCH (20:48)
--- NOTE | 2022-04-07 22:32 | Hospitalist Progress Note ---
Date of Service April 07, 2022 Assessment & Plan (1) Acute pancreatitis: Plan: -Admit to med/tele -Patient is currently afebrile, hemodynamically stable and stable on RA -Patient has a long history of idiopathic recurrent pancreatitis, noted to have CT findings today suggestive of acute pancreatitis -Has had poor oral intake over the past week with pain radiating to her back -Lipase today is in the 700's, patient states it has been much higher previously, such as the s -CT of the abd/pelvis showing acute pancreatitis with new pseudocyst is noted in the left upp quadrant omentum. 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 Patient will advance diet on 04/07. will continue to monitor patient. transition pain medicine to PO> (2) Prediabetes: Plan: -Patient was recently started on metformin after her last PCP visit on 03/28 -Will hold metformin for now -Goal BSG is 110-140 -Monitor BSG while having poor oral intake -Will start with a correction factor of 45 and carb ration of 16, increase as needed (3) Iron deficiency: Plan: -Continue iron (4) Low back pain: Plan: -Appears to be a combination of musculoskeletal and possible referred pain from pancreatitis -No red flag symptoms -Will start with pain regimen as listed in acute pancreatitis (5) Constipation: Plan: -No BM in the past 3 days -Patient is still passing gas -No bowel obstruction on CT today -Continue IV hydration and will start BID colace (6) Vitamin D deficiency: Plan: -Continue vitamin D (7) B12 deficiency: Plan: -Continue B12 (8) Smoker: Plan: -Will order nicotine patches Admission and Anticipated Discharge Date Admission Date: April 06, 2022 Subjective Patient reports having some nausea. She is attributing this to not eating as much. Patient is interested in advancing her diet. Review of Systems Review of Systems: All systems reviewed & are unremarkable except as noted in HPI & below Physical Exam Physical Exam: Physical Exam: General: In no acute distress, stated age, well-nourished, good hygiene, non- toxic appearing HEENT: Normocephalic, atraumatic, no scleral icterus, pupils around round, symmetrical, and reactive to light, dry mucus membranes, trachea midline, no thyromegaly Chest/Pulm: No respiratory distress, symmetrical chest expansion, clear breath sounds throughout Cardiac: RRR, no murmurs noted Abdomen: Negative for ascites and bruising, normoactive bowel sounds, soft, tender to palpation in the epigastric region and the LUQ, Musculoskeletal: Symmetrical and without signs of acute trauma, upper and lower extremities with full ROM, no atrophy, spasticity, or flaccidity. Patient with tenderness to palpation over the left lumbar paraspinal muscles, no deformities or skin discoloration noted on exam or palpation of the entire spine Extremities: Radial, dorsalis pedis, and posterior tibial pulses are intact and symmetrical, no edema noted in the BL LE's Skin: Warm, dry, no rashes , lesions, or scars noted Neuro: Alert and oriented to person, place, month, year, and president, no focal defects, CN II-XII tested and intact, finger to nose test negative, no tremors noted Psych: No acute distress, calm, flat affect, cooperative during the exam Results & Data Results & Data ([facility]) Vital Signs (Past 12 Hours) Vital Signs Temp Pulse Pulse Resp BP Pulse Ox O2 Del Method 04/07/22 20:00 36.7 C 77 20 142/89 H 97 Room Air 04/07/22 18:30 91 H 04/07/22 15:24 91 H 04/07/22 15:10 37.0 C 89 18 123/78 97 Room Air 04/07/22 13:38 95 Room Air 04/07/22 11:31 36.7 C 77 20 107/65 91 Room Air PG Care Time/CCT Total # of Minutes Spent Total Time Spent with Patient: Total time spent is greater than 50% in coordination of care (as documented) at patient's floor/unit and/or counseling patient: Coding Level of Care Code 78625 Subseq Hosp Care Lvl 2 Diagnoses Acute pancreatitis K85.90 Prediabetes R73.03 Iron deficiency E61.1 Low back pain M54.5 Constipation K59.00 Vitamin D deficiency E55.9 B12 deficiency E53.8 Smoker F17.200 Time Spent (min) 25
[2022-04-08] MEDS: oxyCODONE HCL 20 MG TABCR (OxyCONTIN) PO SCH (06:06)
[2022-04-08] MEDS: INSULIN ASPART PER UNIT SC SCH ×2 (08:00→12:13)
[2022-04-08 08:01] LABS: Hematocrit (blood only) 35.3 % (34.1-44.9); Hemoglobin 11.6 g/dl (12.0-16.0); Mean Corpuscular Hemoglobin 27.5 pg (25.0-34.0); Mean Corpuscular Hgb Conc 32.9 g/dL (32.0-36.0); Mean Corpuscular Volume 83.6 fL (80.0-100.0); Platelet Count 164 K/uL (130-400); RDW Coefficient of Variation 17.1 % (11.5-14.5); RDW Standard Deviation 51.8 fL (36.4-46.3); Red Blood Count 4.22 M/uL (3.93-5.22); White Blood Count 9.12 K/ul (4.8-10.8)
[2022-04-08 08:29] LABS: Albumin Globulin Ratio 1.1 (0.9-2); Albumin Level 3.4 gm/dl (3.4-5.0); BUN Creatinine Ratio 10.2 (10-20); Bilirubin,Total 0.3 mg/dl (0.2-1.0); Calcium 8.1 mg/dl (8.5-10.1); Est GFR (African American) 139.6 ml/min; Est GFR (Non-African American) 120.4 ml/min; Globulin 3.1 gm/dl (2.5-4.0); Total Protein 6.5 gm/dl (6.0-8.3)
[2022-04-08] MEDS: NICOTINE 21 MG/24 HR TDSY TD SCH (08:29)
[2022-04-08] MEDS: LIDOCAINE 5% 1 PATCH TD SCH (08:30)
[2022-04-08] MEDS: CHOLECALCIFEROL 1,000 UNITS 25 MCG TAB PO SCH (08:30)
[2022-04-08] MEDS: BACLOFEN 10 MG TAB PO SCH (08:30)
[2022-04-08] MEDS: DOCUSATE SODIUM 100 MG CAP PO SCH (08:30)
[2022-04-08] MEDS: CYANOCOBALAMIN (B-12) 2,500 MCG TABLET SL SCH (08:30)
[2022-04-08] MEDS: FERROUS SULFATE 325 MG TAB PO SCH (08:30)
[2022-04-08] MEDS: PANTOprazole 40 MG in SYRINGE 0 ML IV SCH (08:31)
[2022-04-08] MEDS: POLYETHYLENE (MIRALAX) 17 GM PACK PO SCH (08:31)
[2022-04-08] MEDS: PREGABALIN 75 MG CAP PO SCH ×2 (08:34→12:50)
[2022-04-08] MEDS: oxyCODONE HCL IR 5 MG TAB (IMMEDIATE RELEASE) PO PRN (10:10)
[2022-04-08] MEDS ORDERED: ACETAMINOPHEN 500 MG TAB PO PRN (11:25)
[2022-04-08] MEDS ORDERED: PANTOprazole 40 MG TAB PO SCH (21:00)
== END 2022-04-08 13:05 | disposition home or self-care (01) ==
LOC: 2N 08:56 → ED 08:56 → 2N 13:44

== ENCOUNTER 2022-04-27 07:30 | Observation (INO) ==
[2022-04-27] MEDS ORDERED: SODIUM CHLORIDE 0.9% 1000ML 1,000 ML IV STA (07:37)
--- NOTE | 2022-04-27 08:04 | Emergency Department Note ---
History of Present Illness General Chief complaint: Referred by Doctor Stated complaint: FLUID BUILT UP ON PANCREAS Time Seen by Provider: 04/27/22 07:36 History of Present Illness Maximum Pain Intensity: 10 32-year-old female, history of chronic pancreatitis, who returns to the emergency department with with worsening symptoms for the past several days. She reports left-sided abdominal pain. The patient was in the emergency department last evening. Because of heavy volume, the patient was in the emergency department waiting room, but did have lab work and CT imaging performed, progressive acute pancreatitis as well as a new rim-enhancing 4.3 x 1.6 cm fluid collection, in addition to other small fluid collections consistent with previous pseudocyst. On review of her labs, she was noted to have a leukocytosis of 16 with a left shift, and her lipase was elevated at 281. The [facility] Hospitalist service (Dr. Pugh) agreed that the patient could be admitted to their service, however the patient "was tired and wished to sleep at home, and would return in the morning for admission." The patient denies any fevers, chills, or vomiting. The patient currently rates her discomfort a 10 out of 10. Home Medications Medication Instructions Recorded Confirmed Type aripiprazole 300 mg intramuscular 300 mg IM Q28D 07/05/21 04/27/22 History suspension,extended release (Abilify Maintena) amitriptyline 25 mg tablet 25 mg PO HS 09/29/21 04/27/22 History cholecalciferol (vitamin D3) 50 50 mcg PO BID #30 caps 12/16/21 04/27/22 Rx mcg (2,000 unit) capsule cyanocobalamin (vitamin B-12) 2,500 mcg sublingual DAILY #30 tabs 12/16/21 04/27/22 Rx 2,500 mcg sublingual tablet ferrous sulfate 325 mg (65 mg 325 mg PO DAILY #60 tabs 12/16/21 04/27/22 Rx iron) tablet pantoprazole 40 mg tablet,delayed 40 mg PO BID #60 tabs 12/29/21 04/27/22 Rx release ondansetron 4 mg disintegrating 4 mg PO Q8H PRN nausea and 01/12/22 04/27/22 Rx tablet vomiting #30 tabs baclofen 10 mg tablet 10 mg PO DAILY #30 tabs 03/28/22 04/27/22 Rx metformin 500 mg tablet 500 mg PO BID #60 tabs 03/28/22 04/27/22 Rx pregabalin 75 mg capsule (Lyrica) 75 mg PO TID 03/28/22 04/27/22 History galcanezumab-gnlm 120 mg/mL 120 mg subcut ONCE 30 days #30 mL 03/29/22 04/27/22 Rx subcutaneous pen injector (Emgality Pen) docusate sodium 100 mg capsule 100 mg PO BID PRN constipation #30 04/08/22 04/27/22 Rx caps nicotine 21 mg/24 hr daily 21 mg transdermal QAM #28 ea 04/08/22 04/27/22 Rx transdermal patch (Nicoderm CQ) oxycodone 5 mg tablet 5 mg PO Q4H PRN pain #20 tabs 04/08/22 04/27/22 Rx Allergies Allergy/AdvReac Type Severity Reaction Status Date / Time adhesive Allergy Mild RASH Verified 04/27/22 15:50 nickel Allergy Mild RASH Verified 04/27/22 15:50 morphine AdvReac Severe Body fells Verified 04/27/22 15:50 like it is on fire Past Med/Surg History Medical History Asthma well controlled; worse in winter Chronic pancreatitis Constipation GERD (gastroesophageal reflux disease) History of varicella Homicidal ideation Hx of chlamydia infection Hx of drug dependence Hx of ovarian cyst Hx of pancreatitis Migraine Obesity Prediabetes Pulmonary nodule yearly imaging Smoker Surgical History H/O oral surgery History of cholecystectomy History of ERCP S/P tonsillectomy and adenoidectomy Family History Mother Diabetes Dyslipidemia Hypertension Grandmother (Paternal) Diabetes Aunt Diabetes Denies family history of Ovarian cancer Prostate cancer Myocardial infarction Breast cancer Colorectal cancer Social History Smoking Status: Current every day smoker Tobacco Type: Cigarettes Age Started Using Tobacco: 11; packs per day: 1; Cigarettes Per Day: 10-20 PER DAY - ADVISED; Second Hand Exposure: No; Do You Dip or Chew Tobacco: No; Tobacco Cessation Education Requested by Patient: No Hx Alcohol Use: No Hx Substance Use: No Preferred Language: German Communication Ability: Effective 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 Beliefs That Will Affect Care: None marital status: Single Current Living Situation: Significant Other Current Living Situation Comment: allie current occupational status: employed Other Information That Helps Us Care for You: No Feels Safe at Home: Yes Safety Concerns: Feels Safe At This Time Dental Care, Regularly: Yes Physical Activity Frequency: Does not Exercise Seatbelt Use: always Sunscreen Use: No Assistive Devices: Glasses Review of Systems 10 system review was performed and was negative except for pertinent positives and negatives as indicated in history of present illness Physical Exam Vital Signs Vital Signs - 24 hr 04/27/22 07:35 Temperature 36.0 C L Temperature Source Temporal Artery Scan Pulse Rate 113 H Respiratory Rate 18 Blood Pressure 128/84 Blood Pressure Mean 98 Pulse Oximetry 97 Oxygen Delivery Method Room Air Sepsis New/Unexplained Change in Mental Status No Sepsis Action Taken by Nursing No Action Required CONSTITUTIONAL: Healthy and well nourished. Patient does not appear in any significant distress or toxic. HEENT: No scleral icterus or conjunctival injection/pallor. NECK: Full active range of motion without discomfort. LYMPHATICS: No cervical chain adenopathy. RESPIRATORY: Clear to auscultation bilaterally with no wheezing, crackles, rhonchi or stridor. CARDIOVASCULAR: Regular rate and rhythm with no murmurs, rubs or gallops. GASTROINTESTINAL: Bowel sounds present in all quadrants. Patient has generalized epigastric and left upper quadrant tenderness to palpation without rigidity, guarding or rebound. MUSCULOSKELETAL: Full range of motion of all joints without discomfort. INTEGUMENTARY: No rash or other significant dermatologic conditions noted. HEMATOLOGIC: No ecchymosis or petechiae. PSYCHIATRIC: Positive affect. NEUROLOGIC: No focal neurologic deficits noted. Course Course Patient history and physical exam were performed. Nurses notes were reviewed. I also reviewed documentation from last night, as well as review of labs. The patient agreed to admission today. I therefore placed repeat orders for labs, which were reviewed, which were reviewed and showed a mildly elevated lipase. Her white count has mild improvement with lessening left shift and bandemia. It is noted that the patient serum yesterday was negative. Findings were discussed with Dr. Costa, ED attending physician, as well as the [facility] hospitalist service, who agrees with admission. COVID-19 test was ordered and was negative. Please see the hospitalist service reports for furth er treatment and final disposition. Administered Medications Cyanocobalamin (Cyanocobalamin (B-12) 2,500 Mcg Tablet) 2,500 mcg SL DAILY MANI Stop: 05/27/22 10:23 Last Admin: 04/27/22 11:33 Dose: 2,500 mcg Documented By: ALBERTO Ferrous Sulfate (Ferrous Sulfate 325 Mg Tab) 325 mg PO DAILY MANI Stop: 05/27/22 08:59 Last Admin: 04/27/22 11:33 Dose: 325 mg Documented By: ALBERTO Acetaminophen (Ofirmev) 1,000 mg in 100 mls @ 400 mls/hr IV Q8H MANI Stop: 04/30/22 10:23 Last Infusion: 04/27/22 11:34 Dose: 0 mls/hr Documented By: Admin: 04/27/22 11:12 Dose: 400 mls/hr Documented By: ALBERTO Lactated Ringer's (Lr) 1,000 mls @ 200 mls/hr IV .Q5H MANI Stop: 04/27/22 20:23 Last Admin: 04/27/22 15:34 Dose: 200 mls/hr Documented By: Infusion: 04/27/22 15:32 Dose: 0 mls/hr Documented By: Admin: 04/27/22 11:10 Dose: 200 mls/hr Documented By: ALBERTO Pantoprazole Sodium (Pantoprazole 40 Mg Tab) 40 mg PO BID [facility] Stop: 05/27/22 10:23 Last Admin: 04/27/22 11:33 Dose: 40 mg Documented By: ALBERTO Pregabalin (Pregabalin 75 Mg Cap) 75 mg PO TID [facility] Stop: 05/27/22 10:23 Last Admin: 04/27/22 15:30 Dose: 75 mg Documented By: Admin: 04/27/22 11:33 Dose: 75 mg Documented By: ALBERTO Discontinued Medications Hydromorphone HCl (Hydromorphone Inj 0.5 Mg/0.5 Ml Syr) 0.5 mg IV NOW STA Stop: 04/27/22 08:34 Last Admin: 04/27/22 09:31 Dose: 0.5 mg Documented By: AM Hydromorphone HCl (Hydromorphone Inj 1 Mg/Ml Syringe) 1 mg IV Q6H PRN PRN Reason: Pain 6-10 Stop: 05/11/22 10:23 Last Admin: 04/27/22 15:56 Dose: 1 mg Documented By: Admin: 04/27/22 12:12 Dose: 1 mg Documented By: MELCHOR Sodium Chloride (Nss 1000ml) 1,000 mls @ 999 mls/hr IV .Q1H1M STA Stop: 04/27/22 08:37 Last Infusion: 04/27/22 09:23 Dose: 0 mls/hr Documented By: Admin: 04/27/22 08:23 Dose: 999 mls/hr Documented By: KELLY Ondansetron HCl (Ondansetron Inj 2 Mg/Ml 2 Ml Vial) 4 mg IV NOW STA Stop: 04/27/22 08:34 Last Admin: 04/27/22 09:30 Dose: 4 mg Documented By: MARTIN Medical Decision Making Medical Records Attestation: I reviewed the patient's medical records. Home Medications Current Medication List: was personally reviewed by me Laboratory Data Attestation: I reviewed the patient's lab results. (Labs were reviewed from yesterday as well, and compared to today's labs) 04/27/22 08:20 04/27/22 08:20 Lab Results 04/27/22 04/27/22 04/27/22 Range/Units 08:20 08:20 08:23 WBC 13.56 H (4.8-10.8) K/ul RBC 4.93 (3.93-5.22) M/uL Hgb 13.3 (12.0-16.0) g/dl Hct 40.5 (34.1-44.9) % MCV 82.2 (80.0-100.0) fL MCH 27.0 (25.0-34.0) pg MCHC 32.8 (32.0-36.0) g/dL RDW Std Deviation 49.2 H (36.4-46.3) fL RDW Coeff of Jasmin 16.5 H (11.5-14.5) % Plt Count 356 (130-400) K/uL MPV 9.3 L (9.4-12.3) fL Immature Gran % (Auto) 0.7 % Neut % (Auto) 76.7 % Lymph % (Auto) 15.1 % [place] % (Auto) 5.9 % Eos % (Auto) 1.4 % Baso % (Auto) 0.2 % Neut # (Auto) 10.40 H (1.4-6.5) K/uL Lymph # (Auto) 2.05 (1.2-3.4) K/uL [place] # (Auto) 0.80 (0.24-0.82) K/uL Eos # (Auto) 0.19 (0-0.50) K/uL Baso # (Auto) 0.03 (0-0.2) K/uL Immature Gran # (Auto) 0.09 H (0.00-0.02) K/uL Sodium 136 (136-145) mmol/L Potassium 4.0 (3.5-5.1) mmol/L Chloride 103 (98-107) mmol/L Carbon Dioxide 24 (21-32) mmol/L Anion Gap 9 (3-11) BUN 6 (6-23) mg/dl Creatinine 0.61 (0.6-1.2) mg/dl Est Cr Clr Drug Dosing 142.1 ml/min Est GFR ( Amer) 138.1 ml/min Est GFR (Non-Af Amer) 119.1 ml/min BUN/Creatinine Ratio 9.8 L (10-20) Glucose 94 (70-99(Fasting)) mg/dl Calcium 9.0 (8.5-10.1) mg/dl Total Bilirubin 0.3 (0.2-1.0) mg/dl AST 10 L (13-39) U/L ALT 11 (7-52) U/L Alkaline Phosphatase 77 (34-104) U/L Total Protein 7.6 (6.0-8.3) gm/dl Albumin 3.9 (3.4-5.0) gm/dl Globulin 3.7 (2.5-4.0) gm/dl Albumin/Globulin Ratio 1.1 (0.9-2) Lipase 387 H (11-82) U/L SARS-CoV-2, RNA, NAAT NEGATIVE (NEGATIVE) Blood Pressure Blood Pressure Findings: Normal blood pressure MDM Narrative Patient presents the emergency department with a recurrent pancreatitis, and worsening imaging on CT. I do feel that admission is warranted for supportive measures, as well as GI consultation to determine further course of treatment. Impression & Plan Acute on chronic pancreatitis, Pancreatic pseudocyst Discharge Plan Visit Data Chief Complaint: Referred by Doctor Stated Complaint: FLUID BUILT UP ON PANCREAS ED Provider: Yash Costa ED Midlevel Provider: Sam Yu Discharge Problem: Acute on chronic pancreatitis, Pancreatic pseudocyst Discharge Instructions Interventions: ED Discharge Assessment Last Done: 04/27/22 10:24
[2022-04-27] MEDS ORDERED: HYDROmorphone INJ 0.5 MG/0.5 ML SYR IV STA ×2 (08:33→22:38)
[2022-04-27] MEDS ORDERED: ONDANSETRON INJ 2 MG/ML 2 ML VIAL IV STA (08:33)
[2022-04-27 08:38] LABS: Basophils # (auto) 0.03 K/uL (0-0.2); Basophils % (auto) 0.2 %; Eosinophils # (auto) 0.19 K/uL (0-0.50); Eosinophils % (auto) 1.4 %; Hematocrit (blood only) 40.5 % (34.1-44.9); Hemoglobin 13.3 g/dl (12.0-16.0); Immature Granulocytes # (auto) 0.09 K/uL (0.00-0.02); Immature Granulocytes % (auto) 0.7 %; Lymphocytes # (auto) 2.05 K/uL (1.2-3.4); Lymphocytes % (auto) 15.1 %; Mean Corpuscular Hgb Conc 32.8 g/dL (32.0-36.0); Mean Corpuscular Volume 82.2 fL (80.0-100.0); Mean Platelet Volume 9.3 fL (9.4-12.3); Monocytes % (auto) 5.9 %; Neutrophils % (auto) 76.7 %; Platelet Count 356 K/uL (130-400); RDW Coefficient of Variation 16.5 % (11.5-14.5); RDW Standard Deviation 49.2 fL (36.4-46.3); Red Blood Count 4.93 M/uL (3.93-5.22); White Blood Count 13.56 K/ul (4.8-10.8)
--- NOTE | 2022-04-27 08:41 | History & Physical Report ---
Date of Service April 27, 2022 Assessment & Plan (1) Acute pancreatitis: Plan: Patient is a 32 yo female with PMHx of pancreatitis, recurrent pseudocyst, bipolar disorder, hypertriglyceridemia, prediabetes, iron deficiency, vitamin D deficiency, and vitamin B12 deficiency admitted to [facility] on 04/27/22 with acute on chronic pancreatitis and pseudocyst. Acute on chronic pancreatitis w/ pancreatic pseudocyst - CT A/P 04/26/22: "Progressive left upper quadrant inflammation since CT of April 06, 2022. This likely originates from the pancreatic body and tail. This is suggestive of progressive acute pancreatitis." and "New rim-enhancing 4.3 x 1.6 cm fluid collection along the medial aspect of the spleen. This likely reflects an acute peripancreatic fluid collection. Additional smaller 1.6 cm fluid collection along the undersurface of the pancreatic body. Decrease in size of the suspected pseudocyst within the omentum." - Initially NPO on admission but will change to clear liquid diet and advance diet as tolerated - Pain control with Tylenol 1000mg and Dilaudid 1mg IV q4h prn - Zofran prn - Continue home Lyrica as rx by [facility] - IVF with LR at 200 cc/hr x2 L - Mild leukocytosis, likely reactive - Repeat BMP and CBC in the AM Prediabetes - Hold metformin - Will continue to monitor BG with daily BMP - Hold on ISS at this time Iron deficiency - Continue home regimen Vitamin deficiency - Patient with hx of vitamin D deficiency and vitamin B12 deficiency - Replete per home regimen Tobacco Use - Patient reports smoking 1ppd - Encourage cessation FENGI: clear liquid diet, LR at 200 cc/hr DVT ppx: Encourage ambulation; will hold on chemo ppx at this time Dispo: admit to med/surg Code status: FULL CODE (2) Pancreatic pseudocyst: (3) Prediabetes: (4) Iron deficiency: (5) Vitamin D deficiency: (6) B12 deficiency: (7) Smoker: History of Present Illness Primary Care Provider: Stefanie Crowder MD Patient is a 32 yo female with PMHx of pancreatitis, recurrent pseudocyst, bi polar disorder, hypertriglyceridemia, prediabetes, iron deficiency, vitamin D deficiency, and vitamin B12 deficiency who presented to the [facility] ER on 04/26/22 with complaint of left sided abdominal pain x1 week. Patient describes the pain as a pulled muscle sensation, most prominent on left side. She also complains of bulge on left upper side. Patient rates the pain at a 10/10. She took a dose of oxycodone prior to arrival w/o significant relief of pain. She does note that laying in bed improves the pain. There are no other exacerbating or mitigating factors. Patient does note that the current symptoms are reminiscent of similar episodes of acute on chronic pancreatitis. She continues to smoke 1 ppd; denies alcohol consumption or illicit drug use. Patient was initially seen in the ED last night but due to high volume, she left after having labs and a CT scan. The results of the CT A/P include "Progressive left upper quadrant inflammation since CT of April 06, 2022. This likely originates from the pancreatic body and tail. This is suggestive of progressive acute pancreatitis." and "New rim-enhancing 4.3 x 1.6 cm fluid collection along the medial aspect of the spleen. This likely reflects an acute peripancreatic fluid collection. Additional smaller 1.6 cm fluid collection along the undersurface of the pancreatic body. Decrease in size of the suspected pseudocyst within the omentum." Labs showed leukocytosis at 16 w/ left shift and elevated lipase at 281 (it was 387 on presentation today). Thus, she was called and advised to return to the hospital for further care. Patient reports no change in symptoms since initial presentation. She is COVID negative. Allergies Allergy/AdvReac Type Severity Reaction Status Date / Time adhesive Allergy Mild RASH Verified 04/27/22 15:50 nickel Allergy Mild RASH Verified 04/27/22 15:50 morphine AdvReac Severe Body fells Verified 04/27/22 15:50 like it is on fire Home Medications Medication Instructions Recorded Confirmed Type aripiprazole 300 mg intramuscular 300 mg IM Q28D 07/05/21 04/27/22 History suspension,extended release (Abilifwilliam Maintena) amitriptyline 25 mg tablet 25 mg PO HS 09/29/21 04/27/22 History cholecalciferol (vitamin D3) 50 50 mcg PO BID #30 caps 12/16/21 04/27/22 Rx mcg (2,000 unit) capsule cyanocobalamin (vitamin B-12) 2,500 mcg sublingual DAILY #30 tabs 08/25/22 01/04/23 Rx 2,500 mcg sublingual tablet ferrous sulfate 325 mg (65 mg 325 mg PO DAILY #60 tabs 12/16/21 04/27/22 Rx iron) tablet pantoprazole 40 mg tablet,delayed 40 mg PO BID #60 tabs 12/29/21 04/27/22 Rx release ondansetron 4 mg disintegrating 4 mg PO Q8H PRN nausea and 01/12/22 04/27/22 Rx tablet vomiting #30 tabs baclofen 10 mg tablet 10 mg PO DAILY #30 tabs 03/28/22 04/27/22 Rx metformin 500 mg tablet 500 mg PO BID #60 tabs 03/28/22 04/27/22 Rx pregabalin 75 mg capsule (Lyrica) 75 mg PO TID 03/28/22 04/27/22 History galcanezumab-gnlm 120 mg/mL 120 mg subcut ONCE 30 days #30 mL 03/29/22 04/27/22 Rx subcutaneous pen injector (Emgality Pen) docusate sodium 100 mg capsule 100 mg PO BID PRN constipation #30 04/08/22 04/27/22 Rx caps nicotine 21 mg/24 hr daily 21 mg transdermal QAM #28 ea 04/08/22 04/27/22 Rx transdermal patch (Nicoderm CQ) oxycodone 5 mg tablet 5 mg PO Q4H PRN pain #20 tabs 04/08/22 04/27/22 Rx Past Med/Surg History Medical History Asthma well controlled; worse in winter Chronic pancreatitis Constipation GERD (gastroesophageal reflux disease) History of varicella Homicidal ideation Hx of chlamydia infection Hx of drug dependence Hx of ovarian cyst Hx of pancreatitis Migraine Obesity Prediabetes Pulmonary nodule yearly imaging Smoker Surgical History H/O oral surgery History of cholecystectomy History of ERCP S/P tonsillectomy and adenoidectomy Family History Mother Diabetes Dyslipidemia Hypertension Grandmother (Paternal) Diabetes Aunt Diabetes Denies family history of Ovarian cancer Prostate cancer Myocardial infarction Breast cancer Colorectal cancer Social History Smoking Status: Current every day smoker Tobacco Type: Cigarettes Age Started Using Tobacco: 11; packs per day: 1; Cigarettes Per Day: 10-20 PER DAY - ADVISED; Second Hand Exposure: No; Do You Dip or Chew Tobacco: No; Tobacco Cessation Education Requested by Patient: No Hx Alcohol Use: No Hx Substance Use: No Preferred Language: Yoruba Communication Ability: Effective Java Web Services Developer Required: No Beliefs That Will Affect Care: None marital status: Single Current Living Situation: Significant Other Current Living Situation Comment: allie current occupational status: employed Other Information That Helps Us Care for You: No Feels Safe at Home: Yes Safety Concerns: Feels Safe At This Time Dental Care, Regularly: Yes Physical Activity Frequency: Does not Exercise Seatbelt Use: always Sunscreen Use: No Assistive Devices: Glasses Review of Systems Review of Systems: See HPI Physical Exam Physical Exam: GENERAL: No acute distress. Well developed and well nourished. Vital signs reviewed; patient is afebrile and normotensive. EYES: EOMI. Anicteric sclerae. HENT: Moist mucous membranes. RESPIRATORY: Clear to auscultation bilaterally. No wheezing, rales, or rhonchi. CARDIOVASCULAR: Regular rate and rhythm. No murmurs. ABDOMEN: Soft. Non-distended. Normal bowel sounds. Epigastric and LUQ tenderness to palpation. EXTREMITIES: No edema. Non-tender. SKIN: Warm, dry. NEUROLOGIC: A/O x3. Normal speech. PSYCHIATRIC: Cooperative. Appropriate mood and affect. Results & Data Results & Data ([facility]) Vital Signs (Past 12 Hours) Vital Signs Temp Pulse Resp BP Pulse Ox O2 Del Method 04/27/22 07:35 36.0 C L 113 H 18 128/84 97 Room Air Laboratory Results 04/27/22 04/27/22 04/27/22 Range/Units 08:23 08:20 08:20 WBC 13.56 H (4.8-10.8) K/ul RBC 4.93 (3.93-5.22) M/uL Hgb 13.3 (12.0-16.0) g/dl Hct 40.5 (34.1-44.9) % MCV 82.2 (80.0-100.0) fL MCH 27.0 (25.0-34.0) pg MCHC 32.8 (32.0-36.0) g/dL RDW Std Deviation 49.2 H (36.4-46.3) fL RDW Coeff of Jasmin 16.5 H (11.5-14.5) % Plt Count 356 (130-400) K/uL MPV 9.3 L (9.4-12.3) fL Immature Gran % (Auto) 0.7 % Neut % (Auto) 76.7 % Lymph % (Auto) 15.1 % [place] % (Auto) 5.9 % Eos % (Auto) 1.4 % Baso % (Auto) 0.2 % Neut # (Auto) 10.40 H (1.4-6.5) K/uL Lymph # (Auto) 2.05 (1.2-3.4) K/uL [place] # (Auto) 0.80 (0.24-0.82) K/uL Eos # (Auto) 0.19 (0-0.50) K/uL Baso # (Auto) 0.03 (0-0.2) K/uL Immature Gran # (Auto) 0.09 H (0.00-0.02) K/uL Sodium 136 (136-145) mmol/L Potassium 4.0 (3.5-5.1) mmol/L Chloride 103 (98-107) mmol/L Carbon Dioxide 24 (21-32) mmol/L Anion Gap 9 (3-11) BUN 6 (6-23) mg/dl Creatinine 0.61 (0.6-1.2) mg/dl Est Cr Clr Drug Dosing 142.1 ml/min Est GFR ( Amer) 138.1 ml/min Est GFR (Non-Af Amer) 119.1 ml/min BUN/Creatinine Ratio 9.8 L (10-20) Glucose 94 (70-99(Fasting)) mg/dl Calcium 9.0 (8.5-10.1) mg/dl Total Bilirubin 0.3 (0.2-1.0) mg/dl AST 10 L (13-39) U/L ALT 11 (7-52) U/L Alkaline Phosphatase 77 (34-104) U/L Total Protein 7.6 (6.0-8.3) gm/dl Albumin 3.9 (3.4-5.0) gm/dl Globulin 3.7 (2.5-4.0) gm/dl Albumin/Globulin Ratio 1.1 (0.9-2) Lipase 387 H (11-82) U/L SARS-CoV-2, RNA, NAAT NEGATIVE (NEGATIVE) Diagnostic Findings [place], [place] [phone] CT Scan Report Patient:MORRIS DICKERSON Admit Date:04/26/22 MR#:[id number] Address1:[address] [place] [address] Acct ID:[id number] Address2: Date:1990 [facility] Zip:[place] [address] Age:32 Location:ED Sex:F Room/Bed: Att Phy: Diagnosis:ABDOMINAL PAIN Haylee Phy:Stefanie Crowder MD Service Date:04/26/22 [facility] Phy: Interpreting Phy:Zuhair Crowder MDAit Phy: Ordering Phy:Kourtney Adames CRNP cc: ~ CT OF THE ABDOMEN AND PELVIS WITH CONTRAST CLINICAL HISTORY: Diffuse abdominal pain. History of pancreatitis. COMPARISON STUDY: MRCP December 19, 2021. CT of the abdomen and pelvis April 06, 2022. TECHNIQUE: Following IV administration of 85 mL of Optiray, axial images of the abdomen and pelvis were obtained from the lung bases to the proximal femurs. Images were reviewed in the axial, sagittal, and coronal planes. IV contrast was administered without complication. Automated exposure control was utilized for the study. A dose lowering technique was utilized adhering to the principles of ALARA. CT DOSE: 795.99 mGy.cm FINDINGS: A trace left pleural effusion is noted. Left lower lobe airspace opacity represents atelectasis. No pneumatosis, free air or portal venous gas is present. There is no biliary ductal dilatation status post cholecystectomy. There is hepatic steatosis. No hepatic lesions are present. The spleen, right adrenal gland and right kidney are normal. A suspected cyst within lower pole of the left kidney is present. A 3.3 cm left adrenal hypodense lesion remains unchanged. This favors an adenoma. Extensive left upper quadrant inflammation has progressed since CT of April 06, 2022 and likely originates from the pancreatic body tail. Associated wall thickening of the splenic flexure of the colon is likely reactive. Calculi within the pancreatic duct within the tail measure up to 7 mm and were present on prior CT. An adjacent hypodense tract on axial image 97 within the pancreatic tail could reflect pancreatic ductal disruption. A new rim-enhancing 4.3 x 1.6 cm fluid collection along the medial aspect of the inferior spleen on axial image 180 is noted. There is a small 1.6 cm fluid collection along the undersurface of the pancreatic body. A 4.9 cm pseudocyst within the omentum has slightly decreased in size since prior exam. Upper abdominal collaterals are likely due to splenic vein occlusion. This is ch ronic. No evidence for a bowel obstruction. Ascites within the pelvis has increased. Colonic diverticulosis is noted without evidence for acute diverticulitis. IMPRESSION: 1. Progressive left upper quadrant inflammation since CT of April 06, 2022. This likely originates from the pancreatic body and tail. This is suggestive of progressive acute pancreatitis. 2. New rim-enhancing 4.3 x 1.6 cm fluid collection along the medial aspect of the spleen. This likely reflects an acute peripancreatic fluid collection. Additional smaller 1.6 cm fluid collection along the undersurface of the pancr eatic body. Decrease in size of the suspected pseudocyst within the omentum. 3. Redemonstration of pancreatic ductal calculi within the body and tail. Possible disruption of the adjacent portion of the pancreatic duct, as described above. 4. Wall thickening of the splenic flexure of the colon. This is likely reactive/related to pancreatitis. A nonspecific colitis is considered less likely. 5. Increase in pelvic ascites. ACT 112: Negative or not required by law. Electronically signed by: Zuhair Crowder M.D. 04/26/2022 6:07 PM Dictated:04/26/22 1748 Transcribed: 04/26/22 1756 Supervising Physician Co-Signing Physician Notes I personally examined the patient and verified all parry points of history and exam, discussed case, and agree with decision making with Dr Almanza Abdominal painhas had prior pseudocyststhey have typically resolved. Vitals noted, in general she is awake and alert pleasant no distress. HEENT normocephalic atraumatic mucous membranes moist. Breathing unlabored no accessory muscle use, cardio is regular. Lungs are clear. Abdomen is soft with predominantly left upper quadrant tenderness no guarding rebound or rigidity. Acute on chronic pancreatitis with new pseudocyst formationfortunately no evidence of septic deteriorationpain control, IV fluids, supportive care, time. Serial examsif she were to show any intractable pain/worsening etc.then GI eval for drainage, but not likely to be necessary. otherwise as above Resident Activity Tracking Resident Involvement: Resident Care Provided Care Provided: Adult Hospital Medicine
[2022-04-27 09:04] LABS: Albumin Globulin Ratio 1.1 (0.9-2); Albumin Level 3.9 gm/dl (3.4-5.0); BUN Creatinine Ratio 9.8 (10-20); Bilirubin,Total 0.3 mg/dl (0.2-1.0); Creatinine Clr Calc Pharmacy 142.1 ml/min; Est GFR (African American) 138.1 ml/min; Est GFR (Non-African American) 119.1 ml/min; Globulin 3.7 gm/dl (2.5-4.0); Total Protein 7.6 gm/dl (6.0-8.3)
[2022-04-27] MEDS ORDERED: ONDANSETRON INJ 2 MG/ML 2 ML VIAL IV PRN (10:24)
[2022-04-27] MEDS: LACTATED RINGER'S 1,000 ML IV SCH ×2 (11:10→15:34)
[2022-04-27] MEDS: ACETAMINOPHEN 1,000 MG/100 ML VIAL IV SCH ×2 (11:12→22:16)
[2022-04-27] MEDS: PREGABALIN 75 MG CAP PO SCH ×2 (11:33→15:30)
[2022-04-27] MEDS: FERROUS SULFATE 325 MG TAB PO SCH (11:33)
[2022-04-27] MEDS: CYANOCOBALAMIN (B-12) 2,500 MCG TABLET SL SCH (11:33)
[2022-04-27] MEDS: PANTOprazole 40 MG TAB PO SCH (11:33)
[2022-04-27] MEDS: HYDROmorphone INJ 1 MG/ML SYRINGE IV PRN ×3 (12:12→20:21)
--- NOTE | 2022-04-27 21:39 | Billing Data ---
Date of Service April 27, 2022 Coding Level of Care Code 49447 INT INP/OBS CARE
[2022-04-27] MEDS: BACLOFEN 10 MG TAB PO SCH (23:05)
[2022-04-28] MEDS: CHOLECALCIFEROL 1,000 UNITS 25 MCG TAB PO SCH ×3 (00:27→21:21)
[2022-04-28] MEDS: PANTOprazole 40 MG TAB PO SCH ×3 (00:28→22:09)
[2022-04-28] MEDS: AMITRIPTYLINE HCL 25 MG TAB PO SCH ×2 (00:28→21:21)
[2022-04-28] MEDS: PREGABALIN 75 MG CAP PO SCH ×4 (00:30→21:29)
[2022-04-28] MEDS: HYDROmorphone INJ 1 MG/ML SYRINGE IV PRN ×5 (00:31→20:33)
[2022-04-28] MEDS: ACETAMINOPHEN 1,000 MG/100 ML VIAL IV SCH ×3 (04:32→18:04)
--- NOTE | 2022-04-28 07:40 | Hospitalist Progress Note ---
Date of Service April 28, 2022 Assessment & Plan (1) Acute pancreatitis: Plan: Patient is a 32 yo female with PMHx of pancreatitis, recurrent pseudocyst, bipolar disorder, hypertriglyceridemia, prediabetes, iron deficiency, vitamin D deficiency, and vitamin B12 deficiency admitted to [facility] on 04/27/22 with acute on chronic pancreatitis and pseudocyst HDS stable with clinical improvement. Acute on chronic pancreatitis w/ pancreatic pseudocyst CT A/P 04/26/22: pseudocyst, peripancreatic fluid collection, rim enhancing fluid collection along the medial aspect of the spleen, progressive acute pancreatitis [] clinically improving, advance diet FLD [] Pain control - Tylenol 1000 mg and Dilaudid 1 mg IC Q4H PRN [] Zofran prn [] Continue home Lyrica as rx by [facility] [] Tolerating PO, d/c IVF [] AM BMP and CBC Prediabetes Hold metformin as there is an increased risk of pancreatitis with metformin use. Would recommend d/c of this outpatient. HbA1c 03/15 - 5.8. Glycemic control acceptable at this time. No need for sliding scale. [] AM BMP Iron deficiency Continue home iron regimen Vitamin deficiency Patient with hx of vitamin D deficiency and vitamin B12 deficiency. Replete per home regimen Tobacco Use Patient reports smoking 1ppd. Encourage cessation FENGI: full liquid diet, tolerating PO DVT ppx: Encourage ambulation; will hold on chemo ppx at this time Dispo: admit to med/surg Code status: FULL CODE (2) Pancreatic pseudocyst: (3) Prediabetes: (4) Iron deficiency: (5) Vitamin D deficiency: (6) B12 deficiency: (7) Smoker: Admission and Anticipated Discharge Date Admission Date: April 27, 2022 Supervising Physician Co-Signing Physician Notes I personally examined the patient and verified all parry points of history and exam, discussed case, and agree with decision making with Dr aGmboa Abdominal pain improving some. Notes she feels like she is following her usual trend of improvement. Does have ongoing abdominal pain. Vitals noted, in general she is awake and alert pleasant no distress. HEENT normocephalic atraumatic mucous membranes moist. Breathing unlabored no accessory muscle use, cardio is regular. Lungs are clear. Abdomen is soft with predominantly left upper quadrant tenderness no guarding rebound or rigidity. At the myofascial level she has at least 4 possibly more easily palpable trigger points with reproducible pain on palpation. Acute on chronic pancreatitis with new pseudocyst formationfortunately no evidence of septic deteriorationpain control, IV fluids, supportive care, time. Appears to be improving in this respect Abdominal wall trigger pointssuspect these were brought on by the chronic pain from the chronic pancreatitis, but now probably have a bit of a perpetuating factor in her uncontrolled pain. Discussed this with patient, discussed the high probability, but not to guarantee) that management of trigger points will hopefully lead to a degree of improvement in her overall pain syndrome (although of course it does not actually directly impact the pancreatitis)she expressed good understandingvoltaren gel, injection tomorrow. otherwise as above, hopefully home soon Subjective Patient is a 32 yo female with PMHx of pancreatitis, recurrent pseudocyst, bipolar disorder, hypertriglyceridemia, prediabetes, iron deficiency, vitamin D deficiency, and vitamin B12 deficiency admitted to [facility] on 04/27/22 with acute on chronic pancreatitis and pseudocyst. 04/28/22: Patient doing a little better today with her pain with less overall pain from yesterday. Pain is unchanged from yesterday: located in upper left quadrant and radiates to left flank. Pain worsens with movement and breathing. Tolerating clear liquid diet. No acute concerns today. Patient does express frustration with her situation. Has previously seen Hyun WINN, not interested in seeing them during this admission. Plans to f/u with [facility] 06/24/22 Review of Systems Review of Systems: See HPI Respiratory: Denies SOB Cardiovascular: Additional Comments: Denies chest pain Gastrointestinal: LUQ pain radiating to left flank worsened by movement and respirations. Denies constipation, diarrhea, changes in bowel movements Genitourinary: Denies pain with urination Neurologic: Denies numbness, tingling, weakness Psychiatric: Denies changes in mood; stable Physical Exam Physical Exam: GENERAL: No acute distress. Well developed and well nourished. Vital signs reviewed; patient is afebrile and normotensive. EYES: PERRL RESPIRATORY: Clear to auscultation bilaterally. No wheezing, rales, or rhonchi. CARDIOVASCULAR: Regular rate and rhythm. No murmurs, rubs, clicks, or gallops. ABDOMEN: Pain with palpation localized to LUQ radiating to left flank. No rebound tenderness. Quiet bowel sounds. Soft. Non-distended. EXTREMITIES: No edema. Non-tender. NEUROLOGIC: Reflexes 2+ in bilateral lower extremities. Normal sensation in bilateral lower extremities. PSYCHIATRIC: Cooperative. Appropriate mood and affect. Results & Data Results & Data ([facility]) Vital Signs (Past 12 Hours) Vital Signs Temp Pulse Pulse Resp BP Pulse Ox O2 Del Method 04/27/22 21:12 36.7 C 84 16 124/83 92 Room Air 04/27/22 20:28 83 14 115/74 94 Room Air Laboratory Results 04/28/22 04/28/22 Range/Units 09:11 09:11 WBC 8.38 (4.8-10.8) K/ul RBC 4.24 (3.93-5.22) M/uL Hgb 11.3 L (12.0-16.0) g/dl Hct 35.9 (34.1-44.9) % MCV 84.7 (80.0-100.0) fL MCH 26.7 (25.0-34.0) pg MCHC 31.5 L (32.0-36.0) g/dL RDW Std Deviation 52.4 H (36.4-46.3) fL RDW Coeff of Jasmin 16.8 H (11.5-14.5) % Plt Count 299 (130-400) K/uL MPV 9.5 (9.4-12.3) fL Immature Gran % (Auto) 0.6 % Neut % (Auto) 64.4 % Lymph % (Auto) 26.6 % [place] % (Auto) 4.7 % Eos % (Auto) 3.2 % Baso % (Auto) 0.5 % Neut # (Auto) 5.40 (1.4-6.5) K/uL Lymph # (Auto) 2.23 (1.2-3.4) K/uL [place] # (Auto) 0.39 (0.24-0.82) K/uL Eos # (Auto) 0.27 (0-0.50) K/uL Baso # (Auto) 0.04 (0-0.2) K/uL Immature Gran # (Auto) 0.05 H (0.00-0.02) K/uL Sodium 139 (136-145) mmol/L Potassium 3.8 (3.5-5.1) mmol/L Chloride 105 (98-107) mmol/L Carbon Dioxide 30 (21-32) mmol/L Anion Gap 4 (3-11) BUN 5 L (6-23) mg/dl Creatinine 0.59 L (0.6-1.2) mg/dl Est Cr Clr Drug Dosing 147.0 ml/min Est GFR ( Amer) 139.6 ml/min Est GFR (Non-Af Amer) 120.4 ml/min BUN/Creatinine Ratio 8.5 L (10-20) Glucose 109 H (70-99(Fasting)) mg/dl Calcium 8.3 L (8.5-10.1) mg/dl Diagnostic Findings CT OF THE ABDOMEN AND PELVIS WITH CONTRAST 04/26/22 CLINICAL HISTORY: Diffuse abdominal pain. History of pancreatitis. COMPARISON STUDY: MRCP December 19, 2021. CT of the abdomen and pelvis April 06, 2022. TECHNIQUE: Following IV administration of 85 mL of Optiray, axial images of the abdomen and pelvis were obtained from the lung bases to the proximal femurs. Images were reviewed in the axial, sagittal, and coronal planes. IV contrast was administered without complication. Automated exposure control was utilized for the study. A dose lowering technique was utilized adhering to the principles of ALARA. CT DOSE: 795.99 mGy.cm FINDINGS: A trace left pleural effusion is noted. Left lower lobe airspace opacity represents atelectasis. No pneumatosis, free air or portal venous gas is present. There is no biliary ductal dilatation status post cholecystectomy. There is hepatic steatosis. No hepatic lesions are present. The spleen, right adrenal gland and right kidney are normal. A suspected cyst within lower pole of the left kidney is present. A 3.3 cm left adrenal hypodense lesion remains unchanged. This favors an adenoma. Extensive left upper quadrant inflammation has progressed since CT of April 06, 2022 and likely originates from the pancreatic body tail. Associated wall thickening of the splenic flexure of the colon is likely reactive. Calculi within the pancreatic duct within the tail measure up to 7 mm and were present on prior CT. An adjacent hypodense tract on axial image 97 within the pancreatic tail could reflect pancreatic ductal disruption. A new rim-enhancing 4.3 x 1.6 cm fluid collection along the medial aspect of the inferior spleen on axial image 180 is noted. There is a small 1.6 cm fluid collection along the undersurface of the pancreatic body. A 4.9 cm pseudocyst within the omentum has slightly decreased in size since prior exam. Upper abdominal collaterals are likely due to splenic vein occlusion. This is chronic. No evidence for a bowel obstruction. Ascites within the pelvis has increased. Colonic diverticulosis is noted without evidence for acute diverticulitis. IMPRESSION: 1. Progressive left upper quadrant inflammation since CT of April 06, 2022. This likely originates from the pancreatic body and tail. This is suggestive of progressive acute pancreatitis. 2. New rim-enhancing 4.3 x 1.6 cm fluid collection along the medial aspect of the spleen. This likely reflects an acute peripancreatic fluid collection. Additional smaller 1.6 cm fluid collection along the undersurface of the pancreatic body. Decrease in size of the suspected pseudocyst within the omentum. 3. Re-demonstration of pancreatic ductal calculi within the body and tail. Possible disruption of the adjacent portion of the pancreatic duct, as described above. 4. Wall thickening of the splenic flexure of the colon. This is likely reactive/related to pancreatitis. A nonspecific colitis is considered less likely. 5. Increase in pelvic ascites. Resident Activity Tracking Resident Involvement: Resident Care Provided Care Provided: [place]
[2022-04-28] MEDS: CYANOCOBALAMIN (B-12) 2,500 MCG TABLET SL SCH (08:34)
[2022-04-28] MEDS: FERROUS SULFATE 325 MG TAB PO SCH (08:34)
[2022-04-28 09:37] LABS: Basophils # (auto) 0.04 K/uL (0-0.2); Basophils % (auto) 0.5 %; Eosinophils # (auto) 0.27 K/uL (0-0.50); Eosinophils % (auto) 3.2 %; Hematocrit (blood only) 35.9 % (34.1-44.9); Hemoglobin 11.3 g/dl (12.0-16.0); Immature Granulocytes # (auto) 0.05 K/uL (0.00-0.02); Immature Granulocytes % (auto) 0.6 %; Lymphocytes # (auto) 2.23 K/uL (1.2-3.4); Lymphocytes % (auto) 26.6 %; Mean Corpuscular Hemoglobin 26.7 pg (25.0-34.0); Mean Corpuscular Hgb Conc 31.5 g/dL (32.0-36.0); Mean Corpuscular Volume 84.7 fL (80.0-100.0); Mean Platelet Volume 9.5 fL (9.4-12.3); Monocytes # (auto) 0.39 K/uL (0.24-0.82); Monocytes % (auto) 4.7 %; Neutrophils % (auto) 64.4 %; Platelet Count 299 K/uL (130-400); RDW Coefficient of Variation 16.8 % (11.5-14.5); RDW Standard Deviation 52.4 fL (36.4-46.3); Red Blood Count 4.24 M/uL (3.93-5.22); White Blood Count 8.38 K/ul (4.8-10.8)
[2022-04-28 10:02] LABS: BUN Creatinine Ratio 8.5 (10-20); Calcium 8.3 mg/dl (8.5-10.1); Est GFR (African American) 139.6 ml/min; Est GFR (Non-African American) 120.4 ml/min; Potassium 3.8 mmol/L (3.5-5.1)
[2022-04-28] MEDS ORDERED: LIDOCAINE 2% 2 ML VIAL/AMP(20MG/ML) INFIL SCH (16:15)
[2022-04-28] MEDS ORDERED: HYDROmorphone INJ 1 MG/ML SYRINGE IV STA (16:15)
--- NOTE | 2022-04-28 20:00 | Billing Data ---
Date of Service April 28, 2022 Coding Level of Care Code 09968 SUB INP/OBS CARE MIN
[2022-04-28] MEDS: BACLOFEN 10 MG TAB PO SCH (21:21)
[2022-04-28] MEDS: DICLOFENAC SOD 1% GEL 100 GM TUBE EXT SCH (21:21)
[2022-04-29] MEDS: HYDROmorphone INJ 1 MG/ML SYRINGE IV PRN ×3 (00:31→08:31)
[2022-04-29] MEDS: ACETAMINOPHEN 1,000 MG/100 ML VIAL IV SCH ×2 (02:26→10:44)
[2022-04-29] MEDS ORDERED: LIDOCAINE 2% LOCAL 20 ML VIAL INFIL SCH (06:00)
[2022-04-29 07:09] LABS: Basophils # (auto) 0.03 K/uL (0-0.2); Basophils % (auto) 0.4 %; Eosinophils # (auto) 0.23 K/uL (0-0.50); Eosinophils % (auto) 2.9 %; Hemoglobin 10.9 g/dl (12.0-16.0); Immature Granulocytes # (auto) 0.07 K/uL (0.00-0.02); Immature Granulocytes % (auto) 0.9 %; Lymphocytes # (auto) 1.97 K/uL (1.2-3.4); Lymphocytes % (auto) 25.2 %; Mean Corpuscular Hemoglobin 26.6 pg (25.0-34.0); Mean Corpuscular Hgb Conc 32.1 g/dL (32.0-36.0); Mean Corpuscular Volume 82.9 fL (80.0-100.0); Mean Platelet Volume 9.7 fL (9.4-12.3); Monocytes # (auto) 0.51 K/uL (0.24-0.82); Monocytes % (auto) 6.5 %; Neutrophils # (auto) 5.01 K/uL (1.4-6.5); Neutrophils % (auto) 64.1 %; Platelet Count 262 K/uL (130-400); RDW Coefficient of Variation 16.4 % (11.5-14.5); RDW Standard Deviation 49.6 fL (36.4-46.3); White Blood Count 7.82 K/ul (4.8-10.8)
[2022-04-29 07:38] LABS: BUN Creatinine Ratio 9.3 (10-20); Calcium 8.2 mg/dl (8.5-10.1); Creatinine Clr Calc Pharmacy 160.6 ml/min; Est GFR (African American) 143.7 ml/min; Potassium 4.1 mmol/L (3.5-5.1)
[2022-04-29] MEDS: CYANOCOBALAMIN (B-12) 2,500 MCG TABLET SL SCH (08:27)
[2022-04-29] MEDS: PANTOprazole 40 MG TAB PO SCH (08:27)
[2022-04-29] MEDS: CHOLECALCIFEROL 1,000 UNITS 25 MCG TAB PO SCH (08:27)
[2022-04-29] MEDS: FERROUS SULFATE 325 MG TAB PO SCH (08:27)
[2022-04-29] MEDS: DICLOFENAC SOD 1% GEL 100 GM TUBE EXT SCH (08:27)
[2022-04-29] MEDS: PREGABALIN 75 MG CAP PO SCH (08:30)
[2022-04-29] MEDS ORDERED: LIDOCAINE 4% CREAM 15 GM TUBE EXT ONE (09:30)
[2022-04-29] MEDS ORDERED: HYDROmorphone INJ 1 MG/ML SYRINGE IV STA (11:14)
--- NOTE | 2022-04-29 12:43 | Hospitalist Progress Note ---
Date of Service April 29, 2022 Assessment & Plan (1) Acute pancreatitis: Plan: Patient is a 32 y/o female with PMHx of pancreatitis, recurrent pseudocyst, bipolar disorder, hypertriglyceridemia, prediabetes, iron deficiency, vitamin D deficiency, and vitamin B12 deficiency admitted to [facility] on 04/27/22 with acute on chronic pancreatitis and pseudocyst HDS stable with clinical improvement now stable for discharge. #Acute on chronic pancreatitis w/ pancreatic pseudocyst CT A/P 04/26/22: pseudocyst, peripancreatic fluid collection, rim enhancing fluid collection along the medial aspect of the spleen, progressive acute pancreatitis. There may likely be a component of trigger points in her chronic pain. Would recommend trigger point injection at bedside with outpatient f/u if needed. Patient amenable. Trigger point injections x4 done at the bedside. See procedure note for more detail. Patient is improving clinically. Tolerating PO and an advancing diet. Stable for discharge home with short course of opioid pain medicine. Continue home pain regimen (lyrica) #Prediabetes Hold metformin as there is an increased risk of pancreatitis with metformin use. Would recommend d/c of this outpatient. HbA1c 03/15 - 5.8. Glycemic control acceptable at this time. No need for sliding scale. #Iron deficiency Continue home iron regimen #Vitamin deficiency Patient with hx of vitamin D deficiency and vitamin B12 deficiency. Replete per home regimen #Tobacco Use Patient reports smoking 1ppd. Encourage cessation FENGI: low fiber, tolerating PO DVT ppx: Encourage ambulation; will hold on chemo ppx at this time Dispo: admit to med/surg Code status: FULL CODE (2) Pancreatic pseudocyst: (3) Prediabetes: (4) Iron deficiency: (5) Vitamin D deficiency: (6) B12 deficiency: (7) Smoker: Admission and Anticipated Discharge Date Admission Date: April 27, 2022 Subjective Patient notes that she feels moderately improved today. Would like to advance diet. Interested in going home this afternoon as her son's 8th birthday is [birth year]. Review of Systems Review of Systems: See HPI Physical Exam Physical Exam: GENERAL: No acute distress. Well developed and well nourished. Vital signs reviewed; patient is afebrile and normotensive. EYES: PERRL RESPIRATORY: No increased work of breathing CARDIOVASCULAR: Clinically well perfused ABDOMEN: Abdomen is soft with predominantly left upper quadrant tenderness no guarding rebound or rigidity. At the myofascial level she has at least 4 possibly more easily palpable trigger points with reproducible pain on palpat ion. Non-distended, no guarding PSYCHIATRIC: Cooperative. Appropriate mood and affect. Results & Data Results & Data ([facility]) Vital Signs (Past 12 Hours) Vital Signs Temp Pulse Resp BP Pulse Ox O2 Del Method 04/29/22 07:53 36.5 C 71 16 121/83 98 Room Air Laboratory Results 04/29/22 04/29/22 Range/Units 06:34 06:34 WBC 7.82 (4.8-10.8) K/ul RBC 4.10 (3.93-5.22) M/uL Hgb 10.9 L (12.0-16.0) g/dl Hct 34.0 L (34.1-44.9) % MCV 82.9 (80.0-100.0) fL MCH 26.6 (25.0-34.0) pg MCHC 32.1 (32.0-36.0) g/dL RDW Std Deviation 49.6 H (36.4-46.3) fL RDW Coeff of Jasmin 16.4 H (11.5-14.5) % Plt Count 262 (130-400) K/uL MPV 9.7 (9.4-12.3) fL Immature Gran % (Auto) 0.9 % Neut % (Auto) 64.1 % Lymph % (Auto) 25.2 % Bollinger % (Auto) 6.5 % Eos % (Auto) 2.9 % Baso % (Auto) 0.4 % Neut # (Auto) 5.01 (1.4-6.5) K/uL Lymph # (Auto) 1.97 (1.2-3.4) K/uL Bollinger # (Auto) 0.51 (0.24-0.82) K/uL Eos # (Auto) 0.23 (0-0.50) K/uL Baso # (Auto) 0.03 (0-0.2) K/uL Immature Gran # (Auto) 0.07 H (0.00-0.02) K/uL Sodium 138 (136-145) mmol/L Potassium 4.1 (3.5-5.1) mmol/L Chloride 104 (98-107) mmol/L Carbon Dioxide 30 (21-32) mmol/L Anion Gap 4 (3-11) BUN 5 L (6-23) mg/dl Creatinine 0.54 L (0.6-1.2) mg/dl Est Cr Clr Drug Dosing 160.6 ml/min Est GFR ( Amer) 143.7 ml/min Est GFR (Non-Af Amer) 124.0 ml/min BUN/Creatinine Ratio 9.3 L (10-20) Glucose 83 (70-99(Fasting)) mg/dl Calcium 8.2 L (8.5-10.1) mg/dl
--- NOTE | 2022-04-29 12:48 | Procedure Note ---
Procedure Note Date of Service April 29, 2022 Note Trigger point injection: Discussed rationale, pathophysiology, etc. yesterday and todayinformed consent obtained. Approximately 1 hour prior to procedure, lidocaine cream applied to abdomen and occluded with plastic.Approximately 15 minutes prior to procedure, Dilaudid given IV. Area cleaned with alcohol swabs followed by chlorhexadine.Able to palpate 4 discrete, tender triggers point in left upper abdominal wall. 4 of these were dry needled, followed by injection of lidocainea total of 5 cc 2% lidocaine without epi.Patient tolerated well, and was in stable condition postprocedure.Injection sites cleaned extensively postprocedure.Patient tolerated well. Trigger point [id number] above.Discussed with patient that it might affect immediate improvement, but also it is quite common for people to feel a bit worse before feeling better (sometimes on a few days of worsening followed by improvement), and also discussed that she may need follow-up injections. i was present with Dr Gamboa and supervised the entirety of procedure. initial two trigger points closer to epigastrum personally injected by myself, more lateral trigger points injected by dr gamboa under my supervision. slightly >1cc lidocaine used per point, total 5cc injected. pt tolerated well. Coding Resident Activity Tracking Resident Involvement: Resident Care Provided Care Provided: Adult [facility] Medicine
--- NOTE | 2022-04-29 14:07 | Discharge Summary ---
Date of Service April 29, 2022 Admission HPI Per Admitting Provider Patient is a 32 yo female with PMHx of pancreatitis, recurrent pseudocyst, bipolar disorder, hypertriglyceridemia, prediabetes, iron deficiency, vitamin D deficiency, and vitamin B12 deficiency who presented to the [facility] ER on 04/26/22 with complaint of left sided abdominal pain x1 week. Patient describes the pain as a pulled muscle sensation, most prominent on left side. She also complains of bulge on left upper side. Patient rates the pain at a 10/10. She took a dose of oxycodone prior to arrival w/o significant relief of pain. She does note that laying in bed improves the pain. There are no other exacerbating or mitigating factors. Patient does note that the current symptoms are reminiscent of similar episodes of acute on chronic pancreatitis. She continues to smoke 1 ppd; denies alcohol consumption or illicit drug use. Patient was initially seen in the ED last night but due to high volume, she left after having labs and a CT scan. The results of the CT A/P include "Progressive left upper quadrant inflammation since CT of April 06, 2022. This likely originates from the pancreatic body and tail. This is suggestive of progressive acute pancreatitis." and "New rim-enhancing 4.3 x 1.6 cm fluid collection along the medial aspect of the spleen. This likely reflects an acute peripancreatic fluid collection. Additional smaller 1.6 cm fluid collection along the undersurface of the pancreatic body. Decrease in size of the suspected pseudocyst within the omentum." Labs showed leukocytosis at 16 w/ left shift and elevated lipase at 281 (it was 387 on presentation today). Thus, she was called and advised to return to the hospital for further care. Patient reports no change in symptoms since initial presentation. She is COVID negative. Admission Exam Per Admitting Provider GENERAL: No acute distress. Well developed and well nourished. Vital signs reviewed; patient is afebrile and normotensive. EYES: EOMI. Anicteric sclerae. HENT: Moist mucous membranes. RESPIRATORY: Clear to auscultation bilaterally. No wheezing, rales, or rhonchi. CARDIOVASCULAR: Regular rate and rhythm. No murmurs. ABDOMEN: Soft. Non-distended. Normal bowel sounds. Epigastric and LUQ tenderness to palpation. EXTREMITIES: No edema. Non-tender. SKIN: Warm, dry. NEUROLOGIC: A/O x3. Normal speech. PSYCHIATRIC: Cooperative. Appropriate mood and affect. Principal Diagnosis pancreatic pseudocyst Discharge Exam GENERAL: No acute distress. Well developed and well nourished. Vital signs reviewed; patient is afebrile and normotensive. EYES: PERRL RESPIRATORY: No increased work of breathing CARDIOVASCULAR: Clinically well perfused ABDOMEN: Abdomen is soft with predominantly left upper quadrant tenderness no guarding rebound or rigidity. At the myofascial level she has at least 4 possibly more easily palpable trigger points with reproducible pain on palpation. Non-distended, no guarding PSYCHIATRIC: Cooperative. Appropriate mood and affect. Discharge Data Allergies Allergy/AdvReac Type Severity Reaction Status Date / Time adhesive Allergy Mild RASH Verified 04/27/22 15:50 nickel Allergy Mild RASH Verified 04/27/22 15:50 morphine AdvReac Severe Body fells Verified 04/27/22 15:50 like it is on fire Consultations 04/27/22 08:14 ED Decision to Admit Stat Procedures Performed Trigger point injection x2 - see procedure note for more information Ordered Studies 04/29/22 04/29/22 Range/Units 06:34 06:34 WBC 7.82 (4.8-10.8) K/ul RBC 4.10 (3.93-5.22) M/uL Hgb 10.9 L (12.0-16.0) g/dl Hct 34.0 L (34.1-44.9) % MCV 82.9 (80.0-100.0) fL MCH 26.6 (25.0-34.0) pg MCHC 32.1 (32.0-36.0) g/dL RDW Std Deviation 49.6 H (36.4-46.3) fL RDW Coeff of Jasmin 16.4 H (11.5-14.5) % Plt Count 262 (130-400) K/uL MPV 9.7 (9.4-12.3) fL Immature Gran % (Auto) 0.9 % Neut % (Auto) 64.1 % Lymph % (Auto) 25.2 % Cross % (Auto) 6.5 % Eos % (Auto) 2.9 % Baso % (Auto) 0.4 % Neut # (Auto) 5.01 (1.4-6.5) K/uL Lymph # (Auto) 1.97 (1.2-3.4) K/uL Cross # (Auto) 0.51 (0.24-0.82) K/uL Eos # (Auto) 0.23 (0-0.50) K/uL Baso # (Auto) 0.03 (0-0.2) K/uL Immature Gran # (Auto) 0.07 H (0.00-0.02) K/uL Sodium 138 (136-145) mmol/L Potassium 4.1 (3.5-5.1) mmol/L Chloride 104 (98-107) mmol/L Carbon Dioxide 30 (21-32) mmol/L Anion Gap 4 (3-11) BUN 5 L (6-23) mg/dl Creatinine 0.54 L (0.6-1.2) mg/dl Est Cr Clr Drug Dosing 160.6 ml/min Est GFR ( Amer) 143.7 ml/min Est GFR (Non-Af Amer) 124.0 ml/min BUN/Creatinine Ratio 9.3 L (10-20) Glucose 83 (70-99(Fasting)) mg/dl Calcium 8.2 L (8.5-10.1) mg/dl Hospital Course (1) Acute pancreatitis: Patient is a 32 y/o female with PMHx of pancreatitis, recurrent pseudocyst, bipolar disorder, hypertriglyceridemia, prediabetes, iron deficiency, vitamin D deficiency, and vitamin B12 deficiency admitted to [facility] on 04/27/22 with acute on chronic pancreatitis and pseudocyst improved and now stable for discharge. #Acute on chronic pancreatitis w/ pancreatic pseudocyst CT A/P 04/26/22: pseudocyst, peripancreatic fluid collection, rim enhancing fluid collection along the medial aspect of the spleen, progressive acute pancreatitis. There may likely be a component of trigger points in her chronic pain. Voltaren gel topically four times a day. Would recommend trigger point injection at bedside with outpatient f/u and likely repeat injections. Patient amenable. Trigger point injections x 4 done at the bedside. See procedure note for more detail. Patient is improving clinically. Tolerating PO and an advancing diet. Stable for discharge home with short course of opioid pain medicine. Continue home pain regimen with Lyrica and voltaren gel. #Prediabetes Hold metformin as there is an increased risk of pancreatitis with metformin use. Would recommend d/c of this outpatient. HbA1c 03/15 - 5.8. Glycemic control acceptable at this time. No need for sliding scale. #Iron deficiency Continue home iron regimen #Vitamin deficiency Patient with hx of vitamin D deficiency and vitamin B12 deficiency. Replete per home regimen #Tobacco Use Patient reports smoking 1ppd. Encourage cessation FENGI: low fiber, tolerating PO DVT ppx: Encourage ambulation; will hold on chemo ppx at this time Dispo: admit to med/surg Code status: FULL CODE (2) Pancreatic pseudocyst: (3) Prediabetes: (4) Iron deficiency: (5) Vitamin D deficiency: (6) B12 deficiency: (7) Smoker: Total Time Total Time Spent Total Time Spent (In Minutes): See attending attestation Discharge Plan Discharge Items Patient Disposition: Home - Self-Care Reason For Visit: FLUID BUILT UP ON PANCREAS Discharge Diagnosis: pancreatic pseudocyst Activity: Per Instructions section Non-emergency contact: Primary Care Provider and [employer] Call non-emergency contact if: your pain is not controlled and your temperature is above 101.5 Follow-up/Referrals: Stefanie Crowder MD [Primary Care Provider] - 05/06/22 11:00 am Diet: Regular Addtl Attending Provider Instructions: You were admitted to the hospital for abdominal pain, pancreatic pseudocyst, and pancreatitis. You were treated with pain control and trigger point injections. A discharge summary will be sent to your primary care physician to ensure continuity of care. Please bring this discharge summary with you to your next office appointment so that your provider can review it at that time. Follow-up appointments: We have requested a follow-up appointment with your primary care physician within one week of discharge. Please call their office if you do not hear from them. Medications: Your medication list has been reviewed and reconciled upon discharge to ensure accuracy and continuity of care. An updated list of all your medications is included with your hospital discharge paperwork. Please review this list closely, and make note of any changes. Please discontinue metformin. This medication can increase the risk of develop ing pancreatitis. We sent a new medication called oxycodone to your pharmacy. Take oxycodone 5 mg as needed up to four times a day. We sent a new medication called voltaren gel to your pharmacy. Use voltaren gel four times a day on your stomach. If you have any issues filling these prescriptions, please call [phone] and ask to leave a message for Dr. Gamboa. Take your medications as instructed; do not skip a dose of your medicines. Make sure all of your doctors know every medicine you are taking (including [id number]-lknldvl medicines, vitamins, and supplements). Call your primary care provider before taking any new medicines (including over- the- counter medicines, vitamins, and supplements), because some of these may interact with your current medications, or may make your symptoms worse. Tell your primary care provider if you cannot afford your medications. CONTACT YOUR PRIMARY CARE PROVIDER if you experience any of the following: Difficulty following your treatment plan, or difficulty taking medications CALL 911 OR GO TO THE EMERGENCY DEPARTMENT if you experience any of the following: Sudden, severe abdominal pain or nausea/vomiting Severe chest pain, or chest pain that radiates (moves) to your jaw or arm Sudden, severe shortness of breath or difficulty breathing Thank you for allowing us to participate in your care Pending Studies at Discharge: No Stand-Alone Forms: My [facility] Level [employer] Software, Smoking Cessation Medications and DC Order Prescriptions: New diclofenac sodium [Voltaren Arthritis Pain] 1 % Gel 2 g EXT QID Qty: 100 0RF Rx Instructions: apply to abdomen four times a day oxycodone 5 mg tablet 5 mg PO Q6H PRN (Reason: pain) Qty: 10 0RF Continued ferrous sulfate 325 mg (65 mg iron) tablet 325 mg PO DAILY Qty: 60 8RF cholecalciferol (vitamin D3) 50 mcg (2,000 unit) capsule 50 mcg PO BID Qty: 30 8RF cyanocobalamin (vitamin B-12) 2,500 mcg tablet, sublingual 2,500 mcg sublingual DAILY Qty: 30 8RF Emgality Pen 120 mg/mL pen injector 120 mg subcut ONCE 30 Days Qty: 30 5RF pantoprazole 40 mg tablet,delayed release (DR/EC) 40 mg PO BID Qty: 60 1RF Abilify Maintena 300 mg suspension,extended rel recon 300 mg IM Q28D ondansetron 4 mg tablet,disintegrating 4 mg PO Q8H PRN (Reason: nausea and vomiting) Qty: 30 1RF pregabalin [Lyrica] 75 mg capsule 75 mg PO TID baclofen 10 mg tablet 10 mg PO DAILY Qty: 30 5RF Rx Instructions: QPM amitriptyline 25 mg tablet 25 mg PO HS nicotine [Nicoderm CQ] 21 mg/24 hr Patch 24 Hour 21 mg transdermal QAM Qty: 28 0RF docusate sodium 100 mg Capsule 100 mg PO BID PRN (Reason: constipation) Qty: 30 0RF oxycodone 5 mg tablet 5 mg PO Q4H PRN (Reason: pain) Qty: 20 0RF Discontinued metformin 500 mg tablet 500 mg PO BID Qty: 60 5RF Discharge Orders: Discharge Order (Routine); Ordered 04/29/22 Ordered By: Maite Gamboa Admission Data Admit Date/Time: 04/27/22 08:36 Attending Provider: Yash Bradshaw Admit Provider: Antonella Almanza Primary Care Provider: Stefanie Crowder Other Providers: Yash Bradshaw Other Interventions: Discharge Summary Assessment (RN) Last Done: 04/29/22 14:59 Supervising Physician Co-Signing Physician Notes I personally examined the patient and verified all parry points of history and exam, discussed case, and agree with decision making with Dr Gamboa Abdominal pain improving some.feels up to going home Vitals noted, in general she is awake and alert pleasant no distress. HEENT normocephalic atraumatic mucous membranes moist. Breathing unlabored no accessory muscle use, cardio is regular. Lungs are clear. Abdomen is soft with predominantly left upper quadrant tenderness no guarding rebound or rigidity. At the myofascial level she has at least 4 possibly more easily palpable trigger points with reproducible pain on palpation. see separate procedure note Acute on chronic pancreatitis with new pseudocyst formationfortunately no evidence of septic deteriorationstable for home Abdominal wall trigger pointssuspect these were brought on by the chronic pain from the chronic pancreatitis, but now probably have a bit of a perpetuating factor in her uncontrolled pain. Discussed this with patient, discussed the high probability, but not to guarantee) that management of trigger points will hopefully lead to a degree of improvement in her overall pain syndrome (although of course it does not actually directly impact the pancreatitis)she expressed good understandingvoltaren gel, injection done todya, outpatient follow up otherwise as above, stable for home today Resident Activity Tracking Resident Involvement: Resident Care Provided Care Provided: Adult Hospital Medicine
--- NOTE | 2022-04-29 19:05 | Billing Data ---
Date of Service April 29, 2022 Coding Level of Care Code HOSP INP/OBS DISCH 30 MIN/LESS Comment additionally injection of trigger points x4
== END 2022-04-29 15:15 | disposition home or self-care (01) ==
LOC: EDINP 07:30 → ED 07:30 → 3W 10:24

== ENCOUNTER 2022-07-13 13:43 | Observation (INO) ==
[2022-07-13 15:50] LABS: Basophils # (auto) 0.02 K/uL (0-0.2); Basophils % (auto) 0.2 %; Eosinophils # (auto) 0.08 K/uL (0-0.50); Eosinophils % (auto) 0.7 %; Hematocrit (blood only) 42.4 % (37.0-47.0); Hemoglobin 13.9 g/dl (12.0-16.0); Immature Granulocytes # (auto) 0.04 K/uL (0.01-0.20); Immature Granulocytes % (auto) 0.3 %; Lymphocytes # (auto) 1.89 K/uL (1.2-3.4); Lymphocytes % (auto) 16.5 %; Mean Corpuscular Hemoglobin 26.1 pg (25.0-34.0); Mean Corpuscular Hgb Conc 32.8 g/dL (32.0-36.0); Mean Corpuscular Volume 79.5 fL (80.0-100.0); Mean Platelet Volume 9.9 fL (9.4-12.4); Monocytes # (auto) 0.59 K/uL (0.11-0.59); Monocytes % (auto) 5.2 %; Neutrophils # (auto) 8.83 K/uL (1.40-6.50); Neutrophils % (auto) 77.1 %; Platelet Count 248 K/uL (130-400); RDW Coefficient of Variation 18.2 % (11.5-14.5); RDW Standard Deviation 50.9 fL (36.4-46.3); Red Blood Count 5.33 M/uL (4.20-5.40); White Blood Count 11.45 K/ul (4.8-10.8)
[2022-07-13 16:01] LABS: Pregnancy Test, Serum Negative (Negative)
[2022-07-13] MEDS ORDERED: fentaNYL citrate PF 100 MCG/2 ML VIAL IV STA ×2 (16:03→18:47)
[2022-07-13] MEDS ORDERED: ONDANSETRON INJ 2 MG/ML 2 ML VIAL IV STA (16:03)
[2022-07-13] MEDS ORDERED: SODIUM CHLORIDE 0.9% 1000ML 1,000 ML IV ONE (16:03)
[2022-07-13 16:04] LABS: Albumin Globulin Ratio 1.2 (0.9-2); Albumin Level 4.1 gm/dl (3.4-5.0); BUN Creatinine Ratio 6.2 (10-20); Bilirubin,Total 0.3 mg/dl (0.2-1.0); Calcium 9.6 mg/dl (8.6-10.3); Creatinine Clr Calc Pharmacy 130.4 ml/min; Est GFR (African American) 135.2 ml/min; Est GFR (Non-African American) 116.7 ml/min; Globulin 3.5 gm/dl (2.5-4.0); Potassium 3.9 mmol/L (3.5-5.1); Total Protein 7.6 gm/dl (6.0-8.3)
--- NOTE | 2022-07-13 16:16 | Emergency Department Note ---
Impression & Plan Acute on chronic pancreatitis, Pancreatic pseudocyst ED Provider Note Provider: Andrew Bateman MD DATE OF SERVICE: 07/13/2022 CHIEF COMPLAINT: Abdominal pain and cramping with nausea and vomiting HISTORY OF PRESENT ILLNESS: Patient is a 32-year-old female history of migraine, gastritis, pancreatitis, pancreatic pseudocyst presenting here today reporting ongoing issues with abdominal pain and nausea and vomiting. Pancreatitis and a pseudocyst but patient declined admission. Given ongoing issues with nausea vomiting and pain refractory to her home Zofran oxycodone talked with her marjorie wheeler at [facility] for GI who she follows with. Came back here for evaluation is agreeable to stay at this time. States this pain is crampy and has been different than her normal pancreatitis. Has had ongoing symptoms for several weeks. History of pancreatitis over the past 2 years and no longer follows locally for GI. Multiple ERCPs in the past and she does not wish for another one. PAST MEDICAL HISTORY: As noted above MEDICATIONS: Reviewed home medications SOCIAL HISTORY: Denies alcohol use PHYSICAL EXAM: GENERAL: alert and oriented in no acute distress on stretcher Head: normocephalic and atraumatic EYES: No injection, discharge or icterus. PERRL, EOMI. NECK: Trachea midline. Supple. ENT: Mucous membranes pink and moist. Pharynx without erythema or exudate. LUNGS: Airway patent. No retractions. Breath sounds clear with good air entry bilaterally. HEART: Regular rate and rhythm. No chest wall tenderness ABDOMEN: Soft and non-tender, without guarding or rebound. No hepatosplenomegaly or masses BACK: No midline tenderness, no SI joint tenderness. No bilateral flank tender ness. SKIN: Acyanotic, warm, dry, without rashes EXTREMITIES: Without swelling, tenderness or deformity NEUROLOGICAL: No focal deficits. No aphasia. No facial droop or slurred speech. Normal strength and tone in the extremities. Sensation to gross touch normal. Ambulatory. Patient's laboratory studies and imaging from yesterday reviewed. Differential includes Appendicitis, ovarian cyst, ovarian torsion, ectopic , diverticulitis, UTI, obstruction, pancreatitis, biliary pathology, hernia, volvulus, constipation, as well as other pathologies. IMPRESSION/MEDICAL DECISION MAKING: Patient with extensive history of acute on chronic pancreatitis. Last 2 years multiple episodes. Multiple ERCPs in the past. No longer follows with local GI follows in [place]. Seen yesterday here. Reviewed blood work and imaging and diagnosed with acute on chronic pancreatitis flare. Do not feel we need to repeat imaging today given ongoing and chronic symptoms. Repeat blood work was obtained. Symptoms ongoing for several weeks. Again tried at home with oral medications: Zofran oxycodone but not doing well and dehydrating. Came here and is agreeable for admission at this time. Did talk with her GI specialist office in [place] who recommended she come back to the hospital. Basic blood work obtained here today lipase mildly downtrending but still slightly elevated. Slight leukocytosis but does not appear septic at this time. Doubt an infected pseudocyst at this point. Discussed with the hospitalist. Did reach out to the [facility] GI service to see if they have any additional recommendations or wish for transfer at this time. Given some IV pain and IV fluids. After several hours no recurrent call from [facility] and according to the call center the advised the doctor told them before to see if we could handle it here. Given this discussed with the hospitalist again and they will admit the patient here at this time. Did they receive a call from Dr. Pisano from [facility] GI. Discussed conservative care measures at this time and continued outpatient follow-up given the limited information she knows for the patient having only met her once. DIAGNOSIS: Acute on chronic pancreatitis with pseudocyst, nausea and vomiting DISPOSITION: Hospitalist will evaluate Patient was agreeable with this plan. Past Med/Surg History Medical History Acute pancreatitis Acute pancreatitis Asthma well controlled; worse in winter Chronic pancreatitis Constipation GERD (gastroesophageal reflux disease) History of varicella Homicidal ideation Hx of chlamydia infection Hx of drug dependence Hx of ovarian cyst Hx of pancreatitis Migraine Obesity Pancreatic pseudocyst Prediabetes Pulmonary nodule yearly imaging Smoker Surgical History H/O oral surgery History of cholecystectomy History of ERCP S/P tonsillectomy and adenoidectomy Family History Mother Diabetes Dyslipidemia Hypertension Grandmother (Paternal) Diabetes Aunt Diabetes Denies family history of Ovarian cancer Prostate cancer Myocardial infarction Breast cancer Colorectal cancer Social History Smoking Status: Never smoker Tobacco Type: Cigarettes Age Started Using Tobacco: 11; packs per day: 1; Cigarettes Per Day: 10-20 PER DAY - ADVISED; Second Hand Exposure: No; Hx Alcohol Use: No Hx Substance Use: No Preferred Language: Northern Irish Communication Ability: Effective 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 Beliefs That Will Affect Care: None marital status: Single Current Living Situation: Spouse and Significant Other Current Living Situation Comment: allie current occupational status: employed Other Information That Helps Us Care for You: No Feels Safe at Home: Yes Dental Care, Regularly: Yes Physical Activity Frequency: Does not Exercise Seatbelt Use: always Sunscreen Use: No Assistive Devices: Glasses Allergies Allergies Allergy/AdvReac Type Severity Reaction Status Date / Time adhesive Allergy Mild RASH Verified 07/13/22 16:06 nickel Allergy Mild RASH Verified 07/13/22 16:06 morphine AdvReac Severe Body fells Verified 07/13/22 16:06 like it is on fire Home Meds Home Medications Medication Instructions Recorded Confirmed amitriptyline 25 mg tablet 50 mg PO HS 06/14/22 07/13/22 lumateperone 42 mg capsule 42 mg PO HS 07/11/22 07/13/22 (Caplyta) baclofen 10 mg tablet 10 mg PO QPM 07/13/22 07/13/22 diclofenac sodium 1 % topical gel 2 g EXT QID PRN Pain 07/13/22 07/13/22 (Voltaren Arthritis Pain) galcanezumab-gnlm 120 mg/mL 120 mg subcut MONTHLY 07/13/22 07/13/22 subcutaneous pen injector (Emgality Pen) Previous Rx's Medication Instructions Recorded cholecalciferol (vitamin D3) 50 50 mcg PO BID #30 caps 12/16/21 mcg (2,000 unit) capsule cyanocobalamin (vitamin B-12) 2,500 mcg sublingual DAILY #30 tabs 12/16/21 2,500 mcg sublingual tablet ferrous sulfate 325 mg (65 mg 325 mg PO DAILY #60 tabs 12/16/21 iron) tablet ondansetron 4 mg disintegrating 4 mg PO Q8H PRN nausea and 01/12/22 tablet vomiting #30 tabs pantoprazole 40 mg tablet,delayed 40 mg PO BID #60 tabs 05/06/22 release oxycodone 5 mg tablet 5 - 10 mg PO Q6H PRN pain #15 tabs 07/12/22 Results & Data (ED) Vital Signs Vital Signs - 24 hr 07/13/22 13:51 07/13/22 15:51 07/13/22 16:19 Temperature 36.5 C Temperature Source Temporal Artery Scan Pulse Rate 118 H 97 H Pulse Rate [Apical] 97 H Pulse Rate from SpO2 Sensor Respiratory Rate 18 18 Respiratory Depth Normal Blood Pressure 143/94 H Blood Pressure [Left Arm] 145/104 H Blood Pressure Mean 110 Blood Pressure Mean [Left Arm] 117 Pulse Oximetry 98 98 Oxygen Delivery Method Room Air Room Air Sepsis Recent Fever Within 48 Hours No Sepsis New/Unexplained Change in Mental Status No Sepsis Action Taken by Nursing No Action Required 07/13/22 17:04 07/13/22 17:00 07/13/22 17:30 Temperature Temperature Source Pulse Rate 101 H 98 H Pulse Rate [Apical] 96 H Pulse Rate from SpO2 Sensor 101 H 98 H Respiratory Rate 22 20 31 H Respiratory Depth Blood Pressure 124/79 119/84 Blood Pressure [Left Arm] 124/79 Blood Pressure Mean 94 95 Blood Pressure Mean [Left Arm] 94 Pulse Oximetry 95 95 95 Oxygen Delivery Method Room Air Sepsis Recent Fever Within 48 Hours Sepsis New/Unexplained Change in Mental Status Sepsis Action Taken by Nursing 07/13/22 17:50 07/13/22 18:00 07/13/22 18:30 Temperature Temperature Source Pulse Rate 94 H 97 H 92 H Pulse Rate [Apical] Pulse Rate from SpO2 Sensor 94 H 97 H Respiratory Rate 16 29 H 20 Respiratory Depth Blood Pressure 115/80 115/80 122/83 Blood Pressure [Left Arm] Blood Pressure Mean 91 91 96 Blood Pressure Mean [Left Arm] Pulse Oximetry 96 93 93 Oxygen Delivery Method Room Air Sepsis Recent Fever Within 48 Hours Sepsis New/Unexplained Change in Mental Status Sepsis Action Taken by Nursing 07/13/22 19:00 07/13/22 19:30 Temperature Temperature Source Pulse Rate 97 H 94 H Pulse Rate [Apical] Pulse Rate from SpO2 Sensor Respiratory Rate 19 18 Respiratory Depth Blood Pressure 118/80 116/73 Blood Pressure [Left Arm] Blood Pressure Mean 92 87 Blood Pressure Mean [Left Arm] Pulse Oximetry 95 94 Oxygen Delivery Method Room Air Room Air Sepsis Recent Fever Within 48 Hours Sepsis New/Unexplained Change in Mental Status Sepsis Action Taken by Nursing Laboratory Data 07/13/22 15:10 07/13/22 15:10 Lab Results 07/13/22 07/13/22 07/13/22 Range/Units 15:10 15:10 15:10 WBC 11.45 H (4.8-10.8) K/ul RBC 5.33 (4.20-5.40) M/uL Hgb 13.9 (12.0-16.0) g/dl Hct 42.4 (37.0-47.0) % MCV 79.5 L (80.0-100.0) fL MCH 26.1 (25.0-34.0) pg MCHC 32.8 (32.0-36.0) g/dL RDW Std Deviation 50.9 H (36.4-46.3) fL RDW Coeff of Jasmin 18.2 H (11.5-14.5) % Plt Count 248 (130-400) K/uL MPV 9.9 (9.4-12.4) fL Immature Gran % (Auto) 0.3 % Neut % (Auto) 77.1 % Lymph % (Auto) 16.5 % Henry % (Auto) 5.2 % Eos % (Auto) 0.7 % Baso % (Auto) 0.2 % Neut # (Auto) 8.83 H (1.40-6.50) K/uL Lymph # (Auto) 1.89 (1.2-3.4) K/uL Henry # (Auto) 0.59 (0.11-0.59) K/uL Eos # (Auto) 0.08 (0-0.50) K/uL Baso # (Auto) 0.02 (0-0.2) K/uL Immature Gran # (Auto) 0.04 (0.01-0.20) K/uL Sodium 137 (136-145) mmol/L Potassium 3.9 (3.5-5.1) mmol/L Chloride 102 (98-107) mmol/L Carbon Dioxide 28 (21-32) mmol/L Anion Gap 7 (3-11) BUN 4 L (6-23) mg/dl Creatinine 0.65 (0.6-1.2) mg/dl Est Cr Clr Drug Dosing 130.4 ml/min Est GFR ( Amer) 135.2 ml/min Est GFR (Non-Af Amer) 116.7 ml/min BUN/Creatinine Ratio 6.2 L (10-20) Glucose 105 H (70-99(Fasting)) mg/dl Calcium 9.6 (8.6-10.3) mg/dl Total Bilirubin 0.3 (0.2-1.0) mg/dl AST 12 L (13-39) U/L ALT 17 (7-52) U/L Alkaline Phosphatase 92 (34-104) U/L Total Protein 7.6 (6.0-8.3) gm/dl Albumin 4.1 (3.4-5.0) gm/dl Globulin 3.5 (2.5-4.0) gm/dl Albumin/Globulin Ratio 1.2 (0.9-2) Lipase 168 H (11-82) U/L HCG, Qual Negative (Negative) Administered Medications Discontinued Medications Fentanyl Citrate (Fentanyl Citrate Pf 100 Mcg/2 Ml Vial) 100 mcg IV NOW STA Stop: 07/13/22 16:04 Last Admin: 07/13/22 16:17 Dose: 100 mcg Documented By: SHIREEN Fentanyl Citrate (Fentanyl Citrate Pf 100 Mcg/2 Ml Vial) 100 mcg IV NOW STA Stop: 07/13/22 18:48 Last Admin: 07/13/22 18:59 Dose: 100 mcg Documented By: LOUIE Sodium Chloride (Nss 1000ml) 1,000 mls @ 999 mls/hr IV .Q1H1M ONE Stop: 07/13/22 17:03 Last Infusion: 07/13/22 17:16 Dose: 0 mls/hr Documented By: Admin: 07/13/22 16:13 Dose: 999 mls/hr Documented By: SHIREEN Lactated Ringer's (Lr) 500 mls @ 999 mls/hr IV .Q31M ONE Stop: 07/13/22 19:17 Last Infusion: 07/13/22 19:28 Dose: 0 mls/hr Documented By: Admin: 07/13/22 18:58 Dose: 999 mls/hr Documented By: LOUIE Ondansetron HCl (Ondansetron Inj 2 Mg/Ml 2 Ml Vial) 4 mg IV NOW STA Stop: 07/13/22 16:04 Last Admin: 07/13/22 16:13 Dose: 4 mg Documented By: SHIREEN Discharge Plan Visit Data Chief Complaint: Abdominal Pain Stated Complaint: VOMITING, ABD PAIN, REF BY DOC ED Provider: Bhavana, T Discharge Problem: Acute on chronic pancreatitis, Pancreatic pseudocyst
[2022-07-13 16:23] LABS: Appearance Urine Clear (Clear); Bacteria Urine Automated Negative (Negative); Bilirubin Urine Negative (Negative); Blood Urine 1+ (Negative); Color Urine Yellow; Glucose Urine UA Negative (Negative); Ketones Urine Negative (Negative); Leukocyte Esterase Urine Trace (Negative); Nitrite Urine Negative (Negative); Protein Urine Negative (Negative); RBC Urine Automated 0-4 /hpf (0-4); Specific Gravity Urine 1.011 (1.000-1.030); Urobilinogen Urine Negative (Negative)
[2022-07-13] MEDS ORDERED: LACTATED RINGER'S 500 ML IV ONE (18:47)
--- NOTE | 2022-07-13 19:46 | History & Physical Report ---
Date of Service July 13, 2022 Assessment & Plan (1) Acute pancreatitis: Plan: Acute recurrent pancreatitis likely leading into chronic pancreatitis hence lack of increased lipase. ER Provider discussed with her washery engineer at [facility] and plan is to manage conservatively here currently. Consider transfer if not improving as patient does not wish to have any more procedures performed here. Recommend discussing chronic splenic occlusion with her washery engineer tomorrow but given chronicity will just place on VTE Prophylaxis currently as this is not acute and doubtful this is causing her the abdominal pain. 2L IV fluids given in the ER, will give another 1L LR @ 150ml/hr then 3L @ 125ml/hr Dilaudid for pain relief Ondansetron for nausea relief (2) Hypertriglyceridemia: Plan: Not suspected to be cause of pancreatitis per prior GI notes given levels < 500 (3) Gastritis: Plan: Continue pantoprazole 40mg PO BID (4) Chronic thrombosis of splenic vein: Plan: Consider full dose anticoagulation but given non acute deferred to discussing with her washery engineer tomorrow Plan VTE Prophylaxis - Lovenox 40mg SQ daily Diet - clear liquids Disposition - observation status to med/surg Admission and Anticipated Discharge Date Admission Date: July 14, 2022 History of Present Illness Chief Complaint: Abdominal pain Primary Care Provider: Stefanie Crowder MD Cece Colin is a 32 year old female who presents to the ER with abdominal pain. She reports her current abdominal pain which has been diagnosed as pancreatitis has been ongoing for the last 3 weeks. She was seen in the ER as recently as yesterday with CT concerning for acute pancreatitis and given the option of admission. She declined and tried to treat this at home but has been unable to tolerate any liquids despite using oral ondansetron therefore returned to the ER on advice of her [facility] washery engineer. She has had multiple prior episodes of pancreatitis which have been labelled as idiopathic with multiple prior ERCPs. She is currently undergoing workup at [facility] but has only been seen there once. She has a planned secretin-enhanced MRCP for this July. She is not interested in seeing GI here as she has had multiple unremarkable ERCPs in the past. Therefore I asked the ER provider to discuss with her washery engineer at [facility] to consider transfer given ongoing inflammation for several weeks now and pancreatic ductal calculi seen on CT (although these have also previously been seen on imaging with normal ERCP) however they recommended conservative management here currently. In the ER no further imaging was performed, however CT from yesterday consistent with acute pancreatitis. Lipase actually improving at 168. LFTs unremarkable. She was referred to medicine for admission and ongoing management of pancreatitis. Allergies Allergy/AdvReac Type Severity Reaction Status Date / Time adhesive Allergy Mild RASH Verified 07/13/22 16:06 nickel Allergy Mild RASH Verified 07/13/22 16:06 morphine AdvReac Severe Body fells Verified 07/13/22 16:06 like it is on fire Home Medications Medication Instructions Recorded Confirmed Type cholecalciferol (vitamin D3) 50 50 mcg PO BID #30 caps 12/16/21 07/13/22 Rx mcg (2,000 unit) capsule cyanocobalamin (vitamin B-12) 2,500 mcg sublingual DAILY #30 tabs 12/16/21 07/13/22 Rx 2,500 mcg sublingual tablet ferrous sulfate 325 mg (65 mg 325 mg PO DAILY #60 tabs 12/16/21 07/13/22 Rx iron) tablet ondansetron 4 mg disintegrating 4 mg PO Q8H PRN nausea and 01/12/22 07/13/22 Rx tablet vomiting #30 tabs pantoprazole 40 mg tablet,delayed 40 mg PO BID #60 tabs 05/06/22 07/13/22 Rx release amitriptyline 25 mg tablet 50 mg PO HS 06/14/22 07/13/22 History lumateperone 42 mg capsule 42 mg PO HS 07/11/22 07/13/22 History (Caplyta) oxycodone 5 mg tablet 5 - 10 mg PO Q6H PRN pain #15 tabs 07/12/22 07/13/22 Rx baclofen 10 mg tablet 10 mg PO QPM 07/13/22 07/13/22 History diclofenac sodium 1 % topical gel 2 g EXT QID PRN Pain 07/13/22 07/13/22 History (Voltaren Arthritis Pain) galcanezumab-gnlm 120 mg/mL 120 mg subcut MONTHLY 07/13/22 07/13/22 History subcutaneous pen injector (Emgality Pen) Past Med/Surg History Medical History Acute pancreatitis Acute pancreatitis Asthma well controlled; worse in winter Chronic pancreatitis Constipation GERD (gastroesophageal reflux disease) History of varicella Homicidal ideation Hx of chlamydia infection Hx of drug dependence Hx of ovarian cyst Hx of pancreatitis Migraine Obesity Pancreatic pseudocyst Prediabetes Pulmonary nodule yearly imaging Smoker Surgical History H/O oral surgery History of cholecystectomy History of ERCP S/P tonsillectomy and adenoidectomy Family History Mother Diabetes Dyslipidemia Hypertension Grandmother (Paternal) Diabetes Aunt Diabetes Denies family history of Ovarian cancer Prostate cancer Myocardial infarction Breast cancer Colorectal cancer Social History Smoking Status: Never smoker Tobacco Type: Cigarettes Age Started Using Tobacco: 11; packs per day: 1; Cigarettes Per Day: 10-20 PER DAY - ADVISED; Second Hand Exposure: No; Hx Alcohol Use: No Hx Substance Use: No Preferred Language: Malay Communication Ability: Effective 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 Beliefs That Will Affect Care: None marital status: Single Current Living Situation: Spouse and Significant Other Current Living Situation Comment: fiance current occupational status: employed Other Information That Helps Us Care for You: No Feels Safe at Home: Yes Dental Care, Regularly: Yes Physical Activity Frequency: Does not Exercise Seatbelt Use: always Sunscreen Use: No Assistive Devices: Glasses Review of Systems Review of Systems: All systems reviewed & are unremarkable except as noted in HPI & below Physical Exam Constitutional: WD/WN, vitals as above no acute distress Respiratory: normal respiratory effort, lungs clear to auscultation Cardiovascular: RRR, no murmur, no edema Gastrointestinal (Abdomen): Inspection/Auscultation: abdomen normal to inspection; abdomen not distended Percussion/Palpation: + abdomen tender (epigastric and LUQ) and abdomen soft; no guarding and abdomen not rigid Musculoskeletal: no cyanosis or clubbing, extremities motor strength 5/5 Skin: no rashes, warm and dry Neurologic: moves all extremities and awake; not confused Psychiatric: A+Ox3, euthymic affect Results & Data Results & Data Vital Signs (Past 12 Hours) Vital Signs Temp Pulse Pulse Resp BP BP Pulse Ox 07/13/22 18:00 97 H 29 H 115/80 93 07/13/22 17:50 94 H 16 115/80 96 07/13/22 17:30 98 H 31 H 119/84 95 07/13/22 17:00 101 H 20 124/79 95 07/13/22 17:04 96 H 22 124/79 95 07/13/22 16:19 97 H 07/13/22 15:51 97 H 18 145/104 H 98 07/13/22 13:51 36.5 C 118 H 18 143/94 H 98 O2 Del Method 07/13/22 18:00 07/13/22 17:50 07/13/22 17:30 07/13/22 17:00 07/13/22 17:04 Room Air 07/13/22 16:19 07/13/22 15:51 Room Air 07/13/22 13:51 Room Air Laboratory Results Abnormal lab results 07/13/22 07/13/22 07/13/22 Range/Units 15:10 15:10 Unknown WBC 11.45 H (4.8-10.8) K/ul MCV 79.5 L (80.0-100.0) fL RDW Std Deviation 50.9 H (36.4-46.3) fL RDW Coeff of Jasmin 18.2 H (11.5-14.5) % Neut # (Auto) 8.83 H (1.40-6.50) K/uL BUN 4 L (6-23) mg/dl BUN/Creatinine Ratio 6.2 L (10-20) Glucose 105 H (70-99(Fasting)) mg/dl AST 12 L (13-39) U/L Lipase 168 H (11-82) U/L Urine Blood 1+ H (Negative) Ur Leukocyte Esterase Trace H (Negative) U Epithel Cells (Auto) 10-20 H (0-5) /lpf Medications Administered ER Medications Given: NSS 1L bolus Fentanyl 10 mcg IV Ondansetron 4mg IV LR 500ml bolus Fentanyl 100 mcg IV Code Status & VTE Plan Code Status Full VTE Prophylaxis Plan VTE Prophylaxis will be ordered: Yes PG Care Time/CCT Total # of Minutes Spent Total Time Spent with Patient: Total time spent is greater than 50% in coordination of care (as documented) at patient's floor/unit and/or counseling patient: Coding Level of Care Code 14581 INT INP/OBS CARE 3/75MIN Diagnoses Acute pancreatitis K85.90 Hypertriglyceridemia E78.1 Gastritis K29.70 Chronic thrombosis of splenic vein I82.891
[2022-07-13] MEDS ORDERED: LACTATED RINGER'S 1,000 ML IV SCH (20:15)
[2022-07-13] MEDS ORDERED: ONDANSETRON INJ 2 MG/ML 2 ML VIAL IV PRN (20:26)
[2022-07-13] MEDS: HYDROmorphone INJ 0.5 MG/0.5 ML SYR IV PRN (21:31)
[2022-07-13] MEDS: CHOLECALCIFEROL 1,000 UNITS 25 MCG TAB PO SCH (21:32)
[2022-07-13] MEDS: AMITRIPTYLINE HCL 50 MG TAB PO SCH (21:32)
[2022-07-13] MEDS: PANTOprazole 40 MG TAB PO SCH (21:32)
[2022-07-13] MEDS: BACLOFEN 10 MG TAB PO SCH (21:32)
[2022-07-13] MEDS: LACTATED RINGER'S 1,000 ML IV SCH (21:33)
[2022-07-14] MEDS: HYDROmorphone INJ 0.5 MG/0.5 ML SYR IV PRN ×7 (00:21→22:43)
[2022-07-14 08:10] LABS: Albumin Globulin Ratio 1.2 (0.9-2); Albumin Level 3.2 gm/dl (3.4-5.0); BUN Creatinine Ratio 8.9 (10-20); Bilirubin,Total 0.4 mg/dl (0.2-1.0); Calcium 8.5 mg/dl (8.6-10.3); Creatinine Clr Calc Pharmacy 151.3 ml/min; Est GFR (Non-African American) 122.5 ml/min; Globulin 2.6 gm/dl (2.5-4.0); Potassium 3.7 mmol/L (3.5-5.1); Total Protein 5.8 gm/dl (6.0-8.3)
[2022-07-14 08:14] LABS: Basophils # (auto) 0.01 K/uL (0-0.2); Basophils % (auto) 0.2 %; Eosinophils # (auto) 0.12 K/uL (0-0.50); Eosinophils % (auto) 2.2 %; Hematocrit (blood only) 34.5 % (37.0-47.0); Immature Granulocytes # (auto) 0.01 K/uL (0.01-0.20); Immature Granulocytes % (auto) 0.2 %; Lymphocytes # (auto) 1.43 K/uL (1.2-3.4); Lymphocytes % (auto) 25.9 %; Mean Corpuscular Hemoglobin 26.3 pg (25.0-34.0); Mean Corpuscular Hgb Conc 31.9 g/dL (32.0-36.0); Mean Corpuscular Volume 82.5 fL (80.0-100.0); Mean Platelet Volume 9.8 fL (9.4-12.4); Monocytes # (auto) 0.38 K/uL (0.11-0.59); Monocytes % (auto) 6.9 %; Neutrophils # (auto) 3.57 K/uL (1.40-6.50); Neutrophils % (auto) 64.6 %; Platelet Count 165 K/uL (130-400); RDW Coefficient of Variation 17.8 % (11.5-14.5); RDW Standard Deviation 53.3 fL (36.4-46.3); Red Blood Count 4.18 M/uL (4.20-5.40); White Blood Count 5.52 K/ul (4.8-10.8)
--- NOTE | 2022-07-14 08:29 | Hospitalist Progress Note ---
Date of Service July 14, 2022 Assessment & Plan (1) Left lower quadrant pain: Plan: admitted for suspected acute on chronic pancreatitis based on prior imaging 07/12 After discussion w/ patient, she reports no hx IBD/crohns/colitis but chronic iron deficiency and on supplementation which causes dark stools but also some bright red blood on occasion w/ straining. She notes she had been in ER w reports LLQ pain, initially thought to be her period which was over the weekend and ended start of this week but progression of pain LLQ, loose stools. Possible improvement after BM She reports she has had hx diverticulitis tx conservatively with oral abx and no need for hospitalization Never had c-scope in past Check stool studies/PCR/cdiff for completeness given colitis on prior imaging, stool calprotectin. Of note, patient w/ prior +TATYANA/HLA-B27 testing. ?underlying malignancy Attempt CTAP w/ oral and IV contrast for better evaluation of bowels given LLQ pain/hx diverticulitis GI consulted -- patient requested NOT to see [facility] GI while inpatient -- appreciate recs Changed to NPO for now this morning and while awaiting scan given reports of increased abdominal pain (however improved from admission) continue IVF as ordered but decreased to 100cc/hr for now antiemetics/pain control prn Monitor labs on repeat (2) Acute pancreatitis: Plan: Acute recurrent pancreatitis likely leading into chronic pancreatitis hence lack of increased lipase. ER Provider discussed with her family service counselor at [facility] and plan is to manage conservatively here currently. Consider transfer if not improving as patient does not wish to have any more procedures performed here. Recommend discussing chronic splenic occlusion with her family service counselor tomorrow (she DECLINED TO OFFER ANY INPUT AND STATED INAPPROPRIATE CALL) but given chronicity just placed on VTE Prophylaxis currently as this is not acute and doubtful this is causing her the abdominal pain. 2L IV fluids given in the ER, will give another 1L LR @ 150ml/hr then 3L @ 125ml/hr Dilaudid for pain relief Ondansetron for nausea relief 07/14 Lipase improving, however patient really with LEFT LOWER QUADRANT PAIN ON EXAM, what she reported in ER on 07/12 Appears patient w/ hx elevated triglycerides, will repeat levels -- actually improved ?Ever trial creon for symptom control -- started TID for symptoms of pancr eatitis ?If related to anti-psychotic medication -- on lumaterperone which can cause increased lipid/cholesterol/TRG for metabolic side effects along w/ hyperglycemia Of note, patient states she recently started this medication about 2 weeks ago (3) Hypertriglyceridemia: Plan: Not suspected to be cause of pancreatitis per prior GI notes given levels < 500 but will repeat levels given pancreatitis/psych medications to see if worsened --> levels actually improved (4) Gastritis: Plan: Continue pantoprazole 40mg PO BID ?consider adding carafate if needed but defer to GI (5) Chronic thrombosis of splenic vein: Plan: Consider full dose anticoagulation but given non acute deferred to discussing with her family service counselor tomorrow -- no recs and not appropriate to call Dr Pisano per conversation as she spoke w/ ER doc last evening 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 The chart was reviewed. Case discussed with ADRIAN Ortiz. Agree with assessment and plan Subjective patient evaluated this morning, states feeling much better than when she came in but concerned about everyone saying this is pancreatitis pain when her pain is primarily lower abdomen, and moreso LLQ. Did report some loose stools. Discussed GI consultation -- she DOES NOT want [facility] involved in her care. Discussed I spoke w/ her specialist and can call med call center about transfer -- she does not want transferred at this time. Ok w/ [facility] GI consultation. Discussed LLQ pain, she did initially think was period cramping and had period from Monday until Monday, but then worsened and told by PCP to come to ER on Monday. Unable to tolerate PO at home yesterday/following discharge from ER. Wine cooler ~1x every 6 months reported.No heavy drinking. Still recommended that she abstain from alcohol given chronic pancreatitis. No recent abx use Will check CTAP w/ oral contrast. Thinks oral contrast might make her nauseated. Discussed zofran available prn. Will check CTAP/consult GI and further treatment pending imaging/eval. She does report hx diverticulitis in past and abx w/ Augmentin. DENIES ever having colonoscopy. Stools usually dark as on iron for chronic iron deficiency. DENIES any known family history of IBD/crohns/colitis. Discussed holding off diet until eval diverticulitis/possible abscess. She is to get her migraine shot Emg[facility]. If dc tomorrow can take outpatient. Physical Exam Physical Exam: General: WD/WN female sitting in bed, chronically ill appearing/older than stated age, NAD but reporting mild LLQ discomfort HEENT: head normocephalic atraumatic, mmm, trachea midline without deviation Resp: CTAB, no w/c/r, on room air CV: RRR, no m/r/g, no pitting edema GI: +BS, epigastric tenderness to deep palpation, LLQ/suprapubic discomfort to palpation, voluntary guarding LLQ but no ridigity/peritoneal signs : no dewey, no CVA tenderness bilaterally MSK/Neuro: no focal deficits, follows commands Psych: AOx3, cooperative with exam Results & Data Results & Data Vital Signs (Past 12 Hours) Vital Signs Temp Pulse Pulse Resp BP BP Pulse Ox 07/14/22 07:15 07/14/22 07:42 36.4 C L 78 16 118/78 95 07/13/22 21:15 36.6 C 92 H 16 132/90 95 07/13/22 21:00 88 18 116/74 94 07/13/22 20:30 88 19 120/75 93 O2 Del Method 07/14/22 07:15 Room Air 07/14/22 07:42 Room Air 07/13/22 21:15 Room Air 07/13/22 21:00 Room Air 07/13/22 20:30 Room Air Laboratory Results 07/14/22 07/14/22 07/14/22 Range/Units 14:18 07:18 07:18 WBC 5.52 (4.8-10.8) K/ul RBC 4.18 L (4.20-5.40) M/uL Hgb 11.0 L D (12.0-16.0) g/dl Hct 34.5 L (37.0-47.0) % MCV 82.5 (80.0-100.0) fL MCH 26.3 (25.0-34.0) pg MCHC 31.9 L (32.0-36.0) g/dL RDW Std Deviation 53.3 H (36.4-46.3) fL RDW Coeff of Jasmin 17.8 H (11.5-14.5) % Plt Count 165 (130-400) K/uL MPV 9.8 (9.4-12.4) fL Immature Gran % (Auto) 0.2 % Neut % (Auto) 64.6 % Lymph % (Auto) 25.9 % [place] % (Auto) 6.9 % Eos % (Auto) 2.2 % Baso % (Auto) 0.2 % Neut # (Auto) 3.57 (1.40-6.50) K/uL Lymph # (Auto) 1.43 (1.2-3.4) K/uL [place] # (Auto) 0.38 (0.11-0.59) K/uL Eos # (Auto) 0.12 (0-0.50) K/uL Baso # (Auto) 0.01 (0-0.2) K/uL Immature Gran # (Auto) 0.01 (0.01-0.20) K/uL Sodium 138 (136-145) mmol/L Potassium 3.7 (3.5-5.1) mmol/L Chloride 105 (98-107) mmol/L Carbon Dioxide 29 (21-32) mmol/L Anion Gap 4 (3-11) BUN 5 L (6-23) mg/dl Creatinine 0.56 L (0.6-1.2) mg/dl Est Cr Clr Drug Dosing 151.3 ml/min Est GFR ( Amer) 142.0 ml/min Est GFR (Non-Af Amer) 122.5 ml/min BUN/Creatinine Ratio 8.9 L (10-20) Glucose 81 (70-99(Fasting)) mg/dl Calcium 8.5 L (8.6-10.3) mg/dl Iron 27 L (35-150) mcg/dl TIBC 204 L (250-450) mcg/dl Unsaturated IBC 177 (155-355) mcg/dl Transferrin % Sat 13 L (15-50) % Ferritin 116.0 (8-388) ng/ml Total Bilirubin 0.4 (0.2-1.0) mg/dl AST 12 L (13-39) U/L ALT 15 (7-52) U/L Alkaline Phosphatase 66 (34-104) U/L Total Creatine Kinase Cancelled Total Protein 5.8 L D (6.0-8.3) gm/dl Albumin 3.2 L (3.4-5.0) gm/dl Globulin 2.6 (2.5-4.0) gm/dl Albumin/Globulin Ratio 1.2 (0.9-2) Triglycerides 183 H (0-150) mg/dl Cholesterol 166 (0-200) mg/dl LDL Cholesterol, Calc 94 mg/dl VLDL Cholesterol, Calc 37 H (0-30) mg/dl HDL Cholesterol 35 mg/dl Cholesterol/HDL Ratio 4.7 (0-5) Lipase 112 H (11-82) U/L HCG, Qual (Negative) Urine Color Urine Appearance (Clear) Urine pH (4.5-7.5) Ur Specific Elizabeth (1.000-1.030) Urine Protein (Negative) Urine Glucose (UA) (Negative) Urine Ketones (Negative) Urine Blood (Negative) Urine Nitrite (Negative) Urine Bilirubin (Negative) Urine Urobilinogen (Negative) Ur Leukocyte Esterase (Negative) Urine WBC (Auto) (0-5) /hpf Urine RBC (Auto) (0-4) /hpf U Hyaline Cast (Auto) (0-5) /lpf U Epithel Cells (Auto) (0-5) /lpf Urine Bacteria (Auto) (Negative) SARS-CoV-2, RNA, NAAT (NEGATIVE) 07/13/22 07/13/22 07/13/22 Range/Units Unknown Unknown 15:10 WBC (4.8-10.8) K/ul RBC (4.20-5.40) M/uL Hgb (12.0-16.0) g/dl Hct (37.0-47.0) % MCV (80.0-100.0) fL MCH (25.0-34.0) pg MCHC (32.0-36.0) g/dL RDW Std Deviation (36.4-46.3) fL RDW Coeff of Jasmin (11.5-14.5) % Plt Count (130-400) K/uL MPV (9.4-12.4) fL Immature Gran % (Auto) % Neut % (Auto) % Lymph % (Auto) % [place] % (Auto) % Eos % (Auto) % Baso % (Auto) % Neut # (Auto) (1.40-6.50) K/uL Lymph # (Auto) (1.2-3.4) K/uL [place] # (Auto) (0.11-0.59) K/uL Eos # (Auto) (0-0.50) K/uL Baso # (Auto) (0-0.2) K/uL Immature Gran # (Auto) (0.01-0.20) K/uL Sodium (136-145) mmol/L Potassium (3.5-5.1) mmol/L Chloride (98-107) mmol/L Carbon Dioxide (21-32) mmol/L Anion Gap (3-11) BUN (6-23) mg/dl Creatinine (0.6-1.2) mg/dl Est Cr Clr Drug Dosing ml/min Est GFR ( Amer) ml/min Est GFR (Non-Af Amer) ml/min BUN/Creatinine Ratio (10-20) Glucose (70-99(Fasting)) mg/dl Calcium (8.6-10.3) mg/dl Iron (35-150) mcg/dl TIBC (250-450) mcg/dl Unsaturated IBC (155-355) mcg/dl Transferrin % Sat (15-50) % Ferritin (8-388) ng/ml Total Bilirubin (0.2-1.0) mg/dl AST (13-39) U/L ALT (7-52) U/L Alkaline Phosphatase (34-104) U/L Total Creatine Kinase Total Protein (6.0-8.3) gm/dl Albumin (3.4-5.0) gm/dl Globulin (2.5-4.0) gm/dl Albumin/Globulin Ratio (0.9-2) Triglycerides (0-150) mg/dl Cholesterol (0-200) mg/dl LDL Cholesterol, Calc mg/dl VLDL Cholesterol, Calc (0-30) mg/dl HDL Cholesterol mg/dl Cholesterol/HDL Ratio (0-5) Lipase (11-82) U/L HCG, Qual Negative (Negative) Urine Color Yellow Urine Appearance Clear (Clear) Urine pH 7.0 (4.5-7.5) Ur Specific Elizabeth 1.011 (1.000-1.030) Urine Protein Negative (Negative) Urine Glucose (UA) Negative (Negative) Urine Ketones Negative (Negative) Urine Blood 1+ H (Negative) Urine Nitrite Negative (Negative) Urine Bilirubin Negative (Negative) Urine Urobilinogen Negative (Negative) Ur Leukocyte Esterase Trace H (Negative) Urine WBC (Auto) 1-5 (0-5) /hpf Urine RBC (Auto) 0-4 (0-4) /hpf U Hyaline Cast (Auto) 1-5 (0-5) /lpf U Epithel Cells (Auto) 10-20 H (0-5) /lpf Urine Bacteria (Auto) Negative (Negative) SARS-CoV-2, RNA, NAAT NEGATIVE (NEGATIVE) 07/13/22 Range/Units 15:10 WBC (4.8-10.8) K/ul RBC (4.20-5.40) M/uL Hgb (12.0-16.0) g/dl Hct (37.0-47.0) % MCV (80.0-100.0) fL MCH (25.0-34.0) pg MCHC (32.0-36.0) g/dL RDW Std Deviation (36.4-46.3) fL RDW Coeff of Jasmin (11.5-14.5) % Plt Count (130-400) K/uL MPV (9.4-12.4) fL Immature Gran % (Auto) % Neut % (Auto) % Lymph % (Auto) % [place] % (Auto) % Eos % (Auto) % Baso % (Auto) % Neut # (Auto) (1.40-6.50) K/uL Lymph # (Auto) (1.2-3.4) K/uL [place] # (Auto) (0.11-0.59) K/uL Eos # (Auto) (0-0.50) K/uL Baso # (Auto) (0-0.2) K/uL Immature Gran # (Auto) (0.01-0.20) K/uL Sodium 137 (136-145) mmol/L Potassium 3.9 (3.5-5.1) mmol/L Chloride 102 (98-107) mmol/L Carbon Dioxide 28 (21-32) mmol/L Anion Gap 7 (3-11) BUN 4 L (6-23) mg/dl Creatinine 0.65 (0.6-1.2) mg/dl Est Cr Clr Drug Dosing 130.4 ml/min Est GFR ( Amer) 135.2 ml/min Est GFR (Non-Af Amer) 116.7 ml/min BUN/Creatinine Ratio 6.2 L (10-20) Glucose 105 H (70-99(Fasting)) mg/dl Calcium 9.6 (8.6-10.3) mg/dl Iron (35-150) mcg/dl TIBC (250-450) mcg/dl Unsaturated IBC (155-355) mcg/dl Transferrin % Sat (15-50) % Ferritin (8-388) ng/ml Total Bilirubin 0.3 (0.2-1.0) mg/dl AST 12 L (13-39) U/L ALT 17 (7-52) U/L Alkaline Phosphatase 92 (34-104) U/L Total Creatine Kinase Total Protein 7.6 (6.0-8.3) gm/dl Albumin 4.1 (3.4-5.0) gm/dl Globulin 3.5 (2.5-4.0) gm/dl Albumin/Globulin Ratio 1.2 (0.9-2) Triglycerides (0-150) mg/dl Cholesterol (0-200) mg/dl LDL Cholesterol, Calc mg/dl VLDL Cholesterol, Calc (0-30) mg/dl HDL Cholesterol mg/dl Cholesterol/HDL Ratio (0-5) Lipase 168 H (11-82) U/L HCG, Qual (Negative) Urine Color Urine Appearance (Clear) Urine pH (4.5-7.5) Ur Specific Elizabeth (1.000-1.030) Urine Protein (Negative) Urine Glucose (UA) (Negative) Urine Ketones (Negative) Urine Blood (Negative) Urine Nitrite (Negative) Urine Bilirubin (Negative) Urine Urobilinogen (Negative) Ur Leukocyte Esterase (Negative) Urine WBC (Auto) (0-5) /hpf Urine RBC (Auto) (0-4) /hpf U Hyaline Cast (Auto) (0-5) /lpf U Epithel Cells (Auto) (0-5) /lpf Urine Bacteria (Auto) (Negative) SARS-CoV-2, RNA, NAAT (NEGATIVE) PG Care Time/CCT Total # of Minutes Spent Total Time Spent with Patient: Total time spent is greater than 50% in coordination of care (as documented) at patient's floor/unit and/or counseling patient: Coding Level of Care Code 86709 SUB INP/OBS CARE 3/50MIN Diagnoses Left lower quadrant pain R10.32 Acute pancreatitis K85.90 Hypertriglyceridemia E78.1 Gastritis K29.70 Chronic thrombosis of splenic vein I82.891 Anemia D64.9
[2022-07-14] MEDS: PANTOprazole 40 MG TAB PO SCH ×2 (08:55→20:55)
[2022-07-14] MEDS: FERROUS SULFATE 325 MG TAB PO SCH (08:55)
[2022-07-14] MEDS: CHOLECALCIFEROL 1,000 UNITS 25 MCG TAB PO SCH ×2 (08:55→20:53)
[2022-07-14] MEDS: ENOXAPARIN INJ 40 MG/0.4 ML SYR SQ SCH (08:56)
[2022-07-14] MEDS: CYANOCOBALAMIN (B-12) 2,500 MCG TABLET SL SCH (08:56)
[2022-07-14 10:12] LABS: Chol HDL Ratio 4.7 (0-5)
[2022-07-14] MEDS ORDERED: HYDROmorphone INJ 0.5 MG/0.5 ML SYR IV STA ×2 (10:58→15:27)
[2022-07-14] MEDS: LACTATED RINGER'S 1,000 ML IV SCH ×2 (12:21→21:23)
[2022-07-14] MEDS: PANCREAZE (LIPASE 10,500U) CAP PO SCH ×2 (13:31→20:54)
[2022-07-14] MEDS ORDERED: IRON SUCROSE 200 MG in 0.9 % SODIUM CHLORIDE 100 ML IV ONE (14:00)
[2022-07-14] MEDS ORDERED: OPTIRAY 350 100ml IV ONE (19:32)
--- NOTE | 2022-07-14 20:05 | CT Scan Report ---
Exam(s): CT ABDOMEN + PELVIS With Contrast IV Amt: 84ml EXAM: CT Abdomen and Pelvis With Intravenous Contrast CLINICAL HISTORY: Reason for exam: llq pain EVAL FOR DIVERTICULITIS. TECHNIQUE: Axial computed tomography images of the abdomen and pelvis with intravenous contrast. CTDI is 14.14 mGy and DLP is 814.32 mGy-cm. Automated exposure control was utilized for the study. A dose lowering technique was utilized adhering to the principles of ALARA. CONTRAST: Patient received 84ml of IV contrast COMPARISON: CT abdomen and pelvis 07/12/22 FINDINGS: There is subsegmental atelectasis in the left lower lobe. Lung bases are otherwise clear. Again demonstrated are changes of acute pancreatitis with peripancreatic fat stranding and fluid. Calcifications are noted in the distal pancreatic duct with upstream ductal dilatation. There is a 1.5 cm pseudocyst inferior to the pancreatic tail (series 2, image 33). There is a stable left upper quadrant omental pseudocyst measuring 3.3 cm (series 2, image 37). 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 There are persistent inflammatory changes in the left upper quadrant with peritoneal thickening and prominent peripancreatic lymph nodes. Gallbladder surgically absent. There is no biliary dilatation. Spleen remains enlarged. Right adrenal gland is normal. There is a stable left adrenal mass. Left kidney perinephric stranding is unchanged, and likely related to adjacent pancreatitis. There is a stable simple cortical cyst in left kidney. Both kidneys enhance symmetrically. There is no hydronephrosis. There is no aortic aneurysm. Oral contrast has been administered. There is no bowel obstruction. There is sigmoid diverticulosis without acute diverticulitis. There is persistent circumferential wall thickening at the hepatic flexure of the colon. Ascites tracks into the pelvis. There is no free air. Uterus and urinary bladder are unremarkable. There is no acute osseous abnormality. IMPRESSION: 1. Persistent findings of acute pancreatitis, as detailed above, associated with multiple pseudocysts and left upper quadrant inflammatory changes. 2. Again seen is wall thickening at the splenic flexure of the colon, which may be reactive to pancreatitis, but segmental colitis is not excluded. 3. Stable left adrenal mass. 4. No diverticulitis. 5. This is associated with a stable 2.3 cm pseudocyst inferior to the pancreatic tail due to 0.6 cm, Electronically signed by: Rohan Abrams M.D. 07/14/22 20:04 PM
[2022-07-14] MEDS: BACLOFEN 10 MG TAB PO SCH (20:53)
[2022-07-14] MEDS: AMITRIPTYLINE HCL 50 MG TAB PO SCH (20:54)
[2022-07-14] MEDS ORDERED: KETOROLAC TROMETHAMINE 15 MG/ML VIAL IV ONE (21:45)
[2022-07-15] MEDS: HYDROmorphone INJ 0.5 MG/0.5 ML SYR IV PRN ×3 (01:32→07:58)
[2022-07-15] MEDS ORDERED: LACTATED RINGER'S 1,000 ML IV SCH (06:00)
[2022-07-15 07:17] LABS: Basophils # (auto) 0.01 K/uL (0-0.2); Basophils % (auto) 0.2 %; Eosinophils % (auto) 2.2 %; Hematocrit (blood only) 35.6 % (37.0-47.0); Hemoglobin 11.5 g/dl (12.0-16.0); Immature Granulocytes # (auto) 0.01 K/uL (0.01-0.20); Immature Granulocytes % (auto) 0.2 %; Lymphocytes # (auto) 1.65 K/uL (1.2-3.4); Lymphocytes % (auto) 36.7 %; Mean Corpuscular Hemoglobin 26.6 pg (25.0-34.0); Mean Corpuscular Hgb Conc 32.3 g/dL (32.0-36.0); Mean Corpuscular Volume 82.4 fL (80.0-100.0); Mean Platelet Volume 10.3 fL (9.4-12.4); Monocytes # (auto) 0.28 K/uL (0.11-0.59); Monocytes % (auto) 6.2 %; Neutrophils # (auto) 2.44 K/uL (1.40-6.50); Neutrophils % (auto) 54.5 %; Platelet Count 167 K/uL (130-400); RDW Coefficient of Variation 17.9 % (11.5-14.5); RDW Standard Deviation 54.4 fL (36.4-46.3); Red Blood Count 4.32 M/uL (4.20-5.40); White Blood Count 4.49 K/ul (4.8-10.8)
[2022-07-15 07:37] LABS: Albumin Globulin Ratio 1.2 (0.9-2); Albumin Level 3.3 gm/dl (3.4-5.0); BUN Creatinine Ratio 6.7 (10-20); Bilirubin,Total 0.3 mg/dl (0.2-1.0); Calcium 8.7 mg/dl (8.6-10.3); Creatinine Clr Calc Pharmacy 141.2 ml/min; Est GFR (African American) 138.8 ml/min; Est GFR (Non-African American) 119.8 ml/min; Globulin 2.7 gm/dl (2.5-4.0); Magnesium 1.9 mg/dl (1.7-2.4); Potassium 3.8 mmol/L (3.5-5.1)
[2022-07-15] MEDS: PANTOprazole 40 MG TAB PO SCH (08:00)
[2022-07-15] MEDS: CHOLECALCIFEROL 1,000 UNITS 25 MCG TAB PO SCH (08:00)
[2022-07-15] MEDS: PANCREAZE (LIPASE 10,500U) CAP PO SCH ×2 (08:01→13:35)
[2022-07-15] MEDS: CYANOCOBALAMIN (B-12) 2,500 MCG TABLET SL SCH (08:01)
[2022-07-15] MEDS: FERROUS SULFATE 325 MG TAB PO SCH (08:01)
[2022-07-15] MEDS: ENOXAPARIN INJ 40 MG/0.4 ML SYR SQ SCH (08:02)
--- NOTE | 2022-07-15 08:06 | Hospitalist Progress Note ---
Date of Service July 15, 2022 Assessment & Plan Admission and Anticipated Discharge Date Admission Date: July 13, 2022 Results & Data Results & Data Vital Signs (Past 12 Hours) Vital Signs Temp Pulse Resp BP Pulse Ox O2 Del Method 07/15/22 07:53 36.6 C 81 14 118/79 95 Room Air 07/15/22 00:56 Room Air 07/14/22 21:09 36.5 C 74 15 127/86 96 Room Air Laboratory Results 07/15/22 07/15/22 07/14/22 Range/Units 06:30 06:30 14:18 WBC 4.49 L (4.8-10.8) K/ul RBC 4.32 (4.20-5.40) M/uL Hgb 11.5 L (12.0-16.0) g/dl Hct 35.6 L (37.0-47.0) % MCV 82.4 (80.0-100.0) fL MCH 26.6 (25.0-34.0) pg MCHC 32.3 (32.0-36.0) g/dL RDW Std Deviation 54.4 H (36.4-46.3) fL RDW Coeff of Jasmin 17.9 H (11.5-14.5) % Plt Count 167 (130-400) K/uL MPV 10.3 (9.4-12.4) fL Immature Gran % (Auto) 0.2 % Neut % (Auto) 54.5 % Lymph % (Auto) 36.7 % [place] % (Auto) 6.2 % Eos % (Auto) 2.2 % Baso % (Auto) 0.2 % Neut # (Auto) 2.44 (1.40-6.50) K/uL Lymph # (Auto) 1.65 (1.2-3.4) K/uL Hardy # (Auto) 0.28 (0.11-0.59) K/uL Eos # (Auto) 0.10 (0-0.50) K/uL Baso # (Auto) 0.01 (0-0.2) K/uL Immature Gran # (Auto) 0.01 (0.01-0.20) K/uL Sodium 139 (136-145) mmol/L Potassium 3.8 (3.5-5.1) mmol/L Chloride 104 (98-107) mmol/L Carbon Dioxide 31 (21-32) mmol/L Anion Gap 4 (3-11) BUN 4 L (6-23) mg/dl Creatinine 0.60 (0.6-1.2) mg/dl Est Cr Clr Drug Dosing 141.2 ml/min Est GFR ( Amer) 138.8 ml/min Est GFR (Non-Af Amer) 119.8 ml/min BUN/Creatinine Ratio 6.7 L (10-20) Glucose 77 (70-99(Fasting)) mg/dl Calcium 8.7 (8.6-10.3) mg/dl Magnesium 1.9 (1.7-2.4) mg/dl Iron (35-150) mcg/dl TIBC (250-450) mcg/dl Unsaturated IBC (155-355) mcg/dl Transferrin % Sat (15-50) % Ferritin (8-388) ng/ml Total Bilirubin 0.3 (0.2-1.0) mg/dl AST 16 (13-39) U/L ALT 18 (7-52) U/L Alkaline Phosphatase 65 (34-104) U/L Total Creatine Kinase Cancelled Total Protein 6.0 (6.0-8.3) gm/dl Albumin 3.3 L (3.4-5.0) gm/dl Globulin 2.7 (2.5-4.0) gm/dl Albumin/Globulin Ratio 1.2 (0.9-2) Triglycerides (0-150) mg/dl Cholesterol (0-200) mg/dl LDL Cholesterol, Calc mg/dl VLDL Cholesterol, Calc (0-30) mg/dl HDL Cholesterol mg/dl Cholesterol/HDL Ratio (0-5) Lipase (11-82) U/L 07/14/22 07/14/22 Range/Units 07:18 07:18 WBC 5.52 (4.8-10.8) K/ul RBC 4.18 L (4.20-5.40) M/uL Hgb 11.0 L D (12.0-16.0) g/dl Hct 34.5 L (37.0-47.0) % MCV 82.5 (80.0-100.0) fL MCH 26.3 (25.0-34.0) pg MCHC 31.9 L (32.0-36.0) g/dL RDW Std Deviation 53.3 H (36.4-46.3) fL RDW Coeff of Jasmin 17.8 H (11.5-14.5) % Plt Count 165 (130-400) K/uL MPV 9.8 (9.4-12.4) fL Immature Gran % (Auto) 0.2 % Neut % (Auto) 64.6 % Lymph % (Auto) 25.9 % Hardy % (Auto) 6.9 % Eos % (Auto) 2.2 % Baso % (Auto) 0.2 % Neut # (Auto) 3.57 (1.40-6.50) K/uL Lymph # (Auto) 1.43 (1.2-3.4) K/uL Hardy # (Auto) 0.38 (0.11-0.59) K/uL Eos # (Auto) 0.12 (0-0.50) K/uL Baso # (Auto) 0.01 (0-0.2) K/uL Immature Gran # (Auto) 0.01 (0.01-0.20) K/uL Sodium 138 (136-145) mmol/L Potassium 3.7 (3.5-5.1) mmol/L Chloride 105 (98-107) mmol/L Carbon Dioxide 29 (21-32) mmol/L Anion Gap 4 (3-11) BUN 5 L (6-23) mg/dl Creatinine 0.56 L (0.6-1.2) mg/dl Est Cr Clr Drug Dosing 151.3 ml/min Est GFR ( Amer) 142.0 ml/min Est GFR (Non-Af Amer) 122.5 ml/min BUN/Creatinine Ratio 8.9 L (10-20) Glucose 81 (70-99(Fasting)) mg/dl Calcium 8.5 L (8.6-10.3) mg/dl Magnesium (1.7-2.4) mg/dl Iron 27 L (35-150) mcg/dl TIBC 204 L (250-450) mcg/dl Unsaturated IBC 177 (155-355) mcg/dl Transferrin % Sat 13 L (15-50) % Ferritin 116.0 (8-388) ng/ml Total Bilirubin 0.4 (0.2-1.0) mg/dl AST 12 L (13-39) U/L ALT 15 (7-52) U/L Alkaline Phosphatase 66 (34-104) U/L Total Creatine Kinase Total Protein 5.8 L D (6.0-8.3) gm/dl Albumin 3.2 L (3.4-5.0) gm/dl Globulin 2.6 (2.5-4.0) gm/dl Albumin/Globulin Ratio 1.2 (0.9-2) Triglycerides 183 H (0-150) mg/dl Cholesterol 166 (0-200) mg/dl LDL Cholesterol, Calc 94 mg/dl VLDL Cholesterol, Calc 37 H (0-30) mg/dl HDL Cholesterol 35 mg/dl Cholesterol/HDL Ratio 4.7 (0-5) Lipase 112 H (11-82) U/L Diagnostic Findings Abdomen/Pelvis CT 07/14/22 16:44 Exam(s): CT ABDOMEN + PELVIS With Contrast IV Amt: 84ml EXAM: CT Abdomen and Pelvis With Intravenous Contrast CLINICAL HISTORY: Reason for exam: llq pain EVAL FOR DIVERTICULITIS. TECHNIQUE: Axial computed tomography images of the abdomen and pelvis with intravenous contrast. CTDI is 14.14 mGy and DLP is 814.32 mGy-cm. Automated exposure control was utilized for the study. A dose lowering technique was utilized adhering to the principles of ALARA. CONTRAST: Patient received 84ml of IV contrast COMPARISON: CT abdomen and pelvis 07/12/22 FINDINGS: There is subsegmental atelectasis in the left lower lobe. Lung bases are otherwise clear. Again demonstrated are changes of acute pancreatitis with peripancreatic fat stranding and fluid. Calcifications are noted in the distal pancreatic duct with upstream ductal dilatation. There is a 1.5 cm pseudocyst inferior to the pancreatic tail (series 2, image 33). There is a stable left upper quadrant omental pseudocyst measuring 3.3 cm (series 2, image 37). 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 There are persistent inflammatory changes in the left upper quadrant with peritoneal thickening and prominent peripancreatic lymph nodes. Gallbladder surgically absent. There is no biliary dilatation. Spleen remains enlarged. Right adrenal gland is normal. There is a stable left adrenal mass. Left kidney perinephric stranding is unchanged, and likely related to adjacent pancreatitis. There is a stable simple cortical cyst in left kidney. Both kidneys enhance symmetrically. There is no hydronephrosis. There is no aortic aneurysm. Oral contrast has been administered. There is no bowel obstruction. There is sigmoid diverticulosis without acute diverticulitis. There is persistent circumferential wall thickening at the hepatic flexure of the colon. Ascites tracks into the pelvis. There is no free air. Uterus and urinary bladder are unremarkable. There is no acute osseous abnormality. IMPRESSION: 1. Persistent findings of acute pancreatitis, as detailed above, associated with multiple pseudocysts and left upper quadrant inflammatory changes. 2. Again seen is wall thickening at the splenic flexure of the colon, which may be reactive to pancreatitis, but segmental colitis is not excluded. 3. Stable left adrenal mass. 4. No diverticulitis. 5. This is associated with a stable 2.3 cm pseudocyst inferior to the pancreatic tail due to 0.6 cm, Electronically signed by: Rohan Abrams M.D. 07/14/22 20:04 PM PG Care Time/CCT Total # of Minutes Spent Total Time Spent with Patient: Total time spent is greater than 50% in coordination of care (as documented) at patient's floor/unit and/or counseling patient: Coding Diagnoses
--- NOTE | 2022-07-15 09:43 | Gastrointestinal Consultation ---
Date of Consultation July 15, 2022 Assessment & Plan (1) Left lower quadrant pain: (2) Acute pancreatitis: Plan -Advance diet to low fat. -Strict ETOH abstinence. -Follow up with [facility] upon discharge. -Outpatient colonoscopy to be arranged by my office. -Supportive care. -Stable for discharge from GI standpoint if cleared by primary team. Thank you for allowing us to participate in the care of this patient. If you have any questions or concerns, please do not hesitate to contact us. Supervising Physician Co-Signing Physician Notes Agree with GERSON Penn as above Patient was discharged prior to my evaluation. History of Present Illness Reason for Consultation: Recurrent pancreatitis, Left lower quadrant abdominal pain Requesting Physician: Vicki Reynoso PA-C Attending Physician: Holden Jeong MD History of Present Illness Patient is a 32 y.o. female with a history of pancreatitis and diverticulitis admitted with LLQ abdominal pain and CT imaging suggestive of acute on chronic pancreatitis. There was evidence of splenic flexure thickening but this was felt reflective of reactive inflammatory change from pancreatitis. She was previously following with [facility] and now with [facility] in regard to her pancreatitis. Hospital medicine did contact [facility] and recommended supportive management locally. Today, the patient reports improving LLQ pain, localized and rated 4/10 in intensity. No fevers or chills, n/v or overt GIB sx. Labs reviewed today. No leukocytosis, mild anemia (likely dilutional) and normal liver panel/lipase. She requests to be discharged home. Allergies Allergy/AdvReac Type Severity Reaction Status Date / Time adhesive Allergy Mild RASH Verified 07/13/22 16:06 nickel Allergy Mild RASH Verified 07/13/22 16:06 morphine AdvReac Severe Body fells Verified 07/13/22 16:06 like it is on fire Home Medications Medication Instructions Recorded Confirmed Type cholecalciferol (vitamin D3) 50 50 mcg PO BID #30 caps 12/16/21 07/13/22 Rx mcg (2,000 unit) capsule cyanocobalamin (vitamin B-12) 2,500 mcg sublingual DAILY #30 tabs 12/16/21 07/13/22 Rx 2,500 mcg sublingual tablet ferrous sulfate 325 mg (65 mg 325 mg PO DAILY #60 tabs 12/16/21 07/13/22 Rx iron) tablet ondansetron 4 mg disintegrating 4 mg PO Q8H PRN nausea and 01/12/22 07/13/22 Rx tablet vomiting #30 tabs pantoprazole 40 mg tablet,delayed 40 mg PO BID #60 tabs 05/06/22 07/13/22 Rx release amitriptyline 25 mg tablet 50 mg PO HS 06/14/22 07/13/22 History lumateperone 42 mg capsule 42 mg PO HS 07/11/22 07/13/22 History (Caplyta) oxycodone 5 mg tablet 5 - 10 mg PO Q6H PRN pain #15 tabs 07/12/22 07/13/22 Rx baclofen 10 mg tablet 10 mg PO QPM 07/13/22 07/13/22 History diclofenac sodium 1 % topical gel 2 g EXT QID PRN Pain 07/13/22 07/13/22 History (Voltaren Arthritis Pain) galcanezumab-gnlm 120 mg/mL 120 mg subcut MONTHLY 07/13/22 07/13/22 History subcutaneous pen injector (Emgality Pen) andmon-vzkvzzwz-pzrwedu 2 cap PO TID #180 caps 07/15/22 Rx 36,000-114,000-180,000 unit capsule,delay rel (Creon) Patient History Medical History Acute pancreatitis Acute pancreatitis Asthma well controlled; worse in winter Chronic pancreatitis Constipation GERD (gastroesophageal reflux disease) History of varicella Homicidal ideation Hx of chlamydia infection Hx of drug dependence Hx of ovarian cyst Hx of pancreatitis Migraine Obesity Pancreatic pseudocyst Prediabetes Pulmonary nodule yearly imaging Smoker Surgical History H/O oral surgery History of cholecystectomy History of ERCP S/P tonsillectomy and adenoidectomy Family History Mother Diabetes Dyslipidemia Hypertension Grandmother (Paternal) Diabetes Aunt Diabetes Denies family history of Ovarian cancer Prostate cancer Myocardial infarction Breast cancer Colorectal cancer Social History Smoking Status: Never smoker Tobacco Type: Cigarettes Age Started Using Tobacco: 11; packs per day: 1; Cigarettes Per Day: 10-20 PER DAY - ADVISED; Second Hand Exposure: No; Hx Alcohol Use: No Hx Substance Use: No Preferred Language: Argentine Communication Ability: Effective 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 Business 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 Required: No Beliefs That Will Affect Care: None marital status: Single Current Living Situation: Spouse and Significant Other Current Living Situation Comment: fiance current occupational status: employed Feels Safe at Home: Yes Dental Care, Regularly: Yes Physical Activity Frequency: Does not Exercise Seatbelt Use: always Sunscreen Use: No Assistive Devices: None Review of Systems Review of Systems: All systems reviewed & are unremarkable except as noted in HPI & below Physical Exam Constitutional: WD/WN, vitals as above Eyes: EOM intact bilaterally Neck: normal appearance Respiratory: normal respiratory effort, lungs clear to auscultation Cardiovascular: Rate/Rhythm: regular rate and regular rhythm Heart Sounds: no gallop and no murmur Gastrointestinal (Abdomen): Inspection/Auscultation: normal bowel sounds Percussion/Palpation: + abdomen tender (epigastric) and abdomen soft; no guarding and abdomen not rigid Musculoskeletal: Extremities: no cyanosis no lower extremity edema Skin: no rashes, warm and dry Neurologic: moves all extremities Psychiatric: A+Ox3, euthymic affect Results & Data Vital Signs (Past 12 Hours) Vital Signs Temp Pulse Resp BP Pulse Ox O2 Del Method 07/15/22 08:00 133/71 07/15/22 07:53 36.6 C 81 14 118/79 95 Room Air 07/15/22 00:56 Room Air Diagnostic Findings Laboratory Results WBC 4.49 K/ul (4.8-10.8) L 07/15/22 06:30 RBC 4.32 M/uL (4.20-5.40) 07/15/22 06:30 Hgb 11.5 g/dl (12.0-16.0) L 07/15/22 06:30 Hct 35.6 % (37.0-47.0) L 07/15/22 06:30 MCV 82.4 fL (80.0-100.0) 07/15/22 06:30 MCH 26.6 pg (25.0-34.0) 07/15/22 06:30 MCHC 32.3 g/dL (32.0-36.0) 07/15/22 06:30 RDW Std Deviation 54.4 fL (36.4-46.3) H 07/15/22 06:30 RDW Coeff of Jasmin 17.9 % (11.5-14.5) H 07/15/22 06:30 Plt Count 167 K/uL (130-400) 07/15/22 06:30 MPV 10.3 fL (9.4-12.4) 07/15/22 06:30 Immature Gran % (Auto) 0.2 % 07/15/22 06:30 Neut % (Auto) 54.5 % 07/15/22 06:30 Lymph % (Auto) 36.7 % 07/15/22 06:30 Mason % (Auto) 6.2 % 07/15/22 06:30 Eos % (Auto) 2.2 % 07/15/22 06:30 Baso % (Auto) 0.2 % 07/15/22 06:30 Neut # (Auto) 2.44 K/uL (1.40-6.50) 07/15/22 06:30 Lymph # (Auto) 1.65 K/uL (1.2-3.4) 07/15/22 06:30 Mason # (Auto) 0.28 K/uL (0.11-0.59) 07/15/22 06:30 Eos # (Auto) 0.10 K/uL (0-0.50) 07/15/22 06:30 Baso # (Auto) 0.01 K/uL (0-0.2) 07/15/22 06:30 Immature Gran # (Auto) 0.01 K/uL (0.01-0.20) 07/15/22 06:30 Sodium 139 mmol/L (136-145) 07/15/22 06:30 Potassium 3.8 mmol/L (3.5-5.1) 07/15/22 06:30 Chloride 104 mmol/L (98-107) 07/15/22 06:30 Carbon Dioxide 31 mmol/L (21-32) 07/15/22 06:30 Anion Gap 4 (3-11) 07/15/22 06:30 BUN 4 mg/dl (6-23) L 07/15/22 06:30 Creatinine 0.60 mg/dl (0.6-1.2) 07/15/22 06:30 Est Cr Clr Drug Dosing 141.2 ml/min 07/15/22 06:30 Est GFR ( Amer) 138.8 ml/min 07/15/22 06:30 Est GFR (Non-Af Amer) 119.8 ml/min 07/15/22 06:30 BUN/Creatinine Ratio 6.7 (10-20) L 07/15/22 06:30 Glucose 77 mg/dl (70-99(Fasting)) 07/15/22 06:30 Calcium 8.7 mg/dl (8.6-10.3) 07/15/22 06:30 Magnesium 1.9 mg/dl (1.7-2.4) 07/15/22 06:30 Iron 27 mcg/dl (35-150) L 07/14/22 07:18 TIBC 204 mcg/dl (250-450) L 07/14/22 07:18 Unsaturated IBC 177 mcg/dl (155-355) 07/14/22 07:18 Transferrin % Sat 13 % (15-50) L 07/14/22 07:18 Ferritin 116.0 ng/ml (8-388) 07/14/22 07:18 Total Bilirubin 0.3 mg/dl (0.2-1.0) 07/15/22 06:30 AST 16 U/L (13-39) 07/15/22 06:30 ALT 18 U/L (7-52) 07/15/22 06:30 Alkaline Phosphatase 65 U/L (34-104) 07/15/22 06:30 Total Creatine Kinase Cancelled 07/14/22 14:18 Total Protein 6.0 gm/dl (6.0-8.3) 07/15/22 06:30 Albumin 3.3 gm/dl (3.4-5.0) L 07/15/22 06:30 Globulin 2.7 gm/dl (2.5-4.0) 07/15/22 06:30 Albumin/Globulin Ratio 1.2 (0.9-2) 07/15/22 06:30 Triglycerides 183 mg/dl (0-150) H 07/14/22 07:18 Cholesterol 166 mg/dl (0-200) 07/14/22 07:18 LDL Cholesterol, Calc 94 mg/dl 07/14/22 07:18 VLDL Cholesterol, Calc 37 mg/dl (0-30) H 07/14/22 07:18 HDL Cholesterol 35 mg/dl 07/14/22 07:18 Cholesterol/HDL Ratio 4.7 (0-5) 07/14/22 07:18 Lipase 66 U/L (11-82) 07/15/22 06:30 HCG, Qual Negative (Negative) 07/13/22 15:10 Urine Color Yellow 07/13/22 Unknown Urine Appearance Clear (Clear) 07/13/22 Unknown Urine pH 7.0 (4.5-7.5) 07/13/22 Unknown Ur Specific [place] 1.011 (1.000-1.030) 07/13/22 Unknown Urine Protein Negative (Negative) 07/13/22 Unknown Urine Glucose (UA) Negative (Negative) 07/13/22 Unknown Urine Ketones Negative (Negative) 07/13/22 Unknown Urine Blood 1+ (Negative) H 07/13/22 Unknown Urine Nitrite Negative (Negative) 07/13/22 Unknown Urine Bilirubin Negative (Negative) 07/13/22 Unknown Urine Urobilinogen Negative (Negative) 07/13/22 Unknown Ur Leukocyte Esterase Trace (Negative) H 07/13/22 Unknown Urine WBC (Auto) 1-5 /hpf (0-5) 07/13/22 Unknown Urine RBC (Auto) 0-4 /hpf (0-4) 07/13/22 Unknown U Hyaline Cast (Auto) 1-5 /lpf (0-5) 07/13/22 Unknown U Epithel Cells (Auto) 10-20 /lpf (0-5) H 07/13/22 Unknown Urine Bacteria (Auto) Negative (Negative) 07/13/22 Unknown SARS-CoV-2, RNA, NAAT NEGATIVE (NEGATIVE) 07/13/22 Unknown Impressions Abdomen/Pelvis CT 07/14/22 16:44 Exam(s): CT ABDOMEN + PELVIS With Contrast IV Amt: 84ml EXAM: CT Abdomen and Pelvis With Intravenous Contrast CLINICAL HISTORY: Reason for exam: llq pain EVAL FOR DIVERTICULITIS. TECHNIQUE: Axial computed tomography images of the abdomen and pelvis with intravenous contrast. CTDI is 14.14 mGy and DLP is 814.32 mGy-cm. Automated exposure control was utilized for the study. A dose lowering technique was utilized adhering to the principles of ALARA. CONTRAST: Patient received 84ml of IV contrast COMPARISON: CT abdomen and pelvis 07/12/22 FINDINGS: There is subsegmental atelectasis in the left lower lobe. Lung bases are otherwise clear. Again demonstrated are changes of acute pancreatitis with peripancreatic fat stranding and fluid. Calcifications are noted in the distal pancreatic duct with upstream ductal dilatation. There is a 1.5 cm pseudocyst inferior to the pancreatic tail (series 2, image 33). There is a stable left upper quadrant omental pseudocyst measuring 3.3 cm (series 2, image 37). 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 There are persistent inflammatory changes in the left upper quadrant with peritoneal thickening and prominent peripancreatic lymph nodes. Gallbladder surgically absent. There is no biliary dilatation. Spleen remains enlarged. Right adrenal gland is normal. There is a stable left adrenal mass. Left kidney perinephric stranding is unchanged, and likely related to adjacent pancreatitis. There is a stable simple cortical cyst in left kidney. Both kidneys enhance symmetrically. There is no hydronephrosis. There is no aortic aneurysm. Oral contrast has been administered. There is no bowel obstruction. There is sigmoid diverticulosis without acute diverticulitis. There is persistent circumferential wall thickening at the hepatic flexure of the colon. Ascites tracks into the pelvis. There is no free air. Uterus and urinary bladder are unremarkable. There is no acute osseous abnormality. IMPRESSION: 1. Persistent findings of acute pancreatitis, as detailed above, associated with multiple pseudocysts and left upper quadrant inflammatory changes. 2. Again seen is wall thickening at the splenic flexure of the colon, which may be reactive to pancreatitis, but segmental colitis is not excluded. 3. Stable left adrenal mass. 4. No diverticulitis. 5. This is associated with a stable 2.3 cm pseudocyst inferior to the pancreatic tail due to 0.6 cm, Electronically signed by: Rohan Abrams M.D. 07/14/22 20:04 PM PG Care Time/CCT Total # of Minutes Spent Total Time Spent with Patient: Total time spent is greater than 50% in coordination of care (as documented) at patient's floor/unit and/or counseling patient: Coding Level of Care Code 53373 IN/OBS CONSULT LVL 3,45M Diagnoses Left lower quadrant pain R10.32 Acute pancreatitis K85.90
[2022-07-15] MEDS ORDERED: oxyCODONE HCL IR 5 MG TAB (IMMEDIATE RELEASE) PO PRN (10:04)
--- NOTE | 2022-07-15 10:45 | Discharge Summary ---
Date of Service July 15, 2022 Admission HPI Per Admitting Provider Cece Colin is a 32 year old female who presents to the ER with abdominal pain. She reports her current abdominal pain which has been diagnosed as pancreatitis has been ongoing for the last 3 weeks. She was seen in the ER as recently as yesterday with CT concerning for acute pancreatitis and given the option of admission. She declined and tried to treat this at home but has been unable to tolerate any liquids despite using oral ondansetron therefore returned to the ER on advice of her [facility] buckle sewer machine. She has had multiple prior episodes of pancreatitis which have been labelled as idiopathic with multiple prior ERCPs. She is currently undergoing workup at [facility] but has only been seen there once. She has a planned secretin-enhanced MRCP for this July. She is not interested in seeing GI here as she has had multiple unremarkable ERCPs in the past. Therefore I asked the ER provider to discuss with her buckle sewer machine at [facility] to consider transfer given ongoing inflammation for several weeks now and pancreatic ductal calculi seen on CT (although these have also previously been seen on imaging with normal ERCP) however they recommended conservative management here currently. In the ER no further imaging was performed, however CT from yesterday consistent with acute pancreatitis. Lipase actually improving at 168. LFTs unremarkable. She was referred to medicine for admission and ongoing management of pancreatitis. Admission Exam Per Admitting Provider Constitutional: WD/WN, vitals as above no acute distress Respiratory: normal respiratory effort, lungs clear to auscultation Cardiovascular: RRR, no murmur, no edema Gastrointestinal (Abdomen): Inspection/Auscultation: abdomen normal to inspection; abdomen not distended Percussion/Palpation: + abdomen tender (epigastric and LUQ) and abdomen soft; no guarding and abdomen not rigid Musculoskeletal: no cyanosis or clubbing, extremities motor strength 5/5 Skin: no rashes, warm and dry Neurologic: moves all extremities and awake; not confused Psychiatric: A+Ox3, euthymic affect Principal Diagnosis Pancreatitis, LLQ pain Discharge Exam General: WD/WN female sitting in bed, eating [place] ice, no pain at present, NADfort HEENT: head normocephalic atraumatic, mmm, trachea midline without deviation Resp: CTAB, no w/c/r, on room air CV: RRR, no m/r/g, no pitting edema GI: +BS, abdomen soft, epigastric tenderness only to deep palpation (but really none compared to day prior), no rebound/guarding or rigidity : no dewey, no CVA tenderness bilaterally MSK/Neuro: no focal deficits, follows commands Psych: AOx3, cooperative with exam Discharge Data Allergies Allergy/AdvReac Type Severity Reaction Status Date / Time adhesive Allergy Mild RASH Verified 07/13/22 16:06 nickel Allergy Mild RASH Verified 07/13/22 16:06 morphine AdvReac Severe Body fells Verified 07/13/22 16:06 like it is on fire Consultations 07/13/22 19:17 ED Decision to Admit Stat 07/14/22 14:21 Consult Gastroenterology Routine Ordered Studies Abdomen/Pelvis CT 07/14/22 16:44 Exam(s): CT ABDOMEN + PELVIS With Contrast IV Amt: 84ml EXAM: CT Abdomen and Pelvis With Intravenous Contrast CLINICAL HISTORY: Reason for exam: llq pain EVAL FOR DIVERTICULITIS. TECHNIQUE: Axial computed tomography images of the abdomen and pelvis with intravenous contrast. CTDI is 14.14 mGy and DLP is 814.32 mGy-cm. Automated exposure control was utilized for the study. A dose lowering technique was utilized adhering to the principles of ALARA. CONTRAST: Patient received 84ml of IV contrast COMPARISON: CT abdomen and pelvis 07/12/22 FINDINGS: There is subsegmental atelectasis in the left lower lobe. Lung bases are otherwise clear. Again demonstrated are changes of acute pancreatitis with peripancreatic fat stranding and fluid. Calcifications are noted in the distal pancreatic duct with upstream ductal dilatation. There is a 1.5 cm pseudocyst inferior to the pancreatic tail (series 2, image 33). There is a stable left upper quadrant omental pseudocyst measuring 3.3 cm (series 2, image 37). 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 There are persistent inflammatory changes in the left upper quadrant with peritoneal thickening and prominent peripancreatic lymph nodes. Gallbladder surgically absent. There is no biliary dilatation. Spleen remains enlarged. Right adrenal gland is normal. There is a stable left adrenal mass. Left kidney perinephric stranding is unchanged, and likely related to adjacent pancreatitis. There is a stable simple cortical cyst in left kidney. Both kidneys enhance symmetrically. There is no hydronephrosis. There is no aortic aneurysm. Oral contrast has been administered. There is no bowel obstruction. There is sigmoid diverticulosis without acute diverticulitis. There is persistent circumferential wall thickening at the hepatic flexure of the colon. Ascites tracks into the pelvis. There is no free air. Uterus and urinary bladder are unremarkable. There is no acute osseous abnormality. IMPRESSION: 1. Persistent findings of acute pancreatitis, as detailed above, associated with multiple pseudocysts and left upper quadrant inflammatory changes. 2. Again seen is wall thickening at the splenic flexure of the colon, which may be reactive to pancreatitis, but segmental colitis is not excluded. 3. Stable left adrenal mass. 4. No diverticulitis. 5. This is associated with a stable 2.3 cm pseudocyst inferior to the pancreatic tail due to 0.6 cm, Electronically signed by: Rohan Abrams M.D. 07/14/22 20:04 PM Hospital Course (1) Left lower quadrant pain: admitted for suspected acute on chronic pancreatitis based on prior imaging 07/12 After discussion w/ patient, she reports no hx IBD/crohns/colitis but chronic iron deficiency and on supplementation which causes dark stools but also some bright red blood on occasion w/ straining. She notes she had been in ER w reports LLQ pain, initially thought to be her period which was over the weekend and ended start of this week but progression of pain LLQ, loose stools. Possible improvement after BM She reports she has had hx diverticulitis tx conservatively with oral abx and no need for hospitalization, but also never had c-scope in past Supportive care/IVF/pain meds/antiemetics prn Ordered stool studies/cdiff for completeness but no further BM and abd pain resolved given colitis on prior imaging and decision to repeat CTAP w/ oral/IV contrast for further eval Discussed CTAP findings on repeat given her complaints of LLQ/LUQ pain 07/14 with GI AM 07/14 (consulted -- see note, appreciate assistance), felt thickened bowel reactive from pancreatitis/reactive Changed to NPO initially given pain 07/14, resolved in AM/lipase normalized and symptoms resolved Discussed w/ GI and ok'd to continue Creon TID at d/c - rx sent. To continue f/u for secretin testing w/ her prior Dr Pisano, and they will arrange for outpatient c-scope for further evaluation. Denied any hx IBD/crohns/colitis but stools difficult to determine any bleeding as on chronic iron therapy. (Of note, patient w/ prior +TATYANA/HLA-B27 testing. ?underlying malignancy ) Tolerating diet and stable/wanting to be discharged (of note, declined me calling about transfer in day prior) Of note, will need f/u for adrenal adenoma and other findings on CTAP (chronic splenic occlusion, no AC per GI) (2) Acute pancreatitis: Acute recurrent pancreatitis likely leading into chronic pancreatitis hence lack of increased lipase. ER Provider discussed with her buckle sewer machine at [facility] and plan is to manage conservatively here currently. Consider transfer if not improving as patient does not wish to have any more procedures performed here. Recommend discussing chronic splenic occlusion with her buckle sewer machine tomorrow (she DECLINED TO OFFER ANY INPUT AND STATED INAPPROPRIATE CALL) but given chronicity just placed on VTE Prophylaxis currently as this is not acute and doubtful this is causing her the abdominal pain. 2L IV fluids given in the ER, will give another 1L LR @ 150ml/hr then 3L @ 125ml/hr Pain meds/antiemetics prn Lipids actually w/ improvement in TRG from prior, no significant elevation to suggest contributing (?If related to anti-psychotic medication -- on lumaterperone which can cause increased lipid/cholesterol/TRG for metabolic side effects along w/ hyperglycemia Of note, patient states she recently started this medication about 2 weeks ago -- no clear evidence for this causing issues, but certainly possible) Made NPO 07/14, pain resolved Creon initiated, continue at d/c Lipase normalized on repeat Avoid ALL ALCOHOL IN MEANTIME RECOMMENDED (stated 1 wine cooler about [id number]) F/u outpatient specialist as well as GI (3) Hypertriglyceridemia: Not suspected to be cause of pancreatitis per prior GI notes given levels < 500 but will repeat levels given pancreatitis/psych medications to see if worsened - -> levels actually improved on repeat (4) Gastritis: Continue pantoprazole 40mg PO BID ?consider adding carafate if needed but defer to GI -- no recs for such, no issues at present (5) Chronic thrombosis of splenic vein: Consider full dose anticoagulation but given non acute deferred to discussing with her buckle sewer machine tomorrow -- no recs and not appropriate to call Dr Pisano per conversation as she spoke w/ ER doc last evening and if needing consideration to transfer would rec calling med operations scheduler Patient symptoms resolved w/ above and declined me calling tertiary care, wanted to d/c and stable/tolerating oral intake Discussed w/ GI today and no need for AC for chronic thrombosis given collaterals, can f/u outpt (6) Anemia: reports chronic anemia, on iron daily, ?2nd to her period, vs underlying IBD iron studies checked -- iron low 27, trans % sat 13, ferritin 116 --> ordered dose Venofer IV x 2 while inpatient and can continue oral supplementation at d/c (7) Adrenal adenoma: on CTAP -- will need outpt f/u for continued monitoring/referral if needed as could be contributing Plan VTE Prophylaxis - Lovenox 40mg SQ daily while inpatient Patient wanting to go home, pain resolved. Tolerated advancement to low fat diet and continue at d/c Rx for Creon, avoid any etoh F/u GI outpatient for c-scope as well as her secretin testing for "idiopathic pancreatitis" Total Time Total Time Spent Total Time Spent (In Minutes): 60 Discharge Plan Discharge Items Patient Disposition: Home - Self-Care Reason For Visit: ACUTE ON CHRONIC PANCREATITIS Discharge Diagnosis: Abdominal Pain, Pancreatitis Goals: You have been hospitalized for an acute medical problem. During your stay at [facility], we have made an effort to correct the problem that brought you to the hospital while keeping you as comfortable as possible. Medications were used to bring your condition under control and your discharge instructions will include directions for any medications you should take after leaving the hospital. Please make sure you see your Primary Care Provider as part of your follow up plan. Activity: As commented below Non-emergency contact: Primary Care Provider, Specialist and Software Applications Engineer Call non-emergency contact if: you have any medication questions, your pain is not controlled and you have a fever Follow-up/Referrals: Tawanda Jackson DO [Physician] - 07/22/22 1:00 pm (Follow up scheduled on 07/22 @ 1pm) Stefanie Crowder MD [Primary Care Provider] - 07/21/22 1:30 pm (Follow up on 07/21 @ 1:30) Diet: Low Fat Addtl Attending Provider Instructions: You have been hospitalized for abdominal pain. Imaging showed acute inflammation of pancreas as well as bowel wall thickening, which per discussion with Pari WINN, this was felt reactive from the pancreatitis and recommended low fat diet at discharge. They will set you up with outpatient colonoscopy as discussed. We have started Creon which will help with pancreas and symptoms. You sould take this with meals, three times daily. You should have your follow up with Dr Pisano for imaging already arranged for further evaluation. Please follow up with PCP in the next 7-10 days to monitor your progress. You did have an adrenal adenoma on imaging which will require follow up with [facility] for monitoring. You also had evidence of a chronic occlusion to splenic vein but shows collaterals. Anticoagulation was deferred at discharge given anemia and can be followed up outpatient if increased pain issues you may require anticoagulation. Please return to the Er with any worsening pain, fever, inability to keep up with oral intake, or for any other symptoms concerning for you. Avoid all alcohol in the meantime to prevent worsening pancreatitis. It has been a pleasure being a part of the medical team providing for you while you have been in the hospital. Pending Studies at Discharge: No Stand-Alone Forms: [facility] DGIT, Smoking Cessation Medications and DC Order Prescriptions: New Creon 36,000-114,000- 180,000 unit Capsule,Delayed Release(Dr/Ec) 2 cap PO TID Qty: 180 0RF Continued ferrous sulfate 325 mg (65 mg iron) tablet 325 mg PO DAILY Qty: 60 8RF cholecalciferol (vitamin D3) 50 mcg (2,000 unit) capsule 50 mcg PO BID Qty: 30 8RF cyanocobalamin (vitamin B-12) 2,500 mcg tablet, sublingual 2,500 mcg sublingual DAILY Qty: 30 8RF Caplyta 42 mg capsule 42 mg PO HS pantoprazole 40 mg tablet,delayed release (DR/EC) 40 mg PO BID Qty: 60 1RF ondansetron 4 mg tablet,disintegrating 4 mg PO Q8H PRN (Reason: nausea and vomiting) Qty: 30 1RF amitriptyline 25 mg tablet 50 mg PO HS oxycodone 5 mg tablet 5 - 10 mg PO Q6H PRN (Reason: pain) Qty: 15 0RF Rx Instructions: Initial Treatment baclofen 10 mg tablet 10 mg PO QPM Rx Instructions: QPM diclofenac sodium [Voltaren Arthritis Pain] 1 % gel 2 g EXT QID PRN (Reason: Pain) Rx Instructions: apply to abdomen four times a day Emgality Pen 120 mg/mL pen injector 120 mg subcut MONTHLY Rx Instructions: DUE 07/14/22 Discharge Orders: Discharge Order (Routine); Ordered 07/15/22 Ordered By: Vicki Reynoos Admission Data Admit Date/Time: 07/13/22 19:41 Attending Provider: Holden Jeong Admit Provider: Cristofer Dumont Primary Care Provider: Stefanie Crowder Other Providers: Ema Pisano ; Cristofer Dumont ; Tawanda Jackson Other Interventions: Discharge Summary Assessment (RN) Last Done: 07/15/22 12:23 Supervising Physician Co-Signing Physician Notes The patient was seen by me. The chart was reviewed. Case discussed with ADRIAN Ortiz. Agree with assessment and plan Coding Level of Care Code 84044 INP/OBS DISCH >30 MIN Diagnoses Left lower quadrant pain R10.32 Acute pancreatitis K85.90 Hypertriglyceridemia E78.1 Gastritis K29.70 Chronic thrombosis of splenic vein I82.891 Anemia D64.9 Adrenal adenoma D35.00
[2022-07-15] MEDS ORDERED: IRON SUCROSE 300 MG in SODIUM CHLORIDE 0.9% 250 ML IV ONE (11:15)
== END 2022-07-15 13:42 | disposition home or self-care (01) ==
LOC: 3N 13:43 → ED 13:43 → SUATTDRO 19:41 → 3N 21:13